=== PATIENT | female | born 1950 | race Caucasian/White ===

== ENCOUNTER 2017-04-04 11:12 | Emergency (ER) | payer MEDICARE, MEDICAID ==
[2017-04-04] MEDS ORDERED: Aspirin Low Dose CHEW TAB* 81 MG PO ONE (11:36)
[2017-04-04 12:05] LABS: Hematocrit 43 % (35-47); Hemoglobin 13.9 g/dl (12.0-16.0); Mean Corpuscular HGB Conc 33 g/dl (31-36); Mean Corpuscular Hemoglobin 27 pg (27-31); Mean Corpuscular Volume 81 fL (80-97); Mean Platelet Volume 8 um3 (7.4-10.4); Red Blood Count 5.25 10^6/ul (4.0-5.4); Red Cell Distribution Width 15 % (10.5-15); White Blood Count 9.6 10^3/ul (3.5-10.8)
[2017-04-04 12:22] LABS: Albumin 4.1 g/dL (3.2-5.2); BUN/Creatinine Ratio 13.6 (8-20); Calcium 9.6 mg/dL (8.6-10.3); EGFR African American 68.5 (>60); EGFR Non-African American 53.3 (>60); Globulin 3.2 g/dL (2-4); Potassium 3.2 mmol/L (3.5-5.0); Total Bilirubin 0.5 mg/dL (0.2-1.0); Total Protein 7.3 g/dL (6.4-8.9)
[2017-04-04 13:11] VITALS: BP 119/69
--- NOTE | 2017-04-04 14:08 | RAD ---
Indication: Chest pain. Single frontal view of the chest performed at 1155 hours was reviewed. Comparison is made with previous exam dated July 24, 2016. No mediastinal shift is noted. Elevated right hemidiaphragm is noted. Lung schaefer appear clear. IMPRESSION: NO ACTIVE CARDIOPULMONARY DISEASE IS NOTED.
--- NOTE | 2017-04-04 18:32 | ED ---
Taylor Bustos Alfonso, scribed for Ricardo Bhatt MD on 04/04/17 at 1201 . HPI Chest Pain - HPI Summary HPI Summary: The patient is a 67 y.o F presenting to [facility] for chest pain since a few hours ago. The pain feels like a fist in his chest. It radiates to his shoulder blades. Symptoms reported include dark stool, rhinorrhea, SOB, diaphoresis, and green phlegm. Aggravated and alleviated by nothing. PMHx of CP, HTN, and fibromyalgia. No PMHx of cardiomegaly. - History of Current Complaint Chief Complaint: EDChestWallPain Time Seen by Provider: 04/04/17 11:53 Hx Obtained From: Patient Onset/Duration: Started Hours Ago, Still Present Timing: Constant, Lasting Hours Initial Severity: Mild Current Severity: Moderate Pain Intensity: 5 Chest Pain Location: Diffuse Chest Pain Radiates To:: Shoulder - Both Aggravating Factor(s): Nothing Alleviating Factor(s): Nothing Associated Signs and Symptoms: Positive: Chest Pain, Shortness of Breath, Diaphoresis, Other: - Melena, Rhinorrhea, green phlegm - Additional Pertinent History Primary Care Physician: [id number] - Allergy/Home Medications Allergies/Adverse Reactions: Allergies Allergy/AdvReac Type Severity Reaction Status Date / Time Ampicillin Allergy Severe See Comment Verified 08/19/16 10:31 Lactose Intolerance (GI) Allergy GI Upset Verified 08/19/16 10:31 Morphine AdvReac Severe SEVERE Verified 08/19/16 10:31 DROP IN HEART RATE Gabapentin AdvReac Intermediate See Comment Verified 08/19/16 10:31 Olanzapine [From Zyprexa] AdvReac See Comment Verified 08/19/16 10:31 Pravastatin AdvReac Muscle Ache Verified 08/19/16 10:31 Procaine [From Novocain] AdvReac See Comment Verified 08/19/16 10:31 Sertraline [From Zoloft] AdvReac Unknown Verified 08/19/16 10:31 Reaction Details viibryd AdvReac See Comment Uncoded 08/19/16 10:31 PMH/Surg Hx/FS Hx/Imm Hx Endocrine/Hematology History: Denies: Hx Anticoagulant Therapy, Hx Blood Disorders, Hx Blood Transfusions, Hx Bone Marrow Disease, Hx Diabetes, Hx Systemic Lupus Erythematosus, Hx Sickle Cell Disease, Hx Thyroid Disease, Hx Anemia, Hx Unexplained Bleeding, Other Endocrine/Hematological Disorders Cardiovascular History: Reports: Hx Hypercholesterolemia, Hx Hypertension - ON MED, Hx Myocardial Infarction, Other Cardiovascular Problems/Disorders - CARRIES NITRO FOR CHEST PAIN Denies: Hx Aneurysm, Hx Angina, Hx Angioplasty, Hx Auto Implanted Cardiovert Defib, Hx Cardiac Arrest, Hx Cardiomegaly, Hx Congenital Heart Disease, Hx Congestive Heart Failure, Hx Coronary Artery Disease, Hx Deep Vein Thrombosis, Hx Hypotension, Hx Pacemaker/ICD, Hx Peripheral Vascular Disease, Hx Rheumatic Fever, Hx Syncope, Hx Valvular Heart Disease Respiratory History: Reports: Hx Asthma - PRN INHALER, STATES BROUGHT ON BY ANXIETY Denies: Hx Bronchopulmonary Dysplasia, Hx Chronic Bronchitis, Hx Chronic Obstructive Pulmonary Disease (COPD), Hx Cystic Fibrosis, Hx Lung Cancer, Hx Pleural Effusion, Hx Pneumonia, Hx Pulmonary Edema, Hx Pulmonary Embolism, Hx Seasonal Allergies, Hx Sleep Apnea, Other Respiratory Problems/Disorders GI History: Reports: Hx Gastroesophageal Reflux Disease - ON MED, Hx Irritable Bowel - DIARRHEA AT TIMES-LACTOSE INTOLERANT, Other GI Disorders - GALLBLADDER POLYPS/STONES, FATTY LVER Denies: Hx Cirrhosis, Hx Crohn's Disease, Hx Diverticulosis, Hx Gall Bladder Disease, Hx Gastrointestinal Bleed, Hx Hiatal Hernia, Hx Jaundice, Hx Obstructive Bowel, Hx Ileostomy, Hx Pyloric Stenosis, Hx Ulcer History: Reports: Other Problems/Disorders - 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 NOW Denies: Hx Acute Renal Failure, Hx Benign Prostatic Hyperplasia, Hx Chronic Renal Failure, Hx Dialysis, Hx Kidney Infection, Hx Kidney Stones Musculoskeletal History: Reports: Hx Arthritis, Hx Fibromyalgia, Other Musculoskeletal History - MILD CURVATURE OF SPINE Denies: Hx Back Problems, Hx Bursitis, Hx Congenital Bone Abnormalities, Hx Gout, Hx Orthopedic Injury, Hx Osteoporosis, Hx Scoliosis, Hx Tendonitis Sensory History: Reports: Hx Cataracts - BILAT, Hx Contacts or Glasses - GLASSES Denies: Hx Eye Injury, Hx Eye Prosthesis, Hx Glaucoma, Hx Macular Degeneration, Hx Vision Problem, Hx Deafness, Hx Hearing Aid, Hx Hearing Problem , Other Sensory Impairments Opthamlomology History: Reports: Hx Cataracts - BILAT, Hx Contacts or Glasses - GLASSES Denies: Hx Eye Injury, Hx Eye Prosthesis, Hx Glaucoma, Hx Macular Degeneration, Hx Vision Problem, Other Sensory Impairments Neurological History: Reports: Hx Headaches - AT TIMES, Hx Nerve Disease - FIBROMYALGIA Denies: Hx Dementia, Hx Developmental Delay, Hx Migraine, Hx Seizures, Hx Spinal Cord Injury, Hx Transient Ischemic Attacks (TIA), Other Neuro Impairments /Disorders Psychiatric History: Reports: Hx Anxiety - ON MED, Hx Depression Denies: Hx Attention Deficit Hyperactivity Disorder, Hx Autism, Hx Eating Disorder, Hx Oppositional Miner Disorder, Hx Panic Disorder, Hx Post Traumatic Stress Disorder, Hx Inpatient Treatment, Hx Community Mental Health Tx , Hx Schizophrenia, Hx Bipolar Disorder, Hx Suicide Attempt, Other Psychiatric Issues/Disorders - Cancer History Hx Hematologic Symptoms: No Hx Chemotherapy: No Hx Radiation Therapy: No - Surgical History Surgery Procedure, Year, and Place: HYSTERECTOMY. CARPAL TUNNEL X2. D&C X3. CARDIAC CATH. tubal ligation prior to hysterectomy. 07/2016 RIGHT CATARACT EXTRACTION WITH IOL IMPLANT, [facility] Hx Anesthesia Reactions: No Infectious Disease History: No Infectious Disease History: Reports: Hx Hepatitis - as a child, Hx Shingles - years ago per pt, History Other Infectious Disease - ? HEPATITIS A CHILD Denies: Traveled Outside the [place] in Last 30 Days - Family History Known Family History: Positive: Cardiac Disease - sister, Diabetes Family History: sister - unspecified cardiac dz. Father - CHF - Social History Alcohol Use: None Hx Substance Use: No Substance Use Type: Reports: None Hx Tobacco Use: No Smoking Status (MU): Never Smoked Tobacco Have You Smoked in the Last Year: No Review of Systems Positive: Skin Diaphoresis Positive: Other - Green phlegm Positive: Chest Pain Positive: Shortness Of Breath Positive: other - Melena, rhinorrhea, All Other Systems Reviewed And Are Negative: Yes Physical Exam - Summary Physical Exam Summary: The patient has a flat affect. NAC The skin is warm and dry and skin color reflects adequate perfusion. HEENT: The head is normocephalic and atraumatic. The pupils are equal and reactive. The conjunctivae are clear and without drainage. Nares are patent and without drainage. Mouth reveals moist mucous membranes and the throat is without erythema and exudate. The external ears are intact. The ear canals are patent and without drainage. The tympanic membranes are intact. Neck is supple with full range of motion and non-tender. There are no carotid bruits. There is no neck vein distension. Respiratory: Chest is non-tender. Lungs are clear to auscultation and breath sounds are symmetrical and equal. Cardiovascular: Hear is regular rate and rhythm. There is no murmur or rub auscultated. There is no peripheral edema and pulses are symmetrical and equal. Abdomen: There is reproducible CP. Diffused abdominal tenderness. Musculoskeletal: There is no back pain noted. Extremities are non-tender with full range of motion. There is good capillary refill. There is no peripheral edema or calf tenderness elicited. No calf tenderness in bilateral extremities. Neurological: Patient is alert and oriented to person, place and time. The patient has symmetrical motor strength in all four extremities. Cranial nerves are grossly intact. Deep tendon reflexes are symmetrical and equal in all four extremities. Psychiatric: The patient has an appropriate affect and does not exhibit any anxiety or depression. Triage Information Reviewed: Yes Vital Signs On Initial Exam: Initial Vitals Resp 11 04/04/17 11:28 Vital Signs Reviewed: Yes - [place] Coma Scale Coma Scale Total: 15 Diagnostics - Vital Signs Vital Signs Temp Pulse Resp BP Pulse Ox 04/04/17 11:30 98 F 75 17 117/71 93 04/04/17 11:28 11 - Laboratory Lab Results: Lab Results 04/04/17 04/04/17 04/04/17 Range/Units 12:00 12:00 12:00 WBC 9.6 (3.5-10.8) 10^3/ul RBC 5.25 (4.0-5.4) 10^6/ul Hgb 13.9 (12.0-16.0) g/dl Hct 43 (35-47) % MCV 81 (80-97) fL MCH 27 (27-31) pg MCHC 33 (31-36) g/dl RDW 15 (10.5-15) % Plt Count 276 (150-450) 10^3/ul MPV 8 (7.4-10.4) um3 Neut % (Auto) 75.6 (38-83) % Lymph % (Auto) 15.4 L (25-47) % [place] % (Auto) 6.5 (1-9) % Eos % (Auto) 2.3 (0-6) % Baso % (Auto) 0.2 (0-2) % Absolute Neuts (auto) 7.2 (1.5-7.7) 10^3/ul Absolute Lymphs (auto) 1.5 (1.0-4.8) 10^3/ul Absolute Monos (auto) 0.6 (0-0.8) 10^3/ul Absolute Eos (auto) 0.2 (0-0.6) 10^3/ul Absolute Basos (auto) 0 (0-0.2) 10^3/ul Absolute Nucleated RBC 0 10^3/ul Nucleated RBC % 0 Sodium 140 (133-145) mmol/L Potassium 3.2 L (3.5-5.0) mmol/L Chloride 105 (101-111) mmol/L Carbon Dioxide 27 (22-32) mmol/L Anion Gap 8 (2-11) mmol/L BUN 14 (6-24) mg/dL Creatinine 1.03 H (0.51-0.95) mg/dL Est GFR ( Amer) 68.5 (>60) Est GFR (Non-Af Amer) 53.3 (>60) BUN/Creatinine Ratio 13.6 (8-20) Glucose 90 (70-100) mg/dL Lactic Acid 1.2 (0.5-2.0) mmol/L Calcium 9.6 (8.6-10.3) mg/dL Total Bilirubin 0.50 (0.2-1.0) mg/dL AST 14 (13-39) U/L ALT 9 (7-52) U/L Alkaline Phosphatase 102 (34-104) U/L Troponin I 0.00 (<0.04) ng/mL B-Natriuretic Peptide ( - 100) pg/mL Total Protein 7.3 (6.4-8.9) g/dL Albumin 4.1 (3.2-5.2) g/dL Globulin 3.2 (2-4) g/dL Albumin/Globulin Ratio 1.3 (1-3) // Range/Units 12:00 WBC (3.5-10.8) 10^3/ul RBC (4.0-5.4) 10^6/ul Hgb (12.0-16.0) g/dl Hct (35-47) % MCV (80-97) fL MCH (27-31) pg MCHC (31-36) g/dl RDW (10.5-15) % Plt Count (150-450) 10^3/ul MPV (7.4-10.4) um3 Neut % (Auto) (38-83) % Lymph % (Auto) (25-47) % [place] % (Auto) (1-9) % Eos % (Auto) (0-6) % Baso % (Auto) (0-2) % Absolute Neuts (auto) (1.5-7.7) 10^3/ul Absolute Lymphs (auto) (1.0-4.8) 10^3/ul Absolute Monos (auto) (0-0.8) 10^3/ul Absolute Eos (auto) (0-0.6) 10^3/ul Absolute Basos (auto) (0-0.2) 10^3/ul Absolute Nucleated RBC 10^3/ul Nucleated RBC % Sodium (133-145) mmol/L Potassium (3.5-5.0) mmol/L Chloride (101-111) mmol/L Carbon Dioxide (22-32) mmol/L Anion Gap (2-11) mmol/L BUN (6-24) mg/dL Creatinine (0.51-0.95) mg/dL Est GFR ( Amer) (>60) Est GFR (Non-Af Amer) (>60) BUN/Creatinine Ratio (8-20) Glucose (70-100) mg/dL Lactic Acid (0.5-2.0) mmol/L Calcium (8.6-10.3) mg/dL Total Bilirubin (0.2-1.0) mg/dL AST (13-39) U/L ALT (7-52) U/L Alkaline Phosphatase (34-104) U/L Troponin I (<0.04) ng/mL B-Natriuretic Peptide 92 ( - 100) pg/mL Total Protein (6.4-8.9) g/dL Albumin (3.2-5.2) g/dL Globulin (2-4) g/dL Albumin/Globulin Ratio (1-3) Result Diagrams: 04/04/17 12:00 04/04/17 12:00 Lab Statement: Any lab studies that have been ordered have been reviewed, and results considered in the medical decision making process. - Radiology CXR Xray Interpretation: No Acute Changes - NO ACTIVE CARDIOPULMONARY DISEASE IS NOTED. Radiology Interpretation Completed By: Radiologist - EKG 1141 EKG Rhythm: Sinus Rhythm - 76 bpm EKG Interpretation: Diffuse T wave inversion EKG Comparison: Other - Change from 07/24/2016 Chest Pain Course/Dx - Course Assessment/Plan: This 67 y/o female presents to ED for chest pain since this morning. Blood work and CXR are noted wnl except for mildly elevated creatinine of 1.03. EKG was noted with diffuse T-wave inversion, which was new change in comparison to EKG from 07/24/2017. Hospitalist, Dr. Hawkins, was consulted and accepts pt for admission and further cardiac workup. Pt however refused the admission, and decided to go home AMA. R/b/a is reviewed. - Chest Pain Differential Diagnosis/HQI/PQRI: Acute [place], ACS, CHF, Chest Wall, Lower Respiratory Infection, Other: - Diagnoses Provider Diagnoses: Chest pain - Provider Notifications Discussed Care Of Patient With: Fara Hawkins Time Discussed With Above Provider: 12:38 - Agrees to admit pt. Discharge - Discharge Plan Condition: Stable Disposition: AGAINST MEDICAL ADVICE Patient Education Materials: Chest Pain (ED) Referrals: Cornell Zarate MD [Primary Care Provider] - 2 Days Additional Instructions: Take aspirin and visit primary care provider. The documentation as recorded by the Taylor luna Alfonso accurately reflects the service I personally performed and the decisions made by , Ricardo Bhatt MD.
== END 2017-04-04 13:00 | disposition left against medical advice (07) ==
LOC: ED 11:12
DX: R07.9 Chest pain, unspecified (principal); R06.02 Shortness of breath; R61 Generalized hyperhidrosis; Z53.21 Procedure and treatment not carried out due to patient leaving prior to being seen by health care provider
CPT/HCPCS: 36415; 71010; 80053; 83605; 83880; 84484; 85025; 93005; 99283

== ENCOUNTER 2017-05-08 17:32 | Observation (INO) | payer MEDICARE, MEDICAID ==
[2017-05-08 17:59] LABS: Hematocrit 40 % (35-47); Hemoglobin 12.8 g/dl (12.0-16.0); Mean Corpuscular HGB Conc 32 g/dl (31-36); Mean Corpuscular Hemoglobin 27 pg (27-31); Mean Corpuscular Volume 84 fL (80-97); Mean Platelet Volume 8 um3 (7.4-10.4); Red Blood Count 4.74 10^6/ul (4.0-5.4); Red Cell Distribution Width 15 % (10.5-15); White Blood Count 7.7 10^3/ul (3.5-10.8)
[2017-05-08 18:18] LABS: Albumin 3.9 g/dL (3.2-5.2); BUN/Creatinine Ratio 13.5 (8-20); Calcium 9.3 mg/dL (8.6-10.3); EGFR Non-African American 39.7 (>60); Potassium 4.1 mmol/L (3.5-5.0); Total Bilirubin 0.4 mg/dL (0.2-1.0); Total Protein 6.9 g/dL (6.4-8.9)
--- NOTE | 2017-05-08 18:24 | RAD ---
HISTORY: Chest pain COMPARISONS: April 04, 2017 VIEWS:1: Single frontal portable view of the chest at 6:05 PM. The patient is obliqued to the right. FINDINGS: LINES AND TUBES: None. CARDIOMEDIASTINAL SILHOUETTE: The cardiomediastinal silhouette is normal for portable technique. PLEURA: The costophrenic angles are sharp. No pleural abnormalities are noted. LUNG PARENCHYMA: The lungs are clear. ABDOMEN: The upper abdomen is clear. There is no subphrenic gas. BONES AND SOFT TISSUES: No bone or soft tissue abnormalities are noted. IMPRESSION: NO ACTIVE CARDIOPULMONARY DISEASE.
[2017-05-08] MEDS ORDERED: Ondansetron INJ* 2 MG/ML VIAL IV PRN (19:01)
[2017-05-08] MEDS ORDERED: Acetaminophen TAB* 325 MG PO PRN (19:01)
[2017-05-08] MEDS ORDERED: Nitroglycerin TAB 0.4 MG* 0.4 MG TAB SL ONE (19:03)
[2017-05-08] MEDS ORDERED: Nitroglycerin TAB 0.4 MG* 0.4 MG TAB SL PRN ×2 (19:05→19:18)
[2017-05-08] MEDS ORDERED: Loperamide CAP* 2 MG PO PRN (19:05)
[2017-05-08] MEDS ORDERED: Hydroxychloroquine TAB* 200 MG PO SCH (20:00)
[2017-05-08] MEDS: Heparin VIAL(*) 5000 UNITS/ML VIAL (FIVE THOUSAND) SUBCUT SCH (21:01)
[2017-05-08 23:33] LABS: Urine Bacteria Absent (Absent); Urine Bilirubin Negative (Negative); Urine Glucose Negative (Negative); Urine Nitrite Negative (Negative)
--- NOTE | 2017-05-09 01:19 | HP ---
CC: Dr. Zarate; Dr. Lopez * HISTORY AND PHYSICAL: DATE OF ADMISSION: 05/08/17 PRIMARY CARE PROVIDER: Dr. Zarate. CARDIOLOGY: Dr. Lopez. HEALTHCARE PROXY: Her son, Jin, and her daughter, Consuelo. CODE STATUS: DNR. Discussed with patient and her healthcare proxy, Jin. SOURCE OF INFORMATION: History obtained from interview with patient and Jin, review of past medical record. RELIABILITY: Fair. CHIEF COMPLAINT: Chest pain. HISTORY OF PRESENT ILLNESS: This is a 67-year-old female with past medical history of nonobstructive CAD and cath in 2011 as well as a low risk stress test , April 2016; however, did not meet peak heart rate at that time, was planned for a stress test this week 2 days prior to this admission; however, reports she was not feeling well and so could not attend. She additionally had chest pain on 04/04/17, was to be admitted to the hospital; however, left AMA before being admitted. Today around 4:45, approximately 3 hours prior, developed substernal chest pressure radiating to her back like a stone, constant associated with increasing nausea, although she notes she has been nauseous over the last 3 weeks. She also endorses frequent diarrhea; however, this event was associated with increased shortness of breath and lightheadedness that has now resolved. She reports 2/10 pain at this time; however, feels much improved. She says this feels the same as all past events of chest pain for which she has been monitored in the hospital. PAST MEDICAL HISTORY: Includes nonobstructive CAD, hypertension, irritable bowel syndrome, fibromyalgia, connective tissue disorder, arthritis, migraines, depression, chronic pain, history of panic with agoraphobia, hiatal hernia, hyperlipidemia, asthma, CKD, carpal tunnel release twice, hysterectomy, obesity. HOME MEDICATIONS: 1. Clonazepam 1 mg every 6 hours as needed. 2. Amlodipine 5 mg daily. 3. Triamcinolone 0.1% cream. 4. Nitroglycerin 0.4 mg sublingual as need for chest pain. 5. Naproxen 500 mg 3 times a day as needed for pain. 6. Metoprolol succinate ER 25 mg daily. 7. Imodium 2 mg twice daily as needed. 8. Plaquenil 200 mg, not currently taking. 9. Famotidine 200 mg daily. 10. Ergocalciferol 5000 units monthly. 11. Restasis 1 drop both eyes at bedtime. 12. Clobetasol 0.05% ointment topically, twice daily as needed. 13. Albuterol 2 puffs inhaled twice daily as needed. ALLERGIES: To AMPICILLIN, MORPHINE, GABAPENTIN, ZYPREXA, PRAVASTATIN, PROCAINE , ZOLOFT, , and VIIBRYD. FAMILY HISTORY: Significant for sister with CAD and diabetes, father with CVA and mother with CVA and rheumatoid arthritis. SOCIAL HISTORY: No tobacco, alcohol, or illicits. REVIEW OF SYSTEMS: As per HPI including increasing diarrhea and nausea over the last 3 weeks. Chest pain associated with shortness of breath, lightheadedness. Otherwise, all other systems negative. PHYSICAL EXAMINATION GENERAL: Sitting up in bed, interactive, no apparent distress. VITAL SIGNS: When seen by this author 125/54, heart rate 54, respiratory rate 12, T-max in the emergency room 97.7, 96% on room air. HEENT: Oropharynx clear. She has moist mucous membranes. Sclerae are anicteric. NECK: Non-elevated JVD. No cervical or supraclavicular lymphadenopathy. HEART: Regular rate and rhythm, soft 2/6 systolic ejection murmur. LUNGS: Clear bilaterally. ABDOMEN: Soft, nontender. EXTREMITIES: Warm, well-perfused. Intact pulses. SKIN: Warm. No clubbing, cyanosis or edema. NEUROLOGIC: She is alert and oriented x3. She has a flat affect with psychomotor slowing. No apparent anxiety, depression. LABORATORY DATA AND DIAGNOSTIC STUDIES: Pertinent labs were reviewed. BUN 18, creatinine 1.33, troponin-I 0.00. Data reviewed. EKG: Sinus bradycardia, T-wave flattening in V4, 5, and 6. Prolonged QTc of 486. Exercise stress test in March of 2016 failed to reach target heart rate with exercise. There was concern for chronotropic insufficiency at that time. ASSESSMENT AND PLAN: This is a 67-year-old female, past medical history of fibromyalgia, chest pain, nonobstructive coronary artery disease in 2011 and indeterminate exercise stress in March of 2016, presenting with chest pain, similar chest pain in the past. 1. Chest pain: I do not suspect acute coronary syndrome at this time; however , certainly could have progressed underlying coronary ischemia since the time of her last cath. We will admit to [facility] for observation to the CDU unit. Trend troponin for 3 until peak. Plan on transthoracic echocardiogram tomorrow. If all normal, the patient can leave. At this time, holding metoprolol given bradycardia. Nitroglycerin now for improving chest pain, continue statin. 2. Bradycardia: Holding metoprolol as indicated above. 3. History of anxiety: Continue Klonopin as needed. 4. Hypertension: Continue Norvasc. 5. Diarrhea: Appears to be chronic, continue Imodium. 6. DVT prophylaxis, heparin. 7. Code status is DNR. Discussed with patient and her healthcare proxy, Jin. [id number]/CPS #: [id number] RITA
[2017-05-09] MEDS ORDERED: NS 0.9% 1000 ML* 1,000 ML IV SCH ×2 (01:30)
[2017-05-09] MEDS: Heparin VIAL(*) 5000 UNITS/ML VIAL (FIVE THOUSAND) SUBCUT SCH (05:35)
[2017-05-09 06:15] LABS: BUN/Creatinine Ratio 16.5 (8-20); Calcium 8.6 mg/dL (8.6-10.3); EGFR African American 73.4 (>60); EGFR Non-African American 57.1 (>60); HDL Cholesterol 39.1 mg/dL; Potassium 4.1 mmol/L (3.5-5.0)
[2017-05-09] MEDS: clonazePAM TAB(*) 1 MG PO PRN ×2 (07:46→14:24)
[2017-05-09] MEDS ORDERED: Famotidine TAB* 20 MG PO SCH (09:00)
[2017-05-09] MEDS ORDERED: amLODIPine TAB* 5 MG PO SCH (09:00)
[2017-05-09] MEDS ORDERED: Aspirin EC Low Dose* 81 MG TAB.EC PO SCH (09:00)
[2017-05-09 12:18] VITALS: BP 125/55
--- NOTE | 2017-05-09 22:43 | ED ---
Shweta Bustos Thomas, scribed for Deangelo Delgado MD on 05/08/17 at 1806 . HPI Chest Pain - HPI Summary HPI Summary: The pt is a 67 y/o F presenting to the ED c/o CP that began this afternoon. The CP is rated 4/10 began when she was lying at bed and she still has CP in the ED. She states that "it hurts to breathe". PMHx: HTN, gallstones, depression, anxiety, fibromyalgia. She was scheduled for a stress test two days ago that she missed. She was here last month and was recommended to be admitted to [facility], but the pt declined AMA because of conflicts with her sister. - History of Current Complaint Chief Complaint: EDChestPainROMI Onset/Duration: Started Hours Ago - this afternoon, Still Present Current Severity: Moderate Pain Intensity: 4 Pain Scale Used: 0-10 Numeric Character: Dyspnea at Exertion Alleviating Factor(s): Nothing Associated Signs and Symptoms: Positive: Chest Pain - 4/10, Other: - POS: "it hurts to breathe" - Additional Pertinent History Primary Care Physician: [id number] - Allergy/Home Medications Allergies/Adverse Reactions: Allergies Allergy/AdvReac Type Severity Reaction Status Date / Time Ampicillin Allergy Severe See Comment Verified 08/19/16 10:31 Lactose Intolerance (GI) Allergy GI Upset Verified 08/19/16 10:31 Morphine AdvReac Severe SEVERE Verified 08/19/16 10:31 DROP IN HEART RATE Gabapentin AdvReac Intermediate See Comment Verified 08/19/16 10:31 Olanzapine [From Zyprexa] AdvReac See Comment Verified 08/19/16 10:31 Pravastatin AdvReac Muscle Ache Verified 08/19/16 10:31 Procaine [From Novocain] AdvReac See Comment Verified 08/19/16 10:31 Sertraline [From Zoloft] AdvReac Unknown Verified 08/19/16 10:31 Reaction Details viibryd AdvReac See Comment Uncoded 08/19/16 10:31 PMH/Surg Hx/FS Hx/Imm Hx Previously Healthy: No Endocrine/Hematology History: Denies: Hx Anticoagulant Therapy, Hx Blood Disorders, Hx Blood Transfusions, Hx Bone Marrow Disease, Hx Diabetes, Hx Systemic Lupus Erythematosus, Hx Sickle Cell Disease, Hx Thyroid Disease, Hx Anemia, Hx Unexplained Bleeding, Other Endocrine/Hematological Disorders Cardiovascular History: Reports: Hx Hypercholesterolemia, Hx Hypertension - ON MED, Hx Myocardial Infarction, Other Cardiovascular Problems/Disorders - CARRIES NITRO FOR CHEST PAIN Denies: Hx Aneurysm, Hx Angina, Hx Angioplasty, Hx Auto Implanted Cardiovert Defib, Hx Cardiac Arrest, Hx Cardiomegaly, Hx Congenital Heart Disease, Hx Congestive Heart Failure, Hx Coronary Artery Disease, Hx Deep Vein Thrombosis, Hx Hypotension, Hx Pacemaker/ICD, Hx Peripheral Vascular Disease, Hx Rheumatic Fever, Hx Syncope, Hx Valvular Heart Disease Respiratory History: Reports: Hx Asthma - PRN INHALER, STATES BROUGHT ON BY ANXIETY Denies: Hx Bronchopulmonary Dysplasia, Hx Chronic Bronchitis, Hx Chronic Obstructive Pulmonary Disease (COPD), Hx Cystic Fibrosis, Hx Lung Cancer, Hx Pleural Effusion, Hx Pneumonia, Hx Pulmonary Edema, Hx Pulmonary Embolism, Hx Seasonal Allergies, Hx Sleep Apnea, Other Respiratory Problems/Disorders GI History: Reports: Hx Gastroesophageal Reflux Disease - ON MED, Hx Irritable Bowel - DIARRHEA AT TIMES-LACTOSE INTOLERANT, Other GI Disorders - GALLBLADDER POLYPS/STONES, FATTY LVER Denies: Hx Cirrhosis, Hx Crohn's Disease, Hx Diverticulosis, Hx Gall Bladder Disease, Hx Gastrointestinal Bleed, Hx Hiatal Hernia, Hx Jaundice, Hx Obstructive Bowel, Hx Ileostomy, Hx Pyloric Stenosis, Hx Ulcer History: Reports: Other Problems/Disorders - 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 NOW Denies: Hx Acute Renal Failure, Hx Benign Prostatic Hyperplasia, Hx Chronic Renal Failure, Hx Dialysis, Hx Kidney Infection, Hx Kidney Stones Musculoskeletal History: Reports: Hx Arthritis, Hx Fibromyalgia, Other Musculoskeletal History - MILD CURVATURE OF SPINE Denies: Hx Back Problems, Hx Bursitis, Hx Congenital Bone Abnormalities, Hx Gout, Hx Orthopedic Injury, Hx Osteoporosis, Hx Scoliosis, Hx Tendonitis Sensory History: Reports: Hx Cataracts - BILAT, Hx Contacts or Glasses - GLASSES Denies: Hx Eye Injury, Hx Eye Prosthesis, Hx Glaucoma, Hx Macular Degeneration, Hx Vision Problem, Hx Deafness, Hx Hearing Aid, Hx Hearing Problem , Other Sensory Impairments Opthamlomology History: Reports: Hx Cataracts - BILAT, Hx Contacts or Glasses - GLASSES Denies: Hx Eye Injury, Hx Eye Prosthesis, Hx Glaucoma, Hx Macular Degeneration, Hx Vision Problem, Other Sensory Impairments Neurological History: Reports: Hx Headaches - AT TIMES, Hx Nerve Disease - FIBROMYALGIA Denies: Hx Dementia, Hx Developmental Delay, Hx Migraine, Hx Seizures, Hx Spinal Cord Injury, Hx Transient Ischemic Attacks (TIA), Other Neuro Impairments /Disorders Psychiatric History: Reports: Hx Anxiety - ON MED, Hx Depression Denies: Hx Attention Deficit Hyperactivity Disorder, Hx Autism, Hx Eating Disorder, Hx Oppositional Hinds Disorder, Hx Panic Disorder, Hx Post Traumatic Stress Disorder, Hx Inpatient Treatment, Hx Community Mental Health Tx , Hx Schizophrenia, Hx Bipolar Disorder, Hx Suicide Attempt, Other Psychiatric Issues/Disorders - Cancer History Hx Hematologic Symptoms: No Hx Chemotherapy: No Hx Radiation Therapy: No - Surgical History Surgery Procedure, Year, and Place: HYSTERECTOMY. CARPAL TUNNEL X2. D&C X3. CARDIAC CATH. tubal ligation prior to hysterectomy. 07/2016 RIGHT CATARACT EXTRACTION WITH IOL IMPLANT, [facility] Hx Anesthesia Reactions: No Infectious Disease History: No Infectious Disease History: Reports: Hx Hepatitis - as a child, Hx Shingles - years ago per pt, History Other Infectious Disease - ? HEPATITIS A CHILD Denies: Traveled Outside the [place] in Last 30 Days - Family History Known Family History: Positive: Cardiac Disease - sister, Diabetes Family History: sister - unspecified cardiac dz. Father - CHF - Social History Alcohol Use: None Hx Substance Use: No Substance Use Type: Reports: None Hx Tobacco Use: No Smoking Status (MU): Never Smoked Tobacco Have You Smoked in the Last Year: No Review of Systems Constitutional: Negative Negative: Fever, Chills Eyes: Negative Negative: Erythema - eyes ENT: Negative Negative: Sore Throat Positive: Chest Pain - 02/08 Respiratory: Other - POS: "it hurts to breathe" Gastrointestinal: Negative Negative: Abdominal Pain, Vomiting, Nausea Genitourinary: Negative Negative: dysuria, hematuria Musculoskeletal: Negative Negative: Myalgia, Edema - leg Skin: Negative Negative: Rash Neurological: Negative, Other - NEG: dizziness Psychological: Normal All Other Systems Reviewed And Are Negative: Yes Physical Exam - Summary Physical Exam Summary: Constitutional: Well-developed, Well-nourished, Alert. (-) Distressed Skin: Warm, Dry HENT: Normocephalic; Atraumatic Eyes: Conjunctiva normal Neck: Musculoskeletal ROM normal neck. (-) JVD, (-) Stridor, (-) Tracheal deviation Cardio: Rhythm regular, rate normal, Heart sounds normal; Intact distal pulses; The pedal pulses are 2+ and symmetric. Radial pulses are 2+ and symmetric. (-) Murmur Pulmonary/Chest wall: Effort normal. (-) Respiratory distress, (-) Wheezes, (-) Rales Abd: Soft, (-) Tenderness, (-) Distension, (-) Guarding, (-) Rebound Musculoskeletal: (-) Edema Lymph: (-) Cervical adenopathy Neuro: Alert, Oriented x3 Psych: Mood and affect Normal Triage Information Reviewed: Yes Vital Signs On Initial Exam: Initial Vitals Temp Pulse Resp BP Pulse Ox 97.3 F 52 14 96/56 99 05/08/17 17:38 05/08/17 17:38 05/08/17 17:38 05/08/17 17:38 05/08/17 17:38 Vital Signs Reviewed: Yes - Amrita Coma Scale Coma Scale Total: 15 Diagnostics - Vital Signs Vital Signs Temp Pulse Resp BP Pulse Ox 05/08/17 17:45 99 05/08/17 17:42 97.7 F 52 15 96/56 99 05/08/17 17:38 97.3 F 52 14 96/56 99 - Laboratory Lab Results: Lab Results 05/08/17 05/08/17 05/08/17 Range/Units 17:43 17:43 17:43 WBC 7.7 (3.5-10.8) 10^3/ul RBC 4.74 (4.0-5.4) 10^6/ul Hgb 12.8 (12.0-16.0) g/dl Hct 40 (35-47) % MCV 84 (80-97) fL MCH 27 (27-31) pg MCHC 32 (31-36) g/dl RDW 15 (10.5-15) % Plt Count 231 (150-450) 10^3/ul MPV 8 (7.4-10.4) um3 Neut % (Auto) 61.1 (38-83) % Lymph % (Auto) 30.0 (25-47) % Donley % (Auto) 6.1 (1-9) % Eos % (Auto) 1.6 (0-6) % Baso % (Auto) 1.2 (0-2) % Absolute Neuts (auto) 4.7 (1.5-7.7) 10^3/ul Absolute Lymphs (auto) 2.3 (1.0-4.8) 10^3/ul Absolute Monos (auto) 0.5 (0-0.8) 10^3/ul Absolute Eos (auto) 0.1 (0-0.6) 10^3/ul Absolute Basos (auto) 0.1 (0-0.2) 10^3/ul Absolute Nucleated RBC 0 10^3/ul Nucleated RBC % 0.1 INR (Anticoag Therapy) (0.89-1.11) APTT (26.0-36.3) seconds Sodium 139 (133-145) mmol/L Potassium 4.1 (3.5-5.0) mmol/L Chloride 110 (101-111) mmol/L Carbon Dioxide 22 (22-32) mmol/L Anion Gap 7 (2-11) mmol/L BUN 18 (6-24) mg/dL Creatinine 1.33 H (0.51-0.95) mg/dL Est GFR ( Amer) 51.0 (>60) Est GFR (Non-Af Amer) 39.7 (>60) BUN/Creatinine Ratio 13.5 (8-20) Glucose 104 H (70-100) mg/dL Lactic Acid 0.8 (0.5-2.0) mmol/L Calcium 9.3 (8.6-10.3) mg/dL Magnesium 2.0 (1.9-2.7) mg/dL Total Bilirubin 0.40 (0.2-1.0) mg/dL AST 14 (13-39) U/L ALT 9 (7-52) U/L Alkaline Phosphatase 87 (34-104) U/L Troponin I 0.00 (<0.04) ng/mL Total Protein 6.9 (6.4-8.9) g/dL Albumin 3.9 (3.2-5.2) g/dL Globulin 3.0 (2-4) g/dL Albumin/Globulin Ratio 1.3 (1-3) 05/08/17 Range/Units 17:43 WBC (3.5-10.8) 10^3/ul RBC (4.0-5.4) 10^6/ul Hgb (12.0-16.0) g/dl Hct (35-47) % MCV (80-97) fL MCH (27-31) pg MCHC (31-36) g/dl RDW (10.5-15) % Plt Count (150-450) 10^3/ul MPV (7.4-10.4) um3 Neut % (Auto) (38-83) % Lymph % (Auto) (25-47) % Donley % (Auto) (1-9) % Eos % (Auto) (0-6) % Baso % (Auto) (0-2) % Absolute Neuts (auto) (1.5-7.7) 10^3/ul Absolute Lymphs (auto) (1.0-4.8) 10^3/ul Absolute Monos (auto) (0-0.8) 10^3/ul Absolute Eos (auto) (0-0.6) 10^3/ul Absolute Basos (auto) (0-0.2) 10^3/ul Absolute Nucleated RBC 10^3/ul Nucleated RBC % INR (Anticoag Therapy) 0.94 (0.89-1.11) APTT 30.6 (26.0-36.3) seconds Sodium (133-145) mmol/L Potassium (3.5-5.0) mmol/L Chloride (101-111) mmol/L Carbon Dioxide (22-32) mmol/L Anion Gap (2-11) mmol/L BUN (6-24) mg/dL Creatinine (0.51-0.95) mg/dL Est GFR ( Amer) (>60) Est GFR (Non-Af Amer) (>60) BUN/Creatinine Ratio (8-20) Glucose (70-100) mg/dL Lactic Acid (0.5-2.0) mmol/L Calcium (8.6-10.3) mg/dL Magnesium (1.9-2.7) mg/dL Total Bilirubin (0.2-1.0) mg/dL AST (13-39) U/L ALT (7-52) U/L Alkaline Phosphatase (34-104) U/L Troponin I (<0.04) ng/mL Total Protein (6.4-8.9) g/dL Albumin (3.2-5.2) g/dL Globulin (2-4) g/dL Albumin/Globulin Ratio (1-3) Result Diagrams: 05/08/17 17:43 05/09/17 05:42 Lab Statement: Any lab studies that have been ordered have been reviewed, and results considered in the medical decision making process. - Radiology CXR Xray Interpretation: No Acute Changes - No evidence of cardiopulmonary disease Radiology Interpretation Completed By: Radiologist - EKG 18:00 Cardiac Rate: Bradycardia - 55 BPM EKG Interpretation: Sinus bradycardia. Nonspecific T abnormalities, lateral leads. No STEMI. Re-Evaluation - Re-Evaluation First Eval Re-Evaluation Time: 19:00 Change: Unchanged Chest Pain Course/Dx - Course Assessment/Plan: The pt is a 67 y/o F presenting to the ED c/o CP that began this afternoon. The CP is rated 4/10 began when she was lying at bed and she still has CP in the ED. She states that "it hurts to breathe". PMHx: HTN, gallstones, depression, anxiety, fibromyalgia. She was scheduled for a stress test two days ago. She was here last month and was recommended to be admitted to [facility], but the pt declined AMA because of conflicts with her sister. A CXR showed no evidence of cardiopulmonary disease. An EKG showed Sinus bradycardia. Nonspecific T abnormalities, lateral leads. No STEMI. Bloodwork showed creatinine 1.33, glucose 104. Pt is admitted to [facility]. - Diagnoses Provider Diagnoses: Chest pain - Provider Notifications Discussed Care Of Patient With: Will Wick Time Discussed With Above Provider: 06:20 Instructed by Provider To: Other - Made aware of patient. Discharge - Discharge Plan Condition: Good Disposition: ADMITTED TO [facility] The documentation as recorded by the Shweta luna Thomas accurately reflects the service I personally performed and the decisions made by , Deangelo Delgado MD.
--- NOTE | 2017-05-10 08:37 | DS ---
CC: Dr. Lopez* DISCHARGE SUMMARY: DATE OF ADMISSION: 05/08/17 DATE OF DISCHARGE: 05/09/17 PRIMARY CARE PROVIDER: Dr. Zarate. PRIMARY DIAGNOSIS: Chest pain. SECONDARY DIAGNOSES: Include: 1. Anxiety. 2. Hypertension. 3. Irritable bowel syndrome. 4. Fibromyalgia. 5. Arthritis. 6. Migraines. 7. Depression. 8. Chronic kidney disease. MEDICATIONS ON DISCHARGE: Please note, an accurate medication reconciliation was difficult as the patient does not know her medications, primary care provider's office is not open on Wednesday. We attempted to obtain an accurate list from her pharmacy, however, she notes she uses several pharmacies and could not tell us all of them. 1. Famotidine 20 mg at bedtime. 2. Clonazepam 1 mg every 6 hours as needed. 3. Abilify 2 mg daily. 4. Desvenlafaxine 50 mg daily. 5. Meloxicam 7.5 mg twice daily. 6. Potassium 40 mEq daily. 7. Triamcinolone cream. 8. Nitroglycerin 0.4 mg sublingual three times a day as needed. 9. Naproxen 500 mg three times a day as needed. 10. Loperamide 2 mg twice daily as needed. 11. Ergocalciferol 50,000 units monthly. 12. Restasis 1 drop both eyes at bedtime. 13. Clobetasol twice daily as needed. 14. Albuterol two puffs inhaled twice daily as needed. 15. Metoprolol tartrate 12.5 mg daily. PERTINENT LABORATORY DATA: Troponin I 0.00 four consecutive checks. HISTORY OF PRESENT ILLNESS AND HOSPITAL COURSE: This is a 67-year-old female with past medical history of chest pain and several events with nonrevealing tests including cardiac cath with nonobstructive disease who was planned to have a repeat stress test two days prior to presentation, however did not go to it. Because she was not feeling well, presented to the hospital with atypical chest pain. She was admitted to the hospital and had four troponins that all remained negative. The chest pain resolved although she had numerous other complaints including "I think my ear has an infection," "my abdomen hurts, my foot hurts and nobody tells me what is going on." The patient will be discharged with an outpatient stress test to be scheduled ordered by this provider. No major changes to her medications were made. 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 At followup please; 1. I am ordering the patient has outpatient stress test. 2. No other specific labs or vitals. 3. Please ensure medication reconciliation is correct as we had difficulty performing medication reconciliation during her hospital stay as indicated above. Reasons to return to the hospital included but not limited to recurrent worsening symptoms, including chest pain, shortness of breath, nausea, vomiting , lightheadedness, loss of consciousness, near loss of consciousness, bleeding from any source, inability to obtain or tolerate medications were discussed with the patient. She acknowledged understanding. Greater than 30 minutes was spent on the discharge of this patient, greater than half of this was spent [id number] with the patient. [id number]/[facility] #: [id number] MTDD
== END 2017-05-09 14:45 | disposition home or self-care (01) ==
LOC: ED 17:32 → MEDTELE 19:21
PROVIDERS: ADMIT Internal Medicine; ATTEND Internal Medicine
DX: R07.9 Chest pain, unspecified (principal); F41.9 Anxiety disorder, unspecified; I12.9 Hypertensive chronic kidney disease with stage 1 through stage 4 chronic kidney disease, or unspecified chronic kidney disease; N18.9 Chronic kidney disease, unspecified; K58.9 Irritable bowel syndrome, unspecified; M79.7 Fibromyalgia; M19.90 Unspecified osteoarthritis, unspecified site; R00.1 Bradycardia, unspecified; G43.909 Migraine, unspecified, not intractable, without status migrainosus; F32.9 Major depressive disorder, single episode, unspecified; Z79.899 Other long term (current) drug therapy; Z88.8 Allergy status to other drugs, medicaments and biological substances
CPT/HCPCS: 36415; 71010; 80048; 80053; 80061; 81003; 81015; 83605; 83735; 84484; 85025; 85610; 85730; 87086; 93005; 96360; 96361; 96372; 99283; A9270-GY; G0378; J1644

== ENCOUNTER 2017-05-16 23:33 | Emergency (ER) | payer MEDICARE, MEDICAID ==
[2017-05-16 23:44] VITALS: BP 139/69
[2017-05-17 00:10] LABS: Hematocrit 40 % (35-47); Hemoglobin 13.2 g/dl (12.0-16.0); Mean Corpuscular HGB Conc 33 g/dl (31-36); Mean Corpuscular Hemoglobin 28 pg (27-31); Mean Corpuscular Volume 84 fL (80-97); Mean Platelet Volume 8 um3 (7.4-10.4); Red Blood Count 4.77 10^6/ul (4.0-5.4); Red Cell Distribution Width 15 % (10.5-15); White Blood Count 10.8 10^3/ul (3.5-10.8)
--- NOTE | 2017-05-17 00:16 | ED ---
Kiesha Bustos Rebecca, scribed for Ti Dewey MD on 05/16/17 at 2349 . HPI Chest Pain - HPI Summary HPI Summary: Pt is a 67 y/o F BIBA who presents to ED c/o CP. Pt reports the pain began "months ago" and worsened this afternoon. Pain is midsternal with radiation to the back and is currently moderate, ranked 5/10. Sx aggravated and alleviated by nothing. Has not taken anything for the pain. Additionally c/o V/D secondary to new Lyrica Rx. Pt was [place] [facility] [place], admitted and D/C 3 days ago for the same sx. States that her current pain is the same as it was when she was evaluated previously. pt had normal stress test on prior admission - History of Current Complaint Chief Complaint: EDChestPainROMI Time Seen by Provider: 05/16/17 23:45 Hx Obtained From: Patient Onset/Duration: Started Weeks Ago - "months", Still Present, Worse Since - This afternoon Current Severity: Moderate Pain Intensity: 5 Pain Scale Used: 0-10 Numeric Chest Pain Location: Mid Sternal Chest Pain Radiates: Yes Chest Pain Radiates To:: Back Aggravating Factor(s): Nothing Alleviating Factor(s): Nothing Associated Signs and Symptoms: Positive: Vomiting - secondary to new Lyrica Rx, Other: - Diarrhea secondary to Lyrica - Additional Pertinent History Primary Care Physician: [id number] - Allergy/Home Medications Allergies/Adverse Reactions: Allergies Allergy/AdvReac Type Severity Reaction Status Date / Time Ampicillin Allergy Severe See Comment Verified 05/16/17 23:47 Lactose Intolerance (GI) Allergy GI Upset Verified 05/16/17 23:47 Morphine AdvReac Severe SEVERE Verified 05/16/17 23:47 DROP IN HEART RATE Gabapentin AdvReac Intermediate See Comment Verified 05/16/17 23:47 Olanzapine [From Zyprexa] AdvReac See Comment Verified 05/16/17 23:47 Pravastatin AdvReac Muscle Ache Verified 05/16/17 23:47 Procaine [From Novocain] AdvReac See Comment Verified 05/16/17 23:47 Sertraline [From Zoloft] AdvReac Unknown Verified 05/16/17 23:47 Reaction Details viibryd AdvReac See Comment Uncoded 05/16/17 23:47 PMH/Surg Hx/FS Hx/Imm Hx Endocrine/Hematology History: Denies: Hx Anticoagulant Therapy, Hx Blood Disorders, Hx Blood Transfusions, Hx Bone Marrow Disease, Hx Diabetes, Hx Systemic Lupus Erythematosus, Hx Sickle Cell Disease, Hx Thyroid Disease, Hx Anemia, Hx Unexplained Bleeding, Other Endocrine/Hematological Disorders Cardiovascular History: Reports: Hx Angina, Hx Hypercholesterolemia, Hx Hypertension - ON MED, Hx Myocardial Infarction, Other Cardiovascular Problems/ Disorders - CARRIES NITRO FOR CHEST PAIN Denies: Hx Aneurysm, Hx Angioplasty, Hx Auto Implanted Cardiovert Defib, Hx Cardiac Arrest, Hx Cardiomegaly, Hx Congenital Heart Disease, Hx Congestive Heart Failure, Hx Coronary Artery Disease, Hx Deep Vein Thrombosis, Hx Hypotension, Hx Pacemaker/ICD, Hx Peripheral Vascular Disease, Hx Rheumatic Fever, Hx Syncope, Hx Valvular Heart Disease Respiratory History: Reports: Hx Asthma - PRN INHALER, STATES BROUGHT ON BY ANXIETY Denies: Hx Bronchopulmonary Dysplasia, Hx Chronic Bronchitis, Hx Chronic Obstructive Pulmonary Disease (COPD), Hx Cystic Fibrosis, Hx Lung Cancer, Hx Pleural Effusion, Hx Pneumonia, Hx Pulmonary Edema, Hx Pulmonary Embolism, Hx Seasonal Allergies, Hx Sleep Apnea, Other Respiratory Problems/Disorders GI History: Reports: Hx Gastroesophageal Reflux Disease - ON MED, Hx Irritable Bowel - DIARRHEA AT TIMES-LACTOSE INTOLERANT, Other GI Disorders - GALLBLADDER POLYPS/STONES, FATTY LVER Denies: Hx Cirrhosis, Hx Crohn's Disease, Hx Diverticulosis, Hx Gall Bladder Disease, Hx Gastrointestinal Bleed, Hx Hiatal Hernia, Hx Jaundice, Hx Obstructive Bowel, Hx Ileostomy, Hx Pyloric Stenosis, Hx Ulcer History: Reports: Other Problems/Disorders - 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 NOW Denies: Hx Acute Renal Failure, Hx Benign Prostatic Hyperplasia, Hx Chronic Renal Failure, Hx Dialysis, Hx Kidney Infection, Hx Kidney Stones Musculoskeletal History: Reports: Hx Arthritis, Hx Fibromyalgia, Other Musculoskeletal History - MILD CURVATURE OF SPINE Denies: Hx Back Problems, Hx Bursitis, Hx Congenital Bone Abnormalities, Hx Gout, Hx Orthopedic Injury, Hx Osteoporosis, Hx Scoliosis, Hx Tendonitis Sensory History: Reports: Hx Cataracts - BILAT, Hx Contacts or Glasses - GLASSES Denies: Hx Eye Injury, Hx Eye Prosthesis, Hx Glaucoma, Hx Macular Degeneration, Hx Vision Problem, Hx Deafness, Hx Hearing Aid, Hx Hearing Problem , Other Sensory Impairments Opthamlomology History: Reports: Hx Cataracts - BILAT, Hx Contacts or Glasses - GLASSES Denies: Hx Eye Injury, Hx Eye Prosthesis, Hx Glaucoma, Hx Macular Degeneration, Hx Vision Problem, Other Sensory Impairments Neurological History: Reports: Hx Headaches - AT TIMES, Hx Nerve Disease - FIBROMYALGIA Denies: Hx Dementia, Hx Developmental Delay, Hx Migraine, Hx Seizures, Hx Spinal Cord Injury, Hx Transient Ischemic Attacks (TIA), Other Neuro Impairments /Disorders Psychiatric History: Reports: Hx Anxiety - ON MED, Hx Depression Denies: Hx Attention Deficit Hyperactivity Disorder, Hx Autism, Hx Eating Disorder, Hx Oppositional [place] Disorder, Hx Panic Disorder, Hx Post Traumatic Stress Disorder, Hx Inpatient Treatment, Hx Community Mental Health Tx , Hx Schizophrenia, Hx Bipolar Disorder, Hx Suicide Attempt, Other Psychiatric Issues/Disorders - Cancer History Hx Hematologic Symptoms: No Hx Chemotherapy: No Hx Radiation Therapy: No - Surgical History Surgery Procedure, Year, and Place: HYSTERECTOMY. CARPAL TUNNEL X2. D&C X3. CARDIAC CATH. tubal ligation prior to hysterectomy. 07/2016 RIGHT CATARACT EXTRACTION WITH IOL IMPLANT, [facility] Hx Anesthesia Reactions: No Infectious Disease History: Reports: Hx Hepatitis - as a child, Hx Shingles - years ago per pt, History Other Infectious Disease - ? HEPATITIS A CHILD Denies: Hx of Known/Suspected MRSA, Traveled Outside the [place] in Last 30 Days - Family History Known Family History: Positive: Cardiac Disease - sister, Diabetes Family History: sister - unspecified cardiac dz. Father - CHF - Social History Alcohol Use: None Hx Substance Use: No Substance Use Type: Reports: None Hx Tobacco Use: No Smoking Status (MU): Never Smoked Tobacco Have You Smoked in the Last Year: No Review of Systems Negative: Fever Positive: Chest Pain - midsternal with radiation to the back Positive: Vomiting - secondary to Lyrica Rx, Diarrhea - Secondary to Lyrica Rx All Other Systems Reviewed And Are Negative: Yes Physical Exam Triage Information Reviewed: Yes Vital Signs On Initial Exam: Initial Vitals Temp Pulse Resp BP Pulse Ox 97.1 F 57 26 139/69 95 05/16/17 23:42 05/16/17 23:42 05/16/17 23:42 05/16/17 23:42 05/16/17 23:42 Vital Signs Reviewed: Yes Appearance: Positive: Well-Appearing, No Pain Distress Skin: Positive: Warm Head/Face: Positive: Normal Head/Face Inspection Eyes: Positive: FLAVIO ENT: Positive: Hearing grossly normal Neck: Positive: Supple Respiratory/Lung Sounds: Positive: Breath Sounds Present Cardiovascular: Positive: RRR Abdomen Description: Positive: Nontender, Soft Bowel Sounds: Positive: Present Musculoskeletal: Positive: Strength/ROM Intact Neurological: Positive: Alert, Oriented to Person Place, Time Diagnostics - Vital Signs Vital Signs Temp Pulse Resp BP Pulse Ox 05/16/17 23:42 97.1 F 57 26 139/69 95 - Laboratory Result Diagrams: 05/17/17 00:01 05/17/17 00:01 Lab Statement: Any lab studies that have been ordered have been reviewed, and results considered in the medical decision making process. - Radiology CXR Xray Interpretation: No Acute Changes Radiology Interpretation Completed By: ED Physician - EKG 0048 Cardiac Rate: Bradycardia - 59 bpm EKG Rhythm: Sinus Bradycardia EKG Interpretation: No STEMI EKG Comparison: No Significant Change - from EKG on 05/08/2017 Re-Evaluation - Re-Evaluation First Eval Re-Evaluation Time: 00:54 Change: Improved Comment: Discussed EKG, CXR and lab results with the pt. Discussed D/C plan. Chest Pain Course/Dx - Course Assessment/Plan: Pt is a 67 y/o F BIBA who presents to ED c/o moderate, midsternal CP with radiation to the back for "months," worsening this afternoon. Has not taken anything for the pain. Additionally c/o V/D secondary to new Lyrica Rx. Pt was [place] [facility] [place], admitted and D/C 3 days ago for the same sx. States that her current pain is the same as it was when she was evaluated previously. CXR reveals no acute findings. EKG reveals sinus bradycardia, unchanged from previous EKG. She will be D/C to home with Dx of chest pain with a follow up with her PCP. She understands and agrees. - Diagnoses Provider Diagnoses: Chest pain Discharge - Discharge Plan Condition: Stable Disposition: HOME Patient Education Materials: Chest Pain (ED) Referrals: Cornell Zarate MD [Primary Care Provider] - 3 Days The documentation as recorded by the Kiesha luna Rebecca accurately reflects the service I personally performed and the decisions made by me, Ti Dewey MD.
[2017-05-17 00:25] LABS: Albumin 4.4 g/dL (3.2-5.2); BUN/Creatinine Ratio 14.6 (8-20); Calcium 9.4 mg/dL (8.6-10.3); EGFR African American 49.3 (>60); EGFR Non-African American 38.3 (>60); Globulin 2.8 g/dL (2-4); Magnesium 1.9 mg/dL (1.9-2.7); Potassium 4.1 mmol/L (3.5-5.0); Total Bilirubin 0.3 mg/dL (0.2-1.0); Total Protein 7.2 g/dL (6.4-8.9)
[2017-05-17] MEDS ORDERED: Ketorolac INJ* 30 MG/ML 1 ML VIAL IV PUSH ONE (00:34)
--- NOTE | 2017-05-17 07:53 | RAD ---
INDICATION: Chest pain. COMPARISON: Comparison is made with a prior chest x-ray study from May 08, 2017. TECHNIQUE: Dual-energy PA and lateral views of the chest were obtained. FINDINGS: The heart is within normal limits in size. Mediastinal and hilar contours appear within normal limits. There are linear densities in the right middle lobe most consistent with subsegmental atelectasis or scarring. The lungs are otherwise clear. No pleural effusion is seen. IMPRESSION: NO EVIDENCE FOR ACTIVE CARDIOPULMONARY DISEASE.
== END 2017-05-17 01:43 | disposition home or self-care (01) ==
LOC: ED 23:33
DX: R07.9 Chest pain, unspecified (principal); R11.10 Vomiting, unspecified
CPT/HCPCS: 36415; 71020; 80053; 83735; 84484; 85025; 93005; 96374; 99282; J1885

== ENCOUNTER 2017-05-18 17:43 | Emergency (ER) | payer MEDICARE, MEDICAID ==
[2017-05-18 18:46] LABS: Hematocrit 40 % (35-47); Hemoglobin 12.6 g/dl (12.0-16.0); Mean Corpuscular HGB Conc 32 g/dl (31-36); Mean Corpuscular Hemoglobin 27 pg (27-31); Mean Corpuscular Volume 85 fL (80-97); Mean Platelet Volume 8 um3 (7.4-10.4); Red Blood Count 4.69 10^6/ul (4.0-5.4); Red Cell Distribution Width 15 % (10.5-15); White Blood Count 13.1 10^3/ul (3.5-10.8)
--- NOTE | 2017-05-18 18:46 | RAD ---
HISTORY: Chest pain COMPARISONS: May 17, 2017 VIEWS:1: Single frontal portable view of the chest at 6:43 PM FINDINGS: LINES AND TUBES: None. CARDIOMEDIASTINAL SILHOUETTE: The cardiomediastinal silhouette is normal for portable technique. PLEURA: The costophrenic angles are sharp. No pleural abnormalities are noted. LUNG PARENCHYMA: The lungs are clear. ABDOMEN: The upper abdomen is clear. There is no subphrenic gas. BONES AND SOFT TISSUES: No bone or soft tissue abnormalities are noted. IMPRESSION: NO ACTIVE CARDIOPULMONARY DISEASE.
[2017-05-18 19:06] LABS: Albumin 4.3 g/dL (3.2-5.2); BUN/Creatinine Ratio 12.4 (8-20); Calcium 9.5 mg/dL (8.6-10.3); EGFR African American 52.9 (>60); EGFR Non-African American 41.1 (>60); Globulin 3.1 g/dL (2-4); Potassium 4.3 mmol/L (3.5-5.0); Total Bilirubin 0.4 mg/dL (0.2-1.0); Total Protein 7.4 g/dL (6.4-8.9)
[2017-05-18 22:53] VITALS: BP 136/56
--- NOTE | 2017-05-18 23:04 | ED ---
Sayda Bustos Edward, scribed for Joe Vargas MD on 05/18/17 at 1813 . HPI Chest Pain - HPI Summary HPI Summary: 67 y/o female presents to ED c/o CP starting months ago. Pain is constant, rated at a 6/10 at triage, located at the mid-sternal region. Pain notes no acute changes today. Patient has taken Tylenol for her CP today. Associated sx: L shoulder pain due to arthritis, back soreness, diarrhea and vomiting when she eats. PMHx arthritis, heart murmur, gall bladder polyps and stones. - History of Current Complaint Chief Complaint: EDChestWallPain Time Seen by Provider: 05/18/17 18:05 Hx Obtained From: Patient Onset/Duration: Started Weeks Ago - Months ago, Still Present Timing: Constant Initial Severity: Moderate Current Severity: Moderate Pain Intensity: 6 Pain Scale Used: 0-10 Numeric Chest Pain Location: Mid Sternal Character: Other: - "Like a rock" Associated Signs and Symptoms: Positive: Chest Pain, Other: - L shoulder pain - Additional Pertinent History Primary Care Physician: [id number] - Allergy/Home Medications Allergies/Adverse Reactions: Allergies Allergy/AdvReac Type Severity Reaction Status Date / Time Ampicillin Allergy Severe See Comment Verified 05/18/17 17:51 Lactose Intolerance (GI) Allergy GI Upset Verified 05/18/17 17:51 Morphine AdvReac Severe SEVERE Verified 05/18/17 17:51 DROP IN HEART RATE Gabapentin AdvReac Intermediate See Comment Verified 05/18/17 17:51 Olanzapine [From Zyprexa] AdvReac See Comment Verified 05/18/17 17:51 Pravastatin AdvReac Muscle Ache Verified 05/18/17 17:51 Procaine [From Novocain] AdvReac See Comment Verified 05/18/17 17:51 Sertraline [From Zoloft] AdvReac Unknown Verified 05/18/17 17:51 Reaction Details viibryd AdvReac See Comment Uncoded 05/18/17 17:51 PMH/Surg Hx/FS Hx/Imm Hx Previously Healthy: No Endocrine/Hematology History: Denies: Hx Anticoagulant Therapy, Hx Blood Disorders, Hx Blood Transfusions, Hx Bone Marrow Disease, Hx Diabetes, Hx Systemic Lupus Erythematosus, Hx Sickle Cell Disease, Hx Thyroid Disease, Hx Anemia, Hx Unexplained Bleeding, Other Endocrine/Hematological Disorders Cardiovascular History: Reports: Hx Angina, Hx Hypercholesterolemia, Hx Hypertension - ON MED, Hx Myocardial Infarction, Other Cardiovascular Problems/ Disorders - CARRIES NITRO FOR CHEST PAIN Denies: Hx Aneurysm, Hx Angioplasty, Hx Auto Implanted Cardiovert Defib, Hx Cardiac Arrest, Hx Cardiomegaly, Hx Congenital Heart Disease, Hx Congestive Heart Failure, Hx Coronary Artery Disease, Hx Deep Vein Thrombosis, Hx Hypotension, Hx Pacemaker/ICD, Hx Peripheral Vascular Disease, Hx Rheumatic Fever, Hx Syncope, Hx Valvular Heart Disease Respiratory History: Reports: Hx Asthma - PRN INHALER, STATES BROUGHT ON BY ANXIETY Denies: Hx Bronchopulmonary Dysplasia, Hx Chronic Bronchitis, Hx Chronic Obstructive Pulmonary Disease (COPD), Hx Cystic Fibrosis, Hx Lung Cancer, Hx Pleural Effusion, Hx Pneumonia, Hx Pulmonary Edema, Hx Pulmonary Embolism, Hx Seasonal Allergies, Hx Sleep Apnea, Other Respiratory Problems/Disorders GI History: Reports: Hx Gastroesophageal Reflux Disease - ON MED, Hx Irritable Bowel - DIARRHEA AT TIMES-LACTOSE INTOLERANT, Other GI Disorders - GALLBLADDER POLYPS/STONES, FATTY LVER Denies: Hx Cirrhosis, Hx Crohn's Disease, Hx Diverticulosis, Hx Gall Bladder Disease, Hx Gastrointestinal Bleed, Hx Hiatal Hernia, Hx Jaundice, Hx Obstructive Bowel, Hx Ileostomy, Hx Pyloric Stenosis, Hx Ulcer History: Reports: Other Problems/Disorders - 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 NOW Denies: Hx Acute Renal Failure, Hx Benign Prostatic Hyperplasia, Hx Chronic Renal Failure, Hx Dialysis, Hx Kidney Infection, Hx Kidney Stones Musculoskeletal History: Reports: Hx Arthritis, Hx Fibromyalgia, Other Musculoskeletal History - MILD CURVATURE OF SPINE Denies: Hx Back Problems, Hx Bursitis, Hx Congenital Bone Abnormalities, Hx Gout, Hx Orthopedic Injury, Hx Osteoporosis, Hx Scoliosis, Hx Tendonitis Sensory History: Reports: Hx Cataracts - BILAT, Hx Contacts or Glasses - GLASSES Denies: Hx Eye Injury, Hx Eye Prosthesis, Hx Glaucoma, Hx Macular Degeneration, Hx Vision Problem, Hx Deafness, Hx Hearing Aid, Hx Hearing Problem , Other Sensory Impairments Opthamlomology History: Reports: Hx Cataracts - BILAT, Hx Contacts or Glasses - GLASSES Denies: Hx Eye Injury, Hx Eye Prosthesis, Hx Glaucoma, Hx Macular Degeneration, Hx Vision Problem, Other Sensory Impairments Neurological History: Reports: Hx Headaches - AT TIMES, Hx Nerve Disease - FIBROMYALGIA Denies: Hx Dementia, Hx Developmental Delay, Hx Migraine, Hx Seizures, Hx Spinal Cord Injury, Hx Transient Ischemic Attacks (TIA), Other Neuro Impairments /Disorders Psychiatric History: Reports: Hx Anxiety - ON MED, Hx Depression Denies: Hx Attention Deficit Hyperactivity Disorder, Hx Autism, Hx Eating Disorder, Hx Oppositional [place] Disorder, Hx Panic Disorder, Hx Post Traumatic Stress Disorder, Hx Inpatient Treatment, Hx Community Mental Health Tx , Hx Schizophrenia, Hx Bipolar Disorder, Hx Suicide Attempt, Other Psychiatric Issues/Disorders - Cancer History Hx Hematologic Symptoms: No Hx Chemotherapy: No Hx Radiation Therapy: No - Surgical History Surgery Procedure, Year, and Place: HYSTERECTOMY. CARPAL TUNNEL X2. D&C X3. CARDIAC CATH. tubal ligation prior to hysterectomy. 07/2016 RIGHT CATARACT EXTRACTION WITH IOL IMPLANT, [facility] Hx Anesthesia Reactions: No - Immunization History Date of Tetanus Vaccine: unk Date of Influenza Vaccine: unk Infectious Disease History: No Infectious Disease History: Reports: Hx Hepatitis - as a child, Hx Shingles - years ago per pt, History Other Infectious Disease - ? HEPATITIS A CHILD Denies: Hx of Known/Suspected MRSA, Traveled Outside the [place] in Last 30 Days - Family History Known Family History: Positive: Cardiac Disease - sister, Diabetes Family History: sister - unspecified cardiac dz. Father - CHF - Social History Alcohol Use: None Hx Substance Use: No Substance Use Type: Reports: None Hx Tobacco Use: No Smoking Status (MU): Never Smoked Tobacco Have You Smoked in the Last Year: No Review of Systems Constitutional: Negative Eyes: Negative ENT: Negative Positive: Chest Pain Respiratory: Negative Positive: Vomiting - When she eats, Diarrhea - When she eats Genitourinary: Negative Positive: Arthralgia - L shoulder pain due to arthritis, Myalgia - Sore back Skin: Negative Neurological: Negative Psychological: Normal All Other Systems Reviewed And Are Negative: Yes Physical Exam Triage Information Reviewed: Yes Vital Signs On Initial Exam: Initial Vitals Temp Pulse Resp BP Pulse Ox 98.3 F 64 18 121/45 8 05/18/17 17:47 05/18/17 17:47 05/18/17 17:47 05/18/17 17:47 05/18/17 17:47 Vital Signs Reviewed: Yes Appearance: Positive: Well-Appearing, No Pain Distress Skin: Positive: Warm, Skin Color Reflects Adequate Perfusion, Dry Head/Face: Positive: Normal Head/Face Inspection Eyes: Positive: Normal ENT: Positive: Normal ENT inspection Neck: Positive: Supple, Nontender Respiratory/Lung Sounds: Positive: Clear to Auscultation, Breath Sounds Present Cardiovascular: Positive: RRR, Murmur - Soft systolic ejection murmur Abdomen Description: Positive: Nontender, Soft Bowel Sounds: Positive: Present Musculoskeletal: Positive: Other - Mildly tender @ xyphoid Neurological: Positive: Normal Psychiatric: Positive: Normal, Affect/Mood Appropriate Diagnostics - Vital Signs Vital Signs Temp Pulse Resp BP Pulse Ox 05/18/17 17:49 98.3 F 62 16 121/45 95 05/18/17 17:47 98.3 F 64 18 121/45 8 - Laboratory Lab Results: Lab Results 05/18/17 05/18/17 05/18/17 Range/Units 18:40 18:40 18:40 WBC 13.1 H (3.5-10.8) 10^3/ul RBC 4.69 (4.0-5.4) 10^6/ul Hgb 12.6 (12.0-16.0) g/dl Hct 40 (35-47) % MCV 85 (80-97) fL MCH 27 (27-31) pg MCHC 32 (31-36) g/dl RDW 15 (10.5-15) % Plt Count 268 (150-450) 10^3/ul MPV 8 (7.4-10.4) um3 Neut % (Auto) 76.1 (38-83) % Lymph % (Auto) 16.9 L (25-47) % Bay % (Auto) 5.7 (1-9) % Eos % (Auto) 1.1 (0-6) % Baso % (Auto) 0.2 (0-2) % Absolute Neuts (auto) 10.0 H (1.5-7.7) 10^3/ul Absolute Lymphs (auto) 2.2 (1.0-4.8) 10^3/ul Absolute Monos (auto) 0.8 (0-0.8) 10^3/ul Absolute Eos (auto) 0.2 (0-0.6) 10^3/ul Absolute Basos (auto) 0 (0-0.2) 10^3/ul Absolute Nucleated RBC 0.01 10^3/ul Nucleated RBC % 0.1 D-Dimer, Quantitative < 200 (Less Than 230) ng/mL Sodium 141 (133-145) mmol/L Potassium 4.3 (3.5-5.0) mmol/L Chloride 110 (101-111) mmol/L Carbon Dioxide 26 (22-32) mmol/L Anion Gap 5 (2-11) mmol/L BUN 16 (6-24) mg/dL Creatinine 1.29 H (0.51-0.95) mg/dL Est GFR ( Amer) 52.9 (>60) Est GFR (Non-Af Amer) 41.1 (>60) BUN/Creatinine Ratio 12.4 (8-20) Glucose 93 (70-100) mg/dL Lactic Acid (0.5-2.0) mmol/L Calcium 9.5 (8.6-10.3) mg/dL Total Bilirubin 0.40 (0.2-1.0) mg/dL AST 19 (13-39) U/L ALT 11 (7-52) U/L Alkaline Phosphatase 92 (34-104) U/L Troponin I 0.00 (<0.04) ng/mL Total Protein 7.4 (6.4-8.9) g/dL Albumin 4.3 (3.2-5.2) g/dL Globulin 3.1 (2-4) g/dL Albumin/Globulin Ratio 1.4 (1-3) 05/18/17 05/18/17 Range/Units 18:40 21:04 WBC (3.5-10.8) 10^3/ul RBC (4.0-5.4) 10^6/ul Hgb (12.0-16.0) g/dl Hct (35-47) % MCV (80-97) fL MCH (27-31) pg MCHC (31-36) g/dl RDW (10.5-15) % Plt Count (150-450) 10^3/ul MPV (7.4-10.4) um3 Neut % (Auto) (38-83) % Lymph % (Auto) (25-47) % Bay % (Auto) (1-9) % Eos % (Auto) (0-6) % Baso % (Auto) (0-2) % Absolute Neuts (auto) (1.5-7.7) 10^3/ul Absolute Lymphs (auto) (1.0-4.8) 10^3/ul Absolute Monos (auto) (0-0.8) 10^3/ul Absolute Eos (auto) (0-0.6) 10^3/ul Absolute Basos (auto) (0-0.2) 10^3/ul Absolute Nucleated RBC 10^3/ul Nucleated RBC % D-Dimer, Quantitative (Less Than 230) ng/mL Sodium (133-145) mmol/L Potassium (3.5-5.0) mmol/L Chloride (101-111) mmol/L Carbon Dioxide (22-32) mmol/L Anion Gap (2-11) mmol/L BUN (6-24) mg/dL Creatinine (0.51-0.95) mg/dL Est GFR ( Amer) (>60) Est GFR (Non-Af Amer) (>60) BUN/Creatinine Ratio (8-20) Glucose (70-100) mg/dL Lactic Acid 0.6 (0.5-2.0) mmol/L Calcium (8.6-10.3) mg/dL Total Bilirubin (0.2-1.0) mg/dL AST (13-39) U/L ALT (7-52) U/L Alkaline Phosphatase (34-104) U/L Troponin I 0.01 (<0.04) ng/mL Total Protein (6.4-8.9) g/dL Albumin (3.2-5.2) g/dL Globulin (2-4) g/dL Albumin/Globulin Ratio (1-3) Result Diagrams: 05/18/17 18:40 05/18/17 18:40 Lab Statement: Any lab studies that have been ordered have been reviewed, and results considered in the medical decision making process. - Radiology CXR Xray Interpretation: No Acute Changes - No active cardiopulmonary disease. Radiology Interpretation Completed By: Radiologist - EKG 1 EKG Interpretation: 18:53 - Nonspecific changes in inferior leads EKG Comparison: Other - Slightly changed from EKG @ 05/17/17 Chest Pain Course/Dx - Course Course Of Treatment: Ms Strong has had chronic CP and a recent stress test which was low risk. She was R/U'd with two troponins and a d-dimer (EDACS = 6, Well's = 0). - Diagnoses Provider Diagnoses: Chest pain Discharge - Discharge Plan Condition: Stable Disposition: HOME Patient Education Materials: Chest Pain (ED) Referrals: Cornell Zarate MD [Primary Care Provider] - Additional Instructions: Keep your upcoming appointment with your agricultural education teacher. The documentation as recorded by the Sayda luna Edward accurately reflects the service I personally performed and the decisions made by me, Joe Vargas MD.
== END 2017-05-18 23:16 | disposition home or self-care (01) ==
LOC: ED 17:43
DX: R07.89 Other chest pain (principal); M19.012 Primary osteoarthritis, left shoulder; M25.512 Pain in left shoulder; R19.7 Diarrhea, unspecified; R11.10 Vomiting, unspecified; I25.2 Old myocardial infarction; I10 Essential (primary) hypertension; E78.00 Pure hypercholesterolemia, unspecified; J45.909 Unspecified asthma, uncomplicated; K21.9 Gastro-esophageal reflux disease without esophagitis; K80.20 Calculus of gallbladder without cholecystitis without obstruction; Z90.710 Acquired absence of both cervix and uterus; Z98.41 Cataract extraction status, right eye; Z96.1 Presence of intraocular lens; Z88.5 Allergy status to narcotic agent; Z88.1 Allergy status to other antibiotic agents
CPT/HCPCS: 36415; 71010; 80053; 83605; 84484; 85025; 85379; 93005; 99283

== ENCOUNTER 2017-05-21 10:34 | Emergency (ER) | payer MEDICARE, MEDICAID ==
--- NOTE | 2017-05-21 11:12 | RAD ---
INDICATION: Chest pain and shortness of breath COMPARISON: Chest x-ray May 18, 2017 TECHNIQUE: PA and lateral views of the chest were obtained. FINDINGS: The heart and mediastinum are normal in size and contour. The lungs are grossly clear. There is no evidence of large pleural effusion. Visualized bones are normal for the patient's age. There is no radiographic evidence of free air beneath the diaphragm IMPRESSION: No radiographic evidence of acute cardiopulmonary disease.
[2017-05-21 12:32] LABS: Hematocrit 38 % (35-47); Hemoglobin 12.3 g/dl (12.0-16.0); Mean Corpuscular HGB Conc 32 g/dl (31-36); Mean Corpuscular Hemoglobin 27 pg (27-31); Mean Corpuscular Volume 85 fL (80-97); Mean Platelet Volume 8 um3 (7.4-10.4); Red Blood Count 4.55 10^6/ul (4.0-5.4); Red Cell Distribution Width 15 % (10.5-15); White Blood Count 9.4 10^3/ul (3.5-10.8)
[2017-05-21 12:49] LABS: Albumin 3.9 g/dL (3.2-5.2); BUN/Creatinine Ratio 12.4 (8-20); C Reactive Protein 64.26 mg/L (< 5.00); Calcium 9.4 mg/dL (8.6-10.3); EGFR Non-African American 52.1 (>60); Total Bilirubin 0.4 mg/dL (0.2-1.0); Total Protein 6.9 g/dL (6.4-8.9)
[2017-05-21 12:51] LABS: Troponin I 0.01 ng/mL (<0.04)
[2017-05-21 15:10] VITALS: BP 129/74
--- NOTE | 2017-05-21 20:11 | ED ---
Sayda Bustos Edward, scribed for Boris Sanders MD on 05/21/17 at 1043 . Shortness of Breath - HPI Summary HPI Summary: 67 y/o female presents to ED c/o SOB starting this morning at 10:00. Associated sx: chronic mild CP that feels like a "stone" radiating to the back for the past 2 years. Denies cough, fever. PMHx arthritis, heart murmur. FHx sister stroke, stents put in. - History of Current Complaint Chief Complaint: EDShortnessOfBreath Time Seen by Provider: 05/21/17 10:40 Hx Obtained From: Patient Onset/Duration: Sudden Onset, Lasting Hours - 10:00 this morning, Still Present Current Severity: Moderate Associated Signs & Symptoms: Chest Pain Unrelated to Cough - Mild, chronic (2 years) - Allergy/Home Medications Allergies/Adverse Reactions: Allergies Allergy/AdvReac Type Severity Reaction Status Date / Time Ampicillin Allergy Severe See Comment Verified 05/18/17 17:51 Lactose Intolerance (GI) Allergy GI Upset Verified 05/18/17 17:51 Morphine AdvReac Severe SEVERE Verified 05/18/17 17:51 DROP IN HEART RATE Gabapentin AdvReac Intermediate See Comment Verified 05/18/17 17:51 Olanzapine [From Zyprexa] AdvReac See Comment Verified 05/18/17 17:51 Pravastatin AdvReac Muscle Ache Verified 05/18/17 17:51 Procaine [From Novocain] AdvReac See Comment Verified 05/18/17 17:51 Sertraline [From Zoloft] AdvReac Unknown Verified 05/18/17 17:51 Reaction Details viibryd AdvReac See Comment Uncoded 05/18/17 17:51 Home Medications: Home Medications Ergocalciferol [Vitamin D2] 2,000 unit PO DAILY 05/21/17 [History Confirmed ] Metoprolol Succinate XL TAB* [Toprol XL TAB*] 25 mg PO DAILY 05/21/17 [History Confirmed 05/21/17] Nitroglycerin TAB 0.4 MG* 0.4 mg SL Q5M PRN 05/21/17 [History Confirmed 05/21/17 ] Potassium Chlor TAB* [Klor Con ER TAB*] 40 meq PO DAILY 05/21/17 [History Confirmed 05/21/17] Triamcinolone 0.1% CREAM (NF) [Kenalog 0.1% Cream (NF)] 1 applic TOPICAL TID PRN 05/21/17 [History Confirmed 05/21/17] PMH/Surg Hx/FS Hx/Imm Hx Previously Healthy: No Endocrine/Hematology History: Denies: Hx Anticoagulant Therapy, Hx Blood Disorders, Hx Blood Transfusions, Hx Bone Marrow Disease, Hx Diabetes, Hx Systemic Lupus Erythematosus, Hx Sickle Cell Disease, Hx Thyroid Disease, Hx Anemia, Hx Unexplained Bleeding, Other Endocrine/Hematological Disorders Cardiovascular History: Reports: Hx Angina, Hx Hypercholesterolemia, Hx Hypertension - ON MED, Hx Myocardial Infarction, Other Cardiovascular Problems/ Disorders - CARRIES NITRO FOR CHEST PAIN Denies: Hx Aneurysm, Hx Angioplasty, Hx Auto Implanted Cardiovert Defib, Hx Cardiac Arrest, Hx Cardiomegaly, Hx Congenital Heart Disease, Hx Congestive Heart Failure, Hx Coronary Artery Disease, Hx Deep Vein Thrombosis, Hx Hypotension, Hx Pacemaker/ICD, Hx Peripheral Vascular Disease, Hx Rheumatic Fever, Hx Syncope, Hx Valvular Heart Disease Respiratory History: Reports: Hx Asthma - PRN INHALER, STATES BROUGHT ON BY ANXIETY Denies: Hx Bronchopulmonary Dysplasia, Hx Chronic Bronchitis, Hx Chronic Obstructive Pulmonary Disease (COPD), Hx Cystic Fibrosis, Hx Lung Cancer, Hx Pleural Effusion, Hx Pneumonia, Hx Pulmonary Edema, Hx Pulmonary Embolism, Hx Seasonal Allergies, Hx Sleep Apnea, Other Respiratory Problems/Disorders GI History: Reports: Hx Gastroesophageal Reflux Disease - ON MED, Hx Irritable Bowel - DIARRHEA AT TIMES-LACTOSE INTOLERANT, Other GI Disorders - GALLBLADDER POLYPS/STONES, FATTY LVER Denies: Hx Cirrhosis, Hx Crohn's Disease, Hx Diverticulosis, Hx Gall Bladder Disease, Hx Gastrointestinal Bleed, Hx Hiatal Hernia, Hx Jaundice, Hx Obstructive Bowel, Hx Ileostomy, Hx Pyloric Stenosis, Hx Ulcer History: Reports: Other Problems/Disorders - 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 NOW Denies: Hx Acute Renal Failure, Hx Benign Prostatic Hyperplasia, Hx Chronic Renal Failure, Hx Dialysis, Hx Kidney Infection, Hx Kidney Stones Musculoskeletal History: Reports: Hx Arthritis, Hx Fibromyalgia, Other Musculoskeletal History - MILD CURVATURE OF SPINE Denies: Hx Back Problems, Hx Bursitis, Hx Congenital Bone Abnormalities, Hx Gout, Hx Orthopedic Injury, Hx Osteoporosis, Hx Scoliosis, Hx Tendonitis Sensory History: Reports: Hx Cataracts - BILAT, Hx Contacts or Glasses - GLASSES Denies: Hx Eye Injury, Hx Eye Prosthesis, Hx Glaucoma, Hx Macular Degeneration, Hx Vision Problem, Hx Deafness, Hx Hearing Aid, Hx Hearing Problem , Other Sensory Impairments Opthamlomology History: Reports: Hx Cataracts - BILAT, Hx Contacts or Glasses - GLASSES Denies: Hx Eye Injury, Hx Eye Prosthesis, Hx Glaucoma, Hx Macular Degeneration, Hx Vision Problem, Other Sensory Impairments Neurological History: Reports: Hx Headaches - AT TIMES, Hx Nerve Disease - FIBROMYALGIA Denies: Hx Dementia, Hx Developmental Delay, Hx Migraine, Hx Seizures, Hx Spinal Cord Injury, Hx Transient Ischemic Attacks (TIA), Other Neuro Impairments /Disorders Psychiatric History: Reports: Hx Anxiety - ON MED, Hx Depression Denies: Hx Attention Deficit Hyperactivity Disorder, Hx Autism, Hx Eating Disorder, Hx Oppositional [place] Disorder, Hx Panic Disorder, Hx Post Traumatic Stress Disorder, Hx Inpatient Treatment, Hx Community Mental Health Tx , Hx Schizophrenia, Hx Bipolar Disorder, Hx Suicide Attempt, Other Psychiatric Issues/Disorders - Cancer History Hx Hematologic Symptoms: No Hx Chemotherapy: No Hx Radiation Therapy: No - Surgical History Surgery Procedure, Year, and Place: HYSTERECTOMY. CARPAL TUNNEL X2. D&C X3. CARDIAC CATH. tubal ligation prior to hysterectomy. 07/2016 RIGHT CATARACT EXTRACTION WITH IOL IMPLANT, [facility] Hx Anesthesia Reactions: No - Immunization History Date of Tetanus Vaccine: unk Date of Influenza Vaccine: unk Infectious Disease History: Reports: Hx Hepatitis - as a child, Hx Shingles - years ago per pt, History Other Infectious Disease - ? HEPATITIS A CHILD Denies: Hx of Known/Suspected MRSA, Traveled Outside the [place] in Last 30 Days - Family History Known Family History: Positive: Cardiac Disease - sister, Diabetes Family History: sister - unspecified cardiac dz. Father - CHF - Social History Alcohol Use: None Hx Substance Use: No Substance Use Type: Reports: None Hx Tobacco Use: No Smoking Status (MU): Never Smoked Tobacco Have You Smoked in the Last Year: No Review of Systems Constitutional: Negative Negative: Fever Eyes: Negative ENT: Negative Positive: Chest Pain - Mild, chronic Positive: Shortness Of Breath. Negative: Cough Gastrointestinal: Negative Genitourinary: Negative Musculoskeletal: Negative Skin: Negative Neurological: Negative Psychological: Normal All Other Systems Reviewed And Are Negative: Yes Physical Exam - Summary Physical Exam Summary: VITAL SIGNS:~Reviewed. GENERAL:~ Patient is a well-developed and nourished female who is lying comfortable in the stretcher.~ Patient is not in any acute respiratory distress. HEAD AND FACE:~No signs of trauma.~ No ecchymosis, hematomas or skull depressions. No sinus tenderness. EYES:~PERRLA, EOMI x 2, No injected conjunctiva, no nystagmus. EARS:~Hearing grossly intact. Ear canals and tympanic membranes are within normal limits. MOUTH:~Oropharynx within normal limits. NECK:~Supple, trachea is midline, no adenopathy, no JVD, no carotid bruit, no c- spine tenderness, neck with full ROM. CHEST:~Symmetric, no tenderness at palpation LUNGS:~Clear to auscultation bilaterally. No wheezing or crackles. CVS:~Regular rate and rhythm, S1 and S2 present, no murmurs or gallops appreciated. ABDOMEN:~Soft, non-tender. No signs of distention. No rebound no guarding, and no masses palpated. Bowel sounds are normal. EXTREMITIES:~FROM in all major joints, no edema, no cyanosis or clubbing. NEURO:~Alert and oriented x 3. No acute neurological deficits. Speech is normal and follows commands. SKIN:~Dry and warm Triage Information Reviewed: Yes Vital Signs On Initial Exam: Initial Vitals Temp Pulse Resp BP Pulse Ox 98.5 F 74 20 120/70 96 05/21/17 10:37 05/21/17 10:37 05/21/17 10:37 05/21/17 10:37 05/21/17 10:37 Vital Signs Reviewed: Yes Diagnostics - Vital Signs Vital Signs Temp Pulse Resp BP Pulse Ox 05/21/17 10:37 98.5 F 74 20 120/70 96 - Laboratory Lab Results: Lab Results 05/21/17 05/21/17 05/21/17 Range/Units 12:10 12:10 12:10 WBC 9.4 (3.5-10.8) 10^3/ul RBC 4.55 (4.0-5.4) 10^6/ul Hgb 12.3 (12.0-16.0) g/dl Hct 38 (35-47) % MCV 85 (80-97) fL MCH 27 (27-31) pg MCHC 32 (31-36) g/dl RDW 15 (10.5-15) % Plt Count 276 (150-450) 10^3/ul MPV 8 (7.4-10.4) um3 Neut % (Auto) 70.6 (38-83) % Lymph % (Auto) 20.2 L (25-47) % [place] % (Auto) 5.6 (1-9) % Eos % (Auto) 2.3 (0-6) % Baso % (Auto) 1.3 (0-2) % Absolute Neuts (auto) 6.6 (1.5-7.7) 10^3/ul Absolute Lymphs (auto) 1.9 (1.0-4.8) 10^3/ul Absolute Monos (auto) 0.5 (0-0.8) 10^3/ul Absolute Eos (auto) 0.2 (0-0.6) 10^3/ul Absolute Basos (auto) 0.1 (0-0.2) 10^3/ul Absolute Nucleated RBC 0 10^3/ul Nucleated RBC % 0 Sodium 140 (133-145) mmol/L Potassium 4.0 (3.5-5.0) mmol/L Chloride 108 (101-111) mmol/L Carbon Dioxide 25 (22-32) mmol/L Anion Gap 7 (2-11) mmol/L BUN 13 (6-24) mg/dL Creatinine 1.05 H (0.51-0.95) mg/dL Est GFR ( Amer) 67.0 (>60) Est GFR (Non-Af Amer) 52.1 (>60) BUN/Creatinine Ratio 12.4 (8-20) Glucose 82 (70-100) mg/dL Lactic Acid 0.6 (0.5-2.0) mmol/L Calcium 9.4 (8.6-10.3) mg/dL Total Bilirubin 0.40 (0.2-1.0) mg/dL AST 17 (13-39) U/L ALT 10 (7-52) U/L Alkaline Phosphatase 100 (34-104) U/L Total Creatine Kinase 61 (10-223) U/L CK-MB (CK-2) 1.7 (0.6-6.3) ng/mL Troponin I 0.01 (<0.04) ng/mL C-Reactive Protein 64.26 H (< 5.00) mg/L B-Natriuretic Peptide ( - 100) pg/mL Total Protein 6.9 (6.4-8.9) g/dL Albumin 3.9 (3.2-5.2) g/dL Globulin 3.0 (2-4) g/dL Albumin/Globulin Ratio 1.3 (1-3) // Range/Units 12:10 WBC (3.5-10.8) 10^3/ul RBC (4.0-5.4) 10^6/ul Hgb (12.0-16.0) g/dl Hct (35-47) % MCV (80-97) fL MCH (27-31) pg MCHC (31-36) g/dl RDW (10.5-15) % Plt Count (150-450) 10^3/ul MPV (7.4-10.4) um3 Neut % (Auto) (38-83) % Lymph % (Auto) (25-47) % [place] % (Auto) (1-9) % Eos % (Auto) (0-6) % Baso % (Auto) (0-2) % Absolute Neuts (auto) (1.5-7.7) 10^3/ul Absolute Lymphs (auto) (1.0-4.8) 10^3/ul Absolute Monos (auto) (0-0.8) 10^3/ul Absolute Eos (auto) (0-0.6) 10^3/ul Absolute Basos (auto) (0-0.2) 10^3/ul Absolute Nucleated RBC 10^3/ul Nucleated RBC % Sodium (133-145) mmol/L Potassium (3.5-5.0) mmol/L Chloride (101-111) mmol/L Carbon Dioxide (22-32) mmol/L Anion Gap (2-11) mmol/L BUN (6-24) mg/dL Creatinine (0.51-0.95) mg/dL Est GFR ( Amer) (>60) Est GFR (Non-Af Amer) (>60) BUN/Creatinine Ratio (8-20) Glucose (70-100) mg/dL Lactic Acid (0.5-2.0) mmol/L Calcium (8.6-10.3) mg/dL Total Bilirubin (0.2-1.0) mg/dL AST (13-39) U/L ALT (7-52) U/L Alkaline Phosphatase (34-104) U/L Total Creatine Kinase (10-223) U/L CK-MB (CK-2) (0.6-6.3) ng/mL Troponin I (<0.04) ng/mL C-Reactive Protein (< 5.00) mg/L B-Natriuretic Peptide 47 ( - 100) pg/mL Total Protein (6.4-8.9) g/dL Albumin (3.2-5.2) g/dL Globulin (2-4) g/dL Albumin/Globulin Ratio (1-3) Result Diagrams: 05/21/17 12:10 05/21/17 12:10 Lab Statement: Any lab studies that have been ordered have been reviewed, and results considered in the medical decision making process. - Radiology CXR Xray Interpretation: No Acute Changes - No radiographic evidence of acute cardiopulmonary disease. Radiology Interpretation Completed By: Radiologist - EKG 1 EKG Rhythm: Sinus Rhythm - @ 66 bpm EKG Interpretation: 11:45 - No ST elevations. T wave inversions in V3-V5 Course/Dx - Course Assessment/Plan: 67 y/o female presents to ED c/o SOB starting this morning at 10:00. Associated sx: chronic mild CP that feels like a "stone" radiating to the back for the past 2 years. Denies cough, fever. PMHx arthritis, heart murmur. FHx sister stroke, stents put in. Test was without significant abnormalities except CRP 64. CXR showed negative acute pathology. EKG 11:45 SR @ [address] elevations and T wave inversions in V3-V5. In the ED course the patient was very comfortable without signs of dyspnea or CP. At this point I discussed the test findings and examinations with the patient, who requested to be discharged with f/u with PCP. The patient states she is under lots of stress at home, and gets episodes of SOB. The patient is hemodynamically stable and A&Ox3. I discussed all the findings and test results with the patient. Patient was instructed to return to the emergency room immediately if any of the symptoms return or worsens. Plan of care was discussed with the patient and understands and agrees. All questions were answered at patient satisfaction. There were no further complaints or concerns. Lung exam before discharge: CTA B/L. Good air exchange. No wheezing or crackles heard. CVS: S1 and S2 present. No murmurs appreciated. Patient is alert and oriented x 3. Patient is hemodynamically stable. Patient will be discharged home with follow up PCP in the next 2-3 days - Diagnoses Provider Diagnoses: Dyspnea, Atypical chest pain Discharge - Discharge Plan Condition: Stable Disposition: HOME Patient Education Materials: Dyspnea (ED), Chest Pain (ED) Referrals: Cornell Zarate MD [Primary Care Provider] - 3 Days (F/u in 2-3 days please) The documentation as recorded by the Sayda luna Edward accurately reflects the service I personally performed and the decisions made by Tommy orozco Walter, MD.
== END 2017-05-21 15:09 | disposition home or self-care (01) ==
LOC: ED 10:34
DX: R07.89 Other chest pain (principal); R06.00 Dyspnea, unspecified; R06.02 Shortness of breath
CPT/HCPCS: 36415; 71020; 80053; 82550; 82553; 83605; 83880; 84484; 85025; 86140; 87040; 93005; 99284

== ENCOUNTER 2017-05-31 15:51 | Emergency (ER) | payer MEDICARE, MEDICAID ==
[2017-05-31] MEDS ORDERED: Pantoprazole IV* 40 MG IV ONE (16:55)
[2017-05-31] MEDS ORDERED: Sucralfate TAB* 1 GM PO ONE (16:55)
--- NOTE | 2017-05-31 17:50 | RAD ---
INDICATION: Chest pain COMPARISON: May 21, 2017 TECHNIQUE: An AP portable view obtained at 1702 hours is submitted. FINDINGS: Bones/Soft Tissues: There are no acute bony findings. Cardiomediastinal: The cardiomediastinal silhouette is normal. Lungs: There are no infiltrates. Pleura: There are no pleural effusions. Other: None IMPRESSION: NO ACTIVE DISEASE
[2017-05-31 18:07] LABS: Hematocrit 40 % (35-47); Hemoglobin 12.7 g/dl (12.0-16.0); Mean Corpuscular HGB Conc 32 g/dl (31-36); Mean Corpuscular Hemoglobin 27 pg (27-31); Mean Corpuscular Volume 85 fL (80-97); Mean Platelet Volume 8 um3 (7.4-10.4); Red Blood Count 4.68 10^6/ul (4.0-5.4); Red Cell Distribution Width 15 % (10.5-15); White Blood Count 9.4 10^3/ul (3.5-10.8)
[2017-05-31 18:11] LABS: Add Diff/Slide Review? Slide Review Added; Comments Flag Yes
[2017-05-31 20:34] LABS: Anion Gap 10 mmol/L (2-11); EGFR African American 63.5 (>60); EGFR Non-African American 49.4 (>60); Manual Entry Verification MD; POC CO2 Carbon Dioxide 24 mmol/L (24-29); POC Chloride 108 mmol/L (98-109); POC Glucose 96 mg/dL (70-105); POC Potassium 3.7 mmol/L (3.5-4.9); POC Sodium 142 mmol/L (138-146)
[2017-05-31 21:24] VITALS: BP 132/73
[2017-05-31 22:04] LABS: Albumin 3.9 g/dL (3.2-5.2); C Reactive Protein 6.27 mg/L (< 5.00); Calcium 9.2 mg/dL (8.6-10.3); EGFR African American 64.2 (>60); EGFR Non-African American 49.9 (>60); Potassium 3.5 mmol/L (3.5-5.0); Total Bilirubin 0.4 mg/dL (0.2-1.0); Total Protein 6.9 g/dL (6.4-8.9)
--- NOTE | 2017-06-01 11:32 | ED ---
I, Oh,Soohyun, scribed for Joe Vargas MD on 05/31/17 at 1712 . HPI Chest Pain - HPI Summary HPI Summary: This 67 y/o female presents to ED for acute on chronic chest pain since today afternoon. Pt reports that she woke up with chest pain at 1400 PM at time of triage, but reports in initial evaluation that she was walking her dog at time of onset. Pt states that CP is exertional. NTG was taken without much relief. She also reports positive n/v/d, "gallbladder" abd pain, suprapubic abd pain, and general weakness. Pt hasn't eaten since 3 days ago. PMHx includes fibromyalgia, gallbladder polyps, GERD, and anxiety/depression. Pt is given commode chair at bedside, but pt refused to use it. Pt ambulated herself to bathroom, and fell while trying to get back into ED bed. Pt is now c/ o left shoulder pain due to the fall. - History of Current Complaint Chief Complaint: EDChestPainROMI Time Seen by Provider: 05/31/17 16:31 Hx Obtained From: Patient, Medical Records Onset/Duration: Started Hours Ago, Atraumatic, Still Present Timing: Constant Pain Intensity: 3 Pain Scale Used: 0-10 Numeric Chest Pain Location: Mid Sternal Chest Pain Radiates: No Character: Dull/Aching Aggravating Factor(s): Nothing Alleviating Factor(s): Nothing Associated Signs and Symptoms: Positive: Chest Pain. Negative: Shortness of Breath - Additional Pertinent History Primary Care Physician: [id number] - Allergy/Home Medications Allergies/Adverse Reactions: Allergies Allergy/AdvReac Type Severity Reaction Status Date / Time Ampicillin Allergy Severe See Comment Verified 05/18/17 17:51 Lactose Intolerance (GI) Allergy GI Upset Verified 05/18/17 17:51 Morphine AdvReac Severe SEVERE Verified 05/18/17 17:51 DROP IN HEART RATE Gabapentin AdvReac Intermediate See Comment Verified 05/18/17 17:51 Olanzapine [From Zyprexa] AdvReac See Comment Verified 05/18/17 17:51 Pravastatin AdvReac Muscle Ache Verified 05/18/17 17:51 Procaine [From Novocain] AdvReac See Comment Verified 05/18/17 17:51 Sertraline [From Zoloft] AdvReac Unknown Verified 05/18/17 17:51 Reaction Details viibryd AdvReac See Comment Uncoded 05/18/17 17:51 PMH/Surg Hx/FS Hx/Imm Hx Endocrine/Hematology History: Denies: Hx Anticoagulant Therapy, Hx Blood Disorders, Hx Blood Transfusions, Hx Bone Marrow Disease, Hx Diabetes, Hx Systemic Lupus Erythematosus, Hx Sickle Cell Disease, Hx Thyroid Disease, Hx Anemia, Hx Unexplained Bleeding, Other Endocrine/Hematological Disorders Cardiovascular History: Reports: Hx Angina, Hx Hypercholesterolemia, Hx Hypertension - ON MED, Hx Myocardial Infarction, Other Cardiovascular Problems/ Disorders - CARRIES NITRO FOR CHEST PAIN Denies: Hx Aneurysm, Hx Angioplasty, Hx Auto Implanted Cardiovert Defib, Hx Cardiac Arrest, Hx Cardiomegaly, Hx Congenital Heart Disease, Hx Congestive Heart Failure, Hx Coronary Artery Disease, Hx Deep Vein Thrombosis, Hx Hypotension, Hx Pacemaker/ICD, Hx Peripheral Vascular Disease, Hx Rheumatic Fever, Hx Syncope, Hx Valvular Heart Disease Respiratory History: Reports: Hx Asthma - PRN INHALER, STATES BROUGHT ON BY ANXIETY Denies: Hx Bronchopulmonary Dysplasia, Hx Chronic Bronchitis, Hx Chronic Obstructive Pulmonary Disease (COPD), Hx Cystic Fibrosis, Hx Lung Cancer, Hx Pleural Effusion, Hx Pneumonia, Hx Pulmonary Edema, Hx Pulmonary Embolism, Hx Seasonal Allergies, Hx Sleep Apnea, Other Respiratory Problems/Disorders GI History: Reports: Hx Gastroesophageal Reflux Disease - ON MED, Hx Irritable Bowel - DIARRHEA AT TIMES-LACTOSE INTOLERANT, Other GI Disorders - GALLBLADDER POLYPS/STONES, FATTY LVER Denies: Hx Cirrhosis, Hx Crohn's Disease, Hx Diverticulosis, Hx Gall Bladder Disease, Hx Gastrointestinal Bleed, Hx Hiatal Hernia, Hx Jaundice, Hx Obstructive Bowel, Hx Ileostomy, Hx Pyloric Stenosis, Hx Ulcer History: Reports: Other Problems/Disorders - 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 NOW Denies: Hx Acute Renal Failure, Hx Benign Prostatic Hyperplasia, Hx Chronic Renal Failure, Hx Dialysis, Hx Kidney Infection, Hx Kidney Stones Musculoskeletal History: Reports: Hx Arthritis, Hx Fibromyalgia, Other Musculoskeletal History - MILD CURVATURE OF SPINE Denies: Hx Back Problems, Hx Bursitis, Hx Congenital Bone Abnormalities, Hx Gout, Hx Orthopedic Injury, Hx Osteoporosis, Hx Scoliosis, Hx Tendonitis Sensory History: Reports: Hx Cataracts - BILAT, Hx Contacts or Glasses - GLASSES Denies: Hx Eye Injury, Hx Eye Prosthesis, Hx Glaucoma, Hx Macular Degeneration, Hx Vision Problem, Hx Deafness, Hx Hearing Aid, Hx Hearing Problem , Other Sensory Impairments Opthamlomology History: Reports: Hx Cataracts - BILAT, Hx Contacts or Glasses - GLASSES Denies: Hx Eye Injury, Hx Eye Prosthesis, Hx Glaucoma, Hx Macular Degeneration, Hx Vision Problem, Other Sensory Impairments Neurological History: Reports: Hx Headaches - AT TIMES, Hx Nerve Disease - FIBROMYALGIA Denies: Hx Dementia, Hx Developmental Delay, Hx Migraine, Hx Seizures, Hx Spinal Cord Injury, Hx Transient Ischemic Attacks (TIA), Other Neuro Impairments /Disorders Psychiatric History: Reports: Hx Anxiety - ON MED, Hx Depression Denies: Hx Attention Deficit Hyperactivity Disorder, Hx Autism, Hx Eating Disorder, Hx Oppositional Foard Disorder, Hx Panic Disorder, Hx Post Traumatic Stress Disorder, Hx Inpatient Treatment, Hx Community Mental Health Tx , Hx Schizophrenia, Hx Bipolar Disorder, Hx Suicide Attempt, Other Psychiatric Issues/Disorders - Cancer History Hx Hematologic Symptoms: No Hx Chemotherapy: No Hx Radiation Therapy: No - Surgical History Surgery Procedure, Year, and Place: HYSTERECTOMY. CARPAL TUNNEL X2. D&C X3. CARDIAC CATH. tubal ligation prior to hysterectomy. 07/2016 RIGHT CATARACT EXTRACTION WITH IOL IMPLANT, [facility] Hx Anesthesia Reactions: No - Immunization History Date of Tetanus Vaccine: unk Date of Influenza Vaccine: unk Infectious Disease History: Yes Infectious Disease History: Reports: Hx Hepatitis - as a child, Hx Shingles - years ago per pt, History Other Infectious Disease - ? HEPATITIS A CHILD Denies: Hx of Known/Suspected MRSA, Traveled Outside the [place] in Last 30 Days - Family History Known Family History: Positive: None, Cardiac Disease - sister, Diabetes Family History: sister - unspecified cardiac dz. Father - CHF - Social History Alcohol Use: None Hx Substance Use: No Substance Use Type: Reports: None Hx Tobacco Use: No Smoking Status (MU): Never Smoked Tobacco Have You Smoked in the Last Year: No Review of Systems Negative: Fever Positive: Abdominal Pain, Vomiting, Diarrhea, Nausea Positive: Other - left shoulder pain due to fall All Other Systems Reviewed And Are Negative: Yes Physical Exam Triage Information Reviewed: Yes Vital Signs On Initial Exam: Initial Vitals Temp Pulse Resp BP Pulse Ox 99 F 73 13 146/105 96 05/31/17 16:25 05/31/17 16:25 05/31/17 16:25 05/31/17 16:25 05/31/17 16:25 Vital Signs Reviewed: Yes Appearance: Positive: Well-Appearing, No Pain Distress Skin: Positive: Warm, Dry Head/Face: Positive: Normal Head/Face Inspection Eyes: Positive: Normal Neck: Positive: Supple, Nontender Respiratory/Lung Sounds: Positive: Clear to Auscultation, Breath Sounds Present Abdomen Description: Positive: Other: - epigastric tenderness Musculoskeletal: Positive: Normal Neurological: Positive: Normal Psychiatric: Positive: Affect/Mood Appropriate AVPU Assessment: Alert Diagnostics - Vital Signs Vital Signs Temp Pulse Resp BP Pulse Ox 05/31/17 16:25 99 F 73 13 146/105 96 - Laboratory Lab Results: Lab Results 05/31/17 05/31/17 05/31/17 Range/Units 17:50 17:50 17:50 WBC 9.4 (3.5-10.8) 10^3/ul RBC 4.68 (4.0-5.4) 10^6/ul Hgb 12.7 (12.0-16.0) g/dl Hct 40 (35-47) % MCV 85 (80-97) fL MCH 27 (27-31) pg MCHC 32 (31-36) g/dl RDW 15 (10.5-15) % Plt Count 252 (150-450) 10^3/ul MPV 8 (7.4-10.4) um3 Neut % (Auto) 80.8 (38-83) % Lymph % (Auto) 12.8 L (25-47) % Powell % (Auto) 3.3 (1-9) % Eos % (Auto) 1.5 (0-6) % Baso % (Auto) 1.6 (0-2) % Absolute Neuts (auto) 7.6 (1.5-7.7) 10^3/ul Absolute Lymphs (auto) 1.2 (1.0-4.8) 10^3/ul Absolute Monos (auto) 0.3 (0-0.8) 10^3/ul Absolute Eos (auto) 0.1 (0-0.6) 10^3/ul Absolute Basos (auto) 0.2 (0-0.2) 10^3/ul Absolute Nucleated RBC 0 10^3/ul Nucleated RBC % 0 POC Venous Sodium (138-146) mmol/L Sodium 140 (133-145) mmol/L POC Venous Potassium (3.5-4.9) mmol/L Potassium 3.5 (3.5-5.0) mmol/L POC Venous Chloride (98-109) mmol/L Chloride 110 (101-111) mmol/L Carbon Dioxide 18 L (22-32) mmol/L POC Venous Total CO2 (24-29) mmol/L Anion Gap 12 H (2-11) mmol/L BUN 24 (6-24) mg/dL POC Venous BUN (8-26) mg/dL Creatinine 1.09 H (0.51-0.95) mg/dL POC Venous Creatinine (0.6-1.3) mg/dL Est GFR ( Amer) 64.2 (>60) Est GFR (Non-Af Amer) 49.9 (>60) BUN/Creatinine Ratio 22.0 H (8-20) Glucose 88 (70-100) mg/dL POC Venous Glucose (70-105) mg/dL Lactic Acid 0.6 (0.5-2.0) mmol/L Calcium 9.2 (8.6-10.3) mg/dL Total Bilirubin 0.40 (0.2-1.0) mg/dL AST 16 (13-39) U/L ALT 8 (7-52) U/L Alkaline Phosphatase 89 (34-104) U/L Troponin I 0.00 (<0.04) ng/mL C-Reactive Protein 6.27 H (< 5.00) mg/L Total Protein 6.9 (6.4-8.9) g/dL Albumin 3.9 (3.2-5.2) g/dL Globulin 3.0 (2-4) g/dL Albumin/Globulin Ratio 1.3 (1-3) Lipase 15 (11.0-82.0) U/L 05/31/17 05/31/17 Range/Units 20:22 20:22 WBC (3.5-10.8) 10^3/ul RBC (4.0-5.4) 10^6/ul Hgb (12.0-16.0) g/dl Hct (35-47) % MCV (80-97) fL MCH (27-31) pg MCHC (31-36) g/dl RDW (10.5-15) % Plt Count (150-450) 10^3/ul MPV (7.4-10.4) um3 Neut % (Auto) (38-83) % Lymph % (Auto) (25-47) % Powell % (Auto) (1-9) % Eos % (Auto) (0-6) % Baso % (Auto) (0-2) % Absolute Neuts (auto) (1.5-7.7) 10^3/ul Absolute Lymphs (auto) (1.0-4.8) 10^3/ul Absolute Monos (auto) (0-0.8) 10^3/ul Absolute Eos (auto) (0-0.6) 10^3/ul Absolute Basos (auto) (0-0.2) 10^3/ul Absolute Nucleated RBC 10^3/ul Nucleated RBC % POC Venous Sodium 142 (138-146) mmol/L Sodium (133-145) mmol/L POC Venous Potassium 3.7 (3.5-4.9) mmol/L Potassium (3.5-5.0) mmol/L POC Venous Chloride 108 (98-109) mmol/L Chloride (101-111) mmol/L Carbon Dioxide (22-32) mmol/L POC Venous Total CO2 24 (24-29) mmol/L Anion Gap 10 (2-11) mmol/L BUN (6-24) mg/dL POC Venous BUN 28 H (8-26) mg/dL Creatinine (0.51-0.95) mg/dL POC Venous Creatinine 1.10 (0.6-1.3) mg/dL Est GFR ( Amer) 63.5 (>60) Est GFR (Non-Af Amer) 49.4 (>60) BUN/Creatinine Ratio 25.5 H (8-20) Glucose (70-100) mg/dL POC Venous Glucose 96 (70-105) mg/dL Lactic Acid (0.5-2.0) mmol/L Calcium (8.6-10.3) mg/dL Total Bilirubin (0.2-1.0) mg/dL AST (13-39) U/L ALT (7-52) U/L Alkaline Phosphatase (34-104) U/L Troponin I 0.01 (<0.04) ng/mL C-Reactive Protein (< 5.00) mg/L Total Protein (6.4-8.9) g/dL Albumin (3.2-5.2) g/dL Globulin (2-4) g/dL Albumin/Globulin Ratio (1-3) Lipase (11.0-82.0) U/L Result Diagrams: 05/31/17 17:50 05/31/17 17:50 Lab Statement: Any lab studies that have been ordered have been reviewed, and results considered in the medical decision making process. - Radiology CXR Xray Interpretation: No Acute Changes Radiology Interpretation Completed By: Radiologist - EKG 1815 Cardiac Rate: NL - 69 bpm EKG Rhythm: Sinus Rhythm EKG Interpretation: Nonspecific diffuse changes. Re-Evaluation - Re-Evaluation First Eval Re-Evaluation Time: 20:16 Chest Pain Course/Dx - Course Course Of Treatment: Ms. Strong presented C/O chest pain that started today but was equivocal about when. She also was C/O 'gallbladder pain' that has apparently been present at least 10 days. Her history was vague and her affect was angry which seemed to be related to the fact that she has had both chest pain and abdominal pain for a long time and that no one has been able to help her with it. She was quite impatient but did finally stay for a second troponin which was negative. Her WBC's and transaminases were also normal. - Diagnoses Provider Diagnoses: Chest pain Discharge - Discharge Plan Condition: Stable Disposition: HOME Patient Education Materials: Chest Pain (ED) Referrals: Cornell Zarate MD [Primary Care Provider] - 2 Days The documentation as recorded by the Hernan luna Soohyun accurately reflects the service I personally performed and the decisions made by , Joe Vargas MD.
== END 2017-05-31 21:24 | disposition home or self-care (01) ==
LOC: ED 15:51
DX: R07.9 Chest pain, unspecified (principal); M79.7 Fibromyalgia; F41.9 Anxiety disorder, unspecified; F32.9 Major depressive disorder, single episode, unspecified; J45.909 Unspecified asthma, uncomplicated; K21.9 Gastro-esophageal reflux disease without esophagitis; K58.9 Irritable bowel syndrome, unspecified; Z88.5 Allergy status to narcotic agent; Z88.0 Allergy status to penicillin
CPT/HCPCS: 36415; 71010; 80048; 80053; 83605; 83690; 84484; 85025; 86140; 93005; 96374; 99283; A9270-GY

== ENCOUNTER 2017-07-09 11:05 | Emergency (ER) | payer MEDICARE, MEDICAID ==
[2017-07-09 12:02] LABS: Hematocrit 39 % (35-47); Hemoglobin 12.6 g/dl (12.0-16.0); Mean Corpuscular HGB Conc 33 g/dl (31-36); Mean Corpuscular Hemoglobin 27 pg (27-31); Mean Corpuscular Volume 83 fL (80-97); Mean Platelet Volume 8 um3 (7.4-10.4); Red Blood Count 4.66 10^6/ul (4.0-5.4); Red Cell Distribution Width 16 % (10.5-15); White Blood Count 9.1 10^3/ul (3.5-10.8)
[2017-07-09 12:17] LABS: BUN/Creatinine Ratio 20.2 (8-20); Calcium 9.3 mg/dL (8.6-10.3); EGFR African American 76.2 (>60); EGFR Non-African American 59.2 (>60); Potassium 3.1 mmol/L (3.5-5.0); Total Bilirubin 0.5 mg/dL (0.2-1.0)
--- NOTE | 2017-07-09 12:17 | RAD ---
Indication: Hypertension. Single frontal view of the chest performed at 1135 hours was reviewed. Comparison is made with previous exam dated May 31, 2017. No mediastinal shift is noted. Heart is of normal size and configuration. Lung schaefer appear clear. IMPRESSION: NO ACTIVE CARDIOPULMONARY DISEASE IS NOTED.
[2017-07-09 12:47] LABS: TSH (Thyroid Stimulating Horm) 1.38 mcIU/mL (0.34-5.60)
[2017-07-09] MEDS ORDERED: Potassium Chlor TAB* 20 MEQ TAB.ER PO ONE (12:55)
[2017-07-09] MEDS ORDERED: Metoprolol Succinate XL TAB* 25 MG PO ONE (12:56)
[2017-07-09] MEDS ORDERED: Acetaminophen TAB* 325 MG PO ONE (12:57)
[2017-07-09 13:21] VITALS: BP 163/74
--- NOTE | 2017-08-03 09:17 | ED ---
Shweta Bustos Thomas, scribed for Edda Coleman MD on 07/09/17 at 1126 . Hypertension - HPI Summary HPI Summary: The pt is a 67 y/o F BIBA and c/o KOTHARI and a hypertensive emergency. Per EMS, she had blood pressure readings of 210/110, 202/87, and 170/89. She lives at [facility], a senior housing facility. The patient self-checked her blood pressure this morning, and then she asked a nurse to measure her blood pressure shortly afterwards. Pt denies CP, SOB, and any other pains. She takes metoprolol, famotidine, Pristiq, and Lyrica. She did not take her morning medications today. She used to take Lisinopril, but she was taken off this medication because her blood pressure was too low. She also used to take Norvasc. PMHx: migraines, fibromyalgia, psoriatic arthritis, possible PR, unspecified memory issues, anxiety, depression, agoraphobia. PSHx: hysterectomy, D&Cs, cataracts, carpal tunnel. SHx: no smoking, no alcohol use, no illicit drug use. FHx: CHF. She sees Dr. Lopez and Dr. Zarate. - History of Current Complaint Chief Complaint: EDHeadache Stated Complaint: HYPERTENSION Hx Obtained From: Patient, EMS Onset/Duration: Started Hours Ago, Still Present Timing: Constant Reported Blood Pressure Prior To Arrival: 210/110, 202/87, and 170/89 Aggravating Factor(s): Nothing Alleviating Factor(s): Nothing Associated Signs & Symptoms: Headaches, Other: - NEG: CP, SOB, or any other pain - Risk Factors Cardiac Risk Factors: Hypertension - Allergies/Home Medications Allergies/Adverse Reactions: Allergies Allergy/AdvReac Type Severity Reaction Status Date / Time Ampicillin Allergy Severe See Comment Verified 08/02/17 14:10 Lactose Intolerance (GI) Allergy Severe GI Upset Verified 08/02/17 14:10 Morphine AdvReac Severe SEVERE Verified 08/02/17 14:10 BRADYCARDIA Pravastatin AdvReac Severe Muscle Ache Verified 08/02/17 14:10 Gabapentin AdvReac Intermediate See Comment Verified 05/18/17 17:51 Procaine [From Novocain] AdvReac Intermediate See Comment Verified 08/02/17 14: 10 Olanzapine [From Zyprexa] AdvReac Unknown See Comment Verified 08/02/17 14:10 Sertraline [From Zoloft] AdvReac Unknown Unknown Verified 08/02/17 14:10 Reaction Details viibryd AdvReac Unknown See Comment Uncoded 08/02/17 14:10 PMH/Surg Hx/FS Hx/Imm Hx Previously Healthy: No Endocrine/Hematology History: Denies: Hx Anticoagulant Therapy, Hx Blood Disorders, Hx Blood Transfusions, Hx Bone Marrow Disease, Hx Diabetes, Hx Systemic Lupus Erythematosus, Hx Sickle Cell Disease, Hx Thyroid Disease, Hx Anemia, Hx Unexplained Bleeding, Other Endocrine/Hematological Disorders Cardiovascular History: Reports: Hx Angina, Hx Hypercholesterolemia, Hx Hypertension - ON MED, Hx Myocardial Infarction Denies: Hx Aneurysm, Hx Angioplasty, Hx Auto Implanted Cardiovert Defib, Hx Cardiac Arrest, Hx Cardiomegaly, Hx Congenital Heart Disease, Hx Congestive Heart Failure, Hx Coronary Artery Disease, Hx Deep Vein Thrombosis, Hx Hypotension, Hx Pacemaker/ICD, Hx Peripheral Vascular Disease, Hx Rheumatic Fever, Hx Syncope, Hx Valvular Heart Disease Respiratory History: Reports: Hx Asthma - PRN INHALER, STATES BROUGHT ON BY ANXIETY Denies: Hx Bronchopulmonary Dysplasia, Hx Chronic Bronchitis, Hx Chronic Obstructive Pulmonary Disease (COPD), Hx Cystic Fibrosis, Hx Lung Cancer, Hx Pleural Effusion, Hx Pneumonia, Hx Pulmonary Edema, Hx Pulmonary Embolism, Hx Seasonal Allergies, Hx Sleep Apnea, Other Respiratory Problems/Disorders GI History: Reports: Hx Gastroesophageal Reflux Disease - ON MED, Hx Irritable Bowel - DIARRHEA AT TIMES-LACTOSE INTOLERANT, Other GI Disorders - GALLBLADDER POLYPS/STONES, FATTY LVER Denies: Hx Cirrhosis, Hx Crohn's Disease, Hx Diverticulosis, Hx Gall Bladder Disease, Hx Gastrointestinal Bleed, Hx Hiatal Hernia, Hx Jaundice, Hx Obstructive Bowel, Hx Ileostomy, Hx Pyloric Stenosis, Hx Ulcer History: Reports: Other Problems/Disorders - 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 NOW Denies: Hx Acute Renal Failure, Hx Benign Prostatic Hyperplasia, Hx Chronic Renal Failure, Hx Dialysis, Hx Kidney Infection, Hx Kidney Stones Musculoskeletal History: Reports: Hx Arthritis, Hx Fibromyalgia, Other Musculoskeletal History - MILD CURVATURE OF SPINE Denies: Hx Back Problems, Hx Bursitis, Hx Congenital Bone Abnormalities, Hx Gout, Hx Orthopedic Injury, Hx Osteoporosis, Hx Scoliosis, Hx Tendonitis Sensory History: Reports: Hx Cataracts - BILAT, Hx Contacts or Glasses - GLASSES Denies: Hx Eye Injury, Hx Eye Prosthesis, Hx Glaucoma, Hx Macular Degeneration, Hx Vision Problem, Hx Deafness, Hx Hearing Aid, Hx Hearing Problem , Other Sensory Impairments Opthamlomology History: Reports: Hx Cataracts - BILAT, Hx Contacts or Glasses - GLASSES Denies: Hx Eye Injury, Hx Eye Prosthesis, Hx Glaucoma, Hx Macular Degeneration, Hx Vision Problem, Other Sensory Impairments Neurological History: Reports: Hx Headaches - AT TIMES, Hx Nerve Disease - FIBROMYALGIA Denies: Hx Dementia, Hx Developmental Delay, Hx Migraine, Hx Seizures, Hx Spinal Cord Injury, Hx Transient Ischemic Attacks (TIA), Other Neuro Impairments /Disorders Psychiatric History: Reports: Hx Anxiety - ON MED, Hx Depression Denies: Hx Attention Deficit Hyperactivity Disorder, Hx Autism, Hx Eating Disorder, Hx Oppositional [place] Disorder, Hx Panic Disorder, Hx Post Traumatic Stress Disorder, Hx Inpatient Treatment, Hx Community Mental Health Tx , Hx Schizophrenia, Hx Bipolar Disorder, Hx Suicide Attempt, Other Psychiatric Issues/Disorders - Cancer History Hx Hematologic Symptoms: No Hx Chemotherapy: No Hx Radiation Therapy: No - Surgical History Surgery Procedure, Year, and Place: HYSTERECTOMY. CARPAL TUNNEL X2. D&C X3. CARDIAC CATH. tubal ligation prior to hysterectomy. 07/2016 RIGHT CATARACT EXTRACTION WITH IOL IMPLANT, [facility] Hx Anesthesia Reactions: No - Immunization History Date of Tetanus Vaccine: unk Date of Influenza Vaccine: unk Infectious Disease History: No Infectious Disease History: Reports: Hx Hepatitis - as a child, Hx Shingles - years ago per pt Denies: Hx of Known/Suspected MRSA, Traveled Outside the [place] in Last 30 Days - Family History Known Family History: Positive: Cardiac Disease - sister, Diabetes Family History: sister - unspecified cardiac dz. Father - CHF - Social History Alcohol Use: None Hx Substance Use: No Substance Use Type: Reports: None Hx Tobacco Use: No Smoking Status (MU): Never Smoked Tobacco Have You Smoked in the Last Year: No Review of Systems Constitutional: Negative Negative: Fever Positive: Other - POS: HTN (210/110, 202/87, and 170/89). Negative: Chest Pain Negative: Shortness Of Breath Negative: Other - NEG: any other pains Positive: Headache All Other Systems Reviewed And Are Negative: Yes Physical Exam Triage Information Reviewed: Yes Vital Signs On Initial Exam: Initial Vitals Temp Pulse Resp BP Pulse Ox 97.3 F 69 18 150/85 95 07/09/17 11:12 07/09/17 11:12 07/09/17 11:12 07/09/17 11:12 07/09/17 11:12 Vital Signs Reviewed: Yes Appearance: Positive: Well-Appearing, Well-Nourished, Pain Distress Skin: Positive: Warm, Skin Color Reflects Adequate Perfusion Head/Face: Positive: Normal Head/Face Inspection Eyes: Positive: Conjunctiva Clear ENT: Positive: Normal ENT inspection Neck: Positive: Supple Respiratory/Lung Sounds: Positive: Clear to Auscultation, Breath Sounds Present , Other - No respiratory distress Cardiovascular: Positive: RRR, Pulses are Symmetrical in both Upper and Lower Extremities, Other - Brisk cap refill. Negative: Murmur Abdomen Description: Positive: Nontender, Soft Bowel Sounds: Positive: Present Musculoskeletal: Positive: Strength/ROM Intact Neurological: Positive: Sensory/Motor Intact, Alert, Oriented to Person Place, Time, CN Intact II-III, Facial Symmetry, Speech Normal Psychiatric: Positive: Normal Diagnostics - Vital Signs Vital Signs Temp Pulse Resp BP Pulse Ox 07/09/17 11:12 97.3 F 69 18 150/85 95 - Laboratory Lab Results: Lab Results 07/09/17 07/09/17 07/09/17 Range/Units 11:49 11:49 11:49 WBC (3.5-10.8) 10^3/ul RBC (4.0-5.4) 10^6/ul Hgb (12.0-16.0) g/dl Hct (35-47) % MCV (80-97) fL MCH (27-31) pg MCHC (31-36) g/dl RDW (10.5-15) % Plt Count (150-450) 10^3/ul MPV (7.4-10.4) um3 Neut % (Auto) (38-83) % Lymph % (Auto) (25-47) % [place] % (Auto) (1-9) % Eos % (Auto) (0-6) % Baso % (Auto) (0-2) % Absolute Neuts (auto) (1.5-7.7) 10^3/ul Absolute Lymphs (auto) (1.0-4.8) 10^3/ul Absolute Monos (auto) (0-0.8) 10^3/ul Absolute Eos (auto) (0-0.6) 10^3/ul Absolute Basos (auto) (0-0.2) 10^3/ul Absolute Nucleated RBC 10^3/ul Nucleated RBC % INR (Anticoag Therapy) 0.90 (0.89-1.11) Sodium 143 (133-145) mmol/L Potassium 3.1 L (3.5-5.0) mmol/L Chloride 103 (101-111) mmol/L Carbon Dioxide 33 H (22-32) mmol/L Anion Gap 7 (2-11) mmol/L BUN 19 (6-24) mg/dL Creatinine 0.94 (0.51-0.95) mg/dL Est GFR ( Amer) 76.2 (>60) Est GFR (Non-Af Amer) 59.2 (>60) BUN/Creatinine Ratio 20.2 H (8-20) Glucose 94 (70-100) mg/dL Lactic Acid (0.5-2.0) mmol/L Calcium 9.3 (8.6-10.3) mg/dL Total Bilirubin 0.50 (0.2-1.0) mg/dL AST 16 (13-39) U/L ALT 10 (7-52) U/L Alkaline Phosphatase 94 (34-104) U/L Total Creatine Kinase 50 (10-223) U/L CK-MB (CK-2) 1.1 (0.6-6.3) ng/mL Troponin I 0.00 (<0.04) ng/mL B-Natriuretic Peptide 111 H ( - 100) pg/mL Total Protein 7.0 (6.4-8.9) g/dL Albumin 4.0 (3.2-5.2) g/dL Globulin 3.0 (2-4) g/dL Albumin/Globulin Ratio 1.3 (1-3) TSH 1.38 (0.34-5.60) mcIU/mL 07/09/17 07/09/17 Range/Units 11:49 11:49 WBC 9.1 (3.5-10.8) 10^3/ul RBC 4.66 (4.0-5.4) 10^6/ul Hgb 12.6 (12.0-16.0) g/dl Hct 39 (35-47) % MCV 83 (80-97) fL MCH 27 (27-31) pg MCHC 33 (31-36) g/dl RDW 16 H (10.5-15) % Plt Count 293 (150-450) 10^3/ul MPV 8 (7.4-10.4) um3 Neut % (Auto) 67.0 (38-83) % Lymph % (Auto) 24.4 L (25-47) % [place] % (Auto) 4.9 (1-9) % Eos % (Auto) 2.3 (0-6) % Baso % (Auto) 1.4 (0-2) % Absolute Neuts (auto) 6.1 (1.5-7.7) 10^3/ul Absolute Lymphs (auto) 2.2 (1.0-4.8) 10^3/ul Absolute Monos (auto) 0.4 (0-0.8) 10^3/ul Absolute Eos (auto) 0.2 (0-0.6) 10^3/ul Absolute Basos (auto) 0.1 (0-0.2) 10^3/ul Absolute Nucleated RBC 0.01 10^3/ul Nucleated RBC % 0.1 INR (Anticoag Therapy) (0.89-1.11) Sodium (133-145) mmol/L Potassium (3.5-5.0) mmol/L Chloride (101-111) mmol/L Carbon Dioxide (22-32) mmol/L Anion Gap (2-11) mmol/L BUN (6-24) mg/dL Creatinine (0.51-0.95) mg/dL Est GFR ( Amer) (>60) Est GFR (Non-Af Amer) (>60) BUN/Creatinine Ratio (8-20) Glucose (70-100) mg/dL Lactic Acid 0.9 (0.5-2.0) mmol/L Calcium (8.6-10.3) mg/dL Total Bilirubin (0.2-1.0) mg/dL AST (13-39) U/L ALT (7-52) U/L Alkaline Phosphatase (34-104) U/L Total Creatine Kinase (10-223) U/L CK-MB (CK-2) (0.6-6.3) ng/mL Troponin I (<0.04) ng/mL B-Natriuretic Peptide ( - 100) pg/mL Total Protein (6.4-8.9) g/dL Albumin (3.2-5.2) g/dL Globulin (2-4) g/dL Albumin/Globulin Ratio (1-3) TSH (0.34-5.60) mcIU/mL Result Diagrams: 07/09/17 11:49 07/09/17 11:49 Lab Statement: Any lab studies that have been ordered have been reviewed, and results considered in the medical decision making process. - Radiology CXR Xray Interpretation: No Acute Changes - CXR reveals no active cardiopulmonary disease is noted. ED physician has reviewed this radiology report and agrees. Radiology Interpretation Completed By: Radiologist - EKG 11:15 Cardiac Rate: NL - 61 EKG Interpretation: SR, Nml AV, Nml IV conduction time, Nml QTc, left axis -10. EKG Comparison: No Significant Change - from 05/31/17 Re-Evaluation - Re-Evaluation Second Eval Re-Evaluation Time: 12:56 Change: Improved Comment: She still has a KOTHARI that she rates 5/10. She does not have any neurological deficits, CP, or SOB. BP is141/102. Hypertension Course/Dx - Course Assessment/Plan: The patient is BIBA and complains of a KOTHARI and HTN with readings of 210/110, 202/87, and 170/89. She denies CP or SOB. Bloodwork shows Potassium 3.1, CO2 33, Troponin 0.00, BNP 111. EKG at 11:15 reveals sinus rhythm at 61 BPM, normal AV, normal IV conduction time, normal QTc, left axis - 10. Compared with prior EKG on 05/31/17, rhythm is unchanged. CXR reveals no active cardiopulmonary disease is noted. ED physician has reviewed this radiology report and agrees. The patient was diagnosed with hypertension and KOTHARI. The patient will be discharged home with follow up PCP. Pt is agreeable with this plan. - Diagnoses Provider Diagnoses: Hypertension, Headache Discharge - Discharge Plan Condition: Stable Disposition: HOME Patient Education Materials: DASH Eating Plan (ED), Hypertension (ED) Referrals: Cornell Zarate MD [Primary Care Provider] - 3 Days (for further evaluation and treatment of your high blood pressure ) Additional Instructions: You blood pressure came under control in the ER. There is no sign of a heart attack or stroke with the elevated blood pressure. You were given your metoprolol XL25mg in the ER, and also potassium 40 mEq for a potassium of 3.1. You were also given acetaminophen 975mg for your headache. Return to the ER if you have any new or worsening symptoms. The documentation as recorded by the Shweta luna Thomas accurately reflects the service I personally performed and the decisions made by , Edda Coleman MD.
== END 2017-07-09 13:20 | disposition home or self-care (01) ==
LOC: ED 11:05
DX: I10 Essential (primary) hypertension (principal); R51 Headache; E78.00 Pure hypercholesterolemia, unspecified; I25.2 Old myocardial infarction; J45.909 Unspecified asthma, uncomplicated; K21.9 Gastro-esophageal reflux disease without esophagitis; M79.7 Fibromyalgia; F32.9 Major depressive disorder, single episode, unspecified; L40.50 Arthropathic psoriasis, unspecified; Z82.49 Family history of ischemic heart disease and other diseases of the circulatory system; R07.9 Chest pain, unspecified
CPT/HCPCS: 36415; 71010; 80053; 82550; 82553; 83605; 83880; 84443; 84484; 85025; 85610; 93005; 99283; A9270-GY

== ENCOUNTER 2017-08-12 06:59 | Day surgery (SDC) | payer MEDICARE, MEDICAID ==
--- NOTE | 2017-08-02 22:28 | HP ---
CC: Dr. Cornell Zarate * ADMISSION HISTORY AND PHYSICAL: DATE OF ADMISSION: 08/12/17 ATTENDING SURGEON: Dr. Ti Nicholas * (DICTATED BY GUS LOPEZ) CHIEF COMPLAINT: Symptomatic cholelithiasis. HISTORY OF PRESENT ILLNESS: This is a 67-year-old female with multiple medical problems who has a 2 to 3-year history of intermitted right upper quadrant abdominal pain. This occurs on an almost daily basis, though has been less significant since she modified her eating habits. She has eliminated chocolate and sweets and reduced her fat intake. She is also eating much more portion sizes over the past year with resultant 68-pound weight loss. Her symptoms do tend to occur mostly postprandial and are described as pain in the right upper quadrant radiating up into the chest. She has occasional associated nausea and vomiting. She denies fever or chills. She sometimes has loose stools related to episodes with occasional passage of both mucus and blood. Episodes typically last 3 to 4 hours. She has been seen in the ED on multiple occasions for the same. An ultrasound done on 06/03/17 confirmed the presence of cholelithiasis without gallbladder wall thickening, cholecystic fluid, or ductal dilatation. There were some changes consistent with fatty liver. She met with Dr. Nicholas on 06/18/17. His impression was that of symptomatic cholelithiasis and recommendation was made for surgery. She has since been seen by Cardiology (see separate note). The patient understands the indications for surgery, the risks, benefits, and alternatives as well as the expected perioperative course. She would like to proceed as scheduled with laparoscopic cholecystectomy. PAST MEDICAL HISTORY: Depression and anxiety, fibromyalgia, unspecified connective tissue disorder, osteoarthritis, hypertension, GERD. She denies history of MS, diabetes, or personal history of cancer. PAST SURGICAL HISTORY: Includes DIOGENES without oophorectomy for benign disease, tubal ligation, and D and C, prior right breast biopsy many years ago for benign disease, bilateral carpal tunnel release, bilateral cataract extraction. No reported surgical or anesthesia complications. CURRENT MEDICATIONS: 1. Amlodipine 5 mg once daily. 2. Metoprolol extended release 25 mg once daily. 3. Pepcid 40 mg daily and p.r.n. 4. Abilify 5 mg q.h.s. 5. Pristiq 50 mg daily. 6. Hydroxychloroquine 200 mg daily (recently resumed under the direction of Dr. Rosas with gradual taper up to 400 mg daily). 7. Clonazepam 1 mg t.i.d. p.r.n. (she uses 2 at h.s. plus 1 to 2 p.r.n. during the day). 8. Nitroglycerin sublingual 0.4 mg p.r.n. 9. Vitamin D3 2000 International Units 3 tablets 3 times weekly. 10. Imodium p.r.n. 11. Restasis eye drops p.r.n. 12. Hyoscyamine p.r.n. for abdominal cramping and/or diarrhea. ALLERGIES: AMPICILLIN (diarrhea), ZOLOFT (does not do well with), MORPHINE ( does not work), PRAVASTATIN (myalgias), GABAPENTIN (the patient does not recall reaction), ZYPREXA (does not do well with it). FAMILY HISTORY: Negative for gallbladder disease, problems with general anesthesia, bleeding or clotting disorders. SOCIAL HISTORY: The patient lives alone at [employer]. She is not currently working. She denies use of tobacco, alcohol, or other recreational drugs. REVIEW OF SYSTEMS: General: No recent constitutional symptoms or acute illnesses other than described in the HPI. Cardiovascular: She was seen recently by Cardiology PA, Emily Smith, on 06/15/17 (see separate report). Respiratory: No history of asthma, chronic cough, or shortness of breath. GI: As above per HPI. Colonoscopy done within the past 5 years with no significant interval problems reported and repeat scheduled for this Bernabe. : She had a mild recent elevation of her serum creatinine and is scheduled to see Dr. Milian in the near future. SPEECH LANGUAGE PATHOLOGY ASSISTANT: She was recently by Dr. Nicholas for evaluation of bilateral breast lumps (no significant findings; no recommendations for surgery or biopsy). Endocrine: No diabetes or thyroid dysfunction. Neurologic/Psychiatric: (As above, no additions). PHYSICAL EXAMINATION GENERAL: Well-nourished, somewhat obese female, in no acute distress. VITAL SIGNS: Height 63 inches, weight 157 pounds, BMI of 27.8. Blood pressure 132/84, pulse 66, respirations 16. HEENT: Pupils unequal and irregular from prior cataract surgery. EOMs intact. No conjunctival pallor or scleral icterus. Oropharynx: Multiple missing teeth. No intraoral lesions. NECK: No lymphadenopathy, thyromegaly, or masses. LUNGS: Clear to auscultation. No rales or wheezes. HEART: Regular rate and rhythm. No murmur appreciated. BREASTS: Not reexamined today. See above. ABDOMEN: Well-healed umbilical scar and low transverse incision. Soft, nontender to palpation. Minor epigastric tenderness. No palpable masses or organomegaly. GENITALIA AND RECTAL: Not done. BACK: No spinous process or CVA tenderness. EXTREMITIES: No edema. NEUROLOGICAL: Grossly intact, though the patient is a somewhat difficult historian with difficult to follow thought pattern. She is oriented. SKIN: Warm and dry. No suspicious rashes or lesions. IMPRESSION: Symptomatic cholelithiasis. PLAN: Laparoscopic cholecystectomy. GUS LOPEZ [id number] #: [id number] MTDD
[~2017-08-12 06:59] MED LIST: Buffered Lidocaine 0.9% SYRIN* 5 ML/SYR SYRINGE INTRADERM ONE; Famotidine IV* 10 MG/ML 2 ML (20 mg) IV ONE; HYDROmorphone INJ* 1 MG/ML CARPUJECT SYRINGE IV PRN; PROCHLORPERAZINE INJ 5 MG/ML 2 ML VIAL IV PRN; Scopolamine 1.5 mg* PATCH TRANSDERM PRN
[2017-08-12] MEDS ORDERED: Famotidine IV* 10 MG/ML 2 ML (20 mg) ONE (07:16)
[2017-08-12] MEDS ORDERED: ceFAZolin 2 GM PREMIX (*) 50 ML IVPB ONE (07:16)
[2017-08-12] MEDS ORDERED: Buffered Lidocaine 0.9% SYRIN* 5 ML/SYR SYRINGE ONE (07:16)
[2017-08-12] MEDS ORDERED: Bupivacaine 0.25% SDV* 30 ML ONE (07:36)
[2017-08-12] MEDS ORDERED: Lidocaine 1% MPF wEPI 200,000* 30 ML SDV ONE (07:36)
[2017-08-12] MEDS ORDERED: Midazolam* 1 MG/ML 5 ML VIAL (5 MG) ONE ×2 (08:12→08:14)
[2017-08-12] MEDS ORDERED: KETAMINE HCL* 50 MG/ML 10 ML VIAL ONE (08:12)
[2017-08-12] MEDS ORDERED: Atracurium* 10 MG/ML 10 ML VIAL ONE (08:12)
[2017-08-12] MEDS ORDERED: fentaNYL* 50 MCG/ML 2 ML VIAL (100 MCG VIAL) ONE ×2 (08:12→10:15)
[2017-08-12] MEDS ORDERED: Neostigmine Methylsulfate* 2 MG/2 ML SYRINGE ONE (09:07)
[2017-08-12] MEDS ORDERED: EPHEDrine (Pressors)* 50 MG/ML VIAL ONE (09:07)
[2017-08-12] MEDS ORDERED: Ondansetron INJ* 2 MG/ML VIAL ONE (09:07)
[2017-08-12] MEDS ORDERED: Propofol* 10 MG/ML 20 ML BTL IV PUSH ONE (09:07)
[2017-08-12] MEDS ORDERED: Dexamethasone IV* 4 MG/ML 1 ML (4 MG) ONE (09:07)
[2017-08-12] MEDS ORDERED: Glycopyrrolate IV* 0.2 MG/ML 1 ML VIAL ONE (09:07)
[2017-08-12] MEDS ORDERED: Lidocaine 2% PF* 10 ML AMP ONE (09:07)
[2017-08-12] MEDS ORDERED: Ketorolac INJ* 30 MG/ML 1 ML VIAL ONE (09:07)
--- NOTE | 2017-08-12 09:49 | SURGPN ---
Brief Operative Note - Surgery Procedures: Procedures Procedure: Laparoscopic Cholecystectomy Preoperative Diagnosis: Symptomatic cholelithiasis Postoperative Diagnosis: Same + chronic cholecystitis Procedure: Laparoscopic cholecystectomy Anesthesia: GET Surgeon: Dr. Nicholas Assist: GUS Loomis EBL: <50 cc Specimen: gallbladder Fluids: Lactated Ringers 1200 Drains: none Findings: dictated
[2017-08-12] MEDS ORDERED: oxyCODONE/Acetamin 5/325 MG* TAB ONE ×2 (10:10→10:48)
[2017-08-12] MEDS: oxyCODONE/Acetamin 5/325 MG* TAB PO PRN ×2 (10:11→10:49)
[2017-08-12] MEDS: fentaNYL* 50 MCG/ML 2 ML VIAL (100 MCG VIAL) IV PRN ×2 (10:17→10:52)
[2017-08-12 12:22] VITALS: BP 104/50
--- NOTE | 2017-08-12 15:01 | OP ---
CC: Ti Nicholas MD; Dr. Cornell Zarate OPERATIVE REPORT: DATE OF OPERATION: 08/12/17 DATE OF : 48 SURGEON: Ti Nicholas MD PROFESSOR OF FLORICULTURE: GUS Hoyt ANESTHESIOLOGIST: Dr. Moore. ANESTHESIA: General anesthetic, local infiltration. PRE-OP DIAGNOSIS: Symptomatic cholelithiasis. POST-OP DIAGNOSIS: Symptomatic cholelithiasis. OPERATIVE PROCEDURE: Laparoscopic cholecystectomy. DESCRIPTION OF PROCEDURE: The patient was supine on the operative table. After adequate general an esthetic, compression stockings, Lalita Hugger warmer, and intravenous antibiotics, the abdomen was pr epped with antiseptic, draped in a sterile fashion. Local infiltrative anesthesia was carried out i n the right upper quadrant and 5 mm blunt port cannula was used to access the abdominal cavity. Insu fflation was carried out with carbon dioxide. Inspection revealed no evidence of underlying injury. Additional cannulae, 5-mm supraumbilical and right anterior axillary line and 12-mm subxiphoid wer e placed through small stab wounds under direct vision. The gallbladder was tented upward. Omental adhesions were taken down off the gallbladder. Areolar tissue was taken down off the cystic duct a nd cystic artery, which were readily skeletonized, isolated and identified and then they were clippe d and divided. Gallbladder was taken off the liver bed. There was some bile spillage. No stone sp illage. The gallbladder was placed in a retrieval bag and brought out through the subxiphoid port w ithout difficulty. The operative field was made hemostatic with electrocautery and the irrigation a nd suctioning was carried out. Cannulae were removed. Pneumoperitoneum allowed to escape and the i ncision was closed with 5-0 Vicryl followed by Steri-Strips. She tolerated the procedure well, was awakened and brought to Recovery in good condition. No complications. No drains. Pathologic speci men is gallbladder. Sponge and instrument counts are correct. Estimated blood loss is 30 mL. [id number]/[facility] #: [id number]
[2017-08-15] MEDS ORDERED: Scopolomine PATCH Remove* 1 NOTE MISC PATCH OFF ONE (06:46)
== END 2017-08-12 12:35 | disposition home or self-care (01) ==
LOC: OR 06:59
PROVIDERS: ATTEND Surgery
DX: K80.10 Calculus of gallbladder with chronic cholecystitis without obstruction (principal); F41.8 Other specified anxiety disorders; M79.7 Fibromyalgia; Z79.899 Other long term (current) drug therapy; I10 Essential (primary) hypertension; K21.9 Gastro-esophageal reflux disease without esophagitis
CPT/HCPCS: 88304; A9270-GY; J0690; J1100; J1885; J2001; J2250; J2405; J2704; J3010

== ENCOUNTER 2017-08-26 19:34 | Emergency (ER) | payer MEDICARE, MEDICAID ==
[2017-08-26] MEDS ORDERED: fentaNYL* 50 MCG/ML 2 ML VIAL (100 MCG VIAL) IV SLOW PU ONE (20:36)
[2017-08-26 21:01] LABS: Hematocrit 39 % (35-47); Hemoglobin 12.5 g/dl (12.0-16.0); Mean Corpuscular HGB Conc 32 g/dl (31-36); Mean Corpuscular Hemoglobin 27 pg (27-31); Mean Corpuscular Volume 83 fL (80-97); Mean Platelet Volume 8 um3 (7.4-10.4); Red Blood Count 4.72 10^6/ul (4.0-5.4); Red Cell Distribution Width 15 % (10.5-15); White Blood Count 9.5 10^3/ul (3.5-10.8)
[2017-08-26 21:16] LABS: Albumin 4.1 g/dL (3.2-5.2); BUN/Creatinine Ratio 15.1 (8-20); Calcium 9.3 mg/dL (8.6-10.3); EGFR Non-African American 79.3 (>60); Globulin 2.8 g/dL (2-4); Magnesium 1.8 mg/dL (1.9-2.7); Total Bilirubin 0.3 mg/dL (0.2-1.0); Total Protein 6.9 g/dL (6.4-8.9)
[2017-08-26 21:21] LABS: Potassium 3.3 mmol/L (3.5-5.0)
[2017-08-26] MEDS ORDERED: Iohexol 300* (CONTRAST) 10 ML SDV IV ONE (21:35)
--- NOTE | 2017-08-27 02:36 | ED ---
Kiesha Bustos Rebecca, scribed for Branden Morgan MD on 08/26/17 at 2004 . Abdominal Pain/Female - HPI Summary HPI Summary: Pt is a 67 y/o F who presents to ED c/o abdominal pain. Pt is unsure of the exact onset of pain. Pain is in the bilateral lower abdomen and is currently severe, ranked 8/10. Sx aggravated and alleviated by nothing. Additionally notes V/D with hematemesis last week which resolved after she returned to eating only soft food. Currently, she denies nausea. PSHx cholecystectomy 2 weeks ago, done by Dr. Nicholas. She called his office today before coming to the ED tonight and Dr. Asif advised that she come to the ED. PMHx Lupus and Fibromyalgia and she is not currently on medications for the Lupus. - History of Current Complaint Chief Complaint: EDAbdPain Stated Complaint: ABD PAIN Pain Intensity: 8 Allergies/Adverse Reactions: Allergies Allergy/AdvReac Type Severity Reaction Status Date / Time Ampicillin Allergy Severe See Comment Verified 08/12/17 07:27 Lactose Intolerance (GI) Allergy Severe GI Upset Verified 08/12/17 07:27 Morphine AdvReac Severe SEVERE Verified 08/12/17 07:27 BRADYCARDIA Pravastatin AdvReac Severe Muscle Ache Verified 08/12/17 07:27 Gabapentin AdvReac Intermediate See Comment Verified 08/12/17 07:27 Procaine [From Novocain] AdvReac Intermediate See Comment Verified 08/12/17 07: 27 Olanzapine [From Zyprexa] AdvReac Unknown See Comment Verified 08/12/17 07:27 Sertraline [From Zoloft] AdvReac Unknown Unknown Verified 08/12/17 07:27 Reaction Details viibryd AdvReac Unknown See Comment Uncoded 08/12/17 07:27 PMH/Surg Hx/FS Hx/Imm Hx Endocrine/Hematology History: Denies: Hx Anticoagulant Therapy, Hx Blood Disorders, Hx Blood Transfusions, Hx Bone Marrow Disease, Hx Diabetes, Hx Systemic Lupus Erythematosus, Hx Sickle Cell Disease, Hx Thyroid Disease, Hx Anemia, Hx Unexplained Bleeding, Other Endocrine/Hematological Disorders Cardiovascular History: Reports: Hx Angina, Hx Coronary Artery Disease - CARDIAC CATHERIZATION 3 YRS AGO, FOLLOWED BY DR KHAN, Hx Hypercholesterolemia , Hx Hypertension, Hx Myocardial Infarction, Other Cardiovascular Problems/ Disorders - CARRIES NITRO FOR CHEST PAIN Denies: Hx Aneurysm, Hx Angioplasty, Hx Auto Implanted Cardiovert Defib, Hx Cardiac Arrest, Hx Cardiomegaly, Hx Congenital Heart Disease, Hx Congestive Heart Failure, Hx Deep Vein Thrombosis, Hx Hypotension, Hx Pacemaker/ICD, Hx Peripheral Vascular Disease, Hx Rheumatic Fever, Hx Syncope, Hx Valvular Heart Disease Respiratory History: Reports: Hx Asthma - PRN INHALER, STATES BROUGHT ON BY ANXIETY Denies: Hx Bronchopulmonary Dysplasia, Hx Chronic Bronchitis, Hx Chronic Obstructive Pulmonary Disease (COPD), Hx Cystic Fibrosis, Hx Lung Cancer, Hx Pleural Effusion, Hx Pneumonia, Hx Pulmonary Edema, Hx Pulmonary Embolism, Hx Seasonal Allergies, Hx Sleep Apnea, Other Respiratory Problems/Disorders GI History: Reports: Hx Gastroesophageal Reflux Disease - ON MED, Hx Irritable Bowel - DIARRHEA AT TIMES-LACTOSE INTOLERANT, Other GI Disorders - GALLBLADDER POLYPS/STONES, FATTY LVER Denies: Hx Cirrhosis, Hx Crohn's Disease, Hx Diverticulosis, Hx Gall Bladder Disease, Hx Gastrointestinal Bleed, Hx Hiatal Hernia, Hx Jaundice, Hx Obstructive Bowel, Hx Ileostomy, Hx Pyloric Stenosis, Hx Ulcer History: Reports: Other Problems/Disorders - 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 NOW Denies: Hx Acute Renal Failure, Hx Benign Prostatic Hyperplasia, Hx Chronic Renal Failure, Hx Dialysis, Hx Kidney Infection, Hx Kidney Stones Musculoskeletal History: Reports: Hx Arthritis - RA, Hx Fibromyalgia, Other Musculoskeletal History - MILD CURVATURE OF SPINE Denies: Hx Back Problems, Hx Bursitis, Hx Congenital Bone Abnormalities, Hx Gout, Hx Orthopedic Injury, Hx Osteoporosis, Hx Scoliosis, Hx Tendonitis Sensory History: Reports: Hx Cataracts - BILAT, Hx Contacts or Glasses - GLASSES Denies: Hx Eye Injury, Hx Eye Prosthesis, Hx Glaucoma, Hx Macular Degeneration, Hx Vision Problem, Hx Deafness, Hx Hearing Aid, Hx Hearing Problem , Other Sensory Impairments Opthamlomology History: Reports: Hx Cataracts - BILAT, Hx Contacts or Glasses - GLASSES Denies: Hx Eye Injury, Hx Eye Prosthesis, Hx Glaucoma, Hx Macular Degeneration, Hx Vision Problem, Other Sensory Impairments Neurological History: Reports: Hx Headaches - AT TIMES, Hx Nerve Disease - FIBROMYALGIA Denies: Hx Dementia, Hx Developmental Delay, Hx Migraine, Hx Seizures, Hx Spinal Cord Injury, Hx Transient Ischemic Attacks (TIA), Other Neuro Impairments /Disorders Psychiatric History: Reports: Hx Anxiety - ON MED, Hx Depression Denies: Hx Attention Deficit Hyperactivity Disorder, Hx Autism, Hx Eating Disorder, Hx Oppositional [place] Disorder, Hx Panic Disorder, Hx Post Traumatic Stress Disorder, Hx Inpatient Treatment, Hx Community Mental Health Tx , Hx Schizophrenia, Hx Bipolar Disorder, Hx Suicide Attempt, Other Psychiatric Issues/Disorders - Cancer History Hx Hematologic Symptoms: No Hx Chemotherapy: No Hx Radiation Therapy: No - Surgical History Surgery Procedure, Year, and Place: TUBAL LIGATION- [facility] [place]. HYSTERECTOMY- [facility] [place]. CARPAL TUNNEL X2- [facility] [place]. D&C X3- [facility]. CARDIAC CATHERIZATION- 3YRS AGO- [facility] [place]. RIGHT CATARACT EXTRACTION WITH IOL IMPLANT-06/2016- [facility] [place]. LEFT CATARACT EXTRACTION WITH IOL IMPLANT-08/2016- [facility] [place] Hx Anesthesia Reactions: Yes - MORPHINE CAUSED "SEVERE" BRADYCARDIA - Immunization History Date of Tetanus Vaccine: unk Date of Influenza Vaccine: unk Infectious Disease History: No Infectious Disease History: Reports: Hx Hepatitis - A CHILD- UNSURE WHICH TYPE, Hx Shingles - years ago per pt, History Other Infectious Disease - ? HEPATITIS A CHILD Denies: Hx of Known/Suspected MRSA, Traveled Outside the [place] in Last 30 Days - Family History Known Family History: Positive: Cardiac Disease - sister, Diabetes Family History: sister - unspecified cardiac dz. Father - CHF - Social History Alcohol Use: None Hx Substance Use: No Substance Use Type: Reports: None Hx Tobacco Use: No Smoking Status (MU): Never Smoked Tobacco Have You Smoked in the Last Year: No Review of Systems Negative: Fever Positive: Abdominal Pain, Vomiting - Last week - resolved, Diarrhea - Last week - resolved, Other - Hematemesis - resolved. Negative: Nausea All Other Systems Reviewed And Are Negative: Yes Physical Exam - Summary Physical Exam Summary: Appearance: Well-appearing, Well-nourished Skin: Warm Eyes: Normal ENT: Normal Neck: Supple, nontender Respiratory: Clear to auscultation Cardiovascular: Normal Abdomen: Soft, tenderness of the RLQ and LLQ without rebound or guarding, punctate healing abdominal scars consistent with Hx of cholecystectomy recently Bowel: Present Musculoskeletal: Normal, Strength/ROM Intact Neurological: Normal, A&Ox3 Psychiatric: Normal Triage Information Reviewed: Yes Vital Signs On Initial Exam: Initial Vitals Temp Pulse Resp BP Pulse Ox 97 F 76 16 152/76 98 08/26/17 19:41 08/26/17 19:41 08/26/17 19:41 08/26/17 19:41 08/26/17 19:41 Vital Signs Reviewed: Yes - [place] Coma Scale Coma Scale Total: 15 Diagnostics - Vital Signs Vital Signs Temp Pulse Resp BP Pulse Ox 08/26/17 19:45 76 14 98 08/26/17 19:44 152/76 08/26/17 19:41 97 F 76 16 152/76 98 - Laboratory Lab Results: Lab Results 08/26/17 08/26/17 08/26/17 Range/Units 20:51 20:51 20:51 WBC 9.5 (3.5-10.8) 10^3/ul RBC 4.72 (4.0-5.4) 10^6/ul Hgb 12.5 (12.0-16.0) g/dl Hct 39 (35-47) % MCV 83 (80-97) fL MCH 27 (27-31) pg MCHC 32 (31-36) g/dl RDW 15 (10.5-15) % Plt Count 307 (150-450) 10^3/ul MPV 8 (7.4-10.4) um3 Neut % (Auto) 68.1 (38-83) % Lymph % (Auto) 24.2 L (25-47) % Ware % (Auto) 4.0 (1-9) % Eos % (Auto) 3.1 (0-6) % Baso % (Auto) 0.6 (0-2) % Absolute Neuts (auto) 6.4 (1.5-7.7) 10^3/ul Absolute Lymphs (auto) 2.3 (1.0-4.8) 10^3/ul Absolute Monos (auto) 0.4 (0-0.8) 10^3/ul Absolute Eos (auto) 0.3 (0-0.6) 10^3/ul Absolute Basos (auto) 0.1 (0-0.2) 10^3/ul Absolute Nucleated RBC 0.01 10^3/ul Nucleated RBC % 0.1 INR (Anticoag Therapy) 0.90 (0.89-1.11) APTT 31.5 (26.0-36.3) seconds Sodium 140 (133-145) mmol/L Potassium 3.3 L (3.5-5.0) mmol/L Chloride 108 (101-111) mmol/L Carbon Dioxide 25 (22-32) mmol/L Anion Gap 7 (2-11) mmol/L BUN 11 (6-24) mg/dL Creatinine 0.73 (0.51-0.95) mg/dL Est GFR ( Amer) 102.0 (>60) Est GFR (Non-Af Amer) 79.3 (>60) BUN/Creatinine Ratio 15.1 (8-20) Glucose 94 (70-100) mg/dL Lactic Acid (0.5-2.0) mmol/L Calcium 9.3 (8.6-10.3) mg/dL Magnesium 1.8 L (1.9-2.7) mg/dL Total Bilirubin 0.30 (0.2-1.0) mg/dL AST 14 (13-39) U/L ALT 8 (7-52) U/L Alkaline Phosphatase 89 (34-104) U/L Total Protein 6.9 (6.4-8.9) g/dL Albumin 4.1 (3.2-5.2) g/dL Globulin 2.8 (2-4) g/dL Albumin/Globulin Ratio 1.5 (1-3) Amylase 68 (29-103) U/L Lipase 21 (11.0-82.0) U/L Blood Type Antibody Screen 08/26/17 08/26/17 Range/Units 20:51 20:51 WBC (3.5-10.8) 10^3/ul RBC (4.0-5.4) 10^6/ul Hgb (12.0-16.0) g/dl Hct (35-47) % MCV (80-97) fL MCH (27-31) pg MCHC (31-36) g/dl RDW (10.5-15) % Plt Count (150-450) 10^3/ul MPV (7.4-10.4) um3 Neut % (Auto) (38-83) % Lymph % (Auto) (25-47) % Ware % (Auto) (1-9) % Eos % (Auto) (0-6) % Baso % (Auto) (0-2) % Absolute Neuts (auto) (1.5-7.7) 10^3/ul Absolute Lymphs (auto) (1.0-4.8) 10^3/ul Absolute Monos (auto) (0-0.8) 10^3/ul Absolute Eos (auto) (0-0.6) 10^3/ul Absolute Basos (auto) (0-0.2) 10^3/ul Absolute Nucleated RBC 10^3/ul Nucleated RBC % INR (Anticoag Therapy) (0.89-1.11) APTT (26.0-36.3) seconds Sodium (133-145) mmol/L Potassium (3.5-5.0) mmol/L Chloride (101-111) mmol/L Carbon Dioxide (22-32) mmol/L Anion Gap (2-11) mmol/L BUN (6-24) mg/dL Creatinine (0.51-0.95) mg/dL Est GFR ( Amer) (>60) Est GFR (Non-Af Amer) (>60) BUN/Creatinine Ratio (8-20) Glucose (70-100) mg/dL Lactic Acid 1.3 (0.5-2.0) mmol/L Calcium (8.6-10.3) mg/dL Magnesium (1.9-2.7) mg/dL Total Bilirubin (0.2-1.0) mg/dL AST (13-39) U/L ALT (7-52) U/L Alkaline Phosphatase (34-104) U/L Total Protein (6.4-8.9) g/dL Albumin (3.2-5.2) g/dL Globulin (2-4) g/dL Albumin/Globulin Ratio (1-3) Amylase (29-103) U/L Lipase (11.0-82.0) U/L Blood Type O Positive Antibody Screen Negative Result Diagrams: 08/26/17 20:51 08/26/17 20:51 Lab Statement: Any lab studies that have been ordered have been reviewed, and results considered in the medical decision making process. - CT CT Abd/Pel CT Interpretation Completed By: Radiologist - Surgical changes of cholecystectomy without abnormal fluid collection. Faint density within the commmon bile duct may reflect retained ductal stone. Correlation with history and biliary stent is recommended. Nonspecific sclerotic focus in the right iliac is likely benign; however correlation with history of breast cancer is recommended. ED physician reviewed radiology report and agrees. Re-Evaluation - Re-Evaluation First Eval Re-Evaluation Time: 02:06 Change: Improved Comment: Discussed CT results with the pt. feels better after meds Abdominal Pain Fem Course/Dx - Course Course Of Treatment: pt seen to have possible retained ductal stone without any evidence of transaminitis or elevated bilis. in no acute distress, instructed to fu with gi physicina. agrees to and udnerstnds dc instrufctions. - Diagnoses Provider Diagnoses: Biliary stone Discharge - Discharge Plan Condition: Improved Disposition: HOME Patient Education Materials: Gallstones (ED) Referrals: Cornell Zarate MD [Primary Care Provider] - Juan Daniel Pendleton MD [Medical Doctor] - Additional Instructions: PLEASE MAKE AN APPOINTMENT FIRST THING IN THE MORNING TO BE SEEN BY A GI DOCTOR WITHIN 1 WEEK PLEASE RETURN TO THE EMERGENCY ROOM IF YOU HAVE ANY WORSENING OR CONCERNING SYMPTOMS The documentation as recorded by the Kiesha luna Rebecca accurately reflects the service I personally performed and the decisions made by me, Branden Morgan MD.
[2017-08-27 02:49] VITALS: BP 165/74
--- NOTE | 2017-08-27 07:40 | RAD ---
CLINICAL HISTORY: Abdominal pain one week following laparoscopic cholecystectomy. Additional relevant surgical history includes hysterectomy COMPARISON: Gallbladder ultrasound dated June 03, [address] abdomen pelvis May 22, 2004 TECHNIQUE: Contrast enhanced CT examination of the abdomen and pelvis from the lung bases through the initial tuberosities. The patient received 96 mL Omnipaque 300 intravenously prior to imaging.The patient received oral contrast as well prior to imaging. FINDINGS: VISUALIZED LUNG BASES: The visualized lung bases are grossly clear. There is no pleural effusion. ABDOMEN AND PELVIS: The liver, spleen, pancreas and adrenal glands are grossly normal in appearance. The gallbladder is surgically absent. There is mild infiltration in the gallbladder fossa but no drainable fluid collection. The kidneys are normal in appearance without focal mass, calcification or signs of hydronephrosis. There are contrast has progressed as far as the hepatic flexure. The small and large bowel are not distended. The patient's normal appendix is identified in the right lower quadrant measuring up to 6 mm in diameter with gas in the lumen. There is no gross retroperitoneal or mesenteric lymphadenopathy. The uterus is surgically absent. The abdominal aorta and iliac arteries are normal in course and diameter. Degenerative changes include multilevel loss of intervertebral disc height involving the lower thoracic and lumbar spine. At the right iliac bone (image 67 of 102) there is a 1.5 cm sclerotic density with preservation of the overlying cortex and no evidence of inflammatory or periosteal reaction. This lesion was seen in the 2003 CT examination. IMPRESSION: 1. Postsurgical changes consistent with recent cholecystectomy without drainable fluid collection or evidence of biliary leak. 2. There is a 1.5 cm sclerotic lesion at the right iliac bone that was seen on the 2004 CT examination and is most consistent therefore with a benign bone island. 3. Additional chronic, degenerative and iatrogenic findings described in the body of the report.
== END 2017-08-27 02:48 | disposition home or self-care (01) ==
LOC: ED 19:34
DX: K80.50 Calculus of bile duct without cholangitis or cholecystitis without obstruction (principal); R10.9 Unspecified abdominal pain; R11.10 Vomiting, unspecified; R19.7 Diarrhea, unspecified
CPT/HCPCS: 36415; 74177; 80053; 82150; 83605; 83690; 83735; 85025; 85610; 85730; 86850; 86900; 86901; 96374; 99283; J3010; Q9967

== ENCOUNTER 2017-10-04 10:17 | Emergency (ER) | payer MEDICARE, MEDICAID ==
[2017-10-04 11:07] VITALS: BP 161/61
--- NOTE | 2017-10-04 12:04 | UC ---
Skin Complaint HPI - HPI Summary HPI Summary: 67 yo WF h/o shingle in the past p/w recurrent zoster rash on right T5 dermatomal region, first seen 2 days ago associated with mild pain. - History of Current Complaint Chief Complaint: UCSkin Time Seen by Provider: 10/04/17 11:40 Stated Complaint: RASH Hx Obtained From: Patient Onset/Duration: Sudden Onset Skin Exposure Onset/Duration: Days Ago Onset Severity: Mild Current Severity: Mild Location: Discrete Aggravating Factor(s): Nothing Alleviating Factor(s): Nothing Associated Signs & Symptoms: Positive: Tenderness - Allergy/Home Medications Allergies/Adverse Reactions: Allergies Allergy/AdvReac Type Severity Reaction Status Date / Time Ampicillin Allergy Severe See Comment Verified 10/04/17 11:08 Lactose Intolerance (GI) Allergy Severe GI Upset Verified 10/04/17 11:08 Morphine AdvReac Severe SEVERE Verified 10/04/17 11:08 BRADYCARDIA Pravastatin AdvReac Severe Muscle Ache Verified 10/04/17 11:08 Gabapentin AdvReac Intermediate See Comment Verified 10/04/17 11:08 Procaine [From Novocain] AdvReac Intermediate See Comment Verified 10/04/17 11: 08 Olanzapine [From Zyprexa] AdvReac Unknown See Comment Verified 10/04/17 11:08 Sertraline [From Zoloft] AdvReac Unknown Unknown Verified 10/04/17 11:08 Reaction Details viibryd AdvReac Unknown See Comment Uncoded 10/04/17 11:08 Review of Systems Constitutional: Negative Skin: Rash Eyes: Negative ENT: Negative Respiratory: Negative Cardiovascular: Negative Gastrointestinal: Negative Genitourinary: Negative Motor: Negative Neurovascular: Negative Musculoskeletal: Negative Neurological: Negative Psychological: Negative All Other Systems Reviewed And Are Negative: Yes PMH/Surg Hx/FS Hx/Imm Hx Previously Healthy: Yes Other History Of: Negative For: Anticoagulant Therapy - Surgical History Surgical History: Yes Surgery Procedure, Year, and Place: TUBAL LIGATION- [facility]. HYSTERECTOMY- [facility] [place]. CARPAL TUNNEL X2- [facility]. D&C X3- [facility]. CARDIAC CATHERIZATION- 3YRS AGO- [facility] [place]. RIGHT CATARACT EXTRACTION WITH IOL IMPLANT-06/2016- [facility] [place]. LEFT CATARACT EXTRACTION WITH IOL IMPLANT-08/2016- [facility] [place]. Gallbladder removed - Family History Known Family History: Positive: None, Cardiac Disease - sister, Diabetes Family History: sister - unspecified cardiac dz. Father - CHF - Social History Alcohol Use: None Substance Use Type: None Smoking Status (MU): Never Smoked Tobacco Have You Smoked in the Last Year: No Household Exposure Type: Cigarettes - Immunization History Most Recent Influenza Vaccination: 07/2017 Physical Exam Triage Information Reviewed: Yes Appearance: Well-Appearing Vital Signs: Initial Vital Signs Temp 37.4 C 10/04/17 11:01 Pulse 54 10/04/17 11:01 Resp 16 10/04/17 11:01 BP 161/61 10/04/17 11:01 Pulse Ox 98 10/04/17 11:01 Eye Exam: Normal ENT Exam: Normal Dental Exam: Normal Neck exam: Normal Neck: Positive: 1 Respiratory Exam: Normal Cardiovascular Exam: Normal Abdominal Exam: Normal Musculoskeletal Exam: Normal Neurological Exam: Normal Psychological Exam: Normal Skin: Positive: rashes, significant lesion(s) - erythematous vesicular rash on RIGHT back, around the chestwall to the right chest anteriorly under the right breast T4-5 region; Course/Dx - Course Course Of Treatment: acyclovir 400 TID x 5 days for recurrent zoster - Diagnoses Provider Diagnoses: herpes zoster Discharge - Discharge Plan Condition: Stable Disposition: HOME Prescriptions: Acyclovir [Zovirax] 400 mg PO TID 5 Days #15 tab Patient Education Materials: Shingles (ED) Referrals: Cornell Zarate MD [Primary Care Provider] - Additional Instructions: as tolerated, Contact precautions near family members
== END 2017-10-04 12:00 | disposition home or self-care (01) ==
LOC: UCEAST 10:17
DX: B02.9 Zoster without complications (principal)
CPT/HCPCS: 99212; G0463

== ENCOUNTER 2017-10-16 10:22 | Emergency (ER) | payer MEDICARE, MEDICAID ==
[2017-10-16 11:37] VITALS: BP 144/62
--- NOTE | 2017-10-16 12:21 | UC ---
Shweta Bustos Thomas, [facility] on 10/16/17 at 1209 . General HPI - HPI Summary HPI Summary: In Room Note: The patient is a 67 year old female presenting to Urgent Care with a sore throat , ear pain, sinus pain, and cough for the last 3-4 days. The patient rates the pain 8/10. Patient additionally complains of vomiting and diarrhea. The patient was evaluated at Urgent Care with Shingles two weeks ago, and the patient is concerned that her shingles is spreading. She complains of back pain and itching on the location of the rash. She has not been sleeping well secondary to her symptoms. Patient denies dysuria. MD Note: VSS, afebrile, BP 144/62 (on BP meds), pulse ox 97. 8/10 discomfort. Non-smoker , cardiac history, fibromyalgia, depression. Nurses Note: the patient has 2 complaints. 1) states that she has a cold with sore throat, cough, sweating. 2) she was see seen here a few weeks ago and dx w/ shingles and she thinks it is spreading. - History of Current Complaint Chief Complaint: UCGeneralIllness Stated Complaint: SKIN COMPLAINT Time Seen by Provider: 10/16/17 11:45 Hx Obtained From: Patient Onset/Duration: Lasting Days - 3-4, Still Present Timing: Constant Current Severity: Moderate Pain Location at: throat Aggravating: None Alleviating: None Associated Signs & Symptoms: Positive: Other - Sore throat, ear pain, sinus pain , cough, vomiting, diarrhea, back pain; NEGATIVE: dysuria Similar Episode/Dx as: ongoing pain attributed to shingles - Allergy/Home Medications Allergies/Adverse Reactions: Allergies Allergy/AdvReac Type Severity Reaction Status Date / Time Ampicillin Allergy Severe See Comment Verified 10/16/17 11:37 Lactose Intolerance (GI) Allergy Severe GI Upset Verified 10/16/17 11:37 Morphine AdvReac Severe SEVERE Verified 10/16/17 11:37 BRADYCARDIA Pravastatin AdvReac Severe Muscle Ache Verified 10/16/17 11:37 Gabapentin AdvReac Intermediate See Comment Verified 10/16/17 11:37 Procaine [From Novocain] AdvReac Intermediate See Comment Verified 10/16/17 11: 37 Olanzapine [From Zyprexa] AdvReac Unknown See Comment Verified 10/16/17 11:37 Sertraline [From Zoloft] AdvReac Unknown Unknown Verified 10/16/17 11:37 Reaction Details viibryd AdvReac Unknown See Comment Uncoded 10/16/17 11:37 PMH/Surg Hx/FS Hx/Imm Hx Previously Healthy: No - Psoriatic arthritis Cardiovascular History: Cardiac Disease Other Neurological History: Fibromyalgia Psychological History: Depression Other History Of: Negative For: Anticoagulant Therapy - Surgical History Surgical History: Yes Surgery Procedure, Year, and Place: TUBAL LIGATION- [facility] [place]. HYSTERECTOMY- [facility] [place]. CARPAL TUNNEL X2- [facility]. D&C X3- [facility]. CARDIAC CATHERIZATION- 3YRS AGO- [facility] [place]. RIGHT CATARACT EXTRACTION WITH IOL IMPLANT-06/2016- [facility] [place]. LEFT CATARACT EXTRACTION WITH IOL IMPLANT-08/2016- [facility] [place]. Gallbladder removed - Family History Known Family History: Positive: Cardiac Disease - sister, Diabetes Family History: sister - unspecified cardiac dz. Father - CHF - Social History Occupation: Retired Lives: With Family Alcohol Use: None Substance Use Type: None Smoking Status (MU): Never Smoked Tobacco Have You Smoked in the Last Year: No Household Exposure Type: Cigarettes - Immunization History Most Recent Influenza Vaccination: 07/2017 Review of Systems Skin: Other - Itchy rash on back ENT: Sore Throat, Ear Ache Respiratory: Cough Gastrointestinal: Vomiting, Diarrhea Musculoskeletal: Other: - Back pain Is Patient Immunocompromised?: No All Other Systems Reviewed And Are Negative: Yes - Comments Additional Review of Systems Comments: A 12 point review of systems was completed and significantly positive for sore throat, back pain, cough, sinus pain, insomnia, ear ache, vomiting, and diarrhea. The remainder of the review was negative except as stated above in the HPI. Physical Exam Triage Information Reviewed: Yes Vital Signs: Initial Vital Signs Temp 97.3 F 10/16/17 11:32 Pulse 77 10/16/17 11:32 Resp 16 10/16/17 11:32 BP 144/62 10/16/17 11:32 Pulse Ox 97 10/16/17 11:32 Vital Signs Reviewed: Yes - Additional Comments Appearance: The patient is well-appearing, is in no pain distress, and is well- nourished. Eyes: Conjunctiva are clear. ENT: The hearing is grossly normal, the pharynx is normal, and the TMs are normal. There is no muffled or hoarse voice. She has maxillary tenderness. Neck: The neck is supple and nontender. Respiratory: The chest is nontender. The lungs are clear, there are normal breath sounds, and there is no respiratory distress. Cardiovascular: Heart is regular rate and rhythm. There is no murmur. Abdomen: The abdomen is soft and nontender. There is no organomegaly. Bowel sounds: present Musculoskeletal: Strength is intact. The patient moves all extremities. Neurological: The patient is alert. Psychological: The patient displays age appropriate behavior Skin: She has residual herpetic rash on her right upper back. Vesicles are no longer present but there is a remaining scattered macular rash that is itching. Course/Dx - Course Course Of Treatment: Elevated BP but has current hypertension diagnosis and treatment. Patient has been given an antibiotic because findings of physical examination and health history. The risks and benefits of these risks including the possibility of developing clostridium difficile enterocolitis. Medications have been included in the original chart and reviewed. - Differential Dx - Multi-Symptom Differential Diagnoses: Other - URI, sinusitis, herpes zoster. Provider Diagnoses: Maxillary sinusitis. Resolving Herpetic Rash. Insomnia. Discharge - Discharge Plan Condition: Stable Disposition: HOME Prescriptions: DOXYcycline CAP(*) [DOXYcycline 100MG CAP(*)] 100 mg PO BID #14 cap Patient Education Materials: Shingles (ED), Sinusitis (ED) Referrals: Cornell Zarate MD [Primary Care Provider] - Additional Instructions: Thank you for helping us improve patient care by filling out the My Point Survey. WE DISCUSSED: 1. You have a sinus infection. 2. Your rash is getting better. Use the cream I have prescribed PLUS calomine lotion to help prevent itching. 3. You will take doxycycline, twice a day, for 7 days. 4. Buy Benadryl and take 25 t 50 mg one hour before sleep. PLEASE SEEK CARE AT THE EMERGENCY DEPARTMENT IF SYMPTOMS WORSEN OR IF NEW SYMPTOMS DEVELOP. FOLLOW UP WITH YOUR PRIMARY CARE PHYSICIAN. The documentation as recorded by the Shweta luna Thomas accurately reflects the service I personally performed and the decisions made by me, Ti Keller MD.
== END 2017-10-16 12:31 | disposition home or self-care (01) ==
LOC: UCEAST 10:22
DX: J32.0 Chronic maxillary sinusitis (principal); G47.00 Insomnia, unspecified; B00.1 Herpesviral vesicular dermatitis; F32.9 Major depressive disorder, single episode, unspecified; M79.7 Fibromyalgia; Z88.5 Allergy status to narcotic agent; Z88.0 Allergy status to penicillin
CPT/HCPCS: 99212; G0463

== ENCOUNTER 2017-11-22 11:42 | Emergency (ER) | payer MEDICARE, MEDICAID ==
[2017-11-22] MEDS ORDERED: amLODIPine TAB* 5 MG PO ONE ×2 (12:27→15:10)
[2017-11-22] MEDS ORDERED: Acetaminophen TAB* 325 MG PO ONE (12:29)
--- NOTE | 2017-11-22 12:50 | RAD ---
Indication: Hypertension. Inhaler use. Comparison: August 26, [address] July 09, 2017. Technique: Upright AP 1245 hours Report: Clear lungs and pleural spaces. Negative for pneumothorax. The heart, pulmonary vasculature, and mediastinal contours are unremarkable. Unremarkable osseous structures and soft tissue contours. IMPRESSION: No evidence for acute intrathoracic disease.
[2017-11-22 12:53] LABS: ABS Basophils 0 10^3/ul (0-0.2); ABS Eosinophils 0.2 10^3/ul (0-0.6); ABS Lymphocytes 1.8 10^3/ul (1.0-4.8); ABS Monocytes 0.4 10^3/ul (0-0.8); ABS Neutrophils 4.6 10^3/ul (1.5-7.7); ABS Nucleated RBC 0 10^3/ul; Eosinophil % 2.8 % (0-6); Hematocrit 40 % (35-47); Hemoglobin 12.8 g/dl (12.0-16.0); Mean Corpuscular HGB Conc 32 g/dl (31-36); Mean Corpuscular Hemoglobin 26 pg (27-31); Mean Corpuscular Volume 82 fL (80-97); Mean Platelet Volume 8 um3 (7.4-10.4); Nucleated Red Blood Cells % 0.1; Platelet Count 265 10^3/ul (150-450); Red Blood Count 4.87 10^6/ul (4.0-5.4); Red Cell Distribution Width 16 % (10.5-15)
[2017-11-22 13:12] LABS: EGFR Non-African American 48.9 (>60)
[2017-11-22 13:33] LABS: INR 0.84 (0.77-1.02)
--- NOTE | 2017-11-22 13:44 | RAD ---
Indication: Hypertension, headaches. CT of the brain was performed without IV contrast. Ventricular structures are midline. No midline shift is noted. The extraction spaces are unremarkable. There is no evidence of intracranial mass or hemorrhage. No other high or low density lesions are identified. Mastoid air cells and paranasal sinuses are unremarkable. IMPRESSION: No intracranial mass or hemorrhage is noted.
[2017-11-22] MEDS ORDERED: Losartan TAB* 25 MG PO ONE (15:10)
[2017-11-22] MEDS ORDERED: Cyclobenzaprine TAB* 10 MG PO ONE (15:24)
[2017-11-22] MEDS ORDERED: Losartan TAB* 25 MG ONE (15:29)
[2017-11-22 15:46] VITALS: BP 184/89
--- NOTE | 2017-11-22 16:09 | ED ---
Na Bustos Nilda, scribed for Edda Coleman MD on 11/22/17 at 1230 . Hypertension - HPI Summary HPI Summary: This patient is a 67 year old F BIBA accompanied by son with a chief complaint of constant headache (right temporal) since earlier this morning. The patient rates the pain 2/10 in severity. Symptoms aggravated and alleviated by nothing. Patient reports elevated BP taken at assisted lving facility this am (230/106), nausea, and rectal bleeding (spotting). Patient denies CP, SOB, and dyspnea. Pt states her BP has been elevated in the 200s for the past week. She states she has not taken her BP medication today. Pt notes blood pressure medication was recently changed a few months ago. Dr. Faust is her tip printer. Dr. Zarate is her PCP. - History of Current Complaint Chief Complaint: EDHeadache Stated Complaint: HYPERTENSION Time Seen by Provider: 11/22/17 12:02 Hx Obtained From: Patient, Family/Enamel Pulverizer - pt's son is with herJin., Medical Records Onset/Duration: Started Hours Ago, Atraumatic, Still Present Timing: Constant, Lasting Hours Reported Blood Pressure Prior To Arrival: 230/106 Aggravating Factor(s): Nothing Alleviating Factor(s): Nothing Associated Signs & Symptoms: Headaches, Other: - elevated BP taken at residential (230/106), nausea, and rectal bleeding (spotting). Patient denies CP, SOB, and dyspnea. Current Medications: ARB, Beta [place]a, Ca Channel [place] - Allergies/Home Medications Allergies/Adverse Reactions: Allergies Allergy/AdvReac Type Severity Reaction Status Date / Time Ampicillin Allergy Severe See Comment Verified 10/16/17 11:37 Lactose Intolerance (GI) Allergy Severe GI Upset Verified 10/16/17 11:37 Morphine AdvReac Severe SEVERE Verified 10/16/17 11:37 BRADYCARDIA Pravastatin AdvReac Severe Muscle Ache Verified 10/16/17 11:37 Gabapentin AdvReac Intermediate See Comment Verified 10/16/17 11:37 Procaine [From Novocain] AdvReac Intermediate See Comment Verified 10/16/17 11: 37 Olanzapine [From Zyprexa] AdvReac Unknown See Comment Verified 10/16/17 11:37 Sertraline [From Zoloft] AdvReac Unknown Unknown Verified 10/16/17 11:37 Reaction Details viibryd AdvReac Unknown See Comment Uncoded 10/16/17 11:37 Home Medications: Home Medications Losartan TAB* [Cozaar TAB*] 50 mg PO DAILY 11/22/17 [History Confirmed 11/22/17] PMH/Surg Hx/FS Hx/Imm Hx Endocrine/Hematology History: Denies: Hx Anticoagulant Therapy, Hx Blood Disorders, Hx Blood Transfusions, Hx Bone Marrow Disease, Hx Diabetes, Hx Systemic Lupus Erythematosus, Hx Sickle Cell Disease, Hx Thyroid Disease, Hx Anemia, Hx Unexplained Bleeding, Other Endocrine/Hematological Disorders Cardiovascular History: Reports: Hx Angina, Hx Coronary Artery Disease - CARDIAC CATHERIZATION 3 YRS AGO, FOLLOWED BY DR KHAN, Hx Hypercholesterolemia , Hx Hypertension, Hx Myocardial Infarction, Other Cardiovascular Problems/ Disorders - CARRIES NITRO FOR CHEST PAIN Denies: Hx Aneurysm, Hx Angioplasty, Hx Auto Implanted Cardiovert Defib, Hx Cardiac Arrest, Hx Cardiomegaly, Hx Congenital Heart Disease, Hx Congestive Heart Failure, Hx Deep Vein Thrombosis, Hx Hypotension, Hx Pacemaker/ICD, Hx Peripheral Vascular Disease, Hx Rheumatic Fever, Hx Syncope, Hx Valvular Heart Disease Respiratory History: Reports: Hx Asthma - PRN INHALER, STATES BROUGHT ON BY ANXIETY Denies: Hx Bronchopulmonary Dysplasia, Hx Chronic Bronchitis, Hx Chronic Obstructive Pulmonary Disease (COPD), Hx Cystic Fibrosis, Hx Lung Cancer, Hx Pleural Effusion, Hx Pneumonia, Hx Pulmonary Edema, Hx Pulmonary Embolism, Hx Seasonal Allergies, Hx Sleep Apnea, Other Respiratory Problems/Disorders GI History: Reports: Hx Gastroesophageal Reflux Disease - ON MED, Hx Irritable Bowel - DIARRHEA AT TIMES-LACTOSE INTOLERANT, Other GI Disorders - GALLBLADDER POLYPS/STONES, FATTY LVER Denies: Hx Cirrhosis, Hx Crohn's Disease, Hx Diverticulosis, Hx Gall Bladder Disease, Hx Gastrointestinal Bleed, Hx Hiatal Hernia, Hx Jaundice, Hx Obstructive Bowel, Hx Ileostomy, Hx Pyloric Stenosis, Hx Ulcer History: Reports: Other Problems/Disorders - 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 NOW Denies: Hx Acute Renal Failure, Hx Benign Prostatic Hyperplasia, Hx Chronic Renal Failure, Hx Dialysis, Hx Kidney Infection, Hx Kidney Stones Musculoskeletal History: Reports: Hx Arthritis - psoriatic , Hx Fibromyalgia, Other Musculoskeletal History - MILD CURVATURE OF SPINE Denies: Hx Back Problems, Hx Bursitis, Hx Congenital Bone Abnormalities, Hx Gout, Hx Orthopedic Injury, Hx Osteoporosis, Hx Scoliosis, Hx Tendonitis Sensory History: Reports: Hx Cataracts - BILAT, Hx Contacts or Glasses - GLASSES Denies: Hx Eye Injury, Hx Eye Prosthesis, Hx Glaucoma, Hx Macular Degeneration, Hx Vision Problem, Hx Deafness, Hx Hearing Aid, Hx Hearing Problem , Other Sensory Impairments Opthamlomology History: Reports: Hx Cataracts - BILAT, Hx Contacts or Glasses - GLASSES Denies: Hx Eye Injury, Hx Eye Prosthesis, Hx Glaucoma, Hx Macular Degeneration, Hx Vision Problem, Other Sensory Impairments Neurological History: Reports: Hx Headaches - AT TIMES, Hx Nerve Disease - FIBROMYALGIA Denies: Hx Dementia, Hx Developmental Delay, Hx Migraine, Hx Seizures, Hx Spinal Cord Injury, Hx Transient Ischemic Attacks (TIA), Other Neuro Impairments /Disorders Psychiatric History: Reports: Hx Anxiety - ON MED, Hx Depression Denies: Hx Attention Deficit Hyperactivity Disorder, Hx Autism, Hx Eating Disorder, Hx Oppositional [place] Disorder, Hx Panic Disorder, Hx Post Traumatic Stress Disorder, Hx Inpatient Treatment, Hx Community Mental Health Tx , Hx Schizophrenia, Hx Bipolar Disorder, Hx Suicide Attempt, Other Psychiatric Issues/Disorders - Cancer History Hx Hematologic Symptoms: No Hx Chemotherapy: No Hx Radiation Therapy: No - Surgical History Surgery Procedure, Year, and Place: TUBAL LIGATION- [facility]. HYSTERECTOMY- [facility]. CARPAL TUNNEL X2- [facility]. D&C X3- [facility]. [place] [facility] [place] [facility] [place] [facility] [place] Hx Anesthesia Reactions: Yes - MORPHINE CAUSED "SEVERE" BRADYCARDIA - Immunization History Date of Tetanus Vaccine: unk Date of Influenza Vaccine: unk Immunizations Up to Date: Yes Infectious Disease History: Yes Infectious Disease History: Reports: Hx Hepatitis - A CHILD- UNSURE WHICH TYPE, Hx Shingles - years ago per pt Denies: Hx of Known/Suspected MRSA, Traveled Outside the [place] in Last 30 Days - Family History Known Family History: Positive: Cardiac Disease - sister, Diabetes Family History: sister - unspecified cardiac dz. Father - CHF - Social History [facility]: [facility] Alcohol Use: None Hx Substance Use: No Substance Use Type: Reports: None Hx Tobacco Use: No Smoking Status (MU): Never Smoked Tobacco Have You Smoked in the Last Year: No Review of Systems Constitutional: Negative Eyes: Negative Positive: Other - elevated BP. Negative: Chest Pain Positive: Other - negative dyspnea. Negative: Shortness Of Breath Positive: Nausea, Other - rectal bleeding (spotting) Skin: Negative Positive: Headache Psychological: Normal All Other Systems Reviewed And Are Negative: Yes Physical Exam - Summary Physical Exam Summary: Appearance: Ill-appearing, moderate pain distress, Overweight Skin: Warm, color reflects adequate perfusion Head: Normal Head/Face inspection, no sign of trauma Eyes: Conjunctiva clear, Pupils EOMI ENT: Normal inspection Neck: Supple, no nodes, no JVD. Respiratory: Lungs clear, Normal breath sounds, no respiratory distress Cardio: Bradycardia, No murmur, pulses normal, brisk capillary refill Abdomen: soft, nontender Bowel sounds: present Musculoskeletal: Strength Intact/ ROM intact. No calf tenderness. No edema. Neuro: muscle tone normal, facial symmetry, speech normal, sensory/motor intact. No temporal artery tenderness. A&O x3, CN II-XII intact, Motor function 5/5, Sensations intact, Reflexes 2+ symmetric Psychological: Normal Triage Information Reviewed: Yes Vital Signs On Initial Exam: Initial Vitals Temp Pulse Resp BP Pulse Ox 97.6 F 60 17 187/81 97 11/22/17 11:51 11/22/17 11:51 11/22/17 11:51 11/22/17 11:51 11/22/17 11:51 Vital Signs Reviewed: Yes Diagnostics - Vital Signs Vital Signs Temp Pulse Resp BP Pulse Ox 11/22/17 11:51 97.6 F 60 17 187/81 97 - Laboratory Lab Results: Lab Results 11/22/17 11/22/17 11/22/17 Range/Units 12:39 12:39 12:39 WBC 7.0 (3.5-10.8) 10^3/ul RBC 4.87 (4.0-5.4) 10^6/ul Hgb 12.8 (12.0-16.0) g/dl Hct 40 (35-47) % MCV 82 (80-97) fL MCH 26 L (27-31) pg MCHC 32 (31-36) g/dl RDW 16 H (10.5-15) % Plt Count 265 (150-450) 10^3/ul MPV 8 (7.4-10.4) um3 Neut % (Auto) 65.5 (38-83) % Lymph % (Auto) 26.0 (25-47) % Burke % (Auto) 5.4 (1-9) % Eos % (Auto) 2.8 (0-6) % Baso % (Auto) 0.3 (0-2) % Absolute Neuts (auto) 4.6 (1.5-7.7) 10^3/ul Absolute Lymphs (auto) 1.8 (1.0-4.8) 10^3/ul Absolute Monos (auto) 0.4 (0-0.8) 10^3/ul Absolute Eos (auto) 0.2 (0-0.6) 10^3/ul Absolute Basos (auto) 0 (0-0.2) 10^3/ul Absolute Nucleated RBC 0 10^3/ul Nucleated RBC % 0.1 INR (Anticoag Therapy) 0.84 (0.77-1.02) APTT 31.3 (26.0-36.3) seconds D-Dimer, Quantitative < 200 (Less Than 230) ng/mL Sodium (133-145) mmol/L Potassium (3.5-5.0) mmol/L Chloride (101-111) mmol/L Carbon Dioxide (22-32) mmol/L Anion Gap (2-11) mmol/L BUN (6-24) mg/dL Creatinine (0.51-0.95) mg/dL Est GFR ( Amer) (>60) Est GFR (Non-Af Amer) (>60) BUN/Creatinine Ratio (8-20) Glucose (70-100) mg/dL Lactic Acid (0.5-2.0) mmol/L Calcium (8.6-10.3) mg/dL Total Bilirubin (0.2-1.0) mg/dL AST (13-39) U/L ALT (7-52) U/L Alkaline Phosphatase (34-104) U/L Total Creatine Kinase (10-223) U/L CK-MB (CK-2) (0.6-6.3) ng/mL Troponin I (<0.04) ng/mL B-Natriuretic Peptide 104 H ( - 100) pg/mL Total Protein (6.4-8.9) g/dL Albumin (3.2-5.2) g/dL Globulin (2-4) g/dL Albumin/Globulin Ratio (1-3) TSH (0.34-5.60) mcIU/mL Thyroxine (T4) (6.09-12.23) mcg/mL 11/22/17 11/22/17 Range/Units 12:39 12:39 WBC (3.5-10.8) 10^3/ul RBC (4.0-5.4) 10^6/ul Hgb (12.0-16.0) g/dl Hct (35-47) % MCV (80-97) fL MCH (27-31) pg MCHC (31-36) g/dl RDW (10.5-15) % Plt Count (150-450) 10^3/ul MPV (7.4-10.4) um3 Neut % (Auto) (38-83) % Lymph % (Auto) (25-47) % Burke % (Auto) (1-9) % Eos % (Auto) (0-6) % Baso % (Auto) (0-2) % Absolute Neuts (auto) (1.5-7.7) 10^3/ul Absolute Lymphs (auto) (1.0-4.8) 10^3/ul Absolute Monos (auto) (0-0.8) 10^3/ul Absolute Eos (auto) (0-0.6) 10^3/ul Absolute Basos (auto) (0-0.2) 10^3/ul Absolute Nucleated RBC 10^3/ul Nucleated RBC % INR (Anticoag Therapy) (0.77-1.02) APTT (26.0-36.3) seconds D-Dimer, Quantitative (Less Than 230) ng/mL Sodium 141 (133-145) mmol/L Potassium 4.0 (3.5-5.0) mmol/L Chloride 109 (101-111) mmol/L Carbon Dioxide 27 (22-32) mmol/L Anion Gap 5 (2-11) mmol/L BUN 19 (6-24) mg/dL Creatinine 1.11 H (0.51-0.95) mg/dL Est GFR ( Amer) 62.9 (>60) Est GFR (Non-Af Amer) 48.9 (>60) BUN/Creatinine Ratio 17.1 (8-20) Glucose 81 (70-100) mg/dL Lactic Acid 0.9 (0.5-2.0) mmol/L Calcium 9.2 (8.6-10.3) mg/dL Total Bilirubin 0.30 (0.2-1.0) mg/dL AST 14 (13-39) U/L ALT 7 (7-52) U/L Alkaline Phosphatase 90 (34-104) U/L Total Creatine Kinase 45 (10-223) U/L CK-MB (CK-2) 1.3 (0.6-6.3) ng/mL Troponin I 0.00 (<0.04) ng/mL B-Natriuretic Peptide ( - 100) pg/mL Total Protein 6.7 (6.4-8.9) g/dL Albumin 3.8 (3.2-5.2) g/dL Globulin 2.9 (2-4) g/dL Albumin/Globulin Ratio 1.3 (1-3) TSH 1.70 (0.34-5.60) mcIU/mL Thyroxine (T4) 7.79 (6.09-12.23) mcg/mL Result Diagrams: 11/22/17 12:39 11/22/17 12:39 Lab Statement: Any lab studies that have been ordered have been reviewed, and results considered in the medical decision making process. - Radiology CXR Radiology Interpretation Completed By: Radiologist - CXR, per radiologist, reveals no evidence for acute intrathoracic disease. Dr. Coleman has reviewed this radiology report. - CT Brain CT Interpretation Completed By: Radiologist - Brain CT, per radiologist, reveals no intracranial mass or hemorrhage is noted. Dr. Coleman has reviewed this radiology report. - EKG 1210 Cardiac Rate: Bradycardia EKG Rhythm: Sinus Bradycardia - [address] Segment: Non-Specific Ectopy: None EKG Interpretation: nl AVIVCT, nl QTc, [place] is 0 EKG Comparison: No Significant Change - compared with 07/09/17 Re-Evaluation - Re-Evaluation First Eval Re-Evaluation Time: 13:42 Change: Improved Comment: KOTHARI is 3 or 4. BP 182/81. Pulse 55 bpm. No CP. Pt feels a little better. Second Eval Re-Evaluation Time: 15:00 Change: Improved - Pt states she feels fine. Repeat BP is 214/97 Third Eval Re-Evaluation Time: 15:44 Comment: Pt also complains of some left low lumbar and left flank discomfort. Agrees to try flexeril for this. Will send urine culture. Pt is agreeable to D/ C and understand D/C instructions. BP 187/84. No KOTHARI and no CP. Hypertension Course/Dx - Course Assessment/Plan: This patient is a 67 year old F BIBA with a chief complaint of headache (right temporal) and elevated BP (230/106) since this morning. Labs, EKG, CXR, and Brain CT are performed for symptomatic HTN. Pt was bradycardic so labetalol was not used. Pt was treated with oral amlodipine x 2 and losartan 50mg with fair control of her BP, and relief of her headache. Pt declined tylenol stating that her onion tier told her not to take tylenol. I questioned this but pt was insistent and records show she is on Mobic so pt is able to take NSAIDS. An EKG reveals sinus bradycardia, 55 bpm, nonspecific ST, no ectopy, nl AVIVCT, nl QTc, [place] is 0, no significant change compared with 07/09/17. CXR, per radiologist, reveals no evidence for acute intrathoracic disease. Dr. Coleman has reviewed this radiology report. Brain CT, per radiologist, reveals no intracranial mass or hemorrhage is noted. Dr. Coleman has reviewed this radiology report. Medications reviewed this visit. Allergies noted. [1532]Discusse with Dr. Zarate (PCP) agrees with plan to D/C pt. Agrees to increase amlodipine to 5mg bid, and continue Losartan 50mg qd and Metoprolol XL 25 qd. Pt is stable and will be D/C with Dx of hypertension in poor control and a prescription for amlodipine and cyclobenzaprine. Pt understands and is agreeable with this plan. - Diagnoses Differential Diagnosis/HQI PQRI: Cerebral Bleed, Hypertension, Hypertensive Crisis, Hypertensive Urgency, Myocardial Infarction Provider Diagnoses: Hypertension, poor control, Lumbosacral strain - Physician Notifications Discussed Care Of Patient With: Cornell Zarate - PCP Time Discussed With Above Provider: 15:32 Instructed by Provider To: Other - agrees with plan to D/C pt. and he will follow up in the office in 2-3 days. Discharge - Discharge Plan Condition: Stable Disposition: HOME Patient Education Materials: Hypertension (ED) Referrals: Cornell Zarate MD [Primary Care Provider] - 1 Day Additional Instructions: Your brain CT did not show any stroke. Your labs and CXR were also unremarkable. We controlled your blood pressure with oral medications. We talked to Dr. Zarate and he will see you in the office tomorrow or Wed. He wants you to continue your other medications and increase your amlodipine to 5mg twice a day. We gave you a flexeril 10mg for the left lower back pain that you have. You make take this as needed for pain. Return to the ER if you have new or worsening symptoms. The documentation as recorded by the Na luna Nilda accurately reflects the service I personally performed and the decisions made by me, Edda Coleman MD.
[2017-11-22 17:44] LABS: Urine Appearance Clear; Urine Blood Negative (Negative); Urine Color Yellow; Urine Ketones Negative (Negative); Urine Protein Negative (Negative); Urine Specific Gravity 1.016 (1.010-1.030); Urine Urobilinogen Negative (Negative)
--- NOTE | 2017-11-24 10:50 | PN ---
Progress Note - Progress Note Date of Service: 11/22/17 Note: Urine culture grew 1-10,000 group b strep Patient not placed on abx prior to discharge The note does not state she had c/o any symptoms Coupled with few CFU - she will be be placed on abx at this time. Nothing further at this time. Altagracia Taveras PA-C
== END 2017-11-22 16:03 | disposition home or self-care (01) ==
LOC: ED 11:42
DX: I10 Essential (primary) hypertension (principal); R11.0 Nausea; K62.5 Hemorrhage of anus and rectum; S39.012A Strain of muscle, fascia and tendon of lower back, initial encounter; X58.XXXA Exposure to other specified factors, initial encounter; Y93.9 Activity, unspecified; Y92.9 Unspecified place or not applicable; I25.119 Atherosclerotic heart disease of native coronary artery with unspecified angina pectoris; I25.2 Old myocardial infarction; J45.909 Unspecified asthma, uncomplicated; E78.00 Pure hypercholesterolemia, unspecified; K21.9 Gastro-esophageal reflux disease without esophagitis; F41.9 Anxiety disorder, unspecified; F32.9 Major depressive disorder, single episode, unspecified; E66.3 Overweight; Z90.710 Acquired absence of both cervix and uterus; Z90.49 Acquired absence of other specified parts of digestive tract; Z98.42 Cataract extraction status, left eye; Z98.41 Cataract extraction status, right eye; Z96.1 Presence of intraocular lens; Z88.4 Allergy status to anesthetic agent; Z88.1 Allergy status to other antibiotic agents; Z88.5 Allergy status to narcotic agent; Z88.8 Allergy status to other drugs, medicaments and biological substances
CPT/HCPCS: 36415; 70450; 71045; 80053; 81003; 81015; 82550; 82553; 83605; 83880; 84436; 84443; 84484; 85025; 85379; 85610; 85730; 87077; 87086; 93005; 99283; A9270-GY

== ENCOUNTER 2017-11-22 20:31 | Observation (INO) | payer MEDICARE, MEDICAID ==
[2017-11-22] MEDS ORDERED: Ketorolac INJ* 30 MG/ML 1 ML VIAL IV PUSH ONE ×2 (21:06→22:07)
[2017-11-22] MEDS ORDERED: Labetalol IV* 5 MG/ML 20 ML VIAL IV PUSH ONE (21:08)
[2017-11-22] MEDS ORDERED: oxyCODONE TAB* 5 MG TAB PO ONE (21:15)
[2017-11-22] MEDS ORDERED: Metoprolol Succinate XL TAB* 25 MG PO ONE (21:35)
[2017-11-22] MEDS ORDERED: Acetaminophen TAB* 325 MG PO PRN (22:07)
[2017-11-22] MEDS ORDERED: hydrALAZINE IV* 20 MG/ML VIAL IV SLOW PU PRN (22:07)
[2017-11-22] MEDS ORDERED: Ondansetron INJ* 2 MG/ML VIAL IV PRN (22:07)
[2017-11-22] MEDS ORDERED: clonazePAM TAB(*) 1 MG PO PRN (22:19)
[2017-11-22] MEDS ORDERED: Albuterol 2.5 MG/3 ML NEB.SOL* (0.083%) INH PRN (22:33)
--- NOTE | 2017-11-22 22:56 | ED ---
Na Bustos Nilda, scribed for Edda Coleman MD on 11/22/17 at 2220 . Hypertension - HPI Summary HPI Summary: This patient is a 67 year old F who returns to the ED a few hours after DC, BIBA with a chief complaint of elevated BP and constant headache across top of head for the past hour. Per EMS, pts BP was 218/110. BP currently 179/84. Pt was in ED earlier today with the same complaints, treated by myself and just DC' d a few hours ago. Earlier today in the ED BP was managed with oral agents, amlodipine 5mg po x 2, and Losartan 50mg x 1. Pt had pulse 55 so no beta yayo was given. BP prior to that ED visit was reported by pt as 230 systolic taken by nurse at [facility]. Headache was relieved spontaneously on earlier ED visit and pt was D/C with BP of 180/71. BP prior to that DC reading was in the 160's. CT brain, labs including troponin, and EKG, CXR were all neg at the previous visit. Pt states she went home and walked her dog, just as she did this am, and the headache returned and she had her BP rechecked and again it was over 200 systolic. She tried resting but headache persisted, so she called 911 and returned to the ED for evaluation. The patient rates the pain 8/10 in severity. Symptoms aggravated and alleviated by nothing. Prior to pt's DC on the intial ED visit, I spoke with Dr. Zarate, pt's PCP and he was agreeable to discharge and had advised to increase her BP meds from amlodipine 5mg qd to 5mg bid, and continue losartan 50mg qd, and metoprolol XR 25mg qd. Pt brought her actual pill bottles this ED visit and it turns out that she was no longer taking the amlodipine, and was confused about her medication. - History of Current Complaint Chief Complaint: EDHeadache Stated Complaint: HEADACHE Time Seen by Provider: 11/22/17 20:39 Hx Obtained From: Patient, EMS Onset/Duration: Started Hours Ago, Atraumatic, Still Present Timing: Constant Reported Blood Pressure Prior To Arrival: 218/110 per EMS Aggravating Factor(s): Nothing Alleviating Factor(s): Nothing Associated Signs & Symptoms: Headaches Related Hx: Similar Episode - earlier today - Allergies/Home Medications Allergies/Adverse Reactions: Allergies Allergy/AdvReac Type Severity Reaction Status Date / Time Ampicillin Allergy Severe See Comment Verified 10/16/17 11:37 Lactose Intolerance (GI) Allergy Severe GI Upset Verified 10/16/17 11:37 Morphine AdvReac Severe SEVERE Verified 10/16/17 11:37 BRADYCARDIA Pravastatin AdvReac Severe Muscle Ache Verified 10/16/17 11:37 Gabapentin AdvReac Intermediate See Comment Verified 10/16/17 11:37 Procaine [From Novocain] AdvReac Intermediate See Comment Verified 10/16/17 11: 37 Olanzapine [From Zyprexa] AdvReac Unknown See Comment Verified 10/16/17 11:37 Sertraline [From Zoloft] AdvReac Unknown Unknown Verified 10/16/17 11:37 Reaction Details viibryd AdvReac Unknown See Comment Uncoded 10/16/17 11:37 Home Medications: Home Medications Desvenlafaxine Succinate [Pristiq] 50 mg PO DAILY 11/22/17 [History Confirmed ] Meloxicam [Mobic] 7.5 mg PO DAILY 11/22/17 [History Confirmed 11/22/17] PMH/Surg Hx/FS Hx/Imm Hx Previously Healthy: No Endocrine/Hematology History: Denies: Hx Anticoagulant Therapy, Hx Blood Disorders, Hx Blood Transfusions, Hx Bone Marrow Disease, Hx Diabetes, Hx Systemic Lupus Erythematosus, Hx Sickle Cell Disease, Hx Thyroid Disease, Hx Anemia, Hx Unexplained Bleeding, Other Endocrine/Hematological Disorders Cardiovascular History: Reports: Hx Angina, Hx Coronary Artery Disease - CARDIAC CATHERIZATION 3 YRS AGO, FOLLOWED BY DR KHAN, Hx Hypercholesterolemia , Hx Hypertension, Hx Myocardial Infarction, Other Cardiovascular Problems/ Disorders - CARRIES NITRO FOR CHEST PAIN Denies: Hx Aneurysm, Hx Angioplasty, Hx Auto Implanted Cardiovert Defib, Hx Cardiac Arrest, Hx Cardiomegaly, Hx Congenital Heart Disease, Hx Congestive Heart Failure, Hx Deep Vein Thrombosis, Hx Hypotension, Hx Pacemaker/ICD, Hx Peripheral Vascular Disease, Hx Rheumatic Fever, Hx Syncope, Hx Valvular Heart Disease Respiratory History: Reports: Hx Asthma - PRN INHALER, STATES BROUGHT ON BY ANXIETY Denies: Hx Bronchopulmonary Dysplasia, Hx Chronic Bronchitis, Hx Chronic Obstructive Pulmonary Disease (COPD), Hx Cystic Fibrosis, Hx Lung Cancer, Hx Pleural Effusion, Hx Pneumonia, Hx Pulmonary Edema, Hx Pulmonary Embolism, Hx Seasonal Allergies, Hx Sleep Apnea, Other Respiratory Problems/Disorders GI History: Reports: Hx Gastroesophageal Reflux Disease - ON MED, Hx Irritable Bowel - DIARRHEA AT TIMES-LACTOSE INTOLERANT, Other GI Disorders - GALLBLADDER POLYPS/STONES, FATTY LIVER Denies: Hx Cirrhosis, Hx Crohn's Disease, Hx Diverticulosis, Hx Gall Bladder Disease, Hx Gastrointestinal Bleed, Hx Hiatal Hernia, Hx Jaundice, Hx Obstructive Bowel, Hx Ileostomy, Hx Pyloric Stenosis, Hx Ulcer History: Reports: Other Problems/Disorders - 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 NOW Denies: Hx Acute Renal Failure, Hx Benign Prostatic Hyperplasia, Hx Chronic Renal Failure, Hx Dialysis, Hx Kidney Infection, Hx Kidney Stones Musculoskeletal History: Reports: Hx Arthritis - psoriatic , Hx Fibromyalgia, Hx Scoliosis Denies: Hx Back Problems, Hx Bursitis, Hx Congenital Bone Abnormalities, Hx Gout, Hx Orthopedic Injury, Hx Osteoporosis, Hx Tendonitis Sensory History: Reports: Hx Cataracts - BILAT, Hx Contacts or Glasses - GLASSES Denies: Hx Eye Injury, Hx Eye Prosthesis, Hx Glaucoma, Hx Macular Degeneration, Hx Vision Problem, Hx Deafness, Hx Hearing Aid, Hx Hearing Problem , Other Sensory Impairments Opthamlomology History: Reports: Hx Cataracts - BILAT, Hx Contacts or Glasses - GLASSES Denies: Hx Eye Injury, Hx Eye Prosthesis, Hx Glaucoma, Hx Macular Degeneration, Hx Vision Problem, Other Sensory Impairments Neurological History: Reports: Hx Headaches - AT TIMES, Hx Nerve Disease - FIBROMYALGIA Denies: Hx Dementia, Hx Developmental Delay, Hx Migraine, Hx Seizures, Hx Spinal Cord Injury, Hx Transient Ischemic Attacks (TIA), Other Neuro Impairments /Disorders Psychiatric History: Reports: Hx Anxiety - ON MED, Hx Depression Denies: Hx Attention Deficit Hyperactivity Disorder, Hx Autism, Hx Eating Disorder, Hx Oppositional [place] Disorder, Hx Panic Disorder, Hx Post Traumatic Stress Disorder, Hx Inpatient Treatment, Hx Community Mental Health Tx , Hx Schizophrenia, Hx Bipolar Disorder, Hx Suicide Attempt, Other Psychiatric Issues/Disorders - Cancer History Hx Hematologic Symptoms: No Hx Chemotherapy: No Hx Radiation Therapy: No - Surgical History Surgery Procedure, Year, and Place: TUBAL LIGATION- [facility]. HYSTERECTOMY- [facility]. CARPAL TUNNEL X2- [facility]. D&C X3- [facility]. CARDIAC CATHERIZATION- 2011- [facility], minimal CAD with preserved ventricular function. RIGHT CATARACT EXTRACTION WITH IOL IMPLANT-06/2016- [facility]. LEFT CATARACT EXTRACTION WITH IOL IMPLANT-08/2016- [facility]. Gallbladder removed Hx Anesthesia Reactions: Yes - MORPHINE CAUSED "SEVERE" BRADYCARDIA - Immunization History Date of Tetanus Vaccine: unk Date of Influenza Vaccine: unk Infectious Disease History: No Infectious Disease History: Reports: Hx Hepatitis - A CHILD- UNSURE WHICH TYPE, Hx Shingles - years ago per pt Denies: Hx of Known/Suspected MRSA, Traveled Outside the [place] in Last 30 Days - Family History Known Family History: Positive: Cardiac Disease - sister, Diabetes Family History: sister - unspecified cardiac dz. Father - CHF - Social History Alcohol Use: None Hx Substance Use: No Substance Use Type: Reports: None Hx Tobacco Use: No Smoking Status (MU): Never Smoked Tobacco Have You Smoked in the Last Year: No Review of Systems Eyes: Negative Positive: Other - elevated BP Respiratory: Negative Gastrointestinal: Negative Positive: Headache Psychological: Normal All Other Systems Reviewed And Are Negative: Yes Physical Exam - Summary Physical Exam Summary: Appearance: Ill-appearing, moderate pain distress, Well-nourished Skin: Warm, color reflects adequate perfusion Head: Normal Head/Face inspection Eyes: Conjunctiva clear ENT: Normal inspection Neck: Supple, no nodes, no JVD. Respiratory: Lungs clear, Normal breath sounds, no respiratory distress Cardio: RRR, No murmur, pulses normal, brisk capillary refill Abdomen: soft, nontender Bowel sounds: present Musculoskeletal: Strength Intact/ ROM intact. No calf tenderness. No edema. Neuro: Alert, muscle tone normal, facial symmetry, speech normal, sensory/motor intact Psychological: Normal Triage Information Reviewed: Yes Vital Signs On Initial Exam: Initial Vitals Pulse Ox 96 11/22/17 20:45 Vital Signs Reviewed: Yes Diagnostics - Vital Signs Vital Signs Temp Pulse Resp BP Pulse Ox 11/22/17 20:46 98.3 F 65 17 181/72 96 11/22/17 20:45 96 - Laboratory Result Diagrams: 11/23/17 04:26 11/23/17 04:26 Lab Statement: Any lab studies that have been ordered have been reviewed, and results considered in the medical decision making process. - EKG 2049 Cardiac Rate: NL EKG Rhythm: Sinus Rhythm - [address] Segment: Non-Specific Ectopy: None EKG Interpretation: nl AVIVCT, nl QTc, [place] -7. Re-Evaluation - Re-Evaluation First Eval Re-Evaluation Time: 22:00 - Pt was given her usual metoprolol XL 25 qd for BP. Discussed that pt was being admitted for hypertensive urgency with rebound of the BP greater than 200 systolic and return of the headache, and whether she should still be admitted if BP is better controlled now. Discussed that even though BP is better controlled now, it was controlled to the 160's prior to DC a few hrs ago, and even in preparing for DC, BP increased to 180 systolic again. Advised pt that BP is very labile with the slightest exertion, so advised that ovservation is prudent. Pt agrees to OBV admit. Change: Improved Hypertension Course/Dx - Course Assessment/Plan: This patient is a 67 year old F BIBA with a chief complaint of constant headache across top of head for the past hour. Per EMS, pts BP was 218 /110. BP currently 179/84. Pt was in ED a few hours ago and was D/C with BP of 180/71. The patient rates the pain 8/10 in severity. Symptoms aggravated and alleviated by nothing. Medications include Metoprolol XL 25mg taken at night and Losartan 50mg q hs. Amlodipine was increased on the ED visit a few hours ago , but it turns out pt was not even taking amlodipine anymore, so will allow hospitalists to adjust pt's med while in the hospital. Did not repeat CT brain because pt has no focal neuro signs and the CT was negative earlier today, and she agrees to OBV admit. An EKG reveals NSR 66 bpm, nonspecific ST, no Ectopy, nl AVIVCT, nl QTc, [place] -7. [2115] Dr. Lazcano (hospitalist) agrees to admit pt. In the ED course, the patient was given oxycodone 2.5mg and metoprolol XL 25mg. Pt is stable and will be admitted with Dx of hypertensive urgency. Pt understands and is agreeable with this plan. - Diagnoses Provider Diagnoses: Hypertensive urgency - Physician Notifications Discussed Care Of Patient With: William Lazcano - hospitalist Time Discussed With Above Provider: 21:15 Instructed by Provider To: Admit As Inpatient Discharge - Discharge Plan Condition: Stable Disposition: ADMITTED TO [facility] The documentation as recorded by the Na luna Nilda accurately reflects the service I personally performed and the decisions made by , Edda Coleman MD.
[2017-11-23 01:27] LABS: INR 0.86 (0.77-1.02)
[2017-11-23] MEDS ORDERED: Butalb/Acetamin/Caff TAB* 1 TAB PO ONE (01:43)
--- NOTE | 2017-11-23 02:27 | HP ---
CC: Dr. Zarate * HISTORY AND PHYSICAL: DATE OF ADMISSION: 11/22/17 PRIMARY CARE PROVIDER: Dr. Zarate. ATTENDING PHYSICIAN WHILE IN THE HOSPITAL: Yinka Patel MD * (report dictated by Avi Luna NP) CHIEF COMPLAINT: 1. Headache. 2. Elevated blood pressure. HISTORY OF PRESENT ILLNESS: Ms. Strong is a 67-year-old female patient. She has a history of coronary artery disease, hypertension, IBS, AFib, fibromyalgia , history of psoriatic arthritis, migraines, depression, chronic pain, agoraphobia and panic disorder, hyperlipidemia, hiatal hernia, history of CKD, comes into the ED today the second time in less than 24 hours, was recently just here again complaining of having a headache mostly on the top part of her head, not the worst headache of her life, progressively getting worse, not sudden in onset. In the setting of having an elevated blood pressure, she said she this morning she got up, walked her dog. She was having a headache. She thought her blood pressure may be high. She went down to her nurse at [facility]. They checked her blood pressure. It was noted to be in the 200 systolically over one-teens diastolic. She came into the ED. They got the blood pressure under control. She said her headache was feeling better. She was discharged around 3:40 and then unfortunately few hours later around 1929 to 1999, she went out to walk her dog again. Similar incident, she started having a headache. She tried lying down and watching TV, was not feeling good and so she called [facility] and came into the ED. En route, her blood pressure systolic again was 208, diastolic was better. At this point, it was at a 100, but it was still elevated. So, she came into the hospital. At the time she got here, her blood pressure was 181/72. She denies having any double vision now, denies any chest pain or shortness of breath. She still has a pain on the top of her head. She just had a CT imaging this afternoon, which was negative. There was concern because of the headache that this might represent hypertensive urgency. We were asked to evaluate for admission. PAST MEDICAL HISTORY: Significant for: 1. Nonobstructive CAD. 2. Hypertension. 3. IBS. 4. AFib. 5. Fibromyalgia. 6. Psoriatic arthritis. 7. Migraines. 8. Depression. 9. Chronic pain. 10. Agoraphobia. 11. Panic attacks. 12. Hiatal hernia. 13. Hyperlipidemia. 14. CKD. 15. History of asthma. PAST SURGICAL HISTORY: 1. She has had carpal tunnel repair. 2. Heart catheterization that showed a nonobstructive coronary artery disease. 3. Hysterectomy. 4. Laparoscopic cholecystectomy. HOME MEDICATIONS: According to her recall, again we need to clarify this with her PCP because it is unclear what she is actually taking. So, we should get his list. She is on: 1. Klonopin 1 mg p.o. t.i.d. 2. Mobic 7.5 mg daily. 3. Nitro 0.4 mg sublingual q.5 minutes p.r.n. chest pain x3. 4. Cozaar 50 mg daily. 5. Famotidine 40 mg at bedtime. 6. Pristiq 50 mg p.o. daily. 7. Toprol XL 25 mg p.o. q.a.m. She was given amlodipine in the ED and sent with this prescription of 10 mg, it was thought by the ED provider that she was taking amlodipine, but apparently she is not. So, at discharge, we should consider going just on 5 mg that she was only taking. She was not taking any previously and it was thought that she was. The patient denied. ALLERGIES TO MEDICATIONS: Include AMPICILLIN, LACTOSE, MORPHINE, PRAVACHOL, GABAPENTIN, PROCAINE, ZYPREXA, ZOLOFT, and VIIBRYD. FAMILY HISTORY: Her mother had a history of stroke. Father had a history of CHF. SOCIAL HISTORY: She does not smoke, does not drink. She lives alone. Surrogate decision maker is her daughter and son. REVIEW OF SYSTEMS: There is no documented fever. She denied having any significant weight change. There was no double vision. There is no ear discharge. Denied having any rhinorrhea. No sore throat. No thyroid enlargement. She denies any chest pain. There is no orthopnea. No nocturnal dyspnea. There is no abdominal pain. There was no nausea, no vomiting, no dysuria, no frequency. There was no seizure. No loss of consciousness. No pruritus. No skin ulcerations. Review of 14 systems was completed, all others negative. PHYSICAL EXAMINATION GENERAL: At this time, Ms. Strong is a 67-year-old female patient. She is sitting in the ED stretcher. She does not appear to be in any acute distress. VITAL SIGNS: Blood pressure 181/72, pulse 65, respirations 17, O2 sat 93%, temperature 98.3. HEENT: Head: Atraumatic, normocephalic. Eyes: EOMs are intact. Sclerae anicteric and not pale. Throat: Oral mucosa appears to be moist. No oropharyngeal erythema. NECK: Supple. LUNGS: Clear to auscultation bilaterally. No wheezes, rales or rhonchi. HEART: Sounds S1, S2. Regular rate and rhythm. No murmurs, rubs, or gallops. ABDOMEN: Soft, flat, nontender. Bowel sounds are present. EXTREMITIES: Pulses were 2+ throughout. She is moving all 4 extremities with 5 /5 strength. NEUROLOGIC: The patient is awake, she is alert, she is oriented x3. Tongue is midline. Finger Cobbler were equal. She had no gross focal deficits. SKIN: Grossly intact. DIAGNOSTIC STUDIES/LAB DATA: Labs from noon time today reveal a WBC of 7.0, RBC of 4.7, hemoglobin 12.8, hematocrit 40, platelet count of 265. INR 0.84, PTT of 31.3. D-dimer less than 200. Sodium was 141, potassium 4, chloride 109, bicarb 27, BUN 19, creatinine 1.1, glucose 81, lactic 0.9, calcium 9.2. Total bili 0.3, AST 14, ALT 7, alk phos 90. CK 45, CK-MB 1.3, troponin 0, BNP 104, albumin is 3.8. TSH 1.00. T4 was 7.79. Urine showed 1+ leukocyte esterase with 1+ rbc's, 1+ bacteria. She did have an EKG obtained today, shows a normal sinus rhythm with a rate of 66. There were no ST elevations or T wave inversions. That is reviewed to her EKG from earlier this morning and it looked to be unchanged. No significant changes were noted. She had a brain CT obtained today, impression: No acute intracranial mass or hemorrhage is noted. She had a chest x-ray obtained today. Chest x-ray showed no evidence for acute intrathoracic disease. Old medical records were reviewed. ASSESSMENT AND PLAN: Ms. Strong is a 67-year-old female patient with multiple medical problems coming into the ED today with complaints of headache again and now found to have elevated blood pressure. She will be admitted under observation status for: 1. Headache. Again, I suspect this is probably from hypertensive urgency. Blood pressure in the last check in the ED was 160/60; however, the headache was getting better, but it was not gone away completely. She does have a history of migraine. I would recommend to give her a dose of Toradol in the setting of a normal CT scan. Continue with blood pressure control and try to get that systolic between 140 and 160. 2. Hypertensive urgency. At this point, again I am going to just put her on 5 of Norvasc to continue. She got her medications tonight. She was given some Toprol XL that was there and we will continue to follow blood pressure closely, get her back on her Norvasc, cycle the troponins. She is going to have a second troponin done now and that we will follow this closely. 3. Irritable bowel syndrome. Continue meds as described. 4. Atrial fibrillation. She is in a sinus rhythm. She can follow with her primary. 5. Fibromyalgia and chronic pain. Continue her current medical regimen. 6. Psoriatic arthritis. Follow with Dr. Rosas. 7. History of migraines. At this point, I have ordered p.r.n. Tylenol. 8. History of panic attacks and agoraphobia. Continue her clonazepam. 9. Hiatal hernia. Continue her famotidine. 10. Hyperlipidemia. Follow with her primary. 11. Asthma. I have ordered p.r.n. albuterol. 12. Chronic kidney disease. The creatinine is stable. We will monitor this. 13. DVT prophylaxis. She will be placed on heparin subcu. 14. Code status. Full code. 15. Fluids, electrolytes, and nutrition. She can have a heart healthy diet. TIME SPENT: Time spent on the admission 60 minutes, greater than half the time spent [id number] with the patient obtaining my history and physical, other half time spent going over the plan of care with the patient and implementing the plan of care. I did discuss the plan of care with my attending, Dr. Lazcano; he is in agreement. AVI LUNA, IMER [id number]/[facility] #: [id number] RITA
[2017-11-23 04:33] LABS: ABS Basophils 0 10^3/ul (0-0.2); ABS Eosinophils 0.2 10^3/ul (0-0.6); ABS Monocytes 0.6 10^3/ul (0-0.8); ABS Neutrophils 5.8 10^3/ul (1.5-7.7); ABS Nucleated RBC 0 10^3/ul; Eosinophil % 2.8 % (0-6); Hematocrit 39 % (35-47); Hemoglobin 12.8 g/dl (12.0-16.0); Lymphocyte % 23.5 % (25-47); Mean Corpuscular HGB Conc 33 g/dl (31-36); Mean Corpuscular Hemoglobin 26 pg (27-31); Mean Corpuscular Volume 80 fL (80-97); Mean Platelet Volume 8 um3 (7.4-10.4); Nucleated Red Blood Cells % 0; Platelet Count 262 10^3/ul (150-450); Red Blood Count 4.84 10^6/ul (4.0-5.4); Red Cell Distribution Width 15 % (10.5-15); White Blood Count 8.7 10^3/ul (3.5-10.8)
[2017-11-23 04:46] LABS: EGFR Non-African American 73.4 (>60)
[2017-11-23] MEDS ORDERED: Heparin VIAL(*) 5000 UNITS/ML VIAL (FIVE THOUSAND) SUBCUT SCH (06:00)
[2017-11-23 06:25] VITALS: BP 160/78
--- NOTE | 2017-11-23 07:14 | DS ---
Date of Admission: 11/22/2017 Date of Discharge: 11/23/2017 Discharge Diagnoses Hypertension Headache HPI Ms. Strong is a 67-year-old female patient. She has a history of coronary artery disease, hypertension, IBS, AFib, fibromyalgia, history of psoriatic arthritis, migraines, depression, chronic pain, agoraphobia and panic disorder, hyperlipidemia, hiatal hernia, history of CKD, comes into the ED today the second time in less than 24 hours, was recently just here again complaining of having a headache mostly on the top part of her head, not the worst headache of her life, progressively getting worse, not sudden in onset. In the setting of having an elevated blood pressure, she said she this morning she got up, walked her dog. She was having a headache. She thought her blood pressure may be high. She went down to her nurse at [facility]. They checked her blood pressure. It was noted to be in the 200 systolically over one-teens diastolic. She came into the ED. They got the blood pressure under control. She said her headache was feeling better. She was discharged around 3:40 and then unfortunately few hours later around 1929 to 1999, she went out to walk her dog again. Similar incident, she started having a headache. She tried lying down and watching TV, was not feeling good and so she called [facility] and came into the ED. En route, her blood pressure systolic again was 208, diastolic was better. At this point, it was at a 100, but it was still elevated. So, she came into the hospital. At the time she got here, her blood pressure was 181/72. She denies having any double vision now, denies any chest pain or shortness of breath. She still has a pain on the top of her head. She just had a CT imaging this afternoon, which was negative. There was concern because of the headache that this might represent hypertensive urgency. We were asked to evaluate for admission. Hospital Course Mrs Strong was admitted for management of hypertensive urgency w/ headache. This AM when nursing informed her she was not allowed to keep her own home medications in her room. She refused to give them up and insisted on signing out AMA. She would not wait for my arrival for discussion and counseling. Discharge Exam Left AMA prior to discharge exam. Time for Discharge: <30min
[2017-11-23] MEDS ORDERED: amLODIPine TAB* 5 MG PO SCH (09:00)
[2017-11-23] MEDS ORDERED: Losartan TAB* 25 MG PO SCH (09:00)
[2017-11-23] MEDS ORDERED: Famotidine TAB* 20 MG PO SCH (21:00)
[2017-11-23] MEDS ORDERED: Metoprolol Succinate XL TAB* 25 MG PO SCH (21:00)
== END 2017-11-23 06:37 | disposition left against medical advice (07) ==
LOC: ED 20:31 → MEDTELE 22:05
PROVIDERS: ADMIT Hospitalist; ATTEND Hospitalist
DX: I10 Essential (primary) hypertension (principal); R51 Headache; Z86.79 Personal history of other diseases of the circulatory system; Z87.448 Personal history of other diseases of urinary system
CPT/HCPCS: 36415; 80048; 84484; 85025; 85610; 93005; 96374; 96375; 99283; A9270-GY; G0378; J0360; J1644; J1885

== ENCOUNTER 2018-03-13 16:33 | Emergency (ER) | payer MEDICARE, MEDICAID ==
[2018-03-13 18:22] LABS: ABS Basophils 0.2 10^3/ul (0-0.2); ABS Eosinophils 0.4 10^3/ul (0-0.6); ABS Lymphocytes 2.2 10^3/ul (1.0-4.8); ABS Monocytes 0.7 10^3/ul (0-0.8); ABS Neutrophils 7.8 10^3/ul (1.5-7.7); ABS Nucleated RBC 0 10^3/ul; Eosinophil % 3.1 % (0-6); Hematocrit 38 % (35-47); Hemoglobin 12.3 g/dl (12.0-16.0); Lymphocyte % 19.5 % (25-47); Mean Corpuscular HGB Conc 32 g/dl (31-36); Mean Corpuscular Hemoglobin 26 pg (27-31); Mean Corpuscular Volume 80 fL (80-97); Mean Platelet Volume 7.9 um3 (7.4-10.4); Nucleated Red Blood Cells % 0.1; Platelet Count 260 10^3/ul (150-450); Red Blood Count 4.78 10^6/ul (4.0-5.4); Red Cell Distribution Width 15 % (10.5-15); White Blood Count 11.2 10^3/ul (3.5-10.8)
[2018-03-13 18:37] LABS: INR 0.8 (0.77-1.02)
[2018-03-13 18:45] LABS: EGFR Non-African American 44.1 (>60)
--- NOTE | 2018-03-13 18:45 | RAD ---
Indication: Hypertension. CT of the brain was performed without IV contrast. Ventricular structures are midline. No midline shift is noted. The extra-axial spaces are unremarkable. There is no evidence of intracranial mass or hemorrhage. No other high or low density lesions identified. Mastoid air cells and paranasal sinuses are otherwise unremarkable. When compared to previous exam of November 22, 2017 no significant change is noted. IMPRESSION: NO INTRACRANIAL MASS OR HEMORRHAGE IS NOTED.
--- NOTE | 2018-03-13 20:04 | RAD ---
Indication: Hypertension. 2 views of the chest including dual energy PA views demonstrates no mediastinal shift. Heart is of normal size and configuration. Lung schaefer are clear. IMPRESSION: No active cardiopulmonary disease is noted.
[2018-03-13 20:47] VITALS: BP 162/80
--- NOTE | 2018-03-14 00:03 | ED ---
Leyla Bustos Julia, scribed for Edda Coleman MD on 03/13/18 at 1809 . Hypertension - HPI Summary HPI Summary: This patient is a 68 year old F presenting to [facility] accompanied by Jin, her son, with a chief complaint of hypertension measured at 237/117 at home with dizziness. Patient reports SOB and chest pain that radiated down both arms that is currently resolved. Patient denies nausea, abdominal pain, and headache. Patient was recently seen in the ED on 11/22/17 with similar symptoms and blood pressure in poor control; she improved while in the ED and was discharged. She then returned again on that date for the same symptoms and was admitted. Patient 's amlodipine was increased on 11/22/17 from 5mg qd to 5mg bid, as discussed with Dr. Zarate. Losartan continued at 50mg qd. Metoprolol continued at 25mg qd. Pt's medications as reviewed by pharmacy order entry technician in the ED are not the same as this. Pt does not bring a current list. - History of Current Complaint Chief Complaint: EDHypertension Stated Complaint: HIGH BP Time Seen by Provider: 03/13/18 17:46 Hx Obtained From: Patient, Family/Cast Iron Dipper - son, Jin, Medical Records Onset/Duration: Started Hours Ago, Still Present Timing: Constant Reported Blood Pressure Prior To Arrival: 237/117 Aggravating Factor(s): Nothing Alleviating Factor(s): Nothing Associated Signs & Symptoms: Chest Pain, Dizziness Related Hx: Similar Episode - was admitted 11/2017 - Allergies/Home Medications Allergies/Adverse Reactions: Allergies Allergy/AdvReac Type Severity Reaction Status Date / Time lactose Allergy GI Upset Verified 03/13/18 16:52 morphine Allergy See Comment Verified 03/13/18 16:52 pravastatin Allergy Muscle Ache Verified 03/13/18 16:52 procaine [From Novocain] Allergy Agitation Verified 03/13/18 16:52 ampicillin AdvReac Severe Diarrhea Verified 03/13/18 16:52 doxycycline [From Vibramycin] AdvReac See Comment Verified 03/13/18 16:52 gabapentin AdvReac See Comment Verified 03/13/18 16:52 olanzapine [From Zyprexa] AdvReac See Comment Verified 03/13/18 16:52 sertraline [From Zoloft] AdvReac See Comment Verified 03/13/18 16:52 Home Medications: Home Medications ARIPiprazole TAB* [Abilify TAB*] 2 mg PO QPM 03/13/18 [History Confirmed ] Cholecalciferol TAB* [Vitamin D TAB*] 1,000 unit PO DAILY 03/13/18 [History Confirmed 03/13/18] Desvenlafaxine (NF) [Pristiq (NF)] 50 mg PO QPM 03/13/18 [History Confirmed ] Famotidine TAB* [Pepcid 20 MG TAB*] 40 mg PO DAILY 03/13/18 [History Confirmed 03/13/18] Loperamide CAP* [Imodium CAP*] 2 mg PO Q4H PRN 03/13/18 [History Confirmed 03/13] Metoprolol Tartrate TAB* [Lopressor TAB*] 25 mg PO DAILY 03/13/18 [History Confirmed 03/13/18] Naproxen Sodium [Aleve] 220 mg PO QPM 03/13/18 [History Confirmed 03/13/18] Nitroglycerin TAB 0.4 MG* 0.4 mg SL Q5M PRN 03/13/18 [History Confirmed 03/13/18 ] Pregabalin CAP(*) [Lyrica CAP(*)] 50 mg PO DAILY 03/13/18 [History Confirmed ] amLODIPine TAB* [Norvasc 5 mg TAB*] 2.5 mg PO DAILY 03/13/18 [History Confirmed 03/13/18] clonazePAM TAB(*) [KlonoPIN TAB(*)] 1 mg PO TID PRN 03/13/18 [History Confirmed 03/13/18] diPHENhydraMINE PO* [Benadryl PO 25 MG TAB*] 25 mg PO BEDTIME PRN 03/13/18 [ History Confirmed 03/13/18] PMH/Surg Hx/FS Hx/Imm Hx Previously Healthy: No Endocrine/Hematology History: Denies: Hx Anticoagulant Therapy, Hx Blood Disorders, Hx Blood Transfusions, Hx Bone Marrow Disease, Hx Diabetes, Hx Systemic Lupus Erythematosus, Hx Sickle Cell Disease, Hx Thyroid Disease, Hx Anemia, Hx Unexplained Bleeding, Other Endocrine/Hematological Disorders Cardiovascular History: Reports: Hx Angina, Hx Coronary Artery Disease - CARDIAC CATHERIZATION, FOLLOWED BY DR KHAN, Hx Hypercholesterolemia, Hx Hypertension, Hx Myocardial Infarction Denies: Hx Aneurysm, Hx Angioplasty, Hx Auto Implanted Cardiovert Defib, Hx Cardiac Arrest, Hx Cardiomegaly, Hx Congenital Heart Disease, Hx Congestive Heart Failure, Hx Deep Vein Thrombosis, Hx Hypotension, Hx Pacemaker/ICD, Hx Peripheral Vascular Disease, Hx Rheumatic Fever, Hx Syncope, Hx Valvular Heart Disease Respiratory History: Reports: Hx Asthma Denies: Hx Bronchopulmonary Dysplasia, Hx Chronic Bronchitis, Hx Chronic Obstructive Pulmonary Disease (COPD), Hx Cystic Fibrosis, Hx Lung Cancer, Hx Pleural Effusion, Hx Pneumonia, Hx Pulmonary Edema, Hx Pulmonary Embolism, Hx Seasonal Allergies, Hx Sleep Apnea, Other Respiratory Problems/Disorders GI History: Reports: Hx Gastroesophageal Reflux Disease, Hx Irritable Bowel, Other GI Disorders - GALLBLADDER POLYPS/STONES, FATTY LIVER Denies: Hx Cirrhosis, Hx Crohn's Disease, Hx Diverticulosis, Hx Gall Bladder Disease, Hx Gastrointestinal Bleed, Hx Hiatal Hernia, Hx Jaundice, Hx Obstructive Bowel, Hx Ileostomy, Hx Pyloric Stenosis, Hx Ulcer History: Denies: Hx Acute Renal Failure, Hx Benign Prostatic Hyperplasia, Hx Chronic Renal Failure, Hx Dialysis, Hx Kidney Infection, Hx Kidney Stones Musculoskeletal History: Reports: Hx Arthritis - psoriatic , Hx Fibromyalgia, Hx Scoliosis Denies: Hx Back Problems, Hx Bursitis, Hx Congenital Bone Abnormalities, Hx Gout, Hx Orthopedic Injury, Hx Osteoporosis, Hx Tendonitis Sensory History: Reports: Hx Cataracts - BILAT, Hx Contacts or Glasses - GLASSES Denies: Hx Eye Injury, Hx Eye Prosthesis, Hx Glaucoma, Hx Macular Degeneration, Hx Vision Problem, Hx Deafness, Hx Hearing Aid, Hx Hearing Problem , Other Sensory Impairments Opthamlomology History: Reports: Hx Cataracts - BILAT, Hx Contacts or Glasses - GLASSES Denies: Hx Eye Injury, Hx Eye Prosthesis, Hx Glaucoma, Hx Macular Degeneration, Hx Vision Problem, Other Sensory Impairments Neurological History: Reports: Hx Headaches, Hx Nerve Disease - FIBROMYALGIA Denies: Hx Developmental Delay, Hx Migraine, Hx Seizures, Hx Spinal Cord Injury, Hx Transient Ischemic Attacks (TIA), Other Neuro Impairments/Disorders Psychiatric History: Reports: Hx Anxiety - ON MED, Hx Depression Denies: Hx Attention Deficit Hyperactivity Disorder, Hx Autism, Hx Eating Disorder, Hx Oppositional [place] Disorder, Hx Panic Disorder, Hx Post Traumatic Stress Disorder, Hx Inpatient Treatment, Hx Community Mental Health Tx , Hx Schizophrenia, Hx Bipolar Disorder, Hx Suicide Attempt, Other Psychiatric Issues/Disorders - Cancer History Hx Hematologic Symptoms: No Hx Chemotherapy: No Hx Radiation Therapy: No - Surgical History Surgery Procedure, Year, and Place: TUBAL LIGATION- [facility] [place]. HYSTERECTOMY- [facility] [place]. CARPAL TUNNEL X2- [facility] [place]. D&C X3- [facility] [place]. CARDIAC CATHERIZATION- 2011- [facility] [place], minimal CAD with preserved ventricular function. RIGHT CATARACT EXTRACTION WITH IOL IMPLANT-06/2016- [facility] [place]. LEFT CATARACT EXTRACTION WITH IOL IMPLANT-08/2016- [facility] [place]. cholecystectomy Hx Anesthesia Reactions: Yes - MORPHINE CAUSED "SEVERE" BRADYCARDIA - Immunization History Date of Tetanus Vaccine: unk Date of Influenza Vaccine: unk Infectious Disease History: Yes Infectious Disease History: Reports: Hx Hepatitis, Hx Shingles Denies: Hx of Known/Suspected MRSA, Traveled Outside the [place] in Last 30 Days - Family History Known Family History: Positive: Cardiac Disease - sister, Diabetes Family History: sister - unspecified cardiac ds. Father - CHF - Social History Alcohol Use: None Hx Substance Use: No Substance Use Type: Reports: None Hx Tobacco Use: No Smoking Status (MU): Never Smoked Tobacco Have You Smoked in the Last Year: No Review of Systems Constitutional: Other - hypertension Eyes: Negative Positive: Chest Pain Positive: Shortness Of Breath Negative: Abdominal Pain, Nausea Positive: Arthralgia - joint pains left leg Skin: Negative Neurological: Other - dizziness Negative: Headache Psychological: Normal All Other Systems Reviewed And Are Negative: Yes Physical Exam - Summary Physical Exam Summary: Appearance: chronically Ill-appearing, moderate pain distress, Well-nourished, talkative, not hypertensive in ED, has bed oriented in room so she can look at compliance monitor Skin: Warm, color reflects adequate perfusion Head: Normal Head/Face inspection, Atraumatic Eyes: Conjunctiva clear, EOMI PERRL, no nystagmus ENT: Normal inspection, TMs clear Neck: Supple, no nodes, no JVD. Respiratory: Lungs clear, Normal breath sounds, no respiratory distress Cardio: RRR, No murmur, pulses normal, brisk capillary refill Abdomen: soft, nontender Bowel sounds: present Musculoskeletal: Strength Intact/ ROM intact. No calf tenderness. No edema. Psychological: needs redirection for answering direct questions, cooperative Neuro: Alert and Ox3, muscle tone normal, no focal deficit Triage Information Reviewed: Yes Vital Signs On Initial Exam: Initial Vitals Temp Pulse Resp BP Pulse Ox 96.8 F 67 18 149/74 96 03/13/18 16:43 03/13/18 16:43 03/13/18 16:43 03/13/18 16:43 03/13/18 16:43 Vital Signs Reviewed: Yes Diagnostics - Vital Signs Vital Signs Temp Pulse Resp BP Pulse Ox 03/13/18 17:28 69 16 133/73 94 03/13/18 17:11 66 19 140/90 95 03/13/18 17:01 70 19 94 03/13/18 16:59 69 20 176/88 95 03/13/18 16:58 71 91 03/13/18 16:43 96.8 F 67 18 149/74 96 - Laboratory Lab Results: Lab Results 03/13/18 03/13/18 03/13/18 Range/Units 18:14 18:14 18:14 WBC 11.2 H (3.5-10.8) 10^3/ul RBC 4.78 (4.0-5.4) 10^6/ul Hgb 12.3 (12.0-16.0) g/dl Hct 38 (35-47) % MCV 80 (80-97) fL MCH 26 L (27-31) pg MCHC 32 (31-36) g/dl RDW 15 (10.5-15) % Plt Count 260 (150-450) 10^3/ul MPV 7.9 (7.4-10.4) um3 Neut % (Auto) 69.7 (38-83) % Lymph % (Auto) 19.5 L (25-47) % [place] % (Auto) 6.1 (0-7) % Eos % (Auto) 3.1 (0-6) % Baso % (Auto) 1.6 (0-2) % Absolute Neuts (auto) 7.8 H (1.5-7.7) 10^3/ul Absolute Lymphs (auto) 2.2 (1.0-4.8) 10^3/ul Absolute Monos (auto) 0.7 (0-0.8) 10^3/ul Absolute Eos (auto) 0.4 (0-0.6) 10^3/ul Absolute Basos (auto) 0.2 (0-0.2) 10^3/ul Absolute Nucleated RBC 0 10^3/ul Nucleated RBC % 0.1 INR (Anticoag Therapy) 0.80 (0.77-1.02) APTT 32.7 (26.0-36.3) seconds D-Dimer, Quantitative 206 (Less Than 230) ng/mL Sodium (139-145) mmol/L Potassium (3.5-5.0) mmol/L Chloride (101-111) mmol/L Carbon Dioxide (22-32) mmol/L Anion Gap (2-11) mmol/L BUN (6-24) mg/dL Creatinine (0.51-0.95) mg/dL Est GFR ( Amer) (>60) Est GFR (Non-Af Amer) (>60) BUN/Creatinine Ratio (8-20) Glucose (70-100) mg/dL Lactic Acid 1.1 (0.5-2.0) mmol/L Calcium (8.6-10.3) mg/dL Total Bilirubin (0.2-1.0) mg/dL AST (13-39) U/L ALT (7-52) U/L Alkaline Phosphatase (34-104) U/L Total Creatine Kinase (10-223) U/L CK-MB (CK-2) (0.6-6.3) ng/mL Troponin I (<0.04) ng/mL B-Natriuretic Peptide ( - 100) pg/mL Total Protein (6.4-8.9) g/dL Albumin (3.2-5.2) g/dL Globulin (2-4) g/dL Albumin/Globulin Ratio (1-3) Thyroxine (T4) (6.09-12.23) mcg/mL 03/13/18 03/13/18 Range/Units 18:14 18:15 WBC (3.5-10.8) 10^3/ul RBC (4.0-5.4) 10^6/ul Hgb (12.0-16.0) g/dl Hct (35-47) % MCV (80-97) fL MCH (27-31) pg MCHC (31-36) g/dl RDW (10.5-15) % Plt Count (150-450) 10^3/ul MPV (7.4-10.4) um3 Neut % (Auto) (38-83) % Lymph % (Auto) (25-47) % [place] % (Auto) (0-7) % Eos % (Auto) (0-6) % Baso % (Auto) (0-2) % Absolute Neuts (auto) (1.5-7.7) 10^3/ul Absolute Lymphs (auto) (1.0-4.8) 10^3/ul Absolute Monos (auto) (0-0.8) 10^3/ul Absolute Eos (auto) (0-0.6) 10^3/ul Absolute Basos (auto) (0-0.2) 10^3/ul Absolute Nucleated RBC 10^3/ul Nucleated RBC % INR (Anticoag Therapy) (0.77-1.02) APTT (26.0-36.3) seconds D-Dimer, Quantitative (Less Than 230) ng/mL Sodium 141 (139-145) mmol/L Potassium 3.7 (3.5-5.0) mmol/L Chloride 111 (101-111) mmol/L Carbon Dioxide 22 (22-32) mmol/L Anion Gap 8 (2-11) mmol/L BUN 18 (6-24) mg/dL Creatinine 1.21 H (0.51-0.95) mg/dL Est GFR ( Amer) 56.7 (>60) Est GFR (Non-Af Amer) 44.1 (>60) BUN/Creatinine Ratio 14.9 (8-20) Glucose 89 (70-100) mg/dL Lactic Acid (0.5-2.0) mmol/L Calcium 8.5 L (8.6-10.3) mg/dL Total Bilirubin 0.30 (0.2-1.0) mg/dL AST 18 (13-39) U/L ALT 14 (7-52) U/L Alkaline Phosphatase 90 (34-104) U/L Total Creatine Kinase 54 (10-223) U/L CK-MB (CK-2) 1.9 (0.6-6.3) ng/mL Troponin I 0.00 (<0.04) ng/mL B-Natriuretic Peptide 35 ( - 100) pg/mL Total Protein 6.5 (6.4-8.9) g/dL Albumin 3.6 (3.2-5.2) g/dL Globulin 2.9 (2-4) g/dL Albumin/Globulin Ratio 1.2 (1-3) Thyroxine (T4) 6.62 (6.09-12.23) mcg/mL Result Diagrams: 03/13/18 18:14 03/13/18 18:15 Lab Statement: Any lab studies that have been ordered have been reviewed, and results considered in the medical decision making process. - Radiology CXR Radiology Interpretation Completed By: Radiologist - No active cardiopulmonary disease is noted. ED Physician has reviewed this report. - CT Brain CT CT Interpretation Completed By: Radiologist - NO INTRACRANIAL MASS OR HEMORRHAGE IS NOTED. ED Physician has reviewed this report. - EKG 1800 Cardiac Rate: NL EKG Rhythm: Sinus Rhythm - [address] Segment: Normal Ectopy: None EKG Interpretation: nml AVIVCT, nml QTc, right axis 0 EKG Comparison: No Significant Change - 11/22/17 Re-Evaluation - Re-Evaluation 1 Re-Evaluation Time: 19:52 Change: Improved - No CP, headache, SOB, or dizzines. Blood Pressure is 147/72. Patient will be discharged. Pt is agreeable with plan. Patient's son will drive her home. Hypertension Course/Dx - Course Course Of Treatment: 68 year old F presenting to [facility] accompanied by Jin, her son, with hypertension measured at 237/117 at home with dizziness. Patient reports SOB and chest pain that radiated down both arms that is currently resolved. I saw this pt during her last visit in the ED on 11/22/17 for similar symptoms. A CXR, Brain CT, and EKG and labs are negative for acute pathology. Patient's hypertension improved while in the ED, and pt did not have the levels of HTN in the ED that she reported at home. Patient will be discharged and is agreeable to this plan. - Diagnoses Differential Diagnosis/HQI PQRI: Cerebral Bleed, Hypertension, Hypertensive Crisis, Hypertensive Urgency, Renal Disease Provider Diagnoses: Hypertension, poor control Discharge - Sign-Out/Discharge Documenting (check all that apply): Discharge/Admit/Transfer - home - Discharge Plan Condition: Stable Disposition: HOME Patient Education Materials: Hypertension (ED) Referrals: Cornell Zarate MD [Primary Care Provider] - 2 Days Additional Instructions: Your lab work, Chest xray and CT brain were all negative today, and your blood pressure was controlled. Please continue your medications as directed. Use the aspercream and the lidocaine patches as directed for your joint pains. Follow up with Dr. Zarate in 2-3 days. Return to the ER if you have new or worsening symptoms. - Billing Disposition and Condition Condition: STABLE Disposition: HOME The documentation as recorded by the Leyla luna Julia accurately reflects the service I personally performed and the decisions made by me, Edda Coleman MD.
== END 2018-03-13 20:03 | disposition home or self-care (01) ==
LOC: ED 16:33
DX: I10 Essential (primary) hypertension (principal); R06.02 Shortness of breath; R07.9 Chest pain, unspecified; Z88.3 Allergy status to other anti-infective agents; Z88.5 Allergy status to narcotic agent; Z88.8 Allergy status to other drugs, medicaments and biological substances; Z88.4 Allergy status to anesthetic agent
CPT/HCPCS: 36415; 70450; 71046; 80053; 82550; 82553; 83605; 83880; 84436; 84484; 85025; 85379; 85610; 85730; 93005; 99283

== ENCOUNTER 2018-03-21 12:01 | Emergency (ER) | payer MEDICARE, MEDICAID ==
[2018-03-21 12:21] VITALS: BP 156/83
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
--- NOTE | 2018-03-21 12:56 | RAD ---
HISTORY: Neck injury COMPARISONS: December 30, 2015 VIEWS: 6, Frontal, lateral, open-mouth odontoid, and bilateral oblique views of the cervical spine. FINDINGS: The cervical spine is visualized from the skull base through T2. ALIGNMENT: The alignment is normal. VERTEBRAL BODIES: The odontoid process is intact. The atlantoaxial intervals are symmetric. JOINTS: There is no subluxation or dislocation. The facet joints are unremarkable. There is no osseous neural foraminal narrowing on the oblique views. INTERVERTEBRAL DISCS: There is mild diffuse loss of intervertebral disc height. SOFT TISSUE: The prevertebral soft tissues are normal. OTHER: The skull base is normal. The lung apices are clear. IMPRESSION: MILD DEGENERATIVE DISC DISEASE. NO ACUTE OSSEOUS INJURY TO THE CERVICAL SPINE
[2018-03-21] MEDS ORDERED: Acetaminophen TAB* 325 MG PO ONE (12:57)
== END 2018-03-21 13:09 | disposition home or self-care (01) ==
LOC: UCEAST 12:01
DX: M54.2 Cervicalgia (principal); I10 Essential (primary) hypertension; M79.7 Fibromyalgia; I25.10 Atherosclerotic heart disease of native coronary artery without angina pectoris; Z91.011 Allergy to milk products; Z88.5 Allergy status to narcotic agent; Z88.8 Allergy status to other drugs, medicaments and biological substances; Z88.0 Allergy status to penicillin; W22.8XXA Striking against or struck by other objects, initial encounter; Y92.9 Unspecified place or not applicable; M15.0 Primary generalized (osteo)arthritis
CPT/HCPCS: 72050; 99212; A9270-GY; G0463

== ENCOUNTER 2018-04-09 14:27 | Emergency (ER) | payer MEDICARE, MEDICAID ==
[2018-04-09 15:03] LABS: ABS Basophils 0 10^3/ul (0-0.2); ABS Eosinophils 0.2 10^3/ul (0-0.6); ABS Lymphocytes 2.3 10^3/ul (1.0-4.8); ABS Monocytes 0.6 10^3/ul (0-0.8); ABS Neutrophils 5.6 10^3/ul (1.5-7.7); ABS Nucleated RBC 0 10^3/ul; Eosinophil % 2.4 % (0-6); Hematocrit 40 % (35-47); Hemoglobin 13.1 g/dl (12.0-16.0); Lymphocyte % 26.4 % (25-47); Mean Corpuscular HGB Conc 33 g/dl (31-36); Mean Corpuscular Hemoglobin 26 pg (27-31); Mean Corpuscular Volume 78 fL (80-97); Mean Platelet Volume 8.3 um3 (7.4-10.4); Nucleated Red Blood Cells % 0; Platelet Count 311 10^3/ul (150-450); Red Blood Count 5.12 10^6/ul (4.0-5.4); Red Cell Distribution Width 16 % (10.5-15); White Blood Count 8.7 10^3/ul (3.5-10.8)
[2018-04-09] MEDS ORDERED: Labetalol IV* 5 MG/ML 20 ML VIAL IV PUSH ONE (15:08)
[2018-04-09 15:13] LABS: INR 0.83 (0.77-1.02)
[2018-04-09] MEDS ORDERED: amLODIPine TAB* 5 MG PO ONE (15:22)
[2018-04-09 15:23] LABS: EGFR Non-African American 64.6 (>60)
[2018-04-09] MEDS ORDERED: Metoprolol Tartrate TAB* 25 MG PO ONE (15:23)
[2018-04-09] MEDS ORDERED: Losartan TAB* 25 MG PO ONE (15:25)
--- NOTE | 2018-04-09 15:39 | RAD ---
INDICATION: Headache in a patient with hypertension COMPARISON: Most recent brain CT is dated March 13, 2018 TECHNIQUE: Contiguous axial sections of the brain were obtained from the skull base to the vertex without contrast. FINDINGS: The ventricles, cisterns and sulci are within normal limits. The diego-white matter differentiation is adequately maintained and there is no sulcal effacement. No significant focal abnormality or mass effect is present. There is no evidence for intracranial hemorrhage. No significant focal osseous abnormality is present. The visualized portion of the paranasal sinuses appear clear. The mastoid air cells are well aerated bilaterally. IMPRESSION: Normal CT of the brain.
[2018-04-09 16:40] VITALS: BP 183/100
--- NOTE | 2018-04-10 00:37 | ED ---
Angie Bustos Emily, scribed for Edda Coleman MD on 04/09/18 at 1516 . Headache - HPI Summary HPI Summary: This patient is a 68 year old F BIBA to with a chief complaint of headache on the top of her head that began upon waking this morning. The patient rates the pain 4/10 in severity. Symptoms aggravated by nothing. Symptoms alleviated by nothing. Patient denies SOB and CP. Patient reports that she has run out her prescriptions recently, because she ran out of money. - History Of Current Complaint Chief Complaint: EDHeadache Stated Complaint: HEADACHE Time Seen by Provider: 04/09/18 14:44 Hx Obtained From: Patient Onset/Duration: Sudden Onset, Started hours ago, Still Present Initially Headache Was: Moderate Currently Pain Is: Moderate - 4 Timing: Constant Location of Headache: Other: - Top of the head Aggravating Factor: Nothing Allevating Factors: Nothing Associated Signs And Symptoms: Other (Noted In Comments) - Negative SOB and CP - Allergies/Home Medications Allergies/Adverse Reactions: Allergies Allergy/AdvReac Type Severity Reaction Status Date / Time lactose Allergy GI Upset Verified 03/21/18 13:03 morphine Allergy See Comment Verified 03/21/18 13:03 pravastatin Allergy Muscle Ache Verified 03/21/18 13:03 procaine [From Novocain] Allergy Agitation Verified 03/21/18 13:03 ampicillin AdvReac Severe Diarrhea Verified 03/21/18 13:03 doxycycline [From Vibramycin] AdvReac See Comment Verified 03/21/18 13:03 gabapentin AdvReac See Comment Verified 03/21/18 13:03 olanzapine [From Zyprexa] AdvReac See Comment Verified 03/21/18 13:03 sertraline [From Zoloft] AdvReac See Comment Verified 03/21/18 13:03 Home Medications: Home Medications Losartan TAB* [Cozaar TAB*] 25 mg PO DAILY 04/09/18 [History Confirmed 04/09/18] Metoprolol Succinate XL TAB* [Toprol XL TAB*] 25 mg PO DAILY 04/09/18 [History Confirmed 04/09/18] Potassium Chlor TAB* [Klor Con ER TAB*] 40 meq PO DAILY 04/09/18 [History Confirmed 04/09/18] PMH/Surg Hx/FS Hx/Imm Hx Previously Healthy: No Endocrine/Hematology History: Denies: Hx Anticoagulant Therapy, Hx Blood Disorders, Hx Blood Transfusions, Hx Bone Marrow Disease, Hx Diabetes, Hx Systemic Lupus Erythematosus, Hx Sickle Cell Disease, Hx Thyroid Disease, Hx Anemia, Hx Unexplained Bleeding, Other Endocrine/Hematological Disorders Cardiovascular History: Reports: Hx Angina, Hx Coronary Artery Disease - CARDIAC CATHERIZATION, FOLLOWED BY DR KHAN, Hx Hypercholesterolemia, Hx Hypertension, Hx Myocardial Infarction, Other Cardiovascular Problems/Disorders - CARRIES NITRO FOR CHEST PAIN Denies: Hx Aneurysm, Hx Angioplasty, Hx Auto Implanted Cardiovert Defib, Hx Cardiac Arrest, Hx Cardiomegaly, Hx Congenital Heart Disease, Hx Congestive Heart Failure, Hx Deep Vein Thrombosis, Hx Hypotension, Hx Pacemaker/ICD, Hx Peripheral Vascular Disease, Hx Rheumatic Fever, Hx Syncope, Hx Valvular Heart Disease Respiratory History: Reports: Hx Asthma Denies: Hx Bronchopulmonary Dysplasia, Hx Chronic Bronchitis, Hx Chronic Obstructive Pulmonary Disease (COPD), Hx Cystic Fibrosis, Hx Lung Cancer, Hx Pleural Effusion, Hx Pneumonia, Hx Pulmonary Edema, Hx Pulmonary Embolism, Hx Seasonal Allergies, Hx Sleep Apnea, Other Respiratory Problems/Disorders GI History: Reports: Hx Gastroesophageal Reflux Disease, Hx Irritable Bowel, Other GI Disorders - GALLBLADDER POLYPS/STONES, FATTY LIVER Denies: Hx Cirrhosis, Hx Crohn's Disease, Hx Diverticulosis, Hx Gall Bladder Disease, Hx Gastrointestinal Bleed, Hx Hiatal Hernia, Hx Jaundice, Hx Obstructive Bowel, Hx Ileostomy, Hx Pyloric Stenosis, Hx Ulcer History: Reports: Other Problems/Disorders - 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 NOW Denies: Hx Acute Renal Failure, Hx Benign Prostatic Hyperplasia, Hx Chronic Renal Failure, Hx Dialysis, Hx Kidney Infection, Hx Kidney Stones Musculoskeletal History: Reports: Hx Arthritis - psoriatic , Hx Fibromyalgia, Hx Scoliosis, Other Musculoskeletal History - MILD CURVATURE OF SPINE Denies: Hx Back Problems, Hx Bursitis, Hx Congenital Bone Abnormalities, Hx Gout, Hx Orthopedic Injury, Hx Osteoporosis, Hx Tendonitis Sensory History: Reports: Hx Cataracts - BILAT, Hx Contacts or Glasses - GLASSES Denies: Hx Eye Injury, Hx Eye Prosthesis, Hx Glaucoma, Hx Macular Degeneration, Hx Vision Problem, Hx Deafness, Hx Hearing Aid, Hx Hearing Problem , Other Sensory Impairments Opthamlomology History: Reports: Hx Cataracts - BILAT, Hx Contacts or Glasses - GLASSES Denies: Hx Eye Injury, Hx Eye Prosthesis, Hx Glaucoma, Hx Macular Degeneration, Hx Vision Problem, Other Sensory Impairments Neurological History: Reports: Hx Headaches, Hx Nerve Disease - FIBROMYALGIA Denies: Hx Dementia, Hx Developmental Delay, Hx Migraine, Hx Seizures, Hx Spinal Cord Injury, Hx Transient Ischemic Attacks (TIA), Other Neuro Impairments /Disorders Psychiatric History: Reports: Hx Anxiety - ON MED, Hx Depression Denies: Hx Attention Deficit Hyperactivity Disorder, Hx Autism, Hx Eating Disorder, Hx Oppositional Sigel Disorder, Hx Panic Disorder, Hx Post Traumatic Stress Disorder, Hx Inpatient Treatment, Hx Community Mental Health Tx , Hx Schizophrenia, Hx Bipolar Disorder, Hx Suicide Attempt, Other Psychiatric Issues/Disorders - Cancer History Hx Hematologic Symptoms: No Hx Chemotherapy: No Hx Radiation Therapy: No - Surgical History Surgery Procedure, Year, and Place: T[place] [facility] [place]- [facility] [place]. CARPAL TUNNEL X2- [facility] [place] D&C X3- [facility] [place] CARDIAC CATHERIZATION- 2011- [facility] [place] minimal CAD with preserved ventricular function. RIGHT CATARACT EXTRACTION WITH IOL IMPLANT-06/2016- [facility] [place] LEFT CATARACT EXTRACTION WITH IOL IMPLANT-08/2016- [facility] [place] cholecyst[place] Hx Anesthesia Reactions: Yes - MORPHINE CAUSED "SEVERE" BRADYCARDIA - Immunization History Date of Tetanus Vaccine: unk Date of Influenza Vaccine: unk Infectious Disease History: No Infectious Disease History: Reports: Hx Hepatitis - as a child, Hx Shingles, History Other Infectious Disease - ? HEPATITIS A CHILD Denies: Hx of Known/Suspected MRSA, Traveled Outside the [place] in Last 30 Days - Family History Known Family History: Positive: Cardiac Disease - sister, Diabetes Family History: sister - unspecified cardiac ds. Father - CHF - Social History Occupation: Retired Lives: With Family Alcohol Use: None Hx Substance Use: No Substance Use Type: Reports: None Hx Tobacco Use: No Smoking Status (MU): Never Smoked Tobacco Have You Smoked in the Last Year: No Review of Systems Negative: Chest Pain Negative: Shortness Of Breath Negative: Nausea Positive: Headache All Other Systems Reviewed And Are Negative: Yes Physical Exam - Summary Physical Exam Summary: Appearance: Well-appearing, minimal pain distress, well-nourished Skin: Warm, color reflects adequate perfusion, dry Head: Normal Head/Face inspection, atraumatic Eyes: Conjunctiva clear ENT: Normal inspection Neck: Supple, no nodes, no JVD Respiratory: Lungs clear, normal breath sounds, no respiratory distress Cardio: RRR, No murmur, pulses normal, brisk capillary refill Abdomen: Soft, nontender Bowel sounds: Present Musculoskeletal: Strength Intact/ROM intact, no calf tenderness, no edema. Psychological: Normal Neuro: A&O x3, CN II-XII intact, motor function 5/5, sensation intact, cerebellar normal Triage Information Reviewed: Yes Vital Signs On Initial Exam: Initial Vitals Temp Pulse Resp BP Pulse Ox 97.6 F 86 20 211/117 98 04/09/18 14:31 04/09/18 14:31 04/09/18 14:31 04/09/18 14:31 04/09/18 14:31 Vital Signs Reviewed: Yes Diagnostics - Vital Signs Vital Signs Temp Pulse Resp BP Pulse Ox 04/09/18 14:31 97.6 F 86 20 211/117 98 - Laboratory Lab Results: Lab Results 04/09/18 Range/Units 14:54 WBC 8.7 (3.5-10.8) 10^3/ul RBC 5.12 (4.0-5.4) 10^6/ul Hgb 13.1 (12.0-16.0) g/dl Hct 40 (35-47) % MCV 78 L (80-97) fL MCH 26 L (27-31) pg MCHC 33 (31-36) g/dl RDW 16 H (10.5-15) % Plt Count 311 (150-450) 10^3/ul MPV 8.3 (7.4-10.4) um3 Neut % (Auto) 63.9 (38-83) % Lymph % (Auto) 26.4 (25-47) % Garfield % (Auto) 7.0 (0-7) % Eos % (Auto) 2.4 (0-6) % Baso % (Auto) 0.3 (0-2) % Absolute Neuts (auto) 5.6 (1.5-7.7) 10^3/ul Absolute Lymphs (auto) 2.3 (1.0-4.8) 10^3/ul Absolute Monos (auto) 0.6 (0-0.8) 10^3/ul Absolute Eos (auto) 0.2 (0-0.6) 10^3/ul Absolute Basos (auto) 0 (0-0.2) 10^3/ul Absolute Nucleated RBC 0 10^3/ul Nucleated RBC % 0 Result Diagrams: 04/09/18 14:54 04/09/18 14:54 Lab Statement: Any lab studies that have been ordered have been reviewed, and results considered in the medical decision making process. - CT Brain CT CT Interpretation Completed By: Radiologist - Brain CT reveals, per radiologist , normal CT of the brain. ED physician has reviewed this radiology report. - EKG 1435 Cardiac Rate: NL EKG Rhythm: Sinus Rhythm - 84 BPM EKG Interpretation: Nml AV IVCT. Nml QTc. Negative axis - 4. No acute change EKG Comparison: No Significant Change - From EKG taken on 03/13/2018 Headache Course/Dx - Course Course Of Treatment: This patient is a 68 year old F BIBA to with a chief complaint of headache on the top of her head that began upon waking this morning. I put in a note for social work and complaince with patient education. Brain CT reveals, per radiologist, normal CT of the brain. Bloodwork obtained. The patient will be discharged with follow up from PCP. The patient is agreeable with this plan. Discharge - Sign-Out/Discharge Documenting (check all that apply): Discharge/Admit/Transfer - Discharge - Discharge Plan Condition: Stable Disposition: HOME Patient Education Materials: Hypertensive Crisis (ED) Referrals: Cornell Zarate MD [Primary Care Provider] - 2 Days Additional Instructions: We gave you doses of your usual medications metoprolol tartrate 25mg, amlodipine 5mg, and losartan 25mg while you were here and your blood pressure came down. You need to take your medications as directed. The hypertension (high blood pressure) is hurting your kidneys. Your CT brain was negative. We have asked older adult social work specialist to contact you to help you afford your medications. Return to the ER if you have new or worsening symptoms. The documentation as recorded by the Angie luna Emily accurately reflects the service I personally performed and the decisions made by , Edda Coleman MD.
== END 2018-04-09 16:38 | disposition home or self-care (01) ==
LOC: ED 14:27
DX: R51 Headache (principal); I10 Essential (primary) hypertension; F41.9 Anxiety disorder, unspecified; I25.2 Old myocardial infarction; I25.10 Atherosclerotic heart disease of native coronary artery without angina pectoris; Z98.890 Other specified postprocedural states; Z86.79 Personal history of other diseases of the circulatory system; Z79.899 Other long term (current) drug therapy; Z88.3 Allergy status to other anti-infective agents; Z88.8 Allergy status to other drugs, medicaments and biological substances; Z88.5 Allergy status to narcotic agent
CPT/HCPCS: 36415; 70450; 80053; 82550; 82553; 83605; 83880; 84436; 84484; 85025; 85379; 85610; 85730; 93005; 99283; A9270-GY

== ENCOUNTER 2018-05-30 20:45 | Inpatient (IN) | payer MEDICARE, MEDICAID ==
--- OUTSIDE RECORDS SUMMARY | 2018-05-30 21:21 | XMS REPORT ---
:1950 External Reference #:[id number] Author Organization [facility] Address [address] [place] [address] [place] [address] Phone [phone] Care Team Providers Name Role Phone Cornell Zarate MD Primary Care Physician Unavailable Payers Type Date Identification Numbers Payment Provider Subscriber Medicare Primary Policy Number: [id number] Medicare Klaudia Jeong PayID: [id number] [address] [place] [address] [facility] Part B Policy Number: [id number] Medicaid Klaudia Jeong Group Name: [id number] [address] PayID: [id number] [place] [address] Problems Date Description Provider Status Onset: 07/19/2012 Chest pain More Abreu D.O. Active Onset: 12/05/2014 Refractory migraine Beti Castillo M.D. Active Onset: 04/07/2017 Amnesia Christiane Combs MD Active Onset: 04/07/2017 Anxiety state Christiane Combs MD Active Onset: 04/07/2017 Recurrent major depressive Christiane Combs MD Active episodes Onset: 07/08/2012 Impending infarction More Abreu D.O. Resolved Resolved: 07/16/2017 Family History Date Family Member(s) Problem(s) Comments General Arthritis General Cerebrovascular Accident (CVA) General Gout : (age 76 Father due to CHF Years) Mother Cerebrovascular Accident Her mother also had RA (CVA) and had severe arthritis of her hip region : (age 52 Mother due to Stroke Years) Children one daughter in good health Siblings 1 Siblings her sister had a hip replacement Onset: (age 52 First Sister Avr Years) Social History Type Date Description Comments Lives With 11/2015 Alone in 2006 from with bipolar disorder. gave up child for adoption at age 16 one child during infancy 1 daughter is a vetrinarian on the [employer] [facility] [employer] 2 adopted children supportive son and strained relationship with daughter. ETOH Use Denies alcohol use Smoking Patient has never smoked Recreational Drug Use Denies Drug Use Daily Caffeine Does Not Consume Caffeine Exercise Type/Frequency Exercises rarely Allergies, Adverse Reactions, Alerts Date Description Reaction Status Severity Comments 07/08/2012 Ampicillin active 07/08/2012 Zoloft active 10/07/2015 Morphine and Related active 11/25/2015 Pravastatin active 11/25/2015 Gabapentin active legs ache/trouble sleeping 11/25/2015 Zyprexa active 06/19/2016 Lactose (Intolerance) active Medications Medication Date Status Form Strength Qnty SIG Indications Ordering Provider Methotrexate 04/04 Active Tablets 2.5mg 14tab take 3 Z79.899 s capsules/tab Ralph, lets by M.D. mouth once weekly, avoid with Restasis Folic Acid 04/04 Active Tablets 1mg 90tab take one Z79.899 s capsule/tabl Ralph, et daily by M.D. mouth Flector 12/21 Active Patches 1.3% 30uni apply 1 M79.7 ts patch up to Ralph, twice dailiy M.D. as needed for pain Aspercreme 09/28 Active Cream 4% 6unit apply twice Deon W/ s daily to the Ralph, painful M.D. joints as needed Metoprolol 04/22 Active Tablets 25mg 30tab 1 by mouth Kyle Succinate ER /2016 ER 24HR s every day FGiovany Lopez, (not taking) M.D. Nitrostat Active Tablets 0.4mg 25tab one sl q5min Unknown /0000 Sub s up to 3 doses prn ( PT Ran Out Of Med) Proair HFA Active Aerosol 108(90Bas 2 puffs bid Shallish, /0000 e) prn MD Cornell mcg/Act Clobetasol Active Cream 0.05% apply to Unknown Propionate /0000 affected Emollient area twice daily Imodium Active Tablets as needed Unknown Klonopin Active Tablets 1mg up to four Unknown times a day Pepcid Active Tablets 40mg 1 po qd Unknown Pristiq Active Tablets 50mg 1 po qd (pt Unknown ER 24HR states she does not take regularly) Restasis Active Emulsion 0.05% as needed Rohan, Francisca Walker O.D. Aripiprazole Active Tablets 5mg take 1 Unknown tablet by mouth at bedtime Tylenol Extra Active Tablets 500mg 2 by mouth Unknown Strength as needed Benadryl Allergy Active Capsules 25mg Unknown Amlodipine Active Tablets 10mg 1 by mouth R07.9 Unknown Besylate every day Naproxen Active Tablets 500mg Unknown Spironolactone/H Active Tablets 25-25mg Unknown ydrochlorothiaz de Prednisone 02/22 Hx Tablets 10mg 30tab take 4 tabs Z79.899 s by mouth Ralph, - daily for 2 M.D. 04/04 days then tabs daily for 2 days then 2 tabs for 2 days then 1 tab for 2 days then d/c Flector 09/22 Hx Patches 1.3% 10uni 1 patch ts daily on [place], - painful area HR PAYROLL COORDINATOR 09/28 Lidocaine 09/17 Hx Cream 4% 120gm apply to M79.7 affected Ralph, - area 3 or 4 M.D. 10/01 times daily as needed for painful joints Flector 09/16 Hx Patches 1.3% 30uni apply 1 M79.7 ts patch up to Ralph, - twice dailiy M.D. 09/17 as needed for pain, avoid with other NSAIDs Ibuprofen 08/16 Hx Tablets 600mg 20tab 1 tablet po M79.7 Miri /2017 s q 6 hr prn B. - pain,take [place], 09/16 with food Hydrocodone-Acet 08/02 Hx Tablets 5-325mg 20tab 1 or 2 Zainab Luisito aminophen s tablets by MD Farhan mouth every 4-6 hours as needed for moderately severe pain Potassium 04/06 Hx Tablets 20Meq 60tab 2 by mouth Kyle Chloride ER ER s every day Cindy Lopez, - (pt does not M.D. 05/09 take ) Amlodipine 04/06 Hx Tablets 5mg 30tab 1 by mouth R07.9 Kyle Besylate s as directed Cindy Lopez, - for high BP M.D. 05/09 (takes once a week) Meloxicam 02/23 Hx Tablets 7.5mg 60tab take one M79.7 s tablet by Ralph, - mouth twice M.D. 09/16 daily as needed for pain - avoid other nsaids Lidocaine HCL 07/22 Hx Gel 2% 50ml apply to M35.8 affected [facility], - area 3 - 4 M.D. 02/23 times daily as needed Lidoderm 07/14 Hx Patches 5% 30uni 1 apply to M35.8 ts affected [facility], - area 12 M.D. 07/22 hours on, hours off Nitro-Dur 04/19 Hx Patches 0.2mg/HR 30uni 1 patch 24HR ts every day on Cindy Lopez, - in the in M.D. 04/21 the morning, off in the at night Lisinopril 04/14 Hx Tablets 5mg 30tab 1 by mouth I95.1 s every day Cindy Lopez, - (on hold as M.D. 05/08 of 04/25/16) Ergocalciferol 01/22 Hx Capsules [id number] 14cap 1 tab by s mouth every Ralph, - week. M.D. 12/08 Plaquenil 01/21 Hx Tablets 200mg 60tab 1 by mouth L40.50 s every day Ralph, - for 1 week M.D. 12/08 then 2 by mouth daily ongoing ( pt taking 1 tablet po daily ) Aspirin Adult 10/07 Hx Tablets 81mg once a day Beti Low Dose /2014 DR Castillo, - M.D. 10/06 Naproxen 07/17 Hx Tablets 500mg 40tab 1 tablet R79.82 Beti s with food by Anna, - mouth twice M.D. 02/23 a day, as needed for headache. (maximum two days a week) Ketorolac 05/17 Hx Tablets 10mg 10tab take 1 by Beti Tromethamine /2013 s mouth every [place], - 8 hours as M.D. 08/01 needed for migraine. take with food. Atorvastatin 07/19 Hx Tablets 80mg 30tab 1 tablet by More Feliciano /2011 s mouth daily Brady - D.OGiovany 03/09 Gabapentin Hx Capsules 100mg 60cap 2 po tid Unknown /0000 s - 03/09 Acetaminophen/Co Hx Tablets 300-30mg 40tab 1-2 po q 4h Unknown deine /0000 s prn for - Migraines 06/12 Pristiq Hx Tablets 100mg 90tab 1 po qd Unknown /0000 ER 24HR s - 03/11 Imodium A-D Hx Tablets 2mg 30tab 1 tab orally Unknown /0000 s initially, - followed by 06/03 1 tab after each loose stool as needed, maximum 16 mg/day Norvasc Hx Tablets 5mg 30tab 1 po qd Unknown /0000 s - 03/09 Xanax Hx Tablets 0.25mg 30tab one by mouth Unknown /0000 s up to three - times daily 03/09 as needed for anxiety Metoprolol Hx Tablets 25mg 90tab 1 po qd Unknown Succinate ER /0000 ER 24HR s - 03/09 Aspirin Hx Tablets 81mg 90tab 2 po qd Unknown /0000 s - 03/09 Divalproex Hx Tablets 500mg 60tab 1 by mouth Beti Sodium ER /0000 ER 24HR s daily Derrick Castillo M.D. 07/02 Clonazepam Hx Tablets 1mg 1 tab po tid Unknown /0000 prn - 02/09 Amlodipine Hx Tablets 10mg 1 tab po Shallish, Besylate /0000 daily MD Cornell - 04/06 Lescol Hx Capsules 20mg 132ca 1 po qd Unknown /0000 ps - 08/01 Fluocinonide-E 00 Hx Cream 0.05% 30gmt 1 Unknown /0000 ube application - daily as 11/19 Triamcinolone Hx Cream 0.1% 30gm apply twice Unknown Acetonide /0000 a day until - clear 11/19 Aspirin Enteric Hx Tablets 81mg 90tab 1 by mouth Unknown Coated Adult Low /0000 DR s daily Strength - 10/06 Pristiq Hx Tablets 50mg 1 by mouth Unknown /0000 ER 24HR every day - 06/03 Viibryd 00 Hx Tablets 10mg 1 by mouth Unknown /0000 every day - 06/12 Viibryd Hx Tablets 40mg 1 tab PO Unknown /0000 daily - 10/06 Lisinopril-[place] Hx Tablets 20-25mg 1/2 tab PO Shallmonse, chlorothiazide /0000 daily MD Cornell - 04/14 Sulfamethoxazole 00 Hx Tablets 800-160mg Shallish, /Trimethoprim DS /0000 MD Cornell - 07/10 Omeprazole Hx Capsules 20mg 1 by mouth Kyle /0000 every day Derrick Lopez M.D. 04/01 Fluvastatin Hx Capsules 20mg 90cap 1 tablet by Unknown Sodium /0000 s mouth every - day (pt unclear this med, states she is not taking) Botox 00/ Hx Solution every 3 Unknown /0000 Rec months - 05/13 Tylenol Extra 00 Hx Tablets 500mg 2 by mouth Unknown Strength /0000 as needed Lidocaine Patch 00 Hx apply to Unknown /0000 affected - area daily 09/17 prn (pt not using) Losartan 00 Hx Tablets 25mg 1 po qd ( pt Shallmonse, Potassium /0000 doesn't MD Cornell - think that 05/09 she takes /2017 this) Medications Administered in Office Medication Date Status Form Strength Qnty SIG Indications Ordering Provider Injection 10/07 Administered Injection Beti Onabotulinumtoxin /Elba Sarmiento 1 Unit M.DGiovany Injection 06/17 Administered Injection Nano Onabotulinumtoxin /2014 Faiza, MEDICAL MANAGER A, 1 Unit Injection 03/11 Administered Injection Nano Onabotulinumtoxin /2014 Faiza MEDICAL MANAGER A, 1 Unit Injection 12/05 Administered Injection Beti Onabotulinumtoxin /2014 Cowdery, A, 1 Unit M.D. Injection 08/30 Administered Injection Beti Onabotulinumtoxin /2013 Cowdery, A, 1 Unit M.D. Depomedrol 20MG 07/11 Administered Injection Beti /2013 [place], M.D. Injection 05/21 Administered Injection Beti Onabotulinumtoxin /2013 Cowdery, A, 1 Unit M.D. Injection 05/21 Administered Injection Beti Onabotulinumtoxin /2013 Cowdery, A, 1 Unit M.D. Vital Signs Date Vital Result Comment 05/09/2018 Height 63 inches 5'3" Heart Rate 61 /min BP Systolic Sitting 105 mmHg BP Diastolic Sitting 64 mmHg Respiratory Rate 14 /min Pain Level 8 04/04/2018 Height 63 inches 5'3" Heart Rate 72 /min BP Systolic Sitting 154 mmHg BP Diastolic Sitting 86 mmHg Respiratory Rate 14 /min Pain Level 5 12/21/2017 Heart Rate 81 /min BP Systolic Sitting 138 mmHg BP Diastolic Sitting 78 mmHg Pain Level 3 O2 % BldC Oximetry 95 % 09/17/2017 Heart Rate 78 /min BP Systolic Sitting 150 mmHg BP Diastolic Sitting 92 mmHg Respiratory Rate 18 /min Body Temperature 97.6 F 09/16/2017 Heart Rate 73 /min BP Systolic Sitting 149 mmHg BP Diastolic Sitting 82 mmHg Respiratory Rate 14 /min Pain Level 9 08/23/2017 Weight 156.00 lb Heart Rate 72 /min BP Systolic 142 mmHg BP Diastolic 82 mmHg Respiratory Rate 16 /min Body Temperature 98.2 F 08/02/2017 Height 63 inches 5'3" Weight 157.00 lb Heart Rate 66 /min BP Systolic 132 mmHg BP Diastolic 84 mmHg Respiratory Rate 16 /min Body Temperature 98.1 F BMI (Body Mass Index) 27.8 kg/m2 07/20/2017 Height 63 inches 5'3" Heart Rate 62 /min BP Systolic Sitting 190 mmHg BP Diastolic Sitting 90 mmHg O2 % BldC Oximetry 96 % 07/20/2017 Heart Rate 66 /min BP Systolic 140 mmHg BP Diastolic 90 mmHg Respiratory Rate 16 /min Body Temperature 97.8 F 07/16/2017 Height 62 inches 5'2" Heart Rate 76 /min BP Systolic Sitting 178 mmHg LA, reg BP Diastolic Sitting 98 mmHg LA, reg Respiratory Rate 16 /min Ejection Fraction 55-60% 04/02/2017 Echo 06/18/2017 Height 62 inches 5'2" Weight 160.00 lb Heart Rate 72 /min BP Systolic 158 mmHg BP Diastolic 100 mmHg Respiratory Rate 16 /min Body Temperature 97.8 F BMI (Body Mass Index) 29.3 kg/m2 06/10/2017 Height 62 inches 5'2" Heart Rate 72 /min BP Systolic Sitting 120 mmHg BP Diastolic Sitting 80 mmHg Respiratory Rate 14 /min Pain Level 5 04/07/2017 Height 62 inches 5'2" Weight 170.50 lb Heart Rate 72 /min BP Systolic Sitting 110 mmHg BP Diastolic Sitting 72 mmHg Respiratory Rate 17 /min BMI (Body Mass Index) 31.2 kg/m2 04/06/2017 Height 62 inches 5'2" Heart Rate 64 /min BP Systolic Sitting 120 mmHg LA lg cuff BP Diastolic Sitting 68 mmHg LA lg cuff Ejection Fraction 50-55% Echo 04/02/16 02/23/2017 Height 62 inches 5'2" Heart Rate 64 /min BP Systolic Sitting 140 mmHg BP Diastolic Sitting 80 mmHg Body Temperature 97.5 F Pain Level 7 12/08/2016 Height 62 inches 5'2" Heart Rate 68 /min BP Systolic Sitting 120 mmHg BP Diastolic Sitting 74 mmHg Body Temperature 97.7 F Pain Level 2 07/14/2016 Height 62 inches 5'2" Heart Rate 72 /min BP Systolic Sitting 144 mmHg BP Diastolic Sitting 98 mmHg Respiratory Rate 14 /min Body Temperature 99.4 F Pain Level 8 06/19/2016 Height 62 inches 5'2" Heart Rate 66 /min BP Systolic Sitting 122 mmHg LA reg cuff BP Diastolic Sitting 80 mmHg LA reg cuff Respiratory Rate 17 /min Ejection Fraction 50-55% date 04/02/16 ECHO 05/13/2016 Height 62 inches 5'2" Heart Rate 64 /min BP Systolic Sitting 120 mmHg BP Diastolic Sitting 74 mmHg Body Temperature 98.5 F Pain Level 8 04/23/2016 Height 62 inches 5'2" Heart Rate 64 /min BP Systolic Sitting 90 mmHg BP Diastolic Sitting 64 mmHg Respiratory Rate 14 /min Body Temperature 98.6 F Pain Level 8 O2 % BldC Oximetry 98 % room air 04/14/2016 Height 62 inches 5'2" Heart Rate 74 /min BP Systolic Sitting 106 mmHg LA lrg cuff BP Diastolic Sitting 62 mmHg LA lrg cuff BP Systolic Standing 104 mmHg LA lrg cuff BP Diastolic Standing 58 mmHg LA lrg cuff Ejection Fraction 50% - 55% echo 04/02/16 02/24/2016 Height 62 inches 5'2" Heart Rate 68 /min BP Systolic Sitting 92 mmHg BP Diastolic Sitting 64 mmHg Respiratory Rate 14 /min Body Temperature 98.1 F Pain Level 9 O2 % BldC Oximetry 98 % 02/24/2016 Height 62 inches 5'2" Heart Rate 64 /min BP Systolic Sitting 90 mmHg BP Diastolic Sitting 60 mmHg Respiratory Rate 14 /min Pain Level 9 01/22/2016 Height 62 inches 5'2" Heart Rate 78 /min BP Systolic Sitting 100 mmHg BP Diastolic Sitting 70 mmHg Pain Level 8 12/30/2015 Height 62 inches 5'2" Weight 187.00 lb per pt( declined wt today) Heart Rate 66 /min BP Systolic Sitting 110 mmHg BP Diastolic Sitting 70 mmHg Body Temperature 97.5 F Pain Level 2 BMI (Body Mass Index) 34.2 kg/m2 11/25/2015 Height 62 inches 5'2" Heart Rate 76 /min BP Systolic Sitting 100 mmHg LA, large BP Diastolic Sitting 80 mmHg LA, large 10/07/2015 Height 62 inches 5'2" Heart Rate 76 /min BP Systolic Sitting 130 mmHg BP Diastolic Sitting 74 mmHg Respiratory Rate 16 /min 06/17/2015 Height 62 inches 5'2" Heart Rate 72 /min BP Systolic Sitting 102 mmHg BP Diastolic Sitting 64 mmHg Respiratory Rate 16 /min 03/11/2015 Height 62 inches 5'2" Heart Rate 68 /min BP Systolic Sitting 126 mmHg BP Diastolic Sitting 72 mmHg Respiratory Rate 16 /min 12/05/2014 Height 62 inches 5'2" Heart Rate 80 /min BP Systolic Sitting 106 mmHg BP Diastolic Sitting 70 mmHg Respiratory Rate 16 /min 08/30/2014 Height 62 inches 5'2" Weight 184.00 lb Heart Rate 80 /min BP Systolic Sitting 112 mmHg BP Diastolic Sitting 80 mmHg Respiratory Rate 16 /min BMI (Body Mass Index) 33.7 kg/m2 07/11/2014 Height 62 inches 5'2" Heart Rate 76 /min BP Systolic Sitting 112 mmHg BP Diastolic Sitting 68 mmHg Respiratory Rate 16 /min 05/21/2014 Height 62 inches 5'2" Weight 196.00 lb Heart Rate 64 /min BP Systolic Sitting 110 mmHg BP Diastolic Sitting 60 mmHg Respiratory Rate 16 /min BMI (Body Mass Index) 35.8 kg/m2 05/16/2014 Height 62 inches 5'2" Weight 196.00 lb Heart Rate 76 /min BP Systolic Sitting 90 mmHg BP Diastolic Sitting 60 mmHg Respiratory Rate 16 /min BMI (Body Mass Index) 35.8 kg/m2 03/12/2014 Height 62 inches 5'2" Weight 196.00 lb Heart Rate 76 /min BP Systolic Sitting 76 mmHg BP Diastolic Sitting 70 mmHg Respiratory Rate 16 /min BMI (Body Mass Index) 35.8 kg/m2 07/19/2012 Height 62 inches 5'2" Weight 211.25 lb Heart Rate 68 /min Regular BP Systolic Sitting 138 mmHg BP Diastolic Sitting 92 mmHg BMI (Body Mass Index) 38.6 kg/m2 07/08/2012 Height 62 inches 5'2" Weight 209.00 lb Heart Rate 68 /min BP Systolic Sitting 118 mmHg BP Diastolic Sitting 82 mmHg BMI (Body Mass Index) 38.2 kg/m2 Results Test Date Test Result H/L Range Note Laboratory test finding 04/01/2018 TSH (Thyroid Stim 2.18 mcIU/mL 0.34- 5.60 1 Horm) Creatine Kinase(CK) 66 U/L 10-223 2 Erythrocyte Sed Rate 14 mm/Hr 0-40 3 C Reactive Protein 7.09 mg/L High < 5.00 4 CBC Auto Diff 04/01/2018 White Blood Count 10.5 10^3/uL 3.5-10.8 Red Blood Count 5.23 10^6/uL 4.0-5.4 Hemoglobin 13.3 g/dL 12.0-16.0 Hematocrit 42 % 35-47 Mean Corpuscular Volume 80 fL 80-97 Mean Corpuscular Hemoglobin 25 pg Low 27-31 Mean Corpuscular HGB Conc 32 g/dL 31-36 Red Cell Distribution Width 16 % High 10.5-15 Platelet Count 315 10^3/uL 150-450 Mean Platelet Volume 8.6 um3 7.4-10.4 Abs Neutrophils 7.8 10^3/uL High 1.5-7.7 Abs Lymphocytes 2.0 10^3/uL 1.0-4.8 Abs Monocytes 0.4 10^3/uL 0-0.8 Abs Eosinophils 0.1 10^3/uL 0-0.6 Abs Basophils 0.1 10^3/uL 0-0.2 Abs Nucleated RBC 0 10^3/uL Granulocyte % 74.7 % 38-83 Lymphocyte % 18.7 % Low 25-47 Monocyte % 4.2 % 0-7 Eosinophil % 1.2 % 0-6 Basophil % 1.2 % 0-2 Nucleated Red Blood Cells % 0 Comp Metabolic Panel 04/01/2018 Sodium 145 mmol/L 139-145 Potassium 3.3 mmol/L Low 3.5-5.0 Chloride 108 mmol/L 101-111 Co2 Carbon Dioxide 26 mmol/L 22-32 Anion Gap 11 mmol/L 2-11 Glucose 138 mg/dL High 70-100 Blood Urea Nitrogen 15 mg/dL 6-24 Creatinine 1.26 mg/dL High 0.51-0.95 BUN/Creatinine Ratio 11.9 8-20 Calcium 9.8 mg/dL 8.6-10.3 Total Protein 6.8 g/dL 6.4-8.9 Albumin 4.2 g/dL 3.2-5.2 Globulin 2.6 g/dL 2-4 Albumin/Globulin Ratio 1.6 1-3 Total Bilirubin 0.40 mg/dL 0.2-1.0 Alkaline Phosphatase 90 U/L 34-104 Alt 13 U/L 7-52 Ast 18 U/L 13-39 Egfr Non- 42.1 >60 Egfr 54.1 >60 5 Laboratory test 04/01/2018 Vitamin D, 1,25 29 pg/mL 18-78 6 finding Dihydroxy Laboratory test 08/12/2017 Surgical Pathology SEE RESULT BELOW 7 finding CBC Auto Diff 07/12/2017 White Blood Count 8.8 10^3/uL 3.5-10.8 Red Blood Count 4.73 10^6/uL 4.0-5.4 Hemoglobin 12.9 g/dL 12.0-16.0 Hematocrit 39 % 35-47 Mean Corpuscular Volume 83 fL 80-97 Mean Corpuscular Hemoglobin 27 pg 27-31 Mean Corpuscular HGB Conc 33 g/dL 31-36 Red Cell Distribution Width 16 % High 10.5-15 Platelet Count 308 10^3/uL 150-450 Mean Platelet Volume 9 um3 7.4-10.4 Abs Neutrophils 6.1 10^3/uL 1.5-7.7 Abs Lymphocytes 2.0 10^3/uL 1.0-4.8 Abs Monocytes 0.4 10^3/uL 0-0.8 Abs Eosinophils 0.2 10^3/uL 0-0.6 Abs Basophils 0.1 10^3/uL 0-0.2 Abs Nucleated RBC 0 10^3/uL Granulocyte % 68.9 % 38-83 Lymphocyte % 22.5 % Low 25-47 Monocyte % 4.8 % 1-9 Eosinophil % 2.5 % 0-6 Basophil % 1.3 % 0-2 Nucleated Red Blood Cells % 0 Comp Metabolic Panel 07/12/2017 Sodium 141 mmol/L 133-145 Potassium 4.3 mmol/L 3.5-5.0 Chloride 104 mmol/L 101-111 Co2 Carbon Dioxide 32 mmol/L 22-32 Anion Gap 5 mmol/L 2-11 Glucose 90 mg/dL 70-100 Blood Urea Nitrogen 17 mg/dL 6-24 Creatinine 1.04 mg/dL High 0.51-0.95 BUN/Creatinine Ratio 16.3 8-20 Calcium 9.7 mg/dL 8.6-10.3 Total Protein 6.6 g/dL 6.4-8.9 Albumin 3.9 g/dL 3.2-5.2 Globulin 2.7 g/dL 2-4 Albumin/Globulin Ratio 1.4 1-3 Total Bilirubin 0.40 mg/dL 0.2-1.0 Alkaline Phosphatase 91 U/L 34-104 Alt 9 U/L 7-52 Ast 14 U/L 13-39 Egfr Non- 52.7 >60 Egfr 67.8 >60 8 Urine Culture And Sensitivities 07/12/2017 Urine Culture SEE RESULT BELOW 9 Magdalena Igg AB Reflex 07/12/2017 SS-A/Ro Antibody <0.2 U 10 SS-B/La Antibody <0.2 U 11 Sm (Gipson) IgG Antibody <0.2 U 12 U1-nRNP Antibody 0.7 U 13 Scl-70 (Scleroderma) Antibody 0.8 U 14 Damaris-1 Antibody <0.2 U 15 Laboratory test finding 07/12/2017 Centromere Auto Abs >8.0 U 16 Ribosome P Antibodies, Igg <0.2 U 17 Interpretation See Comment 18 Anti Double Stranded Dna Ab 14.2 19 Urinalysis Profile 07/12/2017 Urine Color Yellow Urine Appearance Cloudy Urine Specific Umpire 1.021 1.010-1.030 Urine pH 5.0 5-9 Urine Urobilinogen Negative Negative Urine Ketones Negative Negative Urine Protein 1+(30 mg/dL) Negative Urine Leukocytes 3+ Negative Urine Blood Negative Negative Urine Nitrite Negative Negative Urine Bilirubin Negative Negative Urine Glucose Negative Negative Urine White Blood Cell 3+(>20/hpf) Absent Urine Red Blood Cell Absent Absent Urine Bacteria Absent Absent Urine Squamous Epithelial Cell Present Absent Urine Transitional Epithelial Present Absent Urine Hyaline Casts Present Absent Urine Calcium Oxalate Cryst Present Absent Urine Amorphous Crystals Present Absent Laboratory test finding 07/12/2017 Vitamin D, 1,25 Dihydroxy 33 pg/mL 18- 78 20 Connective Tissue Panel 07/12/2017 Anti-Nuclear Antibody 9.9 U High 21 Cyclic Citrullinated Peptide <15.6 U 22 Laboratory test finding 07/12/2017 TSH (Thyroid Stim 1.52 mcIU/mL 0.34- 5.60 23 Horm) C Reactive Protein 7.93 mg/L High < 5.00 24 Erythrocyte Sed Rate 25 mm/Hr 0-40 25 Comp Metabolic Panel 04/06/2017 Sodium 140 mmol/L 133-145 Potassium 4.2 mmol/L 3.5-5.0 Chloride 104 mmol/L 101-111 Co2 Carbon Dioxide 28 mmol/L 22-32 Anion Gap 8 mmol/L 2-11 Glucose 91 mg/dL 70-100 Blood Urea Nitrogen 26 mg/dL High 6-24 Creatinine 1.65 mg/dL High 0.51-0.95 BUN/Creatinine Ratio 15.8 8-20 Calcium 9.7 mg/dL 8.6-10.3 Total Protein 6.9 g/dL 6.4-8.9 Albumin 4.2 g/dL 3.2-5.2 Globulin 2.7 g/dL 2-4 Albumin/Globulin Ratio 1.6 1-3 Total Bilirubin 0.40 mg/dL 0.2-1.0 Alkaline Phosphatase 96 U/L 34-104 Alt 8 U/L 7-52 Ast 13 U/L 13-39 Egfr Non- 30.9 >60 Egfr 39.8 >60 26 Laboratory test finding 04/06/2017 Magnesium 2.2 mg/dL 1.9-2.7 Troponin-I (TnI) 0.00 ng/mL <0.04 27 TSH (Thyroid Stim Horm) 2.57 mcIU/mL 0.34-5.60 Laboratory test finding 12/08/2016 Erythrocyte Sed Rate 23 mm/Hr 0-40 C Reactive Protein 8.92 mg/L High < 5.00 28 Vitamin D 1,25 And Vitamin 12/08/2016 Vitamin D Total 25(Oh) 24.1 ng/mL Low 30-50 D,2 Vitamin D, 1,25 Dihydroxy 65 pg/mL 18-78 29 Laboratory test 12/08/2016 Nuclear Ab (Maddy) by Positive 1:1280 30 finding Ifa, IgG Laboratory test 07/14/2016 C Reactive Protein 10.25 mg/L High < 5.00 31 finding Erythrocyte Sed Rate 28 mm/Hr 0-40 CBC Auto Diff 07/14/2016 White Blood Count 7.6 10^3/uL 3.5-10.8 Red Blood Count 4.89 10^6/uL 4.0-5.4 Hemoglobin 13.3 g/dL 12.0-16.0 Hematocrit 42 % 35-47 Mean Corpuscular Volume 85 fL 80-97 Mean Corpuscular Hemoglobin 27 pg 27-31 Mean Corpuscular HGB Conc 32 g/dL 31-36 Red Cell Distribution Width 15 % 10.5-15 Platelet Count 313 10^3/uL 150-450 Mean Platelet Volume 8 um3 7.4-10.4 Abs Neutrophils 5.0 10^3/uL 1.5-7.7 Abs Lymphocytes 2.0 10^3/uL 1.0-4.8 Abs Monocytes 0.4 10^3/uL 0-0.8 Abs Eosinophils 0.2 10^3/uL 0-0.6 Abs Basophils 0.1 10^3/uL 0-0.2 Abs Nucleated RBC 0.01 10^3/uL Granulocyte % 65.0 % 38-83 Lymphocyte % 25.8 % 25-47 Monocyte % 5.8 % 1-9 Eosinophil % 2.3 % 0-6 Basophil % 1.1 % 0-2 Nucleated Red Blood Cells % 0.2 Comp Metabolic Panel 07/14/2016 Sodium 141 mmol/L 133-145 Potassium 4.6 mmol/L 3.5-5.0 Chloride 110 mmol/L 101-111 Co2 Carbon Dioxide 25 mmol/L 22-32 Anion Gap 6 mmol/L 2-11 Glucose 88 mg/dL 70-100 Blood Urea Nitrogen 18 mg/dL 6-24 Creatinine 1.52 mg/dL High 0.51-0.95 BUN/Creatinine Ratio 11.8 8-20 Calcium 9.4 mg/dL 8.6-10.3 Total Protein 6.7 g/dL 6.4-8.9 Albumin 4.0 g/dL 3.2-5.2 Globulin 2.7 g/dL 2-4 Albumin/Globulin Ratio 1.5 1-3 Total Bilirubin 0.50 mg/dL 0.2-1.0 Alkaline Phosphatase 80 U/L 34-104 Alt 11 U/L 7-52 Ast 14 U/L 13-39 Egfr Non- 34.1 >60 Egfr 43.9 >60 32 Laboratory test finding 07/14/2016 Creatine Kinase(CK) 41 U/L 10-223 TSH (Thyroid Stim Horm) 2.08 mcIU/mL 0.34-5.60 Comp Metabolic Panel 04/23/2016 Sodium 140 mmol/L 133-145 Potassium 4.4 mmol/L 3.5-5.0 Chloride 106 mmol/L 101-111 Co2 Carbon Dioxide 26 mmol/L 22-32 Anion Gap 8 mmol/L 2-11 Glucose 80 mg/dL 70-100 Blood Urea Nitrogen 20 mg/dL 6-24 Creatinine 1.26 mg/dL High 0.51-0.95 BUN/Creatinine Ratio 15.9 8-20 Calcium 9.3 mg/dL 8.6-10.3 Total Protein 6.7 g/dL 6.4-8.9 Albumin 4.2 g/dL 3.2-5.2 Globulin 2.5 g/dL 2-4 Albumin/Globulin Ratio 1.7 1-3 Total Bilirubin 0.40 mg/dL 0.2-1.0 Alkaline Phosphatase 98 U/L 34-104 Alt 9 U/L 7-52 Ast 15 U/L 13-39 Egfr Non- 42.4 >60 Egfr 54.5 >60 33 Laboratory test finding 04/02/2016 Troponin I 0.00 ng/mL <0.03 34 Laboratory test finding 02/24/2016 Erythrocyte Sed Rate 24 mm/Hr 0-40 C Reactive Protein 11.89 mg/L High < 5.00 35 CBC Auto Diff 02/24/2016 White Blood Count 9.2 10^3/uL 3.5-10.8 Red Blood Count 5.12 10^6/uL 4.0-5.4 Hemoglobin 13.7 g/dL 12.0-16.0 Hematocrit 44 % 35-47 Mean Corpuscular Volume 85 fL 80-97 Mean Corpuscular Hemoglobin 27 pg 27-31 Mean Corpuscular HGB Conc 32 g/dL 31-36 Red Cell Distribution Width 15 % 10.5-15 Platelet Count 340 10^3/uL 150-450 Mean Platelet Volume 9 um3 7.4-10.4 Abs Neutrophils 6.0 10^3/uL 1.5-7.7 Abs Lymphocytes 2.2 10^3/uL 1.0-4.8 Abs Monocytes 0.5 10^3/uL 0-0.8 Abs Eosinophils 0.4 10^3/uL 0-0.6 Abs Basophils 0.1 10^3/uL 0-0.2 Abs Nucleated RBC 0 10^3/uL Granulocyte % 65.1 % 38-83 Lymphocyte % 23.9 % Low 25-47 Monocyte % 5.8 % 1-9 Eosinophil % 4.1 % 0-6 Basophil % 1.1 % 0-2 Nucleated Red Blood Cells % 0 Comp Metabolic Panel 02/24/2016 Sodium 140 mmol/L 133-145 Potassium 4.3 mmol/L 3.5-5.0 Chloride 102 mmol/L 101-111 Co2 Carbon Dioxide 29 mmol/L 22-32 Anion Gap 9 mmol/L 2-11 Glucose 84 mg/dL 70-100 Blood Urea Nitrogen 25 mg/dL High 6-24 Creatinine 1.94 mg/dL High 0.51-0.95 BUN/Creatinine Ratio 12.9 8-20 Calcium 9.8 mg/dL 8.6-10.3 Total Protein 7.2 g/dL 6.4-8.9 Albumin 4.6 g/dL 3.2-5.2 Globulin 2.6 g/dL 2-4 Albumin/Globulin Ratio 1.8 1-3 Total Bilirubin 0.50 mg/dL 0.2-1.0 Alkaline Phosphatase 88 U/L 34-104 Alt 12 U/L 7-52 Ast 17 U/L 13-39 Egfr Non- 25.7 >60 Egfr 33.1 >60 36 Laboratory test finding 02/24/2016 Creatine Kinase(CK) 65 U/L 10-223 Connective Tissue Panel 02/24/2016 Anti-Nuclear Antibody 7.9 U High 37 Cyclic Citrullinated Peptide <15.6 U 38 Magdalena Igg AB Reflex 02/24/2016 SS-A/Ro Antibody <0.2 U 39 SS-B/La Antibody <0.2 U 40 Sm (Gipson) IgG Antibody <0.2 U 41 U1-nRNP Antibody <0.2 U 42 Scl-70 (Scleroderma) Antibody <0.2 U 43 Damaris-1 Antibody <0.2 U 44 Laboratory test finding 02/24/2016 Centromere Auto Abs 5.5 U 45 Ribosomal Antibody <0.2 U 46 Anti Double Stranded Dna Ab < 12.3 IU/mL 47 Interpretation See Comment 48 Anca Panel For Vasculitis 01/27/2016 Myeloperoxidase AB <0.2 U 49 Proteinase 3 AB <0.2 U 50 Beta 2 Glycoprotein I Abs 01/27/2016 Beta 2 Glycoprotein IgG <4.0 U/mL 51 Beta 2 Glycoprotein IgM <4.0 U/mL 52 Laboratory test finding 01/27/2016 Creatine Kinase(CK) 58 U/L 10-223 Hepatitis Acute Panel 01/27/2016 Hepatitis C Antibody Nonreactive Nonreactive Hepatitis A AB Igm Nonreactive Nonreactive Hepatitis B Core AB Igm Nonreactive Nonreactive Hepatitis B Surface Ag Nonreactive Nonreactive Connective Tissue Panel 01/27/2016 Anti-Nuclear Antibody 8.6 U 53 Cyclic Citrullinated Peptide <15.6 U 54 Centromere Abs 5.8 U 55 Ribosomal Antibody <0.2 U 56 Anti SS-A/Ro 0.2 U 57 SS-B/La Antibody <0.2 U 58 Sm (Gipson) IgG Antibody <0.2 U 59 U1 GROMMET WORKER IgG Autoabs <0.2 U 60 Scleroderma Ab <0.2 U 61 Damaris-1 Antibody <0.2 U 62 Anti Double Stranded Dna Ab <12.3 IU/mL 63 Interpretation See Comment 64 Cardiolipin Igg/Igm 01/27/2016 Phospholipid Ab IgM, S < 4.0 MPL 65 Phospholipid Ab IgG < 4.0 GPL 66 Laboratory test finding 01/27/2016 Complement C3 144 mg/dL 75 - 175 67 Complement C4 24 mg/dL 14 - 40 68 Protein Electrophoresis 01/27/2016 Total Protein(Pep) 7.1 g/dL 6.3 - 7.9 Albumin 3.6 g/dL 3.4-4.7 Alpha-1 Globulin 0.3 g/dL 0.1-0.3 Alpha-2 Globulin 1.1 g/dL 0.6-1.0 Beta Globulin 1.1 g/dL 0.7-1.2 Gamma Globulin 1.0 g/dL 0.6-1.6 Albumin/Globulin Ratio 1.02 Impression See Comment 69 Laboratory test 12/30/2015 Maddy (Antinuclear Reflexed to FA Negative finding Antibodies) Angiotensin Converting Enzyme <5 U/L 8 - 53 70 C Reactive Protein 11.50 mg/L High < 5.00 71 Cyclic Citrullinated Pep Igg <15.6 U 72 Erythrocyte Sed Rate 18 mm/Hr 0-40 Hla B27 12/30/2015 Hla B27 Negative 73 Hla B27 Interp See Comment 74 Laboratory test finding 12/30/2015 Lyme Disease Serology Negative Negative 75 Rheumatoid Factor <15 IU/mL <15 76 Uric Acid 6.3 mg/dL 2.3-6.6 Creatine Kinase(CK) 61 U/L 10-223 Vitamin B12 257 pg/mL 180-914 77 Vitamin D 1,25 And Vitamin 12/30/2015 Vitamin D Total 25(Oh) 14.6 ng/mL Low 30-50 D,2 Vitamin D, 1,25 Dihydroxy 29 pg/mL 18-78 78 Laboratory test finding 12/30/2015 Anti Ssa/Ro 0.2 U 79 Anti SSB LA <0.2 U 80 Celiac Panel 12/30/2015 Tissue Transglutaminase IgA Ab <1.2 U/mL 81 Immunoglobulin A 254 mg/dL 61 - 356 Celiac Interpretation See Comment 82 Maddy Hep-2 12/30/2015 Maddy Pattern Speckled Negative Maddy Titer 1:1280 <1:80 Maddy Reviewed By MD Cristina Booker 83 Laboratory test finding 07/19/2012 Alt (SGPT) 40 U/L 14-54 Ast (Sgot) 41 U/L 12-42 Lipid Profile (Trig/Chol/HDL) 07/08/2012 Triglyceride 216 mg/dL High 40- 200 Cholesterol 278 mg/dL High Less Than 200 84 High Density Lipoprotein 44 mg/dL 40-60 85 Cholesterol/HDL Ratio 6.32 AVERAGE High 1-4.44 Low Density Lipoprotein 191 mg/dL High Less Than 100 86 Cath Panel 07/08/2012 PTT (Aptt) 26.9 SEC 25.1-38.5 CBC With Manual Diff 07/08/2012 White Blood Count 8.2 CUMM 4.8-10.8 Red Cell Count 5.00 CUMM 4.2-5.4 Hemoglobin 14.4 g/dL 12.0-16.0 Hematocrit 43 % 35-47 Mean Corpuscular Volume 87 um3 79-97 Mean Corpuscular Hemoglob 29 pg 27-31 Mean Corpuscular HGB Cone 33 g/dL 32-36 Redcell Distribution WDTH 15 % 10.5-15 Platelet Count 306 CUMM 150-450 Mean Platelet Volume 8.3 um3 7.4-10.4 Absolute Neutrophil Count 4.9 1.5-7.7 Polysegmented Neutrophil 58 % 38-83 Lymphocyte 36 % 25-47 Monocyte 1 % 0-13 Eosinophil 4 % 0-6 Atypical Lymph 1 % 0-6 Anisocytosis SLIGHT Basic Metabolic Panel 07/08/2012 Sodium 141 mmol/L 135-145 Potassium 4.8 mmol/L 3.5-5.0 Chloride 105 mmol/L 101-111 Co2 (Carbon Dioxide) 29.0 mmol/L 22-32 Anion Gap 7.0 mmol/L 2-11 87 Glucose 112 mg/dL High 70-100 BUN 30 mg/dL High 6-24 Creatinine 1.5 mg/dL High 0.50-1.40 One Over Creatinine 0.66 BUN/Creatinine Ratio 20.0 8-20 Calcium 9.7 mg/dL 8.1-9.9 eGFR Non- 35.1 > 60 eGFR 45.1 > 60 88 Protime 07/08/2012 Inr 0.83 Low 0.88-1.13 89 Protime 9.8 SEC Low 10.3-13.5 90 1 Please check labs 2 days before follow up 2 Please check labs 2 days before follow up 3 Please check labs 2 days before follow up 4 Acute inflammation: >10.00 5 Because ethnic data is not always readily available, this report includes an eGFR for both -Americans and non- Americans. The National Kidney Disease Education Program (NKDEP) does not endorse the use of the MDRD equation for patients that are not between the ages of 18 and 70, are , have extremes of body size, muscle mass, or nutritional status, or are non- or non-. According to the National Kidney Foundation, irrespective of diagnosis, the stage of the disease is based on the level of kidney function: Stage Description GFR(mL/min/1.73 m(2)) 1 Kidney damage with normal or decreased GFR 90 2 Kidney damage with mild decrease in GFR 60-89 3 Moderate decrease in GFR 30-59 4 Severe decrease in GFR 15-29 5 Kidney failure <15 (or dialysis) 6 ADDITIONAL INFORMATION This test was developed and its performance characteristics determined by [facility] in a manner consistent with CLIA requirements. This test has not been cleared or approved by the U.S. Food and Drug Administration. Test Performed by: [facility] - [facility] [address] [place] [address] 7 SEE RESULT BELOW Name: KLAUDIA JEONG Shaina : [address]: Ti Nicholas MD Acct: [id number] Unit: [id number] AGE: 67 Location: [place] Re08/12/17 SEX: F Status: YOUSUF ROSAS SPEC: [id number] NIGEL: 08/12/17- [facility] DR: Ti Nicholas MD REQ: [id number] RECD: 08/12/171044 STATUS: SOUT _ ORDERED: LEVEL 3 FINAL DIAGNOSIS Gallbladder, cholecystectomy: -- Chronic cholecystitis. -- Cholelithiasis. PRE-OPERATIVE DIAGNOSIS Symptomatic cholelithiasis GROSS DESCRIPTION The specimen is received in formalin labeled, Gallbladder, and consists of a 7.3 a 3.5 x 3.1 cm focally disrupted gallbladder. The serosa is glistening smooth yellow pink. Within the lumen there are three yellow ovoid bosselated choleliths averaging 0.6 cm admixed with abundant green-yellow viscid bile. The mucosa is reticulated to granular mane -pink with rare focal yellow stippling and the wall thickness averages 0.1 cm. Online Content Coordinator sections, one cassette. Signed (signature on file) Ibeth Booker MD 0730 END OF REPORT * ML=Testing performed at Main Lab DEPARTMENT OF PATHOLOGY, [address] [place] [address] Burak Harrison M.D. Director [facility] # [id number] 8 Because ethnic data is not always readily available, this report includes an eGFR for both -Americans and non- Americans. The National Kidney Disease Education Program (NKDEP) does not endorse the use of the MDRD equation for patients that are not between the ages of 18 and 70, are , have extremes of body size, muscle mass, or nutritional status, or are non- or non-. According to the National Kidney Foundation, irrespective of diagnosis, the stage of the disease is based on the level of kidney function: Stage Description GFR(mL/min/1.73 m(2)) 1 Kidney damage with normal or decreased GFR 90 2 Kidney damage with mild decrease in GFR 60-89 3 Moderate decrease in GFR 30-59 4 Severe decrease in GFR 15-29 5 Kidney failure <15 (or dialysis) 9 SEE RESULT BELOW Name: KLAUDIA JEONG : [address]: Deon Rosas MD Acct: [id number] Unit: [id number] AGE: 67 Location: [facility] Re07/12/17 SEX: F Status: REG REF SPEC: [id number] NIGEL: 07/12/17-9 [facility] DR: Deon Rosas MD REQ: [id number] RECD: 07/12/17 STATUS: COMP _ SOURCE: URINE SPDESC: ORDERED: Urine Culture Procedure Result Reported Site Urine Culture Final 07/14/17- 1003 ML No Growth (<1,000 CFU/mL) * ML - [facility] ([facility]) . END OF REPORT * ML=Testing performed at Main Lab DEPARTMENT OF PATHOLOGY, [address] [place] [address] Burak Harrison M.D. Director [facility] # [id number] 10 REFERENCE VALUE <1.0 (Negative) 11 REFERENCE VALUE <1.0 (Negative) 12 REFERENCE VALUE <1.0 (Negative) 13 REFERENCE VALUE <1.0 (Negative) 14 REFERENCE VALUE <1.0 (Negative) 15 REFERENCE VALUE <1.0 (Negative) Test Performed by: [facility] [address] [address] 16 Interpretation: Positive (>=1.0) REFERENCE VALUE <1.0 (Negative) Test Performed by: [place] [id number] 17 REFERENCE VALUE <1.0 (Negative) Test Performed by: [place] [address] 18 RESULT: Consistent with CREST syndrome. Test Performed by: [address] [address] 19 Test Result Flag Unit RefValue dsDNA Ab with Reflex, IgG, 14.2 IU/mL S Negative for dsDNA antibody by enzyme immunoassay. No further testing recommended. REFERENCE VALUE <30.0 (Negative) Test Performed by: [address] [address] 20 ADDITIONAL INFORMATION This test was developed and its performance characteristics determined by [facility] in a manner consistent with CLIA requirements. This test has not been cleared or approved by the U.S. Food and Drug Administration. Test Performed by: [address] [address] 21 Interpretation: Strong Positive (>=6.0) REFERENCE VALUE <=1.0 (Negative) 22 REFERENCE VALUE <20.0 (Negative) Test Performed by: [facility] - [place] [id number] 23 Please check 1 week prior to follow up 24 Acute inflammation: >10.00 25 Please check 1 week prior to follow up 26 Because ethnic data is not always readily available, this report includes an eGFR for both -Americans and non- Americans. The National Kidney Disease Education Program (NKDEP) does not endorse the use of the MDRD equation for patients that are not between the ages of 18 and 70, are , have extremes of body size, muscle mass, or nutritional status, or are non- or non-. According to the National Kidney Foundation, irrespective of diagnosis, the stage of the disease is based on the level of kidney function: Stage Description GFR(mL/min/1.73 m(2)) 1 Kidney damage with normal or decreased GFR 90 2 Kidney damage with mild decrease in GFR 60-89 3 Moderate decrease in GFR 30-59 4 Severe decrease in GFR 15-29 5 Kidney failure <15 (or dialysis) 27 99th percentile=0.04 ng/mL Troponin results at [facility] and [facility] are not interchangeable. 28 Acute inflammation: >10.00 29 ADDITIONAL INFORMATION This test was developed and its performance characteristics determined by [facility] in a manner consistent with CLIA requirements. This test has not been cleared or approved by the U.S. Food and Drug Administration. Test Performed by: [facility] - [address] [address] Mainframe Systems Administrator: Braydon Turpin II, M.D., Ph.D. 30 REFERENCE VALUE <1:80 (Negative) MADDY Titer: 1:1280 MADDY Pattern: Speckled Test Performed by: [address] [address] Mainframe Systems Administrator: Braydon Turpin II, M.D., Ph.D. 31 Acute inflammation: >10.00 32 Because ethnic data is not always readily available, this report includes an eGFR for both -Americans and non- Americans. The National Kidney Disease Education Program (NKDEP) does not endorse the use of the MDRD equation for patients that are not between the ages of 18 and 70, are , have extremes of body size, muscle mass, or nutritional status, or are non- or non-. According to the National Kidney Foundation, irrespective of diagnosis, the stage of the disease is based on the level of kidney function: Stage Description GFR(mL/min/1.73 m(2)) 1 Kidney damage with normal or decreased GFR 90 2 Kidney damage with mild decrease in GFR 60-89 3 Moderate decrease in GFR 30-59 4 Severe decrease in GFR 15-29 5 Kidney failure <15 (or dialysis) 33 Because ethnic data is not always readily available, this report includes an eGFR for both -Americans and non- Americans. The National Kidney Disease Education Program (NKDEP) does not endorse the use of the MDRD equation for patients that are not between the ages of 18 and 70, are , have extremes of body size, muscle mass, or nutritional status, or are non- or non-. According to the National Kidney Foundation, irrespective of diagnosis, the stage of the disease is based on the level of kidney function: Stage Description GFR(mL/min/1.73 m(2)) 1 Kidney damage with normal or decreased GFR 90 2 Kidney damage with mild decrease in GFR 60-89 3 Moderate decrease in GFR 30-59 4 Severe decrease in GFR 15-29 5 Kidney failure <15 (or dialysis) 34 Reference Range and Interpretation: TnI (ng/mL) Interpretation Less Than 0.03 ng/mL Not supportive of diagnosis of VT 0.03 - 0.50 ng/mL Indeterminate: suggest serial studies if clinically indicated. Greater than 0.5 ng/mL Consistent with diagnosis of VT 35 Acute inflammation: >10.00 36 Because ethnic data is not always readily available, this report includes an eGFR for both -Americans and non- Americans. The National Kidney Disease Education Program (NKDEP) does not endorse the use of the MDRD equation for patients that are not between the ages of 18 and 70, are , have extremes of body size, muscle mass, or nutritional status, or are non- or non-. According to the National Kidney Foundation, irrespective of diagnosis, the stage of the disease is based on the level of kidney function: Stage Description GFR(mL/min/1.73 m(2)) 1 Kidney damage with normal or decreased GFR 90 2 Kidney damage with mild decrease in GFR 60-89 3 Moderate decrease in GFR 30-59 4 Severe decrease in GFR 15-29 5 Kidney failure <15 (or dialysis) 37 Interpretation: Strong Positive (>=6.0) REFERENCE VALUE <=1.0 (Negative) 38 REFERENCE VALUE <20.0 (Negative) Test Performed by: [address] [address] Mainframe Systems Administrator: Braydon Turpin II, M.D., Ph.D. 39 REFERENCE VALUE <1.0 (Negative) 40 REFERENCE VALUE <1.0 (Negative) 41 REFERENCE VALUE <1.0 (Negative) 42 REFERENCE VALUE <1.0 (Negative) 43 REFERENCE VALUE <1.0 (Negative) 44 REFERENCE VALUE <1.0 (Negative) Test Performed by: [place] [address] Mainframe Systems Administrator: Braydon Turpin II, M.D., Ph.D. 45 Interpretation: Positive (>=1.0) REFERENCE VALUE <1.0 (Negative) Test Performed by: [place] [address] Mainframe Systems Administrator: Braydon Turpin II, M.D., Ph.D. 46 REFERENCE VALUE <1.0 (Negative) Test Performed by: [place] [address] Mainframe Systems Administrator: Braydon Turpin II, M.D., Ph.D. 47 Negative for dsDNA antibody by enzyme immunoassay. No further testing recommended. REFERENCE VALUE <30.0 (Negative) Test Performed by: [place] [address] Mainframe Systems Administrator: Braydon Turpin II, M.D., Ph.D. 48 RESULT: Consistent with CREST syndrome. Test Performed by: [place] [address] Mainframe Systems Administrator: Braydon Turpin II, M.D., Ph.D. 49 REFERENCE VALUE <0.4 (Negative) 50 REFERENCE VALUE <0.4 (Negative) Test Performed by: [place] [address] Mainframe Systems Administrator: Braydon Turpin II, M.D., Ph.D. 51 REFERENCE VALUE <10.0 (Negative) 52 REFERENCE VALUE <10.0 (Negative) Test Performed by: [place] [address] Mainframe Systems Administrator: Braydon Turpin II, M.D., Ph.D. 53 Interpretation: Strong Positive (>=6.0) REFERENCE VALUE <=1.0 (Negative) 54 REFERENCE VALUE <20.0 (Negative) Test Performed by: [place] [address] Mainframe Systems Administrator: Braydon Turpin II, M.D., Ph.D. 55 Interpretation: Positive (>=1.0) REFERENCE VALUE <1.0 (Negative) Test Performed by: [place] [address] Mainframe Systems Administrator: Braydon Turpin II, M.D., Ph.D. 56 REFERENCE VALUE <1.0 (Negative) Test Performed by: [place] [address] Mainframe Systems Administrator: Braydon Turpin II, M.D., Ph.D. 57 REFERENCE VALUE <1.0 (Negative) 58 REFERENCE VALUE <1.0 (Negative) 59 REFERENCE VALUE <1.0 (Negative) 60 REFERENCE VALUE <1.0 (Negative) 61 REFERENCE VALUE <1.0 (Negative) 62 REFERENCE VALUE <1.0 (Negative) Test Performed by: [place] [address] Mainframe Systems Administrator: Braydon Turpin II, M.D., Ph.D. 63 Negative for dsDNA antibody by enzyme immunoassay. No further testing recommended. REFERENCE VALUE <30.0 (Negative) Test Performed by: [place] [address] Mainframe Systems Administrator: Braydon Turpin II, M.D., Ph.D. 64 RESULT: Consistent with CREST syndrome. Test Performed by: [place] [address] Mainframe Systems Administrator: Braydon Turpin II, M.D., Ph.D. 65 REFERENCE VALUE <10.0 (Negative) 66 REFERENCE VALUE <10.0 (Negative) Test Performed by: [place] [address] Mainframe Systems Administrator: Braydon Turpin II, M.D., Ph.D. 67 Test Performed by: [place] [address] Mainframe Systems Administrator: Braydon Turpin II, M.D., Ph.D. 68 Test Performed by: [place] [address] Mainframe Systems Administrator: Braydon Turpin II, M.D., Ph.D. 69 RESULT: No apparent monoclonal protein on serum electrophoresis. Test Performed by: [place] [address] Mainframe Systems Administrator: Braydon Turpin II, M.D., Ph.D. 70 Test Performed by: [place] [address] Mainframe Systems Administrator: Braydon Turpin II, M.D., Ph.D. 71 Acute inflammation: >10.00 72 REFERENCE VALUE <20.0 (Negative) Test Performed by: [place] [address] Mainframe Systems Administrator: Braydon Turpin II, M.D., Ph.D. 73 REFERENCE VALUE Not Applicable 74 RESULT: HLA-B27 antigen was not detected. ADDITIONAL INFORMATION Method: Flow Cytometry Performing Laboratory CLIA# [id number] Test Performed by: [place] [address] Mainframe Systems Administrator: Braydon Turpin II, M.D., Ph.D. 75 Serologic response to B. burgdorferi infection is not detected, but cannot rule out early infection during which low or undetectable antibody levels to B. burgdorferi may be present. If clinically indicated, a new serum specimen should be submitted in 7-14 days. Test Performed by: [place] [address] Mainframe Systems Administrator: Braydon Turpin II, M.D., Ph.D. 76 Test Performed by: [place] [address] Mainframe Systems Administrator: Braydon Turpin II, M.D., Ph.D. 77 Normal Range 180 to 914 Indeterminate Range 145 to 180 Deficient Range <145 78 Test Performed by: [place] [address] Mainframe Systems Administrator: Braydon Turpin II, M.D., Ph.D. 79 REFERENCE VALUE <1.0 (Negative) Test Performed by: [place] [address] Mainframe Systems Administrator: Braydon Turpin II, M.D., Ph.D. 80 REFERENCE VALUE <1.0 (Negative) Test Performed by: [place] [address] Mainframe Systems Administrator: Braydon Turpin II, M.D., Ph.D. 81 REFERENCE VALUE <4.0 (Negative) Test Performed by: [place] [address] Mainframe Systems Administrator: Braydon Turpin II, M.D., Ph.D. 82 Negative serology. Celiac disease unlikely. However, approximately 10% of patients with celiac disease are seronegative. Also, patients who are already adhering to a gluten-free diet may be seronegative. If celiac disease is highly clinically suspected, consider HLA-DQ typing. Test Performed by: [place] [address] Mainframe Systems Administrator: Braydon Turpin II, M.D., Ph.D. 83 Cristina Bookre 84 CHOLESTEROL INTERPRETATION: Desirable: Less than 200 MG/DL Borderline-High Risk: 200-239 MG/DL High-Risk: 240 MG/DL and over 85 HDL INTERPRETATION: Undesirable: High Risk: Less than 40 MG/DL Desirable: Low Risk: Greater than 60 MG/DL 86 LDL INTERPRETATION: Low Risk Optimal Level: LDL Less than 100 MG/DL Near or Above Optimal: LDL 100-129 MG/DL Borderline High Risk: LDL 130-159 MG/DL High Risk: LDL 160-189 MG/DL Very High Risk: LDL Greater than 189 MG/DL 87 Anion gap measurement may be of limited value in the presence of any alkalosis, especially in a combined acid base disorder. . 88 Because ethnic data is not always readily available, this report includes an eGFR for both -Americans and non- Americans. The National Kidney Disease Education Program (NKDEP) does not endorse the use of the MDRD equation for patients that are not between the ages of 18 and 70, are , have extremes of body size, muscle mass, or nutritional status, or are non- or non-. According to the National Kidney Foundation, irrespective of diagnosis, the stage of the disease is based on the level of kidney function: Stage Description GFR(mL/min/1.73 m(2)) 1 Kidney damage with normal or decreased GFR 90 2 Kidney damage with mild decrease in GFR 60-89 3 Moderate decrease in GFR 30-59 4 Severe decrease in GFR 15-29 5 Kidney failure <15 (or dialysis) 89 Recommended INR for Patients on Oral Anticoagulants Prophylaxis 2.0 - 3.0 Treatment of thrombosis 2.0 - 3.0 Prevention of embolism 2.0 - 3.0 Prevention of embolism from prosthetic heart valves 2.5 - 3.5 90 DIAGNOSIS,TREATMENT,AND THERAPY MUST BE BASED ON THE INR VALUE ALONE. Procedures Date CPT Code Description Status 08/12/2017 80703 Laparoscopy Cholecystectomy Completed 08/12/2017 25459 Laparoscopy Cholecystectomy Completed 07/12/2017 Mammogram Completed 05/13/2017 60199 Treadmill Interp/Report Only Completed 05/13/2017 85147 Stress Test Supervsn W/Out I/R Completed 04/21/2017 75179 ECHO Transthoracic, Real-Time 2D With Doppler And Color Completed Flow 04/06/2017 05124 EKG Tracing & Interpretation Completed 06/19/2016 38865 EKG Tracing & Interpretation Completed 06/03/2016 93530 EKG, Interpretation Only Completed 04/17/2016 59957 Treadmill Interp/Report Only Completed 04/17/2016 43627 Stress Test Supervsn W/Out I/R Completed 04/02/2016 55989 ECHO Transthorasic Realtime 2D W Doppler & Color Flow Completed Hosp 03/26/2016 04928 Stress Test Supervsn W/Out I/R Completed 03/26/2016 88207 Treadmill Interp/Report Only Completed 03/26/2016 24592 Stress ECHO Interpretation/Report Hospital Completed 03/14/2016 84756 Holter Monitor Review (24 hr)dr review & interp only Completed 03/13/2016 11344 ECHO Transthoracic, Real-Time 2D With Doppler And Color Completed Flow 03/09/2016 96915 ECG Monitor/Recording W/Visual Superimposition Scanning Completed 01/27/2016 Bone Mineral Density Test Completed 11/29/2015 Mammogram Completed 11/25/2015 49973 EKG Tracing & Interpretation Completed 10/07/2015 55622 Chemodenervation Of Muscles Innervated By Facial Completed Nerves, Bilat 06/17/2015 35527 Chemodenervation Of Muscles Innervated By Facial Completed Nerves, Bilat 03/11/2015 37358 Chemodenervation Of Muscles Innervated By Facial Completed Nerves, Bilat 12/05/2014 94721 Chemodenervation Of Muscles Innervated By Facial Completed Nerves, Bilat 08/30/2014 24062 Chemodenervation Of Muscles Innervated By Facial Completed Nerves, Bilat 07/11/2014 68069 Injection For Nerve Block, Greater Occipital Nerve Completed 05/21/2014 54612 Chemodenervation Of Muscles Innervated By Facial Completed Nerves, Bilat 07/28/2012 62622 Left Heart Cath. Incl S/I Coronaries, Angio S/I V Gram Completed If Done 07/28/2012 28030 EKG, Interpretation Only Completed Encounters Type Date Location Provider CPT E/M Dx Office Visit 04/04/2018 [facility] Doen Rosas M.D. 21378 L40.50 4:00[employer] R79.82 N18.9 M79.7 M35.8 Z79.899 Office Visit 12/21/2017 2:00p [facility], [address] M79.7 Marya M.DGiovany Z79.1 M35.8 E55.9 [facility] [place], [address] M79.7 Assoc, Hospitalists [place] J45.909 F41.9 I10 Office Visit 11/22/2017 10:15a [facility], Matti Luna, 365[address] M79.7 Hospitalists Liana J45.909 F41.9 I10 Office Visit 09/16/2017 11:00a [facility], 57423 M79.7 Marya M.DGiovany R79.82 Z79.1 R76.0 Office Visit 07/20/2017 4:00p [facility], 16020 M35.8 Marya M.DGiovany R79.82 E55.9 M79.7 Z79.899 Office Visit 07/20/2017 11:00a [facility], 04126 K80.10 [employer] M.DGiovany Office Visit 07/16/2017 3:30p [facility] GUS Sal 36218 I10 Office Visit 06/18/2017 10:45a [facility], 23858 K80.10 [employer] M.D. Office Visit 06/10/2017 11:40a [facility], [address] M79.7 Of Marya Esquivel M35.8 R79.82 E55.9 Z79.1 Office Visit 05/09/2017 7:13a [facility], [address]759 R07.2 Hospitalists MEarnest R00.1 M79.7 I10 Office Visit 05/08/2017 7:12a [facility], [address] R07.2 Hospitalists M.DGiovany R00.1 M79.7 I10 Office Visit 04/07/2017 3:00p [facility] [place] [address] R41.3 Of [facility] F41.9 F33.9 Office Visit 04/06/2017 12:00p [facility] Kyle Lopez M.D. 92369 I10 E78.00 I25.10 R07.9 E87.6 R94.31 Office Visit 02/23/2017 3:00p [facility], [address]71 M79.7 Marya M.Azalia R79.82 M35.8 E55.9 Z79.899 Office Visit 12/08/2016 2:00p [facility], [address]84 M79.7 Marya Graham.Azalia R79.82 M35.8 E55.9 Office Visit 07/14/2016 11:00a [facility], [address]396 M35.8 Marya Esquivel Z79.899 R79.82 M79.7 Office Visit 06/19/2016 3:40p [facility] Kyle Lopez, 62614 Z01.810 MEarnest H26.9 R07.89 I25.119 I10 K21.9 Office Visit 06/03/2016 1:24p [facility], [place] [address] R07.9 Hospitalists K21.9 I25.119 I10 Office Visit 06/02/2016 1:23p [facility], [place] [address] R07.9 Hospitalists K21.9 I25.119 I10 Office Visit 05/13/2016 11:00a [facility], 28197 M35.8 Marya Esquivel Z79.899 R79.82 Office Visit 04/14/2016 10:30a [facility] GUS Sal [address]25 R07.9 R42 R06.00 I10 I95.1 R00.2 Office Visit 02/24/2016 10:20a [facility] 37469 L40.50 Of Marya Esquivel R79.82 M79.7 Z79.899 Office Visit 01/22/2016 3:00p [facility] 86177 L40.50 Of Marya Esquivel R76.0 R79.82 R20.8 M85.89 Z79.899 M79.1 Office Visit 12/30/2015 1:00p [facility], 81396 M06.4 Marya Esquivel R20.8 M54.15 M54.2 M35.01 L13.0 Office Visit 11/25/2015 2:00p [facility] Kyle Lopez M.D. 93634 I10 E78.2 R07.9 R94.31 R06.00 R42 R06.83 K44.9 R01.1 Office Visit 07/11/2014 12:00p [facility] Beti Castillo M.D. 28089 346.11 Services Of [employer] Office Visit 05/16/2014 8:30a [facility] Beti Castillo M.D. 19268 346.11 Services [facility] [employer] 333.83 Office Visit 03/12/2014 10:00a [facility] Beti Castillo M.D. 57858 723.8 Services Of [facility] 346.11 Office Visit 07/28/2012 8:05a [facility] More [place]bre[place] D.O. [address]116 786.50 794.31 411.1 401.1 Office Visit 07/28/2012 11:19a [facility], Melissa Real, 42050 786.51 Hospitalists N.P. 401.9 272.2 Office Visit 07/27/2012 11:18a [facility] Matti [place], [address] 786.51 Assoc,pc Hospitalists N.P. 401.9 272.2 Office Visit 07/19/2012 2:40p [facility] AT [place], [address] 786.59 [facility] [place]. 411.1 401.1 272.4 Office Visit 07/08/2012 10:00a [facility] More [place] D.O. 88803 411.1 401.1 278.00 Plan of Care Future Appointment(s):07/06/2018 1:10 pm - Kyle Lopez M.D. at [facility]/20/2018 2:00 pm - Deon [facility]as M.D. at [facility]05/09/2018 - Deon Rosas M.D.L40.50 Arthropathic psoriasis, unspecifiedFollow up:Follow up in 2 months or sooner if edlzdzQ20.82 Elevated C- reactive protein (CRP)N18.9 Chronic kidney disease, qxcyrtxsjijU55.70 Other bursitis of hip, unspecified hipZ79.899 Other half-way (current) drug therapy
--- NOTE | 2018-05-30 21:24 | ED ---
Head Injury - HPI Summary HPI Summary: Patient complains of left-sided head pain, left ear pain, difficulty choosing words, grogginess, left hip pain S/P mechanical fall (lost her balance) while standing on a chair. ED Nurse states patient was completely alert and oriented and coherently communicative just prior to exam by this provider. During the exam by this provider patient had difficulty choosing words, repeating words. Unable to get a clear history of fall. Denies LOC. No anti-coag. Patient states unable to walk due to lightheadedness. - History Of Current Complaint Chief Complaint: EDHeadInjury Stated Complaint: FALL Time Seen by Provider: 05/30/18 21:02 Hx Obtained From: Patient Mechanism Of Injury: Fall From Height Of: Onset/Duration: Started Minutes Ago Onset of Pain: Immediate Severity Currently: Moderate Severity Initially: Moderate Pain Intensity: 8 Pain Scale Used: 0-10 Numeric Location of Head Injury: Parietal Location: Discrete At: Character: Throbbing Associated Signs And Symptoms: Confusion - Allergies/Home Medications Allergies/Adverse Reactions: Allergies Allergy/AdvReac Type Severity Reaction Status Date / Time lactose Allergy GI Upset Verified 05/30/18 21:04 morphine Allergy See Comment Verified 05/30/18 21:04 pravastatin Allergy Muscle Ache Verified 05/30/18 21:04 procaine [From Novocain] Allergy Agitation Verified 05/30/18 21:04 ampicillin AdvReac Severe Diarrhea Verified 05/30/18 21:04 doxycycline [From Vibramycin] AdvReac See Comment Verified 05/30/18 21:04 gabapentin AdvReac See Comment Verified 05/30/18 21:04 olanzapine [From Zyprexa] AdvReac See Comment Verified 05/30/18 21:04 sertraline [From Zoloft] AdvReac See Comment Verified 05/30/18 21:04 PMH/Surg Hx/FS Hx/Imm Hx Endocrine/Hematology History: Denies: Hx Anticoagulant Therapy, Hx Blood Disorders, Hx Blood Transfusions, Hx Bone Marrow Disease, Hx Diabetes, Hx Systemic Lupus Erythematosus, Hx Sickle Cell Disease, Hx Thyroid Disease, Hx Anemia, Hx Unexplained Bleeding, Other Endocrine/Hematological Disorders Cardiovascular History: Reports: Hx Angina, Hx Coronary Artery Disease - CARDIAC CATHERIZATION, FOLLOWED BY DR KHAN, Hx Hypercholesterolemia, Hx Hypertension, Hx Myocardial Infarction, Other Cardiovascular Problems/Disorders - CARRIES NITRO FOR CHEST PAIN Denies: Hx Aneurysm, Hx Angioplasty, Hx Auto Implanted Cardiovert Defib, Hx Cardiac Arrest, Hx Cardiomegaly, Hx Congenital Heart Disease, Hx Congestive Heart Failure, Hx Deep Vein Thrombosis, Hx Hypotension, Hx Pacemaker/ICD, Hx Peripheral Vascular Disease, Hx Rheumatic Fever, Hx Syncope, Hx Valvular Heart Disease Respiratory History: Reports: Hx Asthma Denies: Hx Bronchopulmonary Dysplasia, Hx Chronic Bronchitis, Hx Chronic Obstructive Pulmonary Disease (COPD), Hx Cystic Fibrosis, Hx Lung Cancer, Hx Pleural Effusion, Hx Pneumonia, Hx Pulmonary Edema, Hx Pulmonary Embolism, Hx Seasonal Allergies, Hx Sleep Apnea, Other Respiratory Problems/Disorders GI History: Reports: Hx Gastroesophageal Reflux Disease, Hx Irritable Bowel, Other GI Disorders - GALLBLADDER POLYPS/STONES, FATTY LIVER Denies: Hx Cirrhosis, Hx Crohn's Disease, Hx Diverticulosis, Hx Gall Bladder Disease, Hx Gastrointestinal Bleed, Hx Hiatal Hernia, Hx Jaundice, Hx Obstructive Bowel, Hx Ileostomy, Hx Pyloric Stenosis, Hx Ulcer History: Reports: Other Problems/Disorders - 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 NOW Denies: Hx Acute Renal Failure, Hx Benign Prostatic Hyperplasia, Hx Chronic Renal Failure, Hx Dialysis, Hx Kidney Infection, Hx Kidney Stones Musculoskeletal History: Reports: Hx Arthritis - psoriatic , Hx Fibromyalgia, Hx Scoliosis, Other Musculoskeletal History - MILD CURVATURE OF SPINE Denies: Hx Back Problems, Hx Bursitis, Hx Congenital Bone Abnormalities, Hx Gout, Hx Orthopedic Injury, Hx Osteoporosis, Hx Tendonitis Sensory History: Reports: Hx Cataracts - BILAT, Hx Contacts or Glasses - GLASSES Denies: Hx Eye Injury, Hx Eye Prosthesis, Hx Glaucoma, Hx Macular Degeneration, Hx Vision Problem, Hx Deafness, Hx Hearing Aid, Hx Hearing Problem , Other Sensory Impairments Opthamlomology History: Reports: Hx Cataracts - BILAT, Hx Contacts or Glasses - GLASSES Denies: Hx Eye Injury, Hx Eye Prosthesis, Hx Glaucoma, Hx Macular Degeneration, Hx Vision Problem, Other Sensory Impairments Neurological History: Reports: Hx Headaches, Hx Nerve Disease - FIBROMYALGIA Denies: Hx Dementia, Hx Developmental Delay, Hx Migraine, Hx Seizures, Hx Spinal Cord Injury, Hx Transient Ischemic Attacks (TIA), Other Neuro Impairments /Disorders Psychiatric History: Reports: Hx Anxiety - ON MED, Hx Depression Denies: Hx Attention Deficit Hyperactivity Disorder, Hx Autism, Hx Eating Disorder, Hx Oppositional [place] Disorder, Hx Panic Disorder, Hx Post Traumatic Stress Disorder, Hx Inpatient Treatment, Hx Community Mental Health Tx , Hx Schizophrenia, Hx Bipolar Disorder, Hx Suicide Attempt, Other Psychiatric Issues/Disorders - Cancer History Hx Hematologic Symptoms: No Hx Chemotherapy: No Hx Radiation Therapy: No - Surgical History Surgery Procedure, Year, and Place: [place] [facility] [place]- [facility] [place]. CARPAL TUNNEL X2- [facility] [place] D&C X3- [facility] [place] CARDIAC CATHERIZATION- 2011- [facility] [place] minimal CAD with preserved ventricular function. RIGHT CATARACT EXTRACTION WITH IOL IMPLANT-06/2016- [facility] [place] LEFT CATARACT EXTRACTION WITH IOL IMPLANT-08/2016- [facility] [place] cholecystectomy Hx Anesthesia Reactions: Yes - MORPHINE CAUSED "SEVERE" BRADYCARDIA - Immunization History Date of Tetanus Vaccine: unk Date of Influenza Vaccine: unk Infectious Disease History: No Infectious Disease History: Reports: Hx Hepatitis - as a child, Hx Shingles, History Other Infectious Disease - ? HEPATITIS A CHILD Denies: Hx of Known/Suspected MRSA, Traveled Outside the [place] in Last 30 Days - Family History Known Family History: Positive: None, Cardiac Disease - sister, Diabetes Family History: sister - unspecified cardiac ds. Father - CHF - Social History Alcohol Use: None Hx Substance Use: No Substance Use Type: Reports: None Hx Tobacco Use: No Smoking Status (MU): Never Smoked Tobacco Have You Smoked in the Last Year: No Review of Systems Constitutional: Negative Eyes: Negative ENT: Negative Cardiovascular: Negative Respiratory: Negative Gastrointestinal: Negative Genitourinary: Negative Musculoskeletal: Negative Skin: Negative Neurological: Other - trouble finding words, repeating inappropriate sounds Positive: Headache Psychological: Normal All Other Systems Reviewed And Are Negative: Yes Physical Exam - Summary Physical Exam Summary: Mild tenderness to palpation left parietal lobe. No evidence of deformity, abrasion, laceration, contusion. No pain with palpation of neck. Full range of motion of neck. No pain with palpation of face. Teeth tongue nose intact. No pain with palpation of chest wall, abdomen area and mild pain with palpation of left hip. Patient able to flex and extend bilateral hips, bilateral knees, bilateral ankles. Patient uses bilateral arms without any indication of pain. Triage Information Reviewed: Yes Vital Signs On Initial Exam: Initial Vitals Temp Pulse Resp BP Pulse Ox 96.5 F 62 16 161/76 95 05/30/18 20:50 05/30/18 20:50 05/30/18 20:50 05/30/18 20:50 05/30/18 20:50 Vital Signs Reviewed: Yes Completion Of Physical Exam Limited Due To: Altered Mental Status Appearance: Positive: Well-Appearing Skin: Positive: Warm Head/Face: Positive: Normal Head/Face Inspection Eyes: Positive: Normal Neck: Positive: Supple Respiratory/Lung Sounds: Positive: Clear to Auscultation Cardiovascular: Positive: Normal Abdomen Description: Positive: Nontender Musculoskeletal: Positive: Normal Neurological: Positive: Normal Psychiatric: Positive: Normal AVPU Assessment: Alert - [place] Coma Scale Best Eye Response: 4 - Spontaneous Best Motor Response: 6 - Obeys Commands Best Verbal Response: 5 - Oriented Coma Scale Total: 15 Diagnostics - Vital Signs Vital Signs Temp Pulse Resp BP Pulse Ox 05/30/18 21:00 65 23 92 05/30/18 20:58 62 19 131/73 91 05/30/18 20:57 62 16 92 05/30/18 20:50 96.5 F 62 16 161/76 95 - Laboratory Lab Statement: Any lab studies that have been ordered have been reviewed, and results considered in the medical decision making process. - Radiology hip Xray Interpretation: No Acute Changes Radiology Interpretation Completed By: ED Physician - CT C-spine CT Interpretation: No Acute Changes CT Interpretation Completed By: Radiologist brain CT Interpretation: Positive (See Comments) - Left temporal Epidural hematoma. Left occipital skull fracture with associated pneumocephalus. Left parietal occipital subdural hematoma. Left-sided subarachnoid hemorrhage. Re-Evaluation - Re-Evaluation 1 Re-Evaluation Time: 22:07 Comment: Patient more coherent now and more alert then during first exam. Patient complains of headache. No difficulty finding words. Patient able to describe clearly what she was doing when she fell and how she fell. Provided much more accurate history of present illness at this time. Was very groggy and had very hard time finding words during initial exam Head Injury Course/Dx Course Of Treatment: Patient complains of left-sided head pain, left ear pain, difficulty choosing words, grogginess, left hip pain S/P mechanical fall (lost her balance) while standing on a chair. ED Nurse states patient was completely alert and oriented and coherently communicative just prior to exam by this provider. During the exam by this provider patient had difficulty choosing words, repeating words. Unable to get a clear history of fall. Denies LOC. No anti-coag. Patient states unable to walk due to lightheadedness. Mild tenderness to palpation left parietal lobe. No evidence of deformity, abrasion , laceration, contusion. No pain with palpation of neck. Full range of motion of neck. No pain with palpation of face. Teeth tongue nose intact. No pain with palpation of chest wall, abdomen area and mild pain with palpation of left hip. Patient able to flex and extend bilateral hips, bilateral knees, bilateral ankles. Patient uses bilateral arms without any indication of pain. CT brain positive. Discussed patient with neurosurgery Dr. Fish. Dr. Fish came in to evaluate patient, will admit. - Diagnoses Provider Diagnoses: Epidural hematoma, Skull fracture, Subdural hematoma, Subarachnoid hemorrhage, Fall Discharge - Sign-Out/Discharge Documenting (check all that apply): Patient Departure - Discharge Plan Condition: Stable Disposition: ADMITTED TO [facility] - Billing Disposition and Condition Condition: STABLE Disposition: Admitted to [facility]
--- NOTE | 2018-05-30 22:42 | PN ---
Progress Note - Progress Note Date of Service: 05/30/18 SOAP: Subjective: []Patient with fall from chair striking left occiput,No LOC Came to ER for evaluation and had brief spell of word finding difficulty CT showed left occipital fracture with small left temporal epidural, left subdural Objective: [] Awake,alert EOMS full FRED Motor normal CN 2-12 intact Assessment: [] Skull Fracture with small epidural Plan: [] Admit to ICU for observation F/U CT in AM
[2018-05-30] MEDS: Acetaminophen TAB* 325 MG PO PRN (23:57)
[2018-05-30] MEDS: Ondansetron INJ* 2 MG/ML VIAL IV PRN (23:57)
[2018-05-31 06:00] LABS: ABS Basophils 0.1 10^3/ul (0-0.2); ABS Eosinophils 0 10^3/ul (0-0.6); ABS Lymphocytes 1.6 10^3/ul (1.0-4.8); ABS Monocytes 0.5 10^3/ul (0-0.8); ABS Neutrophils 13.2 10^3/ul (1.5-7.7); ABS Nucleated RBC 0 10^3/ul; Eosinophil % 0.1 % (0-6); Hematocrit 39 % (35-47); Hemoglobin 12.6 g/dl (12.0-16.0); Lymphocyte % 10.5 % (25-47); Mean Corpuscular HGB Conc 32 g/dl (31-36); Mean Corpuscular Hemoglobin 26 pg (27-31); Mean Corpuscular Volume 80 fL (80-97); Nucleated Red Blood Cells % 0; Platelet Count 258 10^3/ul (150-450); Red Cell Distribution Width 18 % (10.5-15); White Blood Count 15.4 10^3/ul (3.5-10.8)
[2018-05-31 06:09] LABS: EGFR Non-African American 47.3 (>60)
--- NOTE | 2018-05-31 07:11 | RAD ---
INDICATION: Head injury, speech change, altered mental status. COMPARISON: Comparison is made with a prior CT of the brain from April 09, 2018. TECHNIQUE: Contiguous axial sections of the brain were obtained from the skull base to the vertex without contrast. FINDINGS: The ventricles appear to be within normal limits. There appears to be an epidural hematoma adjacent to the anterior lateral inferior aspect of the left temporal lobe measuring 1.5 cm in diameter. There is also a subdural hematoma present in the left parietal occipital region measuring up to 0.5 cm in diameter. There is also suggestive of the subdural hematoma extending along the tentorium on the left side. There is a small amount of subarachnoid hemorrhage on the left side in the region of the sylvian fissure and in several sulci. These findings cause mild local mass effect with mild compression of the sulci. No midline shift is seen. There is a nondisplaced fracture through the left occipital bone and a small amount of pneumocephalus present. The visualized portion of the paranasal sinuses appear clear. There is a small effusion within the left mastoid air cells. IMPRESSION: 1. LEFT TEMPORAL EPIDURAL HEMATOMA. 2. SMALL LEFT PARIETAL OCCIPITAL SUBDURAL HEMATOMA WITH PROBABLE EXTENSION ALONG THE LEFT TENTORIUM. 3. SMALL AMOUNT OF LEFT-SIDED SUBARACHNOID HEMORRHAGE. 4. NONDISPLACED FRACTURE OF THE LEFT OCCIPITAL BONE AND SMALL AMOUNT OF PNEUMOCEPHALUS. 5. SMALL EFFUSION WITHIN THE LEFT MASTOID AIR CELLS.
--- NOTE | 2018-05-31 07:27 | RAD ---
INDICATION: Trauma. COMPARISON: Comparison is made with prior x-ray study of the cervical spine from 06/21 2018. TECHNIQUE: Contiguous axial sections were obtained from the skull base through the T2 vertebra. Images were reconstructed in the sagittal and coronal planes. FINDINGS: There is a nondisplaced fracture of the left occipital bone which is partially visualized on this study with extension into the left temporal bone. There is a small amount of pneumocephalus and an effusion within the left mastoid air cells. The vertebra are in normal alignment. No prevertebral soft tissue swelling or fracture is seen. Disc spaces appear maintained. There is no evidence for spinal canal or neural foraminal narrowing. The lung apices appear clear. IMPRESSION: 1. NONDISPLACED FRACTURE OF THE LEFT OCCIPITAL BONE EXTENDING INTO THE LEFT TEMPORAL BONE. THERE IS PNEUMOCEPHALUS PRESENT. 2. NO EVIDENCE FOR FRACTURE OR SUBLUXATION OF THE CERVICAL SPINE.
--- NOTE | 2018-05-31 08:17 | RAD ---
INDICATION: Epidural hematoma. COMPARISON: Comparison is made with a prior CT of the brain from May 30, 2018. TECHNIQUE: Contiguous axial sections of the brain were obtained from the skull base to the vertex without contrast. FINDINGS: The ventricles appear to be within normal limits. Again note is made of an epidural hematoma present adjacent to the anterior inferior lateral left temporal lobe measuring up to 1.2 cm in transverse dimension which appears unchanged to slightly less prominent than on the prior exam. In addition there is a subdural hematoma in the left parietal occipital region measuring up to 0.4 cm in diameter. There appears to be extension along the left tentorium. There is subarachnoid hemorrhage in the left temporal and parietal lobes which appears slightly more prominent. There is mild local mass effect with compression of sulci. No midline shift is seen. There is a nondisplaced fracture of the left occipital bone extending into the left temporal bone. There is a small amount of pneumocephalus which appears decreased. There is an effusion within the left mastoid air cells. IMPRESSION: 1. LEFT TEMPORAL EPIDURAL HEMATOMA UNCHANGED TO SLIGHTLY SMALLER IN SIZE. 2. LEFT PARIETAL OCCIPITAL SUBDURAL HEMATOMA, WITH EXTENSION ALONG THE LEFT TENTORIUM, UNCHANGED. 3. LEFT TEMPORAL PARIETAL SUBARACHNOID HEMORRHAGE SLIGHTLY INCREASED. 4. NONDISPLACED LEFT OCCIPITAL BONE FRACTURE WITH EXTENSION INTO THE TEMPORAL BONE, LEFT MASTOID EFFUSION.
[2018-05-31] MEDS: Metoprolol Succinate XL TAB* 25 MG PO SCH (08:30)
[2018-05-31] MEDS: Acetaminophen TAB* 325 MG PO PRN (08:31)
[2018-05-31] MEDS: Ondansetron INJ* 2 MG/ML VIAL IV PRN ×2 (08:31→20:45)
[2018-05-31] MEDS: Losartan TAB* 25 MG PO SCH (08:31)
[2018-05-31] MEDS: Potassium Chlor TAB* 20 MEQ TAB.ER PO SCH ×2 (08:31→20:41)
--- NOTE | 2018-05-31 14:54 | PN ---
Progress Note - Progress Note Date of Service: 05/31/18 SOAP: Subjective: []Still has some headache but better No apetite but no nausea or vomiting C/O vertigo when left eye not covered Objective: []Neuro intact F/U CT essentially unchanged Assessment: []Stable post head injury Plan: [] Transfer to floor Increase diet and activity level
[2018-05-31] MEDS: HYDROcodone/ACETAMIN 5-325 MG* 1 TAB PO PRN ×2 (15:35→20:41)
[2018-06-01] MEDS: HYDROcodone/ACETAMIN 5-325 MG* 1 TAB PO PRN ×5 (00:51→20:41)
[2018-06-01] MEDS: Ondansetron INJ* 2 MG/ML VIAL IV PRN ×3 (05:39→19:16)
--- NOTE | 2018-06-01 07:59 | PN ---
Progress Note - Progress Note Date of Service: 06/01/18 SOAP: Subjective: []Complains of vertigo when looking to left Some complaints of tinnitus Left ear Nausea but no vomiting Objective: []Easily arousable Motor normal EOM s full Assessment: []Slow progress Plan: [] Have PT evaluate Continue to observe for now
[2018-06-01] MEDS: Metoprolol Succinate XL TAB* 25 MG PO SCH (09:24)
[2018-06-01] MEDS: Potassium Chlor TAB* 20 MEQ TAB.ER PO SCH ×2 (09:25→20:45)
[2018-06-01] MEDS: Losartan TAB* 25 MG PO SCH (09:25)
[2018-06-01] MEDS: Acetaminophen TAB* 325 MG PO PRN (20:41)
[2018-06-02] MEDS: Acetaminophen TAB* 325 MG PO PRN ×4 (00:44→13:01)
[2018-06-02] MEDS: HYDROcodone/ACETAMIN 5-325 MG* 1 TAB PO PRN ×5 (00:45→23:03)
[2018-06-02] MEDS: Ondansetron INJ* 2 MG/ML VIAL IV PRN ×3 (04:51→14:21)
--- NOTE | 2018-06-02 08:39 | RAD ---
HISTORY: Follow up head injury COMPARISONS: May 31, 2018 TECHNIQUE: Multiple contiguous axial CT scans were obtained of the head without intravenous contrast. FINDINGS: HEMORRHAGE/INFARCT: Again noted is a left temporal epidural hematoma, similar in size to the previous examination. There is a stable trace left parietal occipital subdural hematoma. There has been interval resolution of the subarachnoid hemorrhage. Elsewhere, there is no hemorrhage or acute infarct.. MASSES/SHIFT: There is no mass or shift. EXTRA-AXIAL SPACES: As noted above, there is a small trace right occipital subdural hematoma with a stable left temporal epidural hematoma. The pneumocephalus noted on earlier examinations is not evident on the current examination. SULCI AND VENTRICLES: The sulci and ventricles are normal in size and position for the patient's stated age. CEREBRUM: There is developing vasogenic edema of the left temporal lobe BRAINSTEM: There are no focal parenchymal abnormalities. CEREBELLUM: There are no focal parenchymal abnormalities. VESSELS: The vessels are grossly normal. PARANASAL SINUSES: The paranasal sinuses are clear. There is left mastoid effusion. ORBITS: The orbits are unremarkable. BONES AND SOFT TISSUE: Again noted is a left temporal fracture extending to the mastoid air cells. OTHER: None IMPRESSION: 1. STABLE LEFT TEMPORAL EPIDURAL HEMATOMA AND PARIETAL OCCIPITAL SUBDURAL HEMATOMA. 2. INTERVAL RESOLUTION OF SUBARACHNOID HEMORRHAGE. 3. THERE IS DEVELOPING VASOGENIC EDEMA OF THE LEFT TEMPORAL LOBE SUGGESTIVE OF CONTUSION. 4. AGAIN NOTED IS A LEFT TEMPORAL BONE FRACTURE EXTENDING INTO THE MASTOID AIR CELLS..
[2018-06-02] MEDS: Metoprolol Succinate XL TAB* 25 MG PO SCH (08:52)
[2018-06-02] MEDS: Losartan TAB* 25 MG PO SCH (08:52)
[2018-06-02] MEDS: Potassium Chlor TAB* 20 MEQ TAB.ER PO SCH ×2 (08:56→19:58)
[2018-06-02] MEDS ORDERED: LR IV SCH (15:10)
[2018-06-02] MEDS ORDERED: Mannitol 25% (12.5 GM) 50 ML* 12.5 GM/50 ML VIAL IV STA (17:08)
--- NOTE | 2018-06-02 17:18 | PN ---
Progress Note - Progress Note Date of Service: 06/02/18 SOAP: Subjective: [] Easily arousable Cont to complain of headache with nausea Poor PO intake Objective: []Rosales cardic into upper 40's this aft Has vomited once Neuro otherwise intact Assessment: []F/U CT essntially unchanged Plan: []Will give IVF, Place [facility] so we can give [facility] consult initiated with Dr. Syed and patient placed on telemetry
[2018-06-02 18:05] LABS: ABS Basophils 0.1 10^3/ul (0-0.2); ABS Eosinophils 0 10^3/ul (0-0.6); ABS Lymphocytes 1.6 10^3/ul (1.0-4.8); ABS Monocytes 0.5 10^3/ul (0-0.8); ABS Neutrophils 9.5 10^3/ul (1.5-7.7); ABS Nucleated RBC 0 10^3/ul; Eosinophil % 0.1 % (0-6); Hematocrit 42 % (35-47); Hemoglobin 13.4 g/dl (12.0-16.0); Lymphocyte % 13.5 % (25-47); Mean Corpuscular HGB Conc 32 g/dl (31-36); Mean Corpuscular Hemoglobin 26 pg (27-31); Mean Corpuscular Volume 82 fL (80-97); Mean Platelet Volume 8.7 um3 (7.4-10.4); Nucleated Red Blood Cells % 0.1; Platelet Count 268 10^3/ul (150-450); Red Blood Count 5.14 10^6/ul (4.00-5.40); Red Cell Distribution Width 18 % (10.5-15); White Blood Count 11.7 10^3/ul (3.5-10.8)
[2018-06-02 18:10] LABS: EGFR Non-African American 67.2 (>60)
[2018-06-02] MEDS ORDERED: Magnesium Sulfate 2 GM IV* 2 GM/50 ML BAG IVPB ONE (18:56)
--- NOTE | 2018-06-02 22:21 | CONS ---
CC: Dr. Zarate; Dr. Fish * CONSULTATION REPORT: DATE OF ADMISSION: 05/30/18 DATE OF CONSULT: 06/02/18 PRIMARY CARE PROVIDER: Dr. Zarate REQUESTING PHYSICIAN IN CONSULT: Dr. Fish MY ATTENDING PHYSICIAN WHILE IN THE HOSPITAL: Dr. Syed (report being dictated by Avi Luna NP) REASON FOR MEDICAL CONSULTATION: Evaluation of bradycardia. HISTORY OF PRESENT ILLNESS: Ms. Strong is a 68-year-old patient who, on 05/30/18 , was in one of her closets standing on a eleonora chair, getting a big box. The big box when she pulled it out, fell onto her hip, knocked her to the floor. She hit the back of her head. She did not lose consciousness. She had no chest pain prior to or after. She was having no dizzy spells. No lightheadedness. She said she did not faint, but she knew something was wrong. She could not stand up, because she was having a lot of pain in her head. She was able to crawl to the phone. She called 911 and then she crawled to the front door, and unlocked it. The EMS queried her and she came into the hospital. She was evaluated in the ED and it was noted that she had a skull fracture and anintracranial hemorrhage. She was admitted by Dr. Fish to the ICU. The patient does have an extensive history of fibromyalgia, depression, hyperlipidemia, hypertension. She has nonobstructive coronary artery disease, history of IBS, AFib, fibromyalgia, psoriatic arthritis, migraines, depression, chronic pain, agarophobia, panic attacks, hiatal hernia, hyperlipidemia, CKD, and history of asthma. She has been doing well with her hospital course. She has had intermittent episodes of nausea and vomiting at times and still feeling dizzy. Repeat CT imaging has shown that the hemorrhage is not getting worse. She has a stable epidural hematoma and subdural hematoma and there has been resolution of her subarachnoid hemorrhage. It was noted today that she was starting to have episodes of intermittent bradycardia. When she presented to the ED, her heart rate was read at 60, at times it did get down into the upper 50s, but now today it has been in the upper 40s. She is on metoprolol and in discussion with the patient, she said she does feel dizzy when she turns her head to left, but that has been a current complaint since the fall. She says she does not feel like she is going to faint. She is denying chest pressure. Currently, she is denying having any abdominal pain. She says that she is still feeling a little nauseous, but better after some Zofran that she received. Because of the bradycardia, we were asked to evaluate in consult. She, of note, is on metoprolol and says that she has not taken it prior to admission and I do have a note back from her strategy director in [facility] from 05/09. She at that point was saying that she was not taking her metoprolol, but she has been receiving it here in the hospital and her last dose was this morning at 08:52. We were asked to evaluate. PAST MEDICAL HISTORY: Significant for: 1. Fibromyalgia. 2. Hypertension. 3. Nonobstructive CAD. 4. IBS. 5. AFib. 6. Psoriatic arthritis. 7. Migraines. 8. Depression. 9. Chronic pain. 10. Agoraphobia. 11. Panic attacks. 12. Hiatal hernia. 13. Hyperlipidemia. 14. CKD. 15. Asthma. PAST SURGICAL HISTORY: 1. She has had carpal tunnel repair. 2. Heart catheterization showing a nonobstructive coronary artery disease. 3. Hysterectomy. 4. Laparoscopic cholecystectomy. MEDICATIONS: Home meds according to the list that was provided at admission, it will need to clarify, this include: 1. Benadryl 25 mg at bedtime as needed. 2. Klonopin 1 mg p.o. t.i.d. as needed. 3. Norvasc 2.5 mg p.o. daily. 4. Potassium 40 mEq p.o. daily. 5. Nitro 0.4 mg sublingual q.5 minutes p.r.n. chest pain. 6. Toprol XL 25 mg daily. 7. Cozaar 25 mg daily. 8. Pepcid 40 mg p.o. daily. 9. Abilify 2 mg p.o. q.p.m. ALLERGIES TO MEDICATIONS: Include AMPICILLIN, LACTULOSE, MORPHINE, PRAVACHOL, GABAPENTIN, PROCAINE, ZYPREXA, ZOLOFT, and DOXYCYCLINE. FAMILY HISTORY: Her mother had intracranial hemorrhage and she had arthritis and also had a stroke. Father had a history of heart disease and CHF. SOCIAL HISTORY: The patient does not smoke. She does not drink. She lives alone. Surrogate decision maker are her children. REVIEW OF SYSTEMS: There is no documented fevers. She is denying having any significant weight change. There is no double vision. She denies having any ear discharge. There is no rhinorrhea. No sore throat. No thyroid enlargement. She is denying having any chest pain. There is no orthopnea. No nocturnal dyspnea. There was no abdominal pain. There is nausea. She had 1 episode of vomiting earlier this day, but she is denying having any. Again, does not feel lightheaded. Does not feel like she is going to faint or pass out. Review of 14 systems was completed, all others are negative. PHYSICAL EXAM: Vital Signs: Blood pressure 115/64, pulse 47, respirations 18, O2 sat 97%, temperature 97.9. Generally, at this time, Ms. Strong is a 68-year- old female patient. She is sitting on the hospital bed. She does not appear to be in any acute distress. HEENT: Head: Atraumatic. She does appear to be normocephalic. Eyes: EOMs intact. Sclerae is anicteric and not pale. Neck was supple. Throat: Oral mucosa appears to be moist. No oropharyngeal erythema. Heart: Sounds S1, S2. She is bradycardic. Her lungs are clear to auscultation bilaterally. She had no wheezes, rales, or rhonchi. Her abdomen was soft, it was flat. It was nontender. The bowel sounds were present. Extremities: Pulses were 2+ throughout. She has been moving all 4 extremities with 5/5 strength. Neurologically, the patient is awake. She is alert. She is oriented now x3. Her clam dredger were equal. Tongue midline. Glpbyk-ak-phjc intact bilaterally. Heel-to- gomez intact bilaterally. She had no gross focal deficits. Her skin was intact. DIAGNOSTIC STUDIES/LAB DATA: Labs are revealing a WBC of 15.4, RBC of 4.90, hemoglobin 12.6, hematocrit 39, platelet count of 258. Her sodium was 133, potassium of 4.1, chloride of 102, bicarb 24, BUN was 22, creatinine 1.14, glucose was 124, calcium 9.3, toxicology was negative. Most recent CT imaging, impression: Stable left temporal epidural hematoma and parietooccipital subdural hematoma and resolution of subarachnoid hemorrhage. There is developing vasogenic edema of the left temporal lobe suggestive of contusion. Again, noted is left temporal bone fracture extending to the mastoid air cells. She did have a cervical spine CT, which showed nondisplaced fracture of the left occipital bone extending to the left temporal bone. There is a pneumocephalus present. She had no evidence for fracture or subluxation of the cervical spine. Old medical records were reviewed. ASSESSMENT AND PLAN: Ms. Strong is a 68-year-old female patient coming into the neurosurgical services for a skull fracture and intracranial hemorrhage. We were asked to evaluate in consult for bradycardia. Recommendations at this point are: 1. Intracranial hemorrhage and skull fracture. I will defer the management to Dr. Fish and his team. 2. Fibromyalgia. I had recommended to continue meds as prescribed. 3. Hypertension. I would continue meds as prescribed with the exception of beta- yyao. 4. Bradycardia. At this point, I would get a BMP, magnesium, TSH, which I have ordered. Checking the CBC and an EKG. Placing the patient on telemetry. I suspect the bradycardia is probably from the metoprolol. She has not been taking the metoprolol consistently and she has been getting it pretty consistently here, which may be enough to cause her to certainly be bradycardiac. So I would stop this medication and we will continue to monitor her. She is asymptomatic. 5. History of nonobstructive coronary artery disease. Again, at this point, I will hold the beta-yayo. She is not on a statin and aspirin is contraindicated at this point. She will need to follow with her primary. We will continue with her current medical regimen. She is on Norvasc. 6. Depression. Continue with supportive care. 7. History of agarophobia and panic attacks. Again continue with supportive care. 8. History of fibromyalgia and psoriatic arthritis. Continue meds are prescribed. 9. History of atrial fibrillation. She again appears to be in sinus cody, but I am getting a 12-lead. 10. Irritable bowel syndrome. Continue supportive care. 11. Asthma. Not an active issue currently, but if she does have any issues we can certainly consider adding meds, I do no think she needs it now. 12. DVT prophylaxis. I will defer to the primary team. 13. Fluids, electrolytes and nutrition. She can have a regular diet. 14. Code status. Full code. TIME SPENT: Time spent on the consult 60 minutes; greater than half the time was spent [id number] with the patient obtaining my history and physical, other half of the time spent going over the plan of care with the patient and implementing plan of care. I did discuss the plan of care with my attending, Dr. Syed; she is in agreement. AVI LUNA, JEWEL CUPPING MACHINE OPERATOR [id number]/CPS #: [id number] RITA
[2018-06-03] MEDS: HYDROcodone/ACETAMIN 5-325 MG* 1 TAB PO PRN ×3 (02:41→14:24)
[2018-06-03] MEDS: Acetaminophen TAB* 325 MG PO PRN ×3 (02:41→16:02)
[2018-06-03] MEDS ORDERED: Mannitol 25% (12.5 GM) 50 ML* 12.5 GM/50 ML VIAL IV ONE (07:26)
--- NOTE | 2018-06-03 07:30 | PN ---
Progress Note - Progress Note Date of Service: 06/03/18 SOAP: Subjective: []Better this AM post Mannitol Still c/o headache No further emesis Objective: []FLAVIO Neuro intact Assessment: []Improving Plan: []Give additional dose of Mannitol this AM Cont to monitor closely
[2018-06-03 08:45] LABS: EGFR Non-African American 66.3 (>60)
[2018-06-03] MEDS: Potassium Chlor TAB* 20 MEQ TAB.ER PO SCH ×2 (09:59→19:53)
[2018-06-03] MEDS: Losartan TAB* 25 MG PO SCH (09:59)
--- NOTE | 2018-06-03 17:56 | PN ---
Subjective Date of Service: 06/03/18 Interval History: Patient continues to have headache, dizziness with sitting up and leftward gaze. Photosensitivity and vertigo with exposure of left eye. Denies CP, SOB, N/ V, abdominal pain, diarrhea, F/C. Slight tenderness to palpation in RUQ. Family History: Unchanged from Admission Social History: Unchanged from Admission Past Medical History: Unchanged from Admission Objective Active Medications: Acetaminophen (Tylenol Tab*) 650 mg PO Q4H PRN PRN Reason: Pain Or Temperature >101 F Last Admin: 06/03/18 16:02 Dose: 650 mg Hydrocodone Bitart/Acetaminophen ([place] 5-325 Tab*) 1 tab PO Q4H PRN PRN Reason: PAIN - MODERATE Last Admin: 06/03/18 14:24 Dose: 1 tab Lactated Ringer's (Lactated Ringers 1000 Ml Bag*) 1,000 mls @ 75 mls/hr IV PER RATE [facility] Last Admin: 06/02/18 15:33 Dose: 75 mls/hr Lactated Ringer's (Lactated Ringers 1000 Ml Bag*) 1,000 mls @ 75 mls/hr IV PER RATE [facility] Losartan Potassium (Cozaar Tab*) 25 mg PO DAILY [facility] Last Admin: 06/03/18 09:59 Dose: 25 mg Ondansetron HCl (Zofran Inj*) 4 mg IV Q4H PRN PRN Reason: NAUSEA/VOMITING Last Admin: 06/02/18 14:21 Dose: 4 mg Oxycodone HCl (Roxycodone Tab*) 5 mg PO Q4H PRN PRN Reason: PAIN - MODERATE Potassium Chloride (Klor Con Er Tab*) 20 meq PO BID [facility] Last Admin: 06/03/18 09:59 Dose: 20 meq Vital Signs - 8 hr 06/03/18 06/03/18 06/03/18 13:46 14:24 15:55 Temperature 97.7 F 98.7 F Pulse Rate 52 50 Respiratory 18 16 18 Rate Blood Pressure 132/48 151/54 (mmHg) O2 Sat by Pulse 97 96 Oximetry 06/03/18 16:50 Temperature Pulse Rate Respiratory 16 Rate Blood Pressure (mmHg) O2 Sat by Pulse Oximetry Oxygen Devices in Use Now: None Appearance: Patient is a 68yo female who appears stated age and is sitting in the bed with left eye covered with mask. Eyes: No Scleral Icterus, PERRLA Ears/Nose/Mouth/Throat: NL Teeth, Lips, Gums, Clear Oropharnyx, Mucous Membranes Moist, - Neck: NL Appearance and Movements; NL JVP, Trachea Midline Respiratory: Symmetrical Chest Expansion and Respiratory Effort, Clear to Auscultation Cardiovascular: NL Sounds; No Murmurs; No JVD, RRR, No Edema Abdominal: No Hepatosplenomegaly, - - Slight tenderness to palpation over RUQ. Lymphatic: No Cervical Adenopathy Extremities: No Edema, No Clubbing, Cyanosis Skin: No Nodules or Sclerosis Neurological: Alert and Oriented x 3, NL Sensation, NL Muscle Strength and Tone , - Result Diagrams: 06/02/18 16:04 06/03/18 08:21 Microbiology and Other Data: Microbiology 05/30/18 23:45 Nasal Screen MRSA (PCR) - Final Nasal Mrsa Not Detected Assess/Plan/Problems-Billing Assessment: Patient is a 68yo female with a PMH for CKD, CAD, PAF, Psoriatic Arthritis, who is here after a fall with head trauma with Epidural Hematoma and Subdural hematoma who is bradycardic with severe headache which is improving. - Patient Problems (1) Head trauma Current Visit: Yes Status: Acute Code(s): S09.90XA - UNSPECIFIED INJURY OF HEAD, INITIAL ENCOUNTER SNOMED Code(s): 46580032 Comment: With headache and vertigo. With cerebral contusion and ICH. Stable. Increased ICP not likely contributing to bradycardia. (2) Bradycardia Current Visit: Yes Status: Acute Code(s): R00.1 - BRADYCARDIA, UNSPECIFIED SNOMED Code(s): 33193974 Comment: Sinus, improving. Asymptomatic. Patient has never has this issue before. Hold Metoprolol. Takes only intermittently at home due to non-compliance. Pain medication possibly also contributing. (3) Anxiety Current Visit: No Status: Acute Code(s): F41.9 - ANXIETY DISORDER, UNSPECIFIED SNOMED Code(s): 90780533 Comment: Supportive care. Hold Clonazepam to not mask changes in mental status. (4) Depression Current Visit: No Status: Acute Code(s): F32.9 - MAJOR DEPRESSIVE DISORDER, SINGLE EPISODE, UNSPECIFIED SNOMED Code(s): 98090744 Comment: Supportive care. Hold abilify to not mask changes in mental status. (5) Hypertension Current Visit: No Status: Acute Code(s): I10 - ESSENTIAL (PRIMARY) HYPERTENSION SNOMED Code(s): 97312886 Comment: Continue Lisinopril. Hold metoprolol and norvasc. Normotensive. (6) Hypomagnesemia Current Visit: No Status: Acute Code(s): E83.42 - HYPOMAGNESEMIA SNOMED Code(s): 808602877 Comment: Repleting. (7) DVT prophylaxis Current Visit: No Status: Acute Code(s): OKJ6918 - SNOMED Code(s): 655050414 Comment: Ambulation and SCDs due to ICH. Status and Disposition: Inpatient. Disposition per primary team.
[2018-06-03] MEDS ORDERED: clonazePAM TAB(*) 1 MG PO PRN (18:14)
[2018-06-03] MEDS: oxyCODONE TAB* 5 MG TAB PO PRN (19:52)
[2018-06-03] MEDS: Ondansetron INJ* 2 MG/ML VIAL IV PRN (19:53)
[2018-06-04] MEDS: HYDROcodone/ACETAMIN 5-325 MG* 1 TAB PO PRN ×4 (00:27→23:50)
[2018-06-04] MEDS: oxyCODONE TAB* 5 MG TAB PO PRN ×2 (03:54→13:18)
[2018-06-04 05:51] LABS: ABS Basophils 0.1 10^3/ul (0-0.2); ABS Eosinophils 0 10^3/ul (0-0.6); ABS Lymphocytes 1.9 10^3/ul (1.0-4.8); ABS Monocytes 0.7 10^3/ul (0-0.8); ABS Neutrophils 9.5 10^3/ul (1.5-7.7); ABS Nucleated RBC 0 10^3/ul; Eosinophil % 0.4 % (0-6); Hematocrit 40 % (35-47); Hemoglobin 12.9 g/dl (12.0-16.0); Lymphocyte % 15.3 % (25-47); Mean Corpuscular HGB Conc 32 g/dl (31-36); Mean Corpuscular Hemoglobin 26 pg (27-31); Mean Corpuscular Volume 80 fL (80-97); Mean Platelet Volume 8.1 um3 (7.4-10.4); Nucleated Red Blood Cells % 0; Platelet Count 285 10^3/ul (150-450); Red Blood Count 4.99 10^6/ul (4.00-5.40); Red Cell Distribution Width 18 % (10.5-15); White Blood Count 12.2 10^3/ul (3.5-10.8)
[2018-06-04] MEDS: Acetaminophen TAB* 325 MG PO PRN (06:29)
[2018-06-04] MEDS: Potassium Chlor TAB* 20 MEQ TAB.ER PO SCH ×2 (08:56→19:51)
[2018-06-04] MEDS: Losartan TAB* 25 MG PO SCH (08:56)
[2018-06-04] MEDS: Famotidine TAB* 20 MG PO SCH (11:51)
--- NOTE | 2018-06-04 14:27 | PN ---
Subjective Date of Service: 06/04/18 Interval History: Patient seen and examined at bedside. Denies fever, shortness of breath, chest discomfort, N/V. Pt states that she has been having "crumbs" for bowel movements today, but denies diarrhea. Per NS staff she is moving her bowels with small pieces of formed stool. She reports dizziness when moving her head and feels as though her left ear is plugged and has decreased hearing in it. She reports feeling cool and just not feeling well. She also reports photophobia and phonophobia. Offered to have [facility] staff attempt to flush left ear and Pt declines at this time. Tele: Sinus rhythm, rate 40-60's. Pt noted to be bradycardic when sleeping. Family History: Unchanged from Admission Social History: Unchanged from Admission Past Medical History: Unchanged from Admission Objective Active Medications: Acetaminophen (Tylenol Tab*) 650 mg PO Q4H PRN Reason: Pain Or Temperature > 101 F Hydrocodone Bitart/Acetaminophen ([place] 5-325 Tab*) 1 tab PO Q4H PRN Reason: PAIN - MODERATE Famotidine (Pepcid Tab*) 40 mg PO DAILY [facility] Losartan Potassium (Cozaar Tab*) 25 mg PO DAILY [facility] Ondansetron HCl (Zofran Inj*) 4 mg IV Q4H PRN Reason: NAUSEA/VOMITING Oxycodone HCl (Roxycodone Tab*) 5 mg PO Q4H PRN Reason: PAIN - MODERATE Potassium Chloride (Klor Con Er Tab*) 20 meq PO BID [facility] Vital Signs - 8 hr 06/04/18 06/04/18 06/04/18 07:13 08:00 11:23 Temperature 97.9 F 98.2 F Pulse Rate 46 58 Respiratory 16 14 16 Rate Blood Pressure 146/57 129/65 (mmHg) O2 Sat by Pulse 96 98 Oximetry 06/04/18 13:18 Temperature Pulse Rate Respiratory 16 Rate Blood Pressure (mmHg) O2 Sat by Pulse Oximetry Oxygen Devices in Use Now: None Appearance: NAD, laying in bed Eyes: PERRLA Ears/Nose/Mouth/Throat: Mucous Membranes Moist, - - Left ear with "moist" cerumen, unable to visualize TM. Right TM WNL, small area of redness at about 7 o'clock. Respiratory: Symmetrical Chest Expansion and Respiratory Effort, Clear to Auscultation Cardiovascular: NL Sounds; No Murmurs; No JVD, RRR Extremities: No Edema Skin: No Rash or Ulcers Neurological: Alert and Oriented x 3, NL Muscle Strength and Tone Nutrition: Taking PO's Result Diagrams: 06/04/18 05:24 06/04/18 05:24 Microbiology and Other Data: Microbiology 05/30/18 23:45 Nasal Screen MRSA (PCR) - Final Nasal Mrsa Not Detected Assess/Plan/Problems-Billing Assessment: Ms. Strong is a 68 yo female with a PMH for CKD, CAD, PAF, Psoriatic Arthritis, who is here after a fall with head trauma with Epidural Hematoma and Subdural hematoma. - Patient Problems (1) Head trauma Code(s): S09.90XA - UNSPECIFIED INJURY OF HEAD, INITIAL ENCOUNTER SNOMED Code( s): 77557160 Comment: - With headache and vertigo - Found to have a cerebral contusion and ICH - Managment per Neurosurgery (2) Bradycardia Code(s): R00.1 - BRADYCARDIA, UNSPECIFIED SNOMED Code(s): 60002373 Comment: - Sinus, rate 40-60's - Asymptomatic, never has this issue before - Increased ICP not likely contributing to bradycardia - Discontinue Metoprolol (Takes only intermittently at home due to non- compliance) - Pain medication possibly also contributing (3) Anxiety Code(s): F41.9 - ANXIETY DISORDER, UNSPECIFIED SNOMED Code(s): 88740688 Comment: - Continue supportive care - Hold Clonazepam (Do not want to mask changes in mental status) (4) Hypomagnesemia Code(s): E83.42 - HYPOMAGNESEMIA SNOMED Code(s): 414393856 Comment: - Continues to be low, will give replacement today and recheck labs in the AM (5) Depression Code(s): F32.9 - MAJOR DEPRESSIVE DISORDER, SINGLE EPISODE, UNSPECIFIED SNOMED Code(s): 11657621 Comment: - Supportive care - Hold abilify (Do not want to mask changes in mental status) (6) Hypertension Code(s): I10 - ESSENTIAL (PRIMARY) HYPERTENSION SNOMED Code(s): 94260401 Comment: - SBP 120-150's - Continue Losartan - Discontinued metoprolol (d/t bradycardia) and hold norvasc (consider resuming if BP continues to be elevated in 150's) (7) GERD (gastroesophageal reflux disease) Code(s): K21.9 - GASTRO-ESOPHAGEAL REFLUX DISEASE WITHOUT ESOPHAGITIS SNOMED Code(s): 305540086 Comment: - Continue Pepcid (8) Rheumatoid arthritis Code(s): M06.9 - RHEUMATOID ARTHRITIS, UNSPECIFIED SNOMED Code(s): 57893498 Comment: - Supportive care (9) DVT prophylaxis Code(s): EIX1664 - SNOMED Code(s): 423091211 Comment: - Ambulation and SCDs due to ICH (10) Full code status Code(s): Z78.9 - OTHER SPECIFIED HEALTH STATUS SNOMED Code(s): 558767419 Status and Disposition: Inpatient. Disposition per primary team. Thank you for this consultation. We will continue to follow along.
--- NOTE | 2018-06-04 14:28 | PN ---
Progress Note - Progress Note Date of Service: 06/04/18 SOAP: Subjective: []No events ON. Tolerates PO well. Ambulates. Dial. Reports decreased hearing left ear, unchanged since injury since injury. Objective: []AAOx3, CN II-XII grossly intact Motor 4-5/5 No drift Sensory grossly intact to light touch. Assessment: []68 yod TBI Plan: []Monitor VS, Neurochecks May dc dial, IVF. Consider 7 days of SZ prophylaxis, ENT consult. Edwin Mcdonald MD
[2018-06-04] MEDS ORDERED: Magnesium Sulfate 2 GM IV* 2 GM/50 ML BAG IVPB ONE (14:30)
[2018-06-04] MEDS ORDERED: ARIPiprazole TAB* 5 MG PO SCH (18:00)
[2018-06-05] MEDS: HYDROcodone/ACETAMIN 5-325 MG* 1 TAB PO PRN ×5 (03:52→20:23)
[2018-06-05 05:53] LABS: ABS Basophils 0.1 10^3/ul (0-0.2); ABS Eosinophils 0.1 10^3/ul (0-0.6); ABS Monocytes 0.7 10^3/ul (0-0.8); ABS Neutrophils 8.8 10^3/ul (1.5-7.7); ABS Nucleated RBC 0 10^3/ul; Eosinophil % 0.8 % (0-6); Hematocrit 39 % (35-47); Hemoglobin 12.6 g/dl (12.0-16.0); Lymphocyte % 16.9 % (25-47); Mean Corpuscular HGB Conc 32 g/dl (31-36); Mean Corpuscular Hemoglobin 26 pg (27-31); Mean Corpuscular Volume 80 fL (80-97); Mean Platelet Volume 7.9 um3 (7.4-10.4); Nucleated Red Blood Cells % 0; Platelet Count 296 10^3/ul (150-450); Red Blood Count 4.84 10^6/ul (4.00-5.40); Red Cell Distribution Width 18 % (10.5-15); White Blood Count 11.6 10^3/ul (3.5-10.8)
[2018-06-05] MEDS: Potassium Chlor TAB* 20 MEQ TAB.ER PO SCH ×2 (08:18→20:23)
[2018-06-05] MEDS: Famotidine TAB* 20 MG PO SCH (08:18)
[2018-06-05] MEDS: Losartan TAB* 25 MG PO SCH (08:18)
[2018-06-05] MEDS ORDERED: Loperamide CAP* 2 MG PO PRN (11:20)
--- NOTE | 2018-06-05 12:08 | PN ---
Subjective Date of Service: 06/05/18 Interval History: Patient seen and examined at bedside. Denies fever, chills, shortness of breath , chest discomfort, N/V. Pt states that she is having loose stools today and is requesting imodium (she takes this at home). She continues to have a headache and dizziness when she turns her head. She continues to feel like she has decreased hearing in her left ear. Pt with some hallucinations today, she thinks she saw a mouse come into her room. Tele: Sinus rhythm, rate 50-80's. Pt noted to be in the 110's this AM. Family History: Unchanged from Admission Social History: Unchanged from Admission Past Medical History: Unchanged from Admission Objective Active Medications: Acetaminophen (Tylenol Tab*) 650 mg PO Q4H PRN Reason: Pain Or Temperature > 101 F Hydrocodone Bitart/Acetaminophen ([place] 5-325 Tab*) 1 tab PO Q4H PRN Reason: PAIN - MODERATE Famotidine (Pepcid Tab*) 40 mg PO DAILY [facility] Loperamide HCl (Imodium Cap*) 2 mg PO .SEE DIRECTIONS PRN Reason: DIARRHEA Losartan Potassium (Cozaar Tab*) 25 mg PO DAILY [facility] Ondansetron HCl (Zofran Inj*) 4 mg IV Q4H PRN Reason: NAUSEA/VOMITING Oxycodone HCl (Roxycodone Tab*) 5 mg PO Q4H PRN Reason: PAIN - MODERATE Potassium Chloride (Klor Con Er Tab*) 20 meq PO BID [facility] Vital Signs - 8 hr 06/05/18 06/05/18 06/05/18 07:41 08:00 08:16 Temperature 97.6 F Pulse Rate 50 Respiratory 14 16 18 Rate Blood Pressure 156/64 (mmHg) O2 Sat by Pulse 97 Oximetry 06/05/18 06/05/18 06/05/18 11:01 11:39 11:40 Temperature 98.6 F Pulse Rate 69 Respiratory 16 14 16 Rate Blood Pressure 159/81 (mmHg) O2 Sat by Pulse 97 Oximetry Oxygen Devices in Use Now: None Appearance: NAD, laying in bed Eyes: PERRLA Ears/Nose/Mouth/Throat: Mucous Membranes Moist Respiratory: Symmetrical Chest Expansion and Respiratory Effort, Clear to Auscultation Cardiovascular: NL Sounds; No Murmurs; No JVD, RRR Abdominal: NL Sounds; No Tenderness; No Distention Extremities: No Edema Skin: No Rash or Ulcers Neurological: Alert and Oriented x 3, NL Muscle Strength and Tone Lines/Tubes/Other Access: Clean, Dry and Intact Peripheral IV - site benign Nutrition: Taking PO's Result Diagrams: 06/05/18 05:30 06/04/18 05:24 Microbiology and Other Data: Microbiology 05/30/18 23:45 Nasal Screen MRSA (PCR) - Final Nasal Mrsa Not Detected Assess/Plan/Problems-Billing Assessment: Ms. Strong is a 68 yo female with a PMH for CKD, CAD, PAF, Psoriatic Arthritis, who is here after a fall with head trauma with Epidural Hematoma and Subdural hematoma. - Patient Problems (1) Head trauma Code(s): S09.90XA - UNSPECIFIED INJURY OF HEAD, INITIAL ENCOUNTER SNOMED Code( s): 75547003 Comment: - With headache and vertigo - Found to have a cerebral contusion and ICH - Managment per Neurosurgery (2) Bradycardia Code(s): R00.1 - BRADYCARDIA, UNSPECIFIED SNOMED Code(s): 14234545 Comment: - Sinus, rate 50-80's - Asymptomatic, never has this issue before - Increased ICP not likely contributing to bradycardia - Discontinue Metoprolol (Takes only intermittently at home due to non- compliance) - Pain medication possibly also contributing (3) Anxiety Code(s): F41.9 - ANXIETY DISORDER, UNSPECIFIED SNOMED Code(s): 08710480 Comment: - Continue supportive care - Hold Clonazepam (Do not want to mask changes in mental status) (4) Hypomagnesemia Code(s): E83.42 - HYPOMAGNESEMIA SNOMED Code(s): 955724023 Comment: - Resolved with replacement (5) Depression Code(s): F32.9 - MAJOR DEPRESSIVE DISORDER, SINGLE EPISODE, UNSPECIFIED SNOMED Code(s): 28698031 Comment: - Supportive care - Hold abilify (Do not want to mask changes in mental status) (6) Hypertension Code(s): I10 - ESSENTIAL (PRIMARY) HYPERTENSION SNOMED Code(s): 13460212 Comment: - SBP 120-150's - Continue Losartan - Discontinued metoprolol (d/t bradycardia) - Resume norvasc (7) GERD (gastroesophageal reflux disease) Code(s): K21.9 - GASTRO-ESOPHAGEAL REFLUX DISEASE WITHOUT ESOPHAGITIS SNOMED Code(s): 493324046 Comment: - Continue Pepcid (8) Rheumatoid arthritis Code(s): M06.9 - RHEUMATOID ARTHRITIS, UNSPECIFIED SNOMED Code(s): 90727261 Comment: - Supportive care (9) DVT prophylaxis Code(s): UNE9929 - SNOMED Code(s): 367643910 Comment: - Ambulation and SCDs due to ICH (10) Full code status Code(s): Z78.9 - OTHER SPECIFIED HEALTH STATUS SNOMED Code(s): 086494768 Status and Disposition: Inpatient. Disposition per primary team. Thank you for this consultation. We will continue to follow along.
[2018-06-05] MEDS: amLODIPine TAB* 5 MG PO SCH (12:31)
[2018-06-05] MEDS: oxyCODONE TAB* 5 MG TAB PO PRN (22:31)
--- NOTE | 2018-06-05 22:42 | PN ---
Progress Note - Progress Note Date of Service: 06/05/18 SOAP: Subjective: []Patient seen earlier today. No events ON. Tolerates PO well. Ambulates. Voids. Reports decreased hearing left ear, unchanged since injury. Objective: []VSS AAOx3, CN II-XII grossly intact Motor 4-5/5 No drift Sensory grossly intact to light touch. Assessment: []68 yof TBI Plan: []Monitor VS, Neurochecks DC planning Consider ENT consult. Edwin Mcdonald MD
[2018-06-06] MEDS: HYDROcodone/ACETAMIN 5-325 MG* 1 TAB PO PRN ×4 (00:31→15:05)
[2018-06-06] MEDS: Losartan TAB* 25 MG PO SCH (08:34)
[2018-06-06] MEDS: amLODIPine TAB* 5 MG PO SCH (08:34)
[2018-06-06] MEDS: Potassium Chlor TAB* 20 MEQ TAB.ER PO SCH (08:34)
[2018-06-06] MEDS: Famotidine TAB* 20 MG PO SCH (08:34)
--- NOTE | 2018-06-06 08:35 | PN ---
Progress Note - Progress Note Date of Service: 06/06/18 SOAP: Subjective: [Complains of headache and buzzing in left ear. Denies nausea, vomiting. Able to ambulate well without dizziness or vertigo. Pain controlled with PO medications.] Objective: [Vital Signs: Temp Pulse Resp BP Pulse Ox 97.6 F 89 18 150/76 99 06/06/18 07:15 06/06/18 07:15 06/06/18 07:15 06/06/18 07:35 06/06/18 07:15 General: Alert and NAD. Neuro: CN II-XII intact. Strength and sensation intact throughout. Negative pronator drift. PERRL, EOMI. Assessment: [Stable] Plan: [1. Discharge to son's house today. 2. Discharge instructions discussed.]
--- NOTE | 2018-06-06 09:29 | PN ---
Subjective Date of Service: 06/06/18 Interval History: Patient seen and examined at bedside. Denies fever, chills, shortness of breath , chest discomfort, V/D. Pt reports diarrhea, but states that she is having soft formed stools. She continues to have a headache and dizziness, but feels they are manageable. She is requesting imodium this AM. Tele: Sinus rhythm, rate 60-80's. Family History: Unchanged from Admission Social History: Unchanged from Admission Past Medical History: Unchanged from Admission Objective Active Medications: Acetaminophen (Tylenol Tab*) 650 mg PO Q4H PRN Reason: Pain Or Temperature > 101 F Hydrocodone Bitart/Acetaminophen (Wells 5-325 Tab*) 2 tab PO Q4H PRN Reason: PAIN - MODERATE Amlodipine Besylate (Norvasc Tab*) 2.5 mg PO DAILY WILLIAM Famotidine (Pepcid Tab*) 40 mg PO DAILY WILLIAM Loperamide HCl (Imodium Cap*) 2 mg PO .SEE DIRECTIONS PRN Reason: DIARRHEA Losartan Potassium (Cozaar Tab*) 25 mg PO DAILY WILLIAM Ondansetron HCl (Zofran Inj*) 4 mg IV Q4H PRN Reason: NAUSEA/VOMITING Potassium Chloride (Klor Con Er Tab*) 20 meq PO BID WILLIAM Vital Signs - 8 hr 06/06/18 06/06/18 06/06/18 02:31 03:26 05:52 Temperature 98.8 F Pulse Rate 62 Respiratory 16 16 18 Rate Blood Pressure 147/60 (mmHg) O2 Sat by Pulse 98 Oximetry 06/06/18 06/06/18 06/06/18 07:15 07:35 08:36 Temperature 97.6 F Pulse Rate 89 Respiratory 18 16 Rate Blood Pressure 150/76 (mmHg) O2 Sat by Pulse 99 Oximetry 06/06/18 08:39 Temperature Pulse Rate Respiratory 16 Rate Blood Pressure (mmHg) O2 Sat by Pulse Oximetry Oxygen Devices in Use Now: None Appearance: NAD, sitting up in a chair Ears/Nose/Mouth/Throat: Mucous Membranes Moist Respiratory: Symmetrical Chest Expansion and Respiratory Effort, Clear to Auscultation Cardiovascular: NL Sounds; No Murmurs; No JVD, RRR Abdominal: NL Sounds; No Tenderness; No Distention Extremities: No Edema Skin: No Rash or Ulcers Neurological: Alert and Oriented x 3, NL Muscle Strength and Tone Lines/Tubes/Other Access: Clean, Dry and Intact Peripheral IV - site benign Nutrition: Taking PO's Result Diagrams: 06/05/18 05:30 06/04/18 05:24 Microbiology and Other Data: Microbiology 05/30/18 23:45 Nasal Screen MRSA (PCR) - Final Nasal Mrsa Not Detected Assess/Plan/Problems-Billing Assessment: Ms. Strong is a 68 yo female with a PMH for CKD, CAD, PAF, Psoriatic Arthritis, who is here after a fall with head trauma with Epidural Hematoma and Subdural hematoma. - Patient Problems (1) Head trauma Code(s): S09.90XA - UNSPECIFIED INJURY OF HEAD, INITIAL ENCOUNTER SNOMED Code( s): 28135402 Comment: - With headache and vertigo - Found to have a cerebral contusion and ICH - Managment per Neurosurgery (2) Bradycardia Code(s): R00.1 - BRADYCARDIA, UNSPECIFIED SNOMED Code(s): 49962255 Comment: - Resolved - Asymptomatic, never has this issue before - Increased ICP not likely contributing to bradycardia - Discontinue Metoprolol (Takes only intermittently at home due to non- compliance) - Pain medication possibly also contributing (3) Anxiety Code(s): F41.9 - ANXIETY DISORDER, UNSPECIFIED SNOMED Code(s): 94702486 Comment: - Continue supportive care - Hold Clonazepam (Do not want to mask changes in mental status), may resume at discharge per neurosurgery (4) Hypomagnesemia Code(s): E83.42 - HYPOMAGNESEMIA SNOMED Code(s): 445282580 Comment: - Resolved with replacement (5) Depression Code(s): F32.9 - MAJOR DEPRESSIVE DISORDER, SINGLE EPISODE, UNSPECIFIED SNOMED Code(s): 52780556 Comment: - Supportive care - Hold abilify (Do not want to mask changes in mental status), may resume at discharge if ok with neurosurgery (6) Hypertension Code(s): I10 - ESSENTIAL (PRIMARY) HYPERTENSION SNOMED Code(s): 22636042 Comment: - SBP 140-150's - Continue Losartan and Norvasc - Discontinued metoprolol (d/t bradycardia) (7) GERD (gastroesophageal reflux disease) Code(s): K21.9 - GASTRO-ESOPHAGEAL REFLUX DISEASE WITHOUT ESOPHAGITIS SNOMED Code(s): 468208942 Comment: - Continue Pepcid (8) Rheumatoid arthritis Code(s): M06.9 - RHEUMATOID ARTHRITIS, UNSPECIFIED SNOMED Code(s): 49609504 Comment: - Supportive care (9) DVT prophylaxis Code(s): HRI6523 - SNOMED Code(s): 532598605 Comment: - Ambulation and SCDs due to ICH (10) Full code status Code(s): Z78.9 - OTHER SPECIFIED HEALTH STATUS SNOMED Code(s): 880557852 Status and Disposition: Inpatient. Disposition per primary team. Thank you for this consultation. We will sign off at this time.
[2018-06-06 12:11] VITALS: BP 141/51
--- NOTE | 2018-07-12 22:26 | DS ---
DISCHARGE SUMMARY: DATE OF ADMISSION: 05/30/18 DATE OF DISCHARGE: 06/06/18 ATTENDING PHYSICIAN: Dr. Fish.* (DICTATED BY GUS GALLOWAY) DISCHARGE DIAGNOSES: 1. Left occipital skull fracture. 2. Left temporal epidural hematoma. 3. Hypertension. 4. Coronary artery disease. 5. Atrial fibrillation. 6. Fibromyalgia. SPECIAL PROCEDURES: None. HOSPITAL COURSE: This 68-year-old female presented to the [facility] ED after falling from standing on a chair and striking her left occiput. She presented with difficulty word finding, headache, nausea. CT of the brain revealed left occipital skull fracture and the left temporal epidural and subdural hematoma. Neurosurgery was consulted and she was admitted to the ICU for observation and a followup CT scan in the morning. The next day, she reported of slightly improved headache. She was neurologically intact and the repeat CT scan was essentially unchanged. She was transferred to the short stay surgical floor. Her diet was advanced and she was able to get up out of bed with assistance. The next day, she continued to have some headache and vertigo. She remained neurologically intact. Physical Therapy was consulted for evaluation and treatment, admitted to the hospital. The next day, she complained of headache and nausea. She had poor appetite and oral food intake. She became bradycardic into the 40s . Hospitalist was consulted and she was placed on telemetry, IV fluids were started and a Sampson was placed for administration of mannitol. CT remained unchanged at this time. The next day, she received another dose of mannitol. She remained neurologically intact and her headache continued to improve. On 06/04/18 and 06/05/18, she remained admitted to the hospital for observation. Over these 2 days, headache and nausea continued to improve, although she complained of mild hearing loss and buzzing in the left ear. This was to be address at a later time. On 06/06/18, she was feeling quite well. She denied nausea, vomiting and headache was minimal. She was neurologically intact. She was discharged to her son's house, who will be available to assist her while at home. She is able to ambulate well and at this time she had been eating and drinking without difficulty as well. DISCHARGE MEDICATIONS: None. FOLLOWUP: She will be seen in the office with Dr. Fish next week. DISCHARGE INSTRUCTIONS: No driving, no heavy lifting, she is encouraged to ambulate and she is instructed to attend the emergency department if her headache worsens, if she develops further nausea, vomiting or other neurological symptoms. GUS GALLOWAY [id number]/[facility] #: [id number] MTDЮлия
--- NOTE | 2018-08-17 10:53 | HP ---
HISTORY AND PHYSICAL: DATE OF ADMISSION: 05/30/18 CHIEF COMPLAINT: Head injury. HISTORY OF PRESENT ILLNESS: This 68-year-old lady was standing on a worker chair getting a box out of her closet when the patient fell knocking her to the floor and hitting the back of her head. There was no loss of consciousness but she complained of headache fairly quickly. She summoned the paramedics to her home and was taken to the emergency center for evaluation. There, she was noted to be awake and alert; however, CT scan showed an occipital skull fracture as well as a small left temporal epidural collection and a small subdural collection. She was seen in the emergency room where she was awake, alert and neurologically intact. She did have some word finding difficulty just prior to getting to the hospital. She is being admitted to the intensive care unit for further observation and treatment. PAST MEDICAL HISTORY: Fairly extensive with multiple medical issues to include: 1. Fibromyalgia. 2. Hypertension. 3. Nonobstructive coronary artery disease. 4. Irritable bowel syndrome. 5. Atrial fibrillation. 6. Psoriatic arthritis. 7. Migraines. 8. Depression. 9. Chronic pain syndrome. 10. Panic attacks. 11. Hiatal hernia. 12. Asthma. PAST SURGICAL HISTORY: 1. Previous carpal tunnel release. 2. Hysterectomy. 3. Cholecystectomy. MEDICATIONS: Include: 1. Benadryl 25 mg p.o. h.s. 2. Klonopin 1 mg p.o. three times daily as needed. 3. Norvasc 2.5 mg p.o. daily. 4. Potassium 40 mEq p.o. daily. 5. Nitro 0.4 mg sublingual. 6. Toprol XL 25 mg daily. 7. Cozaar 25 mg p.o. daily. 8. Pepcid 40 mg p.o. daily. 9. Abilify 2 mg p.o. nightly. ALLERGIES: AMPICILLIN, LACTULOSE, MORPHINE, PRAVACHOL, GABAPENTIN, PROCAINE, ZYPREXA, ZOLOFT and DOXYCYCLINE. FAMILY HISTORY: Family history was taken, it is noncontributory to this illness. SOCIAL HISTORY: Reveals that she lives alone and her children are her decision makers. REVIEW OF SYSTEMS: A system review was significant only for neurologic review in that she complained of some lightheadedness and word finding difficulty. The remainder of her system review was performed and is noncontributory to this illness. PHYSICAL EXAMINATION VITAL SIGNS: She was noted to have a blood pressure of 115/64 with a pulse of 47 and respirations of 18. HEENT: Head revealed some tenderness in the left occipital area. Eyes revealed a full range of extraocular movements with pupils that were equal and reactive to light. NECK: Supple. LUNGS: Clear to auscultation. CARDIOVASCULAR: Exam revealed a regular rate and rhythm. ABDOMEN: Soft with normal bowel sounds. No tenderness. EXTREMITIES: Revealed full range of active motion. NEUROLOGICAL: Examination revealed her to be awake and alert. Cranial nerves II through XII were intact. Motor exam revealed 5/5 strength in all extremities. IMAGING: Her CT scan was reviewed with findings as noted above. PLAN: She will be admitted to the intensive care unit for close monitoring and further treatment. [id number]/[facility] #: [id number] MTDD
== END 2018-06-06 15:15 | disposition home or self-care (01) | DRG 85 ==
LOC: ED 20:45 → ICU 22:30 → EEVIPCON 22:30 → SSU 05-31 10:14
PROVIDERS: ADMIT Neurological Surgery; ATTEND Internal Medicine
DX: S06.4X0A Epidural hemorrhage without loss of consciousness, initial encounter (principal); S06.1X0A Traumatic cerebral edema without loss of consciousness, initial encounter; W07.XXXA Fall from chair, initial encounter; S02.119A Unspecified fracture of occiput, initial encounter for closed fracture; S06.5X0A Traumatic subdural hemorrhage without loss of consciousness, initial encounter; S06.6X0A Traumatic subarachnoid hemorrhage without loss of consciousness, initial encounter; Y92.009 Unspecified place in unspecified non-institutional (private) residence as the place of occurrence of the external cause; S02.19XA Other fracture of base of skull, initial encounter for closed fracture; R00.1 Bradycardia, unspecified; F41.9 Anxiety disorder, unspecified; E83.42 Hypomagnesemia; F32.9 Major depressive disorder, single episode, unspecified; I48.0 Paroxysmal atrial fibrillation; L40.50 Arthropathic psoriasis, unspecified; I25.10 Atherosclerotic heart disease of native coronary artery without angina pectoris; T44.7X5A Adverse effect of beta-adrenoreceptor antagonists, initial encounter; Y92.239 Unspecified place in hospital as the place of occurrence of the external cause; I13.10 Hypertensive heart and chronic kidney disease without heart failure, with stage 1 through stage 4 chronic kidney disease, or unspecified chronic kidney disease; N18.9 Chronic kidney disease, unspecified; K21.9 Gastro-esophageal reflux disease without esophagitis; M06.9 Rheumatoid arthritis, unspecified; H93.12 Tinnitus, left ear; M79.7 Fibromyalgia; E78.5 Hyperlipidemia, unspecified; G89.4 Chronic pain syndrome; K58.9 Irritable bowel syndrome, unspecified; G43.909 Migraine, unspecified, not intractable, without status migrainosus; K44.9 Diaphragmatic hernia without obstruction or gangrene; F40.01 Agoraphobia with panic disorder; J45.909 Unspecified asthma, uncomplicated; Z79.899 Other long term (current) drug therapy; Z88.1 Allergy status to other antibiotic agents; Z88.5 Allergy status to narcotic agent; Z88.8 Allergy status to other drugs, medicaments and biological substances; Z82.61 Family history of arthritis; Z82.3 Family history of stroke; Z82.49 Family history of ischemic heart disease and other diseases of the circulatory system
CPT/HCPCS: 36415; 70450; 72125; 80048; 80307; 80320; 83735; 85025; 87641; 93005; 99283; A9270-GY; G0480; G8978-GP-CI; G8979-GP-CH; J2150; J2405; J3475

== ENCOUNTER → 2018-06-10 16:59 | Emergency (ER) | payer MEDICARE, MEDICAID ==
--- OUTSIDE RECORDS SUMMARY | 2018-06-10 17:50 | XMS REPORT ---
:1950 External Reference #:[id number] Author Organization [facility] Address [address] [place] [address] [place] [address] Phone [phone] Care Team Providers Name Role Phone Cornell Zarate MD Primary Care Physician Unavailable Payers Type Date Identification Numbers Payment Provider Subscriber Medicare Primary Policy Number: [id number] Medicare Klaudia Jeong PayID: [id number] [address] [place] [address] [facility] Policy Number: [id number] Medicaid Klaudia Jeong Group Name: [id number] [address] PayID: [id number] [place] [address] Problems Date Description Provider Status Onset: 07/19/2012 [...] 1 daughter is a vetrinarian on [facility] 2 adopted children supportive son and strained [...] Methotrexate 04/04 Active Tablets 2.5mg 14tab take 2 Z79.899 s capsules/tab Ralph, lets by M.D. 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 02/23 times daily as needed Lidoderm 07/14 Hx Patches 5% 30uni 1 apply to M35.8 ts affected [facility], - area 12 M.D. 07/22 hours on, [...] 05/08 of 04/25/16) Ergocalciferol 01/22 Hx Capsules [id number] 14cap 1 tab by s mouth every [...] day until - clear 11/19 Aspirin Enteric 00 Hx Tablets 81mg 90tab 1 by mouth Unknown Coated Adult Low /0000 DR s daily Strength - 10/06 Pristiq Hx Tablets 50mg 1 by mouth Unknown /0000 ER 24HR every day - 06/03 Viibryd 00 Hx Tablets 10mg 1 by mouth Unknown /0000 every day - 06/12 Viibryd Hx Tablets 40mg 1 tab PO Unknown /0000 daily - 10/06 Lisinopril-Freeburn Hx Tablets 20-25mg 1/2 tab PO Shallmonse, [...] Form Strength Qnty SIG Indications Ordering Provider Triamcinolone 05/09 Administered Injection Deon (Kenalog) /Mayela Rosas M.D. Injection 10/07 Administered Injection Beti Onabotulinumtoxin /2014 Cowdery, A, 1 Unit M.D. Injection 06/17 Administered Injection Nano Onabotulinumtoxin /2014 IMER Kendall A, 1 Unit Injection 03/11 Administered Injection Nano Onabotulinumtoxin /2014 Faiza, BAS[employer] SCI[employer] DEAN A, 1 Unit Injection 12/05 Administered Injection [...] Result H/L Range Note Laboratory test finding 05/10/2018 Erythrocyte Sed Rate 27 mm/Hr 0-40 1 C Reactive Protein 8.66 mg/L High <8.01 2 CBC Auto Diff 05/10/2018 White Blood Count 11.5 10^3/uL High 3.5-10.8 Red Blood Count 5.35 10^6/uL 4.00-5.40 Hemoglobin 14.0 g/dL 12.0-16.0 Hematocrit 43 % 35-47 Mean Corpuscular Volume 80 fL 80-97 Mean Corpuscular Hemoglobin 26 pg Low 27-31 Mean Corpuscular HGB Conc 33 g/dL 31-36 Red Cell Distribution Width 17 % High 10.5-15 Platelet Count 417 10^3/uL 150-450 Mean Platelet Volume 8.0 um3 7.4-10.4 Abs Neutrophils 8.4 10^3/uL High 1.5-7.7 Abs Lymphocytes 2.2 10^3/uL 1.0-4.8 Abs Monocytes 0.6 10^3/uL 0-0.8 Abs Eosinophils 0.2 10^3/uL 0-0.6 Abs Basophils 0.1 10^3/uL 0-0.2 Abs Nucleated RBC 0 10^3/uL Granulocyte % 72.7 % 38-83 Lymphocyte % 19.6 % Low 25-47 Monocyte % 4.9 % 0-7 Eosinophil % 1.7 % 0-6 Basophil % 1.1 % 0-2 Nucleated Red Blood Cells % 0 Comp Metabolic Panel 05/10/2018 Sodium 138 mmol/L 135-145 Potassium 5.0 mmol/L 3.5-5.0 Chloride 105 mmol/L 101-111 Co2 Carbon Dioxide 25 mmol/L 22-32 Anion Gap 8 mmol/L 2-11 Glucose 100 mg/dL 70-100 Blood Urea Nitrogen 27 mg/dL High 6-24 Creatinine 1.35 mg/dL High 0.51-0.95 BUN/Creatinine Ratio 20.0 8-20 Calcium 10.2 mg/dL 8.6-10.3 Total Protein 7.4 g/dL 6.4-8.9 Albumin 4.4 g/dL 3.2-5.2 Globulin 3.0 g/dL 2-4 Albumin/Globulin Ratio 1.5 1-3 Total Bilirubin 0.30 mg/dL 0.2-1.0 Alkaline Phosphatase 123 U/L High 34-104 Alt 14 U/L 7-52 Ast 16 U/L 13-39 Egfr Non- 38.9 >60 Egfr 47.0 >60 3 Laboratory test finding 04/01/2018 TSH (Thyroid Stim Horm) 2.18 mcIU/mL 0.34-5.60 4 Creatine Kinase(CK) 66 U/L 10-223 5 Erythrocyte Sed Rate 14 mm/Hr 0-40 6 C Reactive Protein 7.09 mg/L High < 5.00 7 CBC Auto Diff 04/01/2018 White Blood Count [...] Egfr Non- 42.1 >60 Egfr 54.1 >60 8 Laboratory test finding 04/01/2018 Vitamin D, 1,25 29 pg/mL 18-78 9 Dihydroxy Laboratory test finding 08/12/2017 Surgical Pathology SEE RESULT BELOW 10 Urinalysis Profile 07/12/2017 Urine Color Yellow Urine Appearance Cloudy Urine Specific [place] 1.021 1.010-1.030 Urine pH 5.0 5-9 Urine [...] Present Absent Urine Amorphous Crystals Present Absent CBC Auto Diff 07/12/2017 White Blood Count [...] Egfr Non- 52.7 >60 Egfr 67.8 >60 11 Urine Culture And Sensitivities 07/12/2017 Urine Culture SEE RESULT BELOW 12 Magdalena Igg AB Reflex 07/12/2017 SS-A/Ro Antibody <0.2 U 13 SS-B/La Antibody <0.2 U 14 Sm (Gipson) IgG Antibody <0.2 U 15 U1-nRNP Antibody 0.7 U 16 Scl-70 (Scleroderma) Antibody 0.8 U 17 Damaris-1 Antibody <0.2 U 18 Laboratory test finding 07/12/2017 Centromere Auto Abs >8.0 U 19 Ribosome P Antibodies, Igg <0.2 U 20 Interpretation See Comment 21 Anti Double Stranded Dna Ab 14.2 22 Laboratory test finding 07/12/2017 Vitamin D, 1,25 Dihydroxy 33 pg/mL 18- 78 23 Connective Tissue Panel 07/12/2017 Anti-Nuclear Antibody 9.9 U High 24 Cyclic Citrullinated Peptide <15.6 U 25 Laboratory test finding 07/12/2017 TSH (Thyroid Stim 1.52 mcIU/mL 0.34- 5.60 26 Horm) C Reactive Protein 7.93 mg/L High < 5.00 27 Erythrocyte Sed Rate 25 mm/Hr 0-40 28 Comp Metabolic Panel 04/06/2017 Sodium 140 mmol/L [...] Egfr Non- 30.9 >60 Egfr 39.8 >60 29 Laboratory test finding 04/06/2017 Magnesium 2.2 mg/dL 1.9-2.7 Troponin-I (TnI) 0.00 ng/mL <0.04 30 TSH (Thyroid Stim Horm) 2.57 mcIU/mL 0.34-5.60 Laboratory test finding 12/08/2016 Erythrocyte Sed Rate 23 mm/Hr 0-40 C Reactive Protein 8.92 mg/L High < 5.00 31 Vitamin D 1,25 And Vitamin 12/08/2016 Vitamin D Total 25(Oh) 24.1 ng/mL Low 30-50 D,2 Vitamin D, 1,25 Dihydroxy 65 pg/mL 18-78 32 Laboratory test 12/08/2016 Nuclear Ab (Maddy) by Positive 1:1280 33 finding Ifa, IgG Laboratory test 07/14/2016 C Reactive Protein 10.25 mg/L High < 5.00 34 finding Erythrocyte Sed Rate 28 mm/Hr 0-40 [...] Egfr Non- 34.1 >60 Egfr 43.9 >60 35 Laboratory test finding 07/14/2016 Creatine Kinase(CK) 41 [...] Egfr Non- 42.4 >60 Egfr 54.5 >60 36 Laboratory test finding 04/02/2016 Troponin I 0.00 ng/mL <0.03 37 Comp Metabolic Panel 02/24/2016 Sodium 140 mmol/L [...] Egfr Non- 25.7 >60 Egfr 33.1 >60 38 Laboratory test finding 02/24/2016 Creatine Kinase(CK) 65 U/L 10-223 Connective Tissue Panel 02/24/2016 Anti-Nuclear Antibody 7.9 U High 39 Cyclic Citrullinated Peptide <15.6 U 40 Magdalena Igg AB Reflex 02/24/2016 SS-A/Ro Antibody <0.2 U 41 SS-B/La Antibody <0.2 U 42 Sm (Gipson) IgG Antibody <0.2 U 43 U1-nRNP Antibody <0.2 U 44 Scl-70 (Scleroderma) Antibody <0.2 U 45 Damaris-1 Antibody <0.2 U 46 Laboratory test finding 02/24/2016 Centromere Auto Abs 5.5 U 47 Ribosomal Antibody <0.2 U 48 Anti Double Stranded Dna Ab < 12.3 IU/mL 49 Interpretation See Comment 50 CBC Auto Diff 02/24/2016 White Blood Count [...] 0-2 Nucleated Red Blood Cells % 0 Laboratory test finding 02/24/2016 Erythrocyte Sed Rate 24 mm/Hr 0-40 C Reactive Protein 11.89 mg/L High < 5.00 51 Anca Panel For Vasculitis 01/27/2016 Myeloperoxidase AB <0.2 U 52 Proteinase 3 AB <0.2 U 53 Beta 2 Glycoprotein I Abs 01/27/2016 Beta 2 Glycoprotein IgG <4.0 U/mL 54 Beta 2 Glycoprotein IgM <4.0 U/mL 55 Laboratory test finding 01/27/2016 Creatine Kinase(CK) 58 U/L 10-223 Cardiolipin Igg/Igm 01/27/2016 Phospholipid Ab IgM, S < 4.0 MPL 56 Phospholipid Ab IgG < 4.0 GPL 57 Laboratory test finding 01/27/2016 Complement C3 144 mg/dL 75 - 175 58 Complement C4 24 mg/dL 14 - 40 59 Protein Electrophoresis 01/27/2016 Total Protein(Pep) 7.1 g/dL 6.3 - 7.9 Albumin 3.6 g/dL 3.4-4.7 Alpha-1 Globulin 0.3 g/dL 0.1-0.3 Alpha-2 Globulin 1.1 g/dL 0.6-1.0 Beta Globulin 1.1 g/dL 0.7-1.2 Gamma Globulin 1.0 g/dL 0.6-1.6 Albumin/Globulin Ratio 1.02 Impression See Comment 60 Hepatitis Acute Panel 01/27/2016 Hepatitis C Antibody Nonreactive Nonreactive Hepatitis A AB Igm Nonreactive Nonreactive Hepatitis B Core AB Igm Nonreactive Nonreactive Hepatitis B Surface Ag Nonreactive Nonreactive Connective Tissue Panel 01/27/2016 Anti-Nuclear Antibody 8.6 U 61 Cyclic Citrullinated Peptide <15.6 U 62 Centromere Abs 5.8 U 63 Ribosomal Antibody <0.2 U 64 Anti SS-A/Ro 0.2 U 65 SS-B/La Antibody <0.2 U 66 Sm (Gipson) IgG Antibody <0.2 U 67 U1 SHERIFF SERGEANT IgG Autoabs <0.2 U 68 Scleroderma Ab <0.2 U 69 Damaris-1 Antibody <0.2 U 70 Anti Double Stranded Dna Ab <12.3 IU/mL 71 Interpretation See Comment 72 Maddy Hep-2 12/30/2015 Maddy Pattern Speckled Negative Maddy Titer 1:1280 <1:80 Maddy Reviewed By MD Cristina Booker 73 Celiac Panel 12/30/2015 Tissue Transglutaminase IgA Ab <1.2 U/mL 74 Immunoglobulin A 254 mg/dL 61 - 356 Celiac Interpretation See Comment 75 Laboratory test finding 12/30/2015 Anti Ssa/Ro 0.2 U 76 Anti SSB LA <0.2 U 77 Vitamin D 1,25 And Vitamin 12/30/2015 Vitamin D Total 25(Oh) 14.6 ng/mL Low 30-50 D,2 Vitamin D, 1,25 Dihydroxy 29 pg/mL 18-78 78 Laboratory test finding 12/30/2015 Lyme Disease Serology Negative Negative 79 Rheumatoid Factor <15 IU/mL <15 80 Uric Acid 6.3 mg/dL 2.3-6.6 Creatine Kinase(CK) 61 U/L 10-223 Vitamin B12 257 pg/mL 180-914 81 Laboratory test 12/30/2015 Maddy (Antinuclear Reflexed to FA Negative finding Antibodies) Angiotensin Converting Enzyme <5 U/L 8 - 53 82 C Reactive Protein 11.50 mg/L High < 5.00 83 Cyclic Citrullinated Pep Igg <15.6 U 84 Erythrocyte Sed Rate 18 mm/Hr 0-40 Hla B27 12/30/2015 Hla B27 Negative 85 Hla B27 Interp See Comment 86 Laboratory test finding 07/19/2012 Alt (SGPT) 40 U/L 14-54 Ast (Sgot) 41 U/L 12-42 Lipid Profile (Trig/Chol/HDL) 07/08/2012 Triglyceride 216 mg/dL High 40- 200 Cholesterol 278 mg/dL High Less Than 200 87 High Density Lipoprotein 44 mg/dL 40-60 88 Cholesterol/HDL Ratio 6.32 AVERAGE High 1-4.44 Low Density Lipoprotein 191 mg/dL High Less Than 100 89 Cath Panel 07/08/2012 PTT (Aptt) 26.9 SEC [...] mmol/L 22-32 Anion Gap 7.0 mmol/L 2-11 90 Glucose 112 mg/dL High 70-100 BUN 30 mg/dL High 6-24 Creatinine 1.5 mg/dL High 0.50-1.40 One Over Creatinine 0.66 BUN/Creatinine Ratio 20.0 8-20 Calcium 9.7 mg/dL 8.1-9.9 eGFR Non- 35.1 > 60 eGFR 45.1 > 60 91 Protime 07/08/2012 Inr 0.83 Low 0.88-1.13 92 Protime 9.8 SEC Low 10.3-13.5 93 1 Please check labs tomorrow 2 Please check labs tomorrow 3 Because ethnic data is not always readily [...] 15-29 5 Kidney failure <15 (or dialysis) 4 Please check labs 2 days before follow up 5 Please check labs 2 days before follow up 6 Please check labs 2 days before follow up 7 Acute inflammation: >10.00 8 Because ethnic data is not always [...] 5 Kidney failure <15 (or dialysis) 9 ADDITIONAL INFORMATION This test was developed and its performance characteristics determined by [facility] in a manner consistent with CLIA requirements. This test has not been cleared or approved by the U.S. Food and Drug Administration. Test Performed by: [facility] [address] [place] [address] 10 SEE RESULT BELOW Name: KLAUDIA JEONG : [address]: Ti Nicholas MD Acct: [id number] Unit: [id number] AGE: 67 Location: OR Re08/12/17 SEX: F Status: DEP SD SPEC: [id number] NIGEL: 08/12/17- [facility] DR: Ti Nicholas MD REQ: [id number] RECD: 08/12/17 STATUS: SOUT _ ORDERED: LEVEL 3 FINAL [...] and the wall thickness averages 0.1 cm. Pharmacy Messenger sections, one cassette. Signed (signature on file) Ibeth Booker MD 1650 END OF REPORT * ML=Testing performed at Main Lab DEPARTMENT OF PATHOLOGY, [address] [place] [address] Burak Harrison M.D. Director [facility] # [id number] 11 Because ethnic data is not always readily [...] 15-29 5 Kidney failure <15 (or dialysis) 12 SEE RESULT BELOW Name: KLAUDIA JEONG Shaina : [address]: Deon Rosas MD Acct: [id number] Unit: [id number] AGE: 67 Location: [facility] Re07/12/17 SEX: F Status: REG REF SPEC: [id number] NIGEL: 07/12/17-[address]: Deon Rosas MD REQ: [id number] RECD: 07/12/17 STATUS: COMP _ SOURCE: URINE SPDESC: ORDERED: Urine Culture Procedure Result Reported Site Urine Culture Final 07/14/17- 1003 ML No Growth (<1,000 CFU/mL) * ML - MAIN LAB ([facility]) . END OF REPORT * ML=Testing performed at Main Lab DEPARTMENT OF PATHOLOGY, [address] [place] [address] Burak Harrison M.D. Director [facility] # [id number] 13 REFERENCE VALUE <1.0 (Negative) 14 REFERENCE VALUE <1.0 (Negative) 15 REFERENCE VALUE <1.0 (Negative) 16 REFERENCE VALUE <1.0 (Negative) 17 REFERENCE VALUE <1.0 (Negative) 18 REFERENCE VALUE <1.0 (Negative) Test Performed by: [place] [address] 19 Interpretation: Positive (>=1.0) REFERENCE VALUE <1.0 (Negative) Test Performed by: [place] [id number] 20 REFERENCE VALUE <1.0 (Negative) Test Performed by: [place] [id number] RESULT: Consistent with CREST syndrome. Test Performed by: [address] [id number] 22 Test Result Flag Unit RefValue dsDNA Ab with Reflex, IgG, 14.2 IU/mL S Negative for dsDNA antibody by enzyme immunoassay. No further testing recommended. REFERENCE VALUE <30.0 (Negative) Test Performed by: [facility] - [address] [address] ADDITIONAL INFORMATION This test was developed and its performance characteristics determined by [facility] in a manner consistent with CLIA requirements. This test has not been cleared or approved by the U.S. Food and Drug Administration. Test Performed by: [facility] - [address] [address] 24 Interpretation: Strong Positive (>=6.0) REFERENCE VALUE <=1.0 (Negative) 25 REFERENCE VALUE <20.0 (Negative) Test Performed by: [facility] - [address] [address] 26 Please check 1 week prior to follow up 27 Acute inflammation: >10.00 28 Please check 1 week prior to follow up 29 Because ethnic data is not always readily [...] 15-29 5 Kidney failure <15 (or dialysis) 30 99th percentile=0.04 ng/mL Troponin results at [facility] are not interchangeable. 31 Acute inflammation: >10.00 32 ADDITIONAL INFORMATION This test was developed and its performance characteristics determined by [facility] in a manner consistent with CLIA requirements. This test has not been cleared or approved by the U.S. Food and Drug Administration. Test Performed by: [facility] [place] [address] Knuckler: Braydon Turpin II, M.D., Ph.D. 33 REFERENCE VALUE <1:80 (Negative) MADDY Titer: 1:1280 MADDY Pattern: Speckled Test Performed by: [place] [address] Knuckler: Braydon Turpin II, M.D., Ph.D. 34 Acute inflammation: >10.00 35 Because ethnic data is not always readily [...] 15-29 5 Kidney failure <15 (or dialysis) 36 Because ethnic data is not always [...] 5 Kidney failure <15 (or dialysis) 37 Reference Range and Interpretation: TnI (ng/mL) Interpretation Less Than 0.03 ng/mL Not supportive of diagnosis of AK 0.03 - 0.50 ng/mL Indeterminate: suggest serial studies if clinically indicated. Greater than 0.5 ng/mL Consistent with diagnosis of AK 38 Because ethnic data is not always readily [...] 15-29 5 Kidney failure <15 (or dialysis) 39 Interpretation: Strong Positive (>=6.0) REFERENCE VALUE <=1.0 (Negative) 40 REFERENCE VALUE <20.0 (Negative) Test Performed by: [address] [address] Knuckler: Braydon Turpin II MRafiq., Ph.D. 41 REFERENCE VALUE <1.0 (Negative) 42 REFERENCE VALUE <1.0 (Negative) 43 REFERENCE VALUE <1.0 (Negative) 44 REFERENCE VALUE <1.0 (Negative) 45 REFERENCE VALUE <1.0 (Negative) 46 REFERENCE VALUE <1.0 (Negative) Test Performed by: [address] [address] Knuckler: Braydon Turpin II, M.D., Ph.D. 47 Interpretation: Positive (>=1.0) REFERENCE VALUE <1.0 (Negative) Test Performed by: [place] [address] Knuckler: Braydon Turpin II, M.D., Ph.D. 48 REFERENCE VALUE <1.0 (Negative) Test Performed by: [place] [address] Knuckler: Braydon Turpin II, M.D., Ph.D. 49 Negative for dsDNA antibody by enzyme immunoassay. No further testing recommended. REFERENCE VALUE <30.0 (Negative) Test Performed by: [place] [address] Knuckler: Braydon Turpin II, M.D., Ph.D. 50 RESULT: Consistent with CREST syndrome. Test Performed by: [place] [address] Knuckler: Braydon Turpin II, M.D., Ph.D. 51 Acute inflammation: >10.00 52 REFERENCE VALUE <0.4 (Negative) 53 REFERENCE VALUE <0.4 (Negative) Test Performed by: [place] [address] Knuckler: Braydon Turpin II, M.D., Ph.D. 54 REFERENCE VALUE <10.0 (Negative) 55 REFERENCE VALUE <10.0 (Negative) Test Performed by: [place] [address] Knuckler: Braydon Turpin II, M.D., Ph.D. 56 REFERENCE VALUE <10.0 (Negative) 57 REFERENCE VALUE <10.0 (Negative) Test Performed by: [place] [address] Knuckler: Braydon Turpin II, M.D., Ph.D. 58 Test Performed by: [place] [address] Knuckler: Braydon Turpin II, M.D., Ph.D. 59 Test Performed by: [place] [address] Knuckler: Braydon Turpin II, M.D., Ph.D. 60 RESULT: No apparent monoclonal protein on serum electrophoresis. Test Performed by: [place] [address] Knuckler: Braydon Turpin II, M.D., Ph.D. 61 Interpretation: Strong Positive (>=6.0) REFERENCE VALUE <=1.0 (Negative) 62 REFERENCE VALUE <20.0 (Negative) Test Performed by: [place] [address] Knuckler: Braydon Turpin II, M.D., Ph.D. 63 Interpretation: Positive (>=1.0) REFERENCE VALUE <1.0 (Negative) Test Performed by: [place] [id number] Knuckler: Braydon Turpin II, M.D., Ph.D. 64 REFERENCE VALUE <1.0 (Negative) Test Performed by: [place] [address] Knuckler: Braydon Turpin II, M.D., Ph.D. 65 REFERENCE VALUE <1.0 (Negative) 66 REFERENCE VALUE <1.0 (Negative) 67 REFERENCE VALUE <1.0 (Negative) 68 REFERENCE VALUE <1.0 (Negative) 69 REFERENCE VALUE <1.0 (Negative) 70 REFERENCE VALUE <1.0 (Negative) Test Performed by: [place] [address] Knuckler: Braydon Turpin II, M.D., Ph.D. 71 Negative for dsDNA antibody by enzyme immunoassay. No further testing recommended. REFERENCE VALUE <30.0 (Negative) Test Performed by: [place] [address] Knuckler: Braydon Turpin II, M.D., Ph.D. 72 RESULT: Consistent with CREST syndrome. Test Performed by: [place] [address] Knuckler: Braydon Turpin II, M.D., Ph.D. 73 Cristina Booker 74 REFERENCE VALUE <4.0 (Negative) Test Performed by: [place] [address] Knuckler: Braydon Turpin II, M.D., Ph.D. 75 Negative serology. Celiac disease unlikely. However, approximately 10% of patients with celiac disease are seronegative. Also, patients who are already adhering to a gluten-free diet may be seronegative. If celiac disease is highly clinically suspected, consider HLA-DQ typing. Test Performed by: [place] [address] Knuckler: Braydon Turpin II, M.D., Ph.D. 76 REFERENCE VALUE <1.0 (Negative) Test Performed by: [place] [address] Knuckler: Braydon Turpin II, M.D., Ph.D. 77 REFERENCE VALUE <1.0 (Negative) Test Performed by: [place] [address] Knuckler: Braydon Turpin II, M.D., Ph.D. 78 Test Performed by: [place] [address] Knuckler: Braydon Turpin II, M.D., Ph.D. 79 Serologic response to B. burgdorferi infection is not detected, but cannot rule out early infection during which low or undetectable antibody levels to B. burgdorferi may be present. If clinically indicated, a new serum specimen should be submitted in 7-14 days. Test Performed by: [place] [address] Knuckler: Braydon Turpin II, M.D., Ph.D. 80 Test Performed by: [place] [address] Knuckler: Braydon Turpin II, M.D., Ph.D. 81 Normal Range 180 to 914 Indeterminate Range 145 to 180 Deficient Range <145 82 Test Performed by: [place] [address] Knuckler: Braydon Turpin II, M.D., Ph.D. 83 Acute inflammation: >10.00 84 REFERENCE VALUE <20.0 (Negative) Test Performed by: [place] [address] Knuckler: Braydon Turpin II, M.D., Ph.D. 85 REFERENCE VALUE Not Applicable 86 RESULT: HLA-B27 antigen was not detected. ADDITIONAL INFORMATION Method: Flow Cytometry Performing Laboratory CLIA# [id number] Test Performed by: [place] [address] Knuckler: Braydon Turpin II, M.D., Ph.D. 87 CHOLESTEROL INTERPRETATION: Desirable: Less than 200 MG/DL Borderline-High Risk: 200-239 MG/DL High-Risk: 240 MG/DL and over 88 HDL INTERPRETATION: Undesirable: High Risk: Less than 40 MG/DL Desirable: Low Risk: Greater than 60 MG/DL 89 LDL INTERPRETATION: Low Risk Optimal Level: LDL Less than 100 MG/DL Near or Above Optimal: LDL 100-129 MG/DL Borderline High Risk: LDL 130-159 MG/DL High Risk: LDL 160-189 MG/DL Very High Risk: LDL Greater than 189 MG/DL 90 Anion gap measurement may be of limited value in the presence of any alkalosis, especially in a combined acid base disorder. . 91 Because ethnic data is not always readily [...] 15-29 5 Kidney failure <15 (or dialysis) 92 Recommended INR for Patients on Oral Anticoagulants Prophylaxis 2.0 - 3.0 Treatment of thrombosis 2.0 - 3.0 Prevention of embolism 2.0 - 3.0 Prevention of embolism from prosthetic heart valves 2.5 - 3.5 93 DIAGNOSIS,TREATMENT,AND THERAPY MUST BE BASED ON THE INR VALUE ALONE. Procedures Date CPT Code Description Status 05/09/2018 82797 Inject/Drain Joint/Bursa Major W/O US Completed 08/12/2017 90778 Laparoscopy Cholecystectomy Completed 08/12/2017 05987 Laparoscopy Cholecystectomy Completed 07/12/2017 Mammogram Completed 05/13/2017 59123 Treadmill Interp/Report Only Completed 05/13/2017 82465 Stress Test Supervsn W/Out I/R Completed 04/21/2017 71322 ECHO Transthoracic, Real-Time 2D With Doppler And Color Completed Flow 04/06/2017 81545 EKG Tracing & Interpretation Completed 06/19/2016 99522 EKG Tracing & Interpretation Completed 06/03/2016 29976 EKG, Interpretation Only Completed 04/17/2016 82537 Treadmill Interp/Report Only Completed 04/17/2016 20688 Stress Test Supervsn W/Out I/R Completed 04/02/2016 65123 ECHO Transthorasic Realtime 2D W Doppler & Color Flow Completed Hosp 03/26/2016 10081 Stress Test Supervsn W/Out I/R Completed 03/26/2016 52770 Treadmill Interp/Report Only Completed 03/26/2016 56421 Stress ECHO Interpretation/Report Hospital Completed 03/14/2016 17813 Holter Monitor Review (24 hr)dr review & interp only Completed 03/13/2016 87077 ECHO Transthoracic, Real-Time 2D With Doppler And Color Completed Flow 03/09/2016 40254 ECG Monitor/Recording W/Visual Superimposition Scanning Completed 01/27/2016 Bone Mineral Density Test Completed 11/29/2015 Mammogram Completed 11/25/2015 07940 EKG Tracing & Interpretation Completed 10/07/2015 04479 Chemodenervation Of Muscles Innervated By Facial Completed Nerves, Bilat 06/17/2015 86371 Chemodenervation Of Muscles Innervated By Facial Completed Nerves, Bilat 03/11/2015 86486 Chemodenervation Of Muscles Innervated By Facial Completed Nerves, Bilat 12/05/2014 84967 Chemodenervation Of Muscles Innervated By Facial Completed Nerves, Bilat 08/30/2014 19344 Chemodenervation Of Muscles Innervated By Facial Completed Nerves, Bilat 07/11/2014 41465 Injection For Nerve Block, Greater Occipital Nerve Completed 05/21/2014 13660 Chemodenervation Of Muscles Innervated By Facial Completed Nerves, Bilat 07/28/2012 32065 Left Heart Cath. Incl S/I Coronaries, Angio S/I V Gram Completed If Done 07/28/2012 70587 EKG, Interpretation Only Completed Encounters Type Date Location Provider CPT E/M Dx Office Visit 05/09/2018 [facility] Deon Rosas M.D. 82640 L40.50 3:40p Of Marya R79.82 N18.9 Z79.899 M70.72 Office Visit 04/04/2018 4:00p [facility] Deon Rosas 08299 L40.50 Of Marya Esquivel R79.82 N18.9 M79.7 M35.8 Z79.899 Office Visit 12/21/2017 2:00p [facility] Deon Rosas 39776 M79.7 Marya Esquivel Z79.1 M35.8 E55.9 Office Visit 11/23/2017 10:16a [facility] [place], [address] M79.7 Assoc, [facility] Esquivel J45.909 F41.9 I10 Office Visit 11/22/2017 10:15a [facility], Matti Luna, [address] M79.7 Hospitalists Liana J45.909 F41.9 I10 Office Visit 09/16/2017 11:00a [facility] Deon Rosas 21844 M79.7 Marya Esquivel R79.82 Z79.1 R76.0 Office Visit 07/20/2017 4:00p [facility] Deon Rosas, 15378 M35.8 Marya Esquivel R79.82 E55.9 M79.7 Z79.899 Office Visit 07/20/2017 11:00a [facility] [place], [address] K80.10 Marya M.DGiovany Office Visit 07/16/2017 3:30p [facility] GUS Sal [address]95[address] I10 Office Visit 06/18/2017 10:45a [facility], [address] K80.10 Marya M.DGiovany Office Visit 06/10/2017 11:40a [facility] Deon Rosas 54581 M79.7 Of Marya Esquivel M35.8 R79.82 E55.9 Z79.1 Office Visit 05/09/2017 7:13a [facility], [address]66 R07.2 Hospitalists M.D. R00.1 M79.7 I10 Office Visit 05/08/2017 7:12a [facility], [address]72 R07.2 Hospitalists M.D. R00.1 M79.7 I10 Office Visit 04/07/2017 3:00p [facility] [place] [address] R41.3 Of [employer] Assistant F41.9 F33.9 Office Visit 04/06/2017 12:00p [facility] Kyle Lopez M.D. 02193 I10 E78.00 I25.10 R07.9 E87.6 R94.31 Office Visit 02/23/2017 3:00p [facility] Deon Rosas 66691 M79.7 Marya Esquivel R79.82 M35.8 E55.9 Z79.899 Office Visit 12/08/2016 2:00p [facility] Deon Rosas 35980 M79.7 Marya Esquivel R79.82 M35.8 E55.9 Office Visit 07/14/2016 11:00a [facility] Rosas 30577 M35.8 Marya Esquivel Z79.899 R79.82 M79.7 Office Visit 06/19/2016 3:40p [facility] Kyle Lopez, 58121 Z01.810 M.D. H26.9 R07.89 I25.119 I10 K21.9 Office Visit 06/03/2016 1:24p [facility], Roxy Traylorbjorn, [employer] DEAN 28344 R07.9 Hospitalists K21.9 I25.119 I10 Office Visit 06/02/2016 1:23p [facility], Ana Shearerch, [employer] [place]AN 03381 R07.9 Hospitalists K21.9 I25.119 I10 Office Visit 05/13/2016 11:00a [facility] De[facility] Rosas 80429 M35.8 Lead Recreation Assistant M.DGiovany Z79.899 R79.82 Office Visit 04/14/2016 10:30a [facility] GUS Sal 22007 R07.9 R42 R06.00 I10 I95.1 R00.2 Office Visit 02/24/2016 10:20a [facility] Deon Rosas 74270 L40.50 Of [employer] Recreation Assistant M.D. R79.82 M79.7 Z79.899 Office Visit 01/22/2016 3:00p [facility] Deon Rosas 32074 L40.50 Of [employer] Recreation Assistant M.D. R76.0 R79.82 R20.8 M85.89 Z79.899 M79.1 Office Visit 12/30/2015 1:00p [facility] Rosas 61736 M06.4 Marya Graham.DGiovany R20.8 M54.15 M54.2 M35.01 L13.0 Office Visit 11/25/2015 2:00p [facility] Kyle Lopez M.D. 38056 I10 E78.2 R07.9 R94.31 R06.00 R42 R06.83 K44.9 R01.1 Office Visit 07/11/2014 12:00p [facility] Beti Castillo M.D. 41568 346.11 Services Of [employer] Assistant Office Visit 05/16/2014 8:30a [facility] Beti Castillo M.D. 87413 346.11 [facility] 333.83 Office Visit 03/12/2014 10:00a [facility] Beti Castillo M.D. 38840 723.8 [facility] 346.11 Office Visit 07/28/2012 8:05a [facility] More Abreu D.O. 45246 786.50 794.31 411.1 401.1 Office Visit 07/28/2012 11:19a [facility],pc Melissa Real, 58012 786.51 Hospitalists N.P. 401.9 272.2 Office Visit 07/27/2012 11:18a [facility] Matti Luna, 28104 786.51 Assoc,pc Hospitalists N.P. 401.9 272.2 Office Visit 07/19/2012 2:40p [facility] AT More Abreu, [address]793 786.59 [facility] [place] 411.1 401.1 272.4 Office Visit 07/08/2012 10:00a [facility] More Abreu D.O. 55296 411.1 401.1 278.00 Plan of Care Future Appointment(s):07/06/2018 1:10 pm - Kyle Lopez M.D. at [facility]06/20/2018 2:00 pm - Deon Rosas M.D. at [facility]05/09/2018 - Deon Rosas M.D.L40.50 Arthropathic psoriasis, unspecifiedFollow up:Follow up in 2 months or sooner if lznsteF64.82 Elevated C- reactive protein (CRP)N18.9 Chronic kidney disease, [id number] Other intermission coordinator (current) drug therapyComments:Per [place] [employer] guidelines, a CBC and CMP will be checked to monitor for Methotrexate toxicity. The patient was advised to alert medical authority if shortness of breath develops while taking this medication.M70.72 Other bursitis of hip, left hip
[2018-06-10 18:36] VITALS: BP 190/91
== END | disposition left against medical advice (07) ==
LOC: ED 16:59
DX: S09.90XA Unspecified injury of head, initial encounter (principal); Z53.21 Procedure and treatment not carried out due to patient leaving prior to being seen by health care provider

== ENCOUNTER 2018-06-11 14:52 | Emergency (ER) | payer MEDICARE, MEDICAID ==
--- NOTE | 2018-06-11 15:48 | ED ---
Head Injury - HPI Summary HPI Summary: This is scribe Ian Lesliein documenting for attending Joe Vargas MD. A 68 y/o female JOSE presents to ED s/p head injury occurring 10 days ago. In the ED room, the patient had a pulse of 110 BPM, O2 saturation of 96% and blood pressure of 122/72. As per triage, "Pt reports 10 days ago she was attempting to find her "expensive medicine" up in a cupboard, in which she climbed up on a counter top, and proceeded to try to pull a box down, when the box fell on her head, and she fell back and "hit my head on the cupboard door and fell to the floor." Pt reports she crawled to her bedroom and called 911. Pt reports she was seen in this ED 1 week ago, and also was brought up here yesterday by her son, but LWBS. Pt c/o KOTHARI and dizziness, but denies N/V at this time. Pt also c/ o L ear pain stating "I can't hear out of it". According to the patient, she came to the ED today because she has a pointer finger tip sized of black wax in her left ear that is painful, 8/10. She noted that "they" (the doctors) did not want to take it out because "they can't hear from it" and "they didn't want to remove it because of two fractures". Additionally, she has a red spot in her ear on the right side. Patient does have a headache. As per triage, she was told that she fell and hit her head 10 days ago. She was reaching for her medications in a high cabinet and she fell off the chair and hit her head on the cabinet. A Brain CT done on Wednesday and she was discharged a day ago as she left without being seen. Her called EMS today because he wanted her to be seen. She did follow up with PCP but it was noted that the patient was very confused and there was blood behind her left ear. BRAIN CT FROM JUNE 02 2018: IMPRESSION: 1. STABLE LEFT TEMPORAL EPIDURAL HEMATOMA AND PARIETAL OCCIPITAL SUBDURAL HEMATOMA. 2. INTERVAL RESOLUTION OF SUBARACHNOID HEMORRHAGE. 3. THERE IS DEVELOPING VASOGENIC EDEMA OF THE LEFT TEMPORAL LOBE SUGGESTIVE OF CONTUSION. 4. AGAIN NOTED IS A LEFT TEMPORAL BONE FRACTURE EXTENDING INTO THE MASTOID AIR CELLS.. I, Dr. Joe Vargas, personally performed the services described in this documentation as scribed in my presence and it is both accurate and complete. - History Of Current Complaint Chief Complaint: EDHeadache Stated Complaint: FALL HEAD INJURY Time Seen by Provider: 06/11/18 15:13 Hx Obtained From: Patient Mechanism Of Injury: Fall From Height Of:, Unknown Onset/Duration: Started Days Ago - 10 days Onset of Pain: Post Accident Severity Currently: Severe Severity Initially: Severe Pain Intensity: 8 Pain Scale Used: 0-10 Numeric Character: Unable to describe Aggravating Factor(s): Other: - NOTHING Alleviating Factor(s): Other: - NOTHING Associated Signs And Symptoms: Headache - Allergies/Home Medications Allergies/Adverse Reactions: Allergies Allergy/AdvReac Type Severity Reaction Status Date / Time lactose Allergy GI Upset Verified 06/10/18 17:16 morphine Allergy See Comment Verified 06/10/18 17:16 pravastatin Allergy Muscle Ache Verified 06/10/18 17:16 procaine [From Novocain] Allergy Agitation Verified 06/10/18 17:16 ampicillin AdvReac Severe Diarrhea Verified 06/10/18 17:16 doxycycline [From Vibramycin] AdvReac See Comment Verified 06/10/18 17:16 gabapentin AdvReac See Comment Verified 06/10/18 17:16 olanzapine [From Zyprexa] AdvReac See Comment Verified 06/10/18 17:16 sertraline [From Zoloft] AdvReac See Comment Verified 06/10/18 17:16 PMH/Surg Hx/FS Hx/Imm Hx Endocrine/Hematology History: Denies: Hx Anticoagulant Therapy, Hx Blood Disorders, Hx Blood Transfusions, Hx Bone Marrow Disease, Hx Diabetes, Hx Systemic Lupus Erythematosus, Hx Sickle Cell Disease, Hx Thyroid Disease, Hx Anemia, Hx Unexplained Bleeding, Other Endocrine/Hematological Disorders Cardiovascular History: Reports: Hx Angina, Hx Coronary Artery Disease - CARDIAC CATHERIZATION, FOLLOWED BY DR KHAN, Hx Hypercholesterolemia, Hx Hypertension, Hx Myocardial Infarction, Other Cardiovascular Problems/Disorders - CARRIES NITRO FOR CHEST PAIN Denies: Hx Aneurysm, Hx Angioplasty, Hx Auto Implanted Cardiovert Defib, Hx Cardiac Arrest, Hx Cardiomegaly, Hx Congenital Heart Disease, Hx Congestive Heart Failure, Hx Deep Vein Thrombosis, Hx Embolism, Hx Hypotension, Hx Pacemaker/ICD, Hx Peripheral Vascular Disease, Hx Rheumatic Fever, Hx Syncope, Hx Valvular Heart Disease Respiratory History: Reports: Hx Asthma Denies: Hx Bronchopulmonary Dysplasia, Hx Chronic Bronchitis, Hx Chronic Obstructive Pulmonary Disease (COPD), Hx Cystic Fibrosis, Hx Lung Cancer, Hx Pleural Effusion, Hx Pneumonia, Hx Pulmonary Edema, Hx Pulmonary Embolism, Hx Seasonal Allergies, Hx Sleep Apnea, Other Respiratory Problems/Disorders GI History: Reports: Hx Gastroesophageal Reflux Disease, Hx Irritable Bowel, Other GI Disorders - GALLBLADDER POLYPS/STONES, FATTY LIVER Denies: Hx Cirrhosis, Hx Crohn's Disease, Hx Diverticulosis, Hx Gall Bladder Disease, Hx Gastrointestinal Bleed, Hx Hiatal Hernia, Hx Jaundice, Hx Obstructive Bowel, Hx Ileostomy, Hx Pyloric Stenosis, Hx Ulcer History: Reports: Other Problems/Disorders - 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 NOW Denies: Hx Acute Renal Failure, Hx Benign Prostatic Hyperplasia, Hx Chronic Renal Failure, Hx Dialysis, Hx Kidney Infection, Hx Kidney Stones Musculoskeletal History: Reports: Hx Arthritis - psoriatic , Hx Fibromyalgia, Hx Scoliosis, Other Musculoskeletal History - MILD CURVATURE OF SPINE Denies: Hx Back Problems, Hx Bursitis, Hx Congenital Bone Abnormalities, Hx Gout, Hx Orthopedic Injury, Hx Osteoporosis, Hx Tendonitis Sensory History: Reports: Hx Cataracts - BILAT, Hx Contacts or Glasses - GLASSES Denies: Hx Eye Injury, Hx Eye Prosthesis, Hx Glaucoma, Hx Macular Degeneration, Hx Vision Problem, Hx Deafness, Hx Hearing Aid, Hx Hearing Problem , Other Sensory Impairments Opthamlomology History: Reports: Hx Cataracts - BILAT, Hx Contacts or Glasses - GLASSES Denies: Hx Eye Injury, Hx Eye Prosthesis, Hx Glaucoma, Hx Macular Degeneration, Hx Vision Problem, Other Sensory Impairments Neurological History: Reports: Hx Headaches, Hx Nerve Disease - FIBROMYALGIA Denies: Hx Dementia, Hx Developmental Delay, Hx Migraine, Hx Seizures, Hx Spinal Cord Injury, Hx Transient Ischemic Attacks (TIA), Other Neuro Impairments /Disorders Psychiatric History: Reports: Hx Anxiety - ON MED, Hx Depression Denies: Hx Attention Deficit Hyperactivity Disorder, Hx Autism, Hx Eating Disorder, Hx Oppositional Wise Disorder, Hx Panic Disorder, Hx Post Traumatic Stress Disorder, Hx Inpatient Treatment, Hx Community Mental Health Tx , Hx Schizophrenia, Hx Bipolar Disorder, Hx Suicide Attempt, Hx of Violent Episodes Against Others, Hx Substance Abuse, Other Psychiatric Issues/Disorders - Cancer History Hx Hematologic Symptoms: No Hx Chemotherapy: No Hx Radiation Therapy: No - Surgical History Surgery Procedure, Year, and Place: TUBAL LIGATION- [facility] [place]. HYSTERECTOMY- [facility] [place]. CARPAL TUNNEL X2- [facility] [place]. D&C X3- [facility] [place]. CARDIAC CATHERIZATION- 2011- [facility] [place], minimal CAD with preserved ventricular function. RIGHT CATARACT EXTRACTION WITH IOL IMPLANT-06/2016- [facility] [place]. LEFT CATARACT EXTRACTION WITH IOL IMPLANT-08/2016- [facility] [place]. cholecystectomy Hx Anesthesia Reactions: Yes - MORPHINE CAUSED "SEVERE" BRADYCARDIA - Immunization History Date of Tetanus Vaccine: unk Date of Influenza Vaccine: unk Infectious Disease History: No Infectious Disease History: Reports: Hx Hepatitis - as a child, Hx Shingles, History Other Infectious Disease - ? HEPATITIS A CHILD Denies: Hx Clostridium Difficile, Hx Human Immunodeficiency Virus (HIV), Hx of Known/Suspected MRSA, Hx Tuberculosis, Traveled Outside the [place] in Last 30 Days - Family History Known Family History: Positive: Cardiac Disease - sister, Diabetes Family History: sister - unspecified cardiac ds. Father - CHF - Social History Alcohol Use: None Hx Substance Use: No Substance Use Type: Reports: None Hx Tobacco Use: No Smoking Status (MU): Never Smoked Tobacco Have You Smoked in the Last Year: No Review of Systems Negative: Fever Positive: Ear Ache Positive: Headache All Other Systems Reviewed And Are Negative: Yes Physical Exam - Summary Physical Exam Summary: Appearance: The patient is well-nourished in no acute distress and in no acute pain. Patient is very confused. Skin: The skin is warm and dry and skin color reflects adequate perfusion. HEENT: The head is normocephalic and atraumatic. The pupils are equal and reactive. The conjunctivae are clear and without drainage. Nares are patent and without drainage. Mouth reveals moist mucous membranes and the throat is without erythema and exudate. The external ears are intact. The ear canals are patent and without drainage. The tympanic membranes are intact. Neck: The neck is supple with full range of motion and non-tender. There are no carotid bruits. There is no neck vein distension. Respiratory: Chest is non-tender. Lungs are clear to auscultation and breath sounds are symmetrical and equal. Cardiovascular: Heart is regular rate and rhythm. There is no murmur or rub auscultated. There is no peripheral edema and pulses are symmetrical and equal. Abdomen: The abdomen is soft and non-tender. There are normal bowel sounds heard in all four quadrants and there is no organomegaly palpated. Musculoskeletal: There is no back tenderness noted. Extremities are non-tender with full range of motion. There is good capillary refill. There is no peripheral edema or calf tenderness elicited. Neurological: Patient is alert and oriented to person, place and time. The patient has symmetrical motor strength in all four extremities. Cranial nerves are grossly intact. Deep tendon reflexes are symmetrical and equal in all four extremities. Psychiatric: The patient has an appropriate affect and does not exhibit any anxiety or depression. GCS: 14 Triage Information Reviewed: Yes Vital Signs On Initial Exam: Initial Vitals Temp Pulse Resp BP Pulse Ox 98.7 F 66 18 122/72 96 06/11/18 15:12 06/11/18 15:12 06/11/18 15:12 06/11/18 15:12 06/11/18 15:12 Vital Signs Reviewed: Yes Diagnostics - Vital Signs Vital Signs Temp Pulse Resp BP Pulse Ox 06/11/18 15:12 98.7 F 66 18 122/72 96 - Laboratory Result Diagrams: 06/11/18 17:00 06/11/18 17:00 Lab Statement: Any lab studies that have been ordered have been reviewed, and results considered in the medical decision making process. - Radiology CXR Radiology Interpretation Completed By: Radiologist - NO EVIDENCE FOR ACUTE FINDING. ED PHYSICIAN REVIEWED THIS RADIOLOGY REPORT. - CT BRAIN CT CT Interpretation Completed By: Radiologist - IMPRESSION: 1. VASOGENIC EDEMA IN THE ANTERIOR ASPECT OF THE LEFT TEMPORAL LOBE, UNCHANGED. 2. LEFT TEMPORAL EPIDURAL HEMATOMA AND LESS PROMINENT THAN ON THE PRIOR STUDY. 3. LEFT TEMPOROPARIETAL SUBDURAL HEMATOMA, UNCHANGED. 4. SKULL BASE FRACTURE OF THE LEFT TEMPORAL BONE, UNCHANGED. 5. LEFT MASTOID EFFUSION, UNCHANGED. ED physician reviewed this radiology report. Re-Evaluation - Re-Evaluation First Eval Re-Evaluation Time: 20:41 Comment: Radiologist will come in and do MRI. Head Injury Course/Dx Course Of Treatment: Ms. Strong presented with stable vital signs and afebrile. She had some mild confusion and her son is concerned that this has worsened since she was discharged on the sixth. A repeat CT scan was unchanged from the previous. Her lab workup was unremarkable. I spoke with Dr. Arauz who recommended MRI scan to rule out an abscess. She is currently in MRI scan which if negative she will be discharged. - Diagnoses Provider Diagnoses: Concussion syndrome - Physician Notifications Discussed Care Of Patient With: Vassilios Tamara Time Discussed With Above Provider: 17:26 Instructed by Provider To: Other - Recommends MRI scan. Discharge - Sign-Out/Discharge Documenting (check all that apply): Sign-Out Patient Signing out patient TO: Joe Flowers - Discharge Plan Condition: Stable Referrals: Cornell Zarate MD [Primary Care Provider] - - Billing Disposition and Condition Condition: STABLE
--- NOTE | 2018-06-11 16:15 | RAD ---
INDICATION: Head injury. COMPARISON: Comparison is made with a prior CT of the brain from June 02, 2018. TECHNIQUE: Contiguous axial sections of the brain were obtained from the skull base to the vertex without contrast. FINDINGS: There is a small left temporal epidural hematoma. This appears decreased in size and density from the prior study. There is a subdural hematoma present in the left temporal parietal region with extension along the tentorium which appears unchanged. There is vasogenic edema in the inferior portion of the left temporal lobe with effacement of the sulci. This appears unchanged from the prior study possibly related to underlying contusions as previously noted. There is a fracture of the left temporal bone extending into the mastoid portion of the bone which is unchanged from the prior study. There is a effusion within the mastoid air cells which appears similar to the prior exam. The visualized portion of the paranasal sinuses appear clear. IMPRESSION: 1. VASOGENIC EDEMA IN THE ANTERIOR ASPECT OF THE LEFT TEMPORAL LOBE, UNCHANGED. 2. LEFT TEMPORAL EPIDURAL HEMATOMA AND LESS PROMINENT THAN ON THE PRIOR STUDY. 3. LEFT TEMPOROPARIETAL SUBDURAL HEMATOMA, UNCHANGED. 4. SKULL BASE FRACTURE OF THE LEFT TEMPORAL BONE, UNCHANGED. 5. LEFT MASTOID EFFUSION, UNCHANGED.
--- NOTE | 2018-06-11 17:02 | RAD ---
INDICATION: Confusion. COMPARISON: Comparison is made with a prior chest x-ray study from March 13, 2018. TECHNIQUE: AP and lateral views of the chest were obtained. FINDINGS: The heart is within normal limits in size. Mediastinal and hilar contours appear within normal limits. The lungs are underinflated. There is minimal subsegmental atelectasis at the right lung base. The lungs are otherwise clear. No pleural effusion is seen. IMPRESSION: NO EVIDENCE FOR ACUTE FINDING.
[2018-06-11 17:20] LABS: ABS Basophils 0.1 10^3/ul (0-0.2); ABS Eosinophils 0.1 10^3/ul (0-0.6); ABS Lymphocytes 2.5 10^3/ul (1.0-4.8); ABS Monocytes 0.6 10^3/ul (0-0.8); ABS Neutrophils 6.6 10^3/ul (1.5-7.7); ABS Nucleated RBC 0 10^3/ul; Eosinophil % 1.1 % (0-6); Hematocrit 40 % (35-47); Hemoglobin 13.1 g/dl (12.0-16.0); Lymphocyte % 25.3 % (25-47); Mean Corpuscular HGB Conc 33 g/dl (31-36); Mean Corpuscular Hemoglobin 26 pg (27-31); Mean Corpuscular Volume 80 fL (80-97); Mean Platelet Volume 7.8 um3 (7.4-10.4); Nucleated Red Blood Cells % 0; Platelet Count 364 10^3/ul (150-450); Red Blood Count 4.99 10^6/ul (4.00-5.40); Red Cell Distribution Width 18 % (10.5-15); White Blood Count 9.9 10^3/ul (3.5-10.8)
[2018-06-11 17:32] LABS: EGFR Non-African American 61.3 (>60)
[2018-06-11 19:17] LABS: Urine Appearance Cloudy; Urine Blood Negative (Negative); Urine Color Yellow; Urine Ketones Negative (Negative); Urine Protein Negative (Negative); Urine Red Blood Cell Trace(0-2/hpf) (Absent); Urine Specific Gravity 1.014 (1.010-1.030); Urine Urobilinogen Negative (Negative); Urine White Blood Cell 3+(>20/hpf) (Absent)
[2018-06-11] MEDS ORDERED: HYDROcodone/ACETAMIN 5-325 MG* 1 TAB PO ONE (21:03)
[2018-06-11] MEDS ORDERED: Gadoteridol* (CONTRAST) 279.3 MG/ML 10 ML IV ONE (22:09)
[2018-06-11] MEDS ORDERED: Famotidine TAB* 20 MG PO ONE (22:39)
--- NOTE | 2018-06-11 23:42 | ED ---
Progress - Progress Note Progress Note: This patient is a sign-out from Dr. Sanders at shift change pending Brain MRI results and disposition. Brain MRI reveals left temporal hemorrhage and bilateral subdural hematomas. Patient did not want to stay for reading of MRI scan. She will be notified of the findings. Patient is agreeable with this plan. - Results/Orders Results/Orders: Brain MRI: 1. Left temporal hemorrhage. 2. Small focus of abnormal signal in the right frontal lobe consistent with small contusion. 3. Bilateral subdural hematomas, larger on the left side. ED physician has reviewed this report. Re-Evaluation - Re-Evaluation First Eval Re-Evaluation Time: 20:41 Comment: Radiologist will come in and do MRI. Second Eval Re-Evaluation Time: 23:41 Change: Unchanged Comment: Patient is insisting on leaving. She has had her MRI but I do not have a report from the radiologist. She does however appear clinically stable and her CAT scan was stable. I doubt she has a brain abscess, but the patient understands that we do not have a final report on her MRI scan and we may need to call her back if there is an unexpected finding there. Accordingly she is being discharged at this time area Third Eval Re-Evaluation Time: 01:12 Comment: Discussed case with the radiologist regarding the MR. The temporal hemorrhage appears to be stable. Specifically there is no sign of an abscess, which is the clinical concern that prompted the MRI Course/Dx - Course Course Of Treatment: Ms. Strong presented with stable vital signs and afebrile. She had some mild confusion and her son is concerned that this has worsened since she was discharged on the sixth. A repeat CT scan was unchanged from the previous. Her lab workup was unremarkable. I spoke with Dr. Arauz who recommended MRI scan to rule out an abscess. She is currently in MRI scan which if negative she will be discharged. - Diagnoses Provider Diagnoses: Concussion syndrome - Provider Notifications Time Discussed With Above Provider: 17:26 Instructed by Provider To: Other - Recommends MRI scan. Discharge - Sign-Out/Discharge Documenting (check all that apply): Patient Departure, Receiving Sign-Out Signing out patient TO: Joe Flowers Receiving patient FROM: Joe Vargas - Discharge Plan Condition: Good Disposition: HOME Patient Education Materials: Chronic Post Traumatic Headache (ED) Referrals: Cornell Zarate MD [Primary Care Provider] - Rina Mcdonald MD [Medical Doctor] - (As scheduled) - Billing Disposition and Condition Condition: GOOD Disposition: Home Attestations Scribe Attestation: This is tonye Anna Solis documenting for attending Dr. Joe Flowers MD. User Type: Provider with Scribe Provider Attestation: The documentation recorded by the scribe accurately reflects the service I personally performed and the decisions made by me.
[2018-06-12 00:01] VITALS: BP 128/82
--- NOTE | 2018-06-12 09:38 | RAD ---
INDICATION: Subacute traumatic brain injury, increased confusion. COMPARISON: Comparison is made with a prior CT of the brain from June 11, 2018. TECHNIQUE: Sagittal T1, axial T1, T2, susceptibility, FLAIR and diffusion-weighted images were obtained. In addition, axial, sagittal and coronal T1-weighted images were obtained following intravenous injection of 16 ml of ProHance contrast. FINDINGS: The ventricles and cisterns appear within normal limits. There is a small hemorrhagic contusion in the inferior right frontal lobe measuring 0.8 x 0.4 cm in size. There is adjacent tiny subdural hematoma measuring 1.5 mm in size. These are not well seen on the prior CT study. There is also a small subdural hematoma adjacent to the right temporal lobe measuring approximately 2 mm in thickness which is not visualized on the prior CT studies and may be too small to see. There is a 2.5 x 1.2 extra-axial hemorrhage adjacent to the anterior left temporal lobe most consistent with an epidural hematoma as previously described. This is much better seen than on the prior CT study and is grossly unchanged. There is a small subdural hematoma adjacent to the left temporal, occipital and posterior parietal lobes measuring up to 5 mm in thickness. This also extends along the left tentorium. There is mild enhancement adjacent to the subdural and epidural hematomas. No other areas of enhancement are seen. There is no evidence for abscess. There is restricted diffusion associated with the with the epidural and subdural hematomas. There is no evidence for infarct. There is mild mucosal thickening within the ethmoid air cells. The sinuses otherwise appear clear. There is an effusion within the left mastoid air cells as previously described. IMPRESSION: 1. SMALL HEMORRHAGIC CONTUSION IN THE ANTERIOR INFERIOR RIGHT FRONTAL LOBE. 2. LEFT TEMPORAL EPIDURAL HEMATOMA PREVIOUSLY DESCRIBED. 3. SMALL BILATERAL SUBDURAL HEMATOMAS. 4. EFFUSION WITHIN THE LEFT MASTOID AIR CELLS ASSOCIATED WITH THE TEMPORAL BONE FRACTURE SEEN ON PRIOR CT STUDIES.
== END 2018-06-11 23:59 | disposition home or self-care (01) ==
LOC: ED 14:52
DX: G44.309 Post-traumatic headache, unspecified, not intractable (principal); F07.81 Postconcussional syndrome; S06.5X0D Traumatic subdural hemorrhage without loss of consciousness, subsequent encounter; S06.4X0D Epidural hemorrhage without loss of consciousness, subsequent encounter; W17.89XD Other fall from one level to another, subsequent encounter; Z88.5 Allergy status to narcotic agent; Z88.3 Allergy status to other anti-infective agents; Z88.4 Allergy status to anesthetic agent; Z88.8 Allergy status to other drugs, medicaments and biological substances
CPT/HCPCS: 36415; 70450; 70553; 71046; 80053; 81003; 81015; 85025; 86140; 87086; 99283; A9270-GY; A9579

== ENCOUNTER 2019-01-19 16:42 | Emergency (ER) | payer MEDICARE, MEDICAID ==
--- NOTE | 2019-01-19 17:58 | ED ---
HPI Chest Pain - HPI Summary HPI Summary: A 68 y/o female brought in by [facility] ambulance presents to [facility] with a chief complaint of chest pain today. She reports that the chest pain feels like someone is hitting her with a sledgehammer. Her pain also radiates to her back. She also notes hip and shoulder pain. She rates her pain as a 5/10 in severity. She was sent to the ED by her PCP Dr. Zarate. She states that has had rashes from previous medications but Tylenol doesnt give her a rash and alleviates her pain. However, she thinks that she may be taking too much Tylenol, claiming that she takes Tylenol every day whenever she is in pain. The patient has a Hx of polymyalgia and fibromyalgia. She also has had a cholecystectomy by Dr. Nicholas. Vital signs while in room HR: 72 bpm, O2 Sat: 91, BP:130/77 - History of Current Complaint Chief Complaint: EDChestPainROMI Time Seen by Provider: 01/19/19 16:52 Hx Obtained From: Patient, EMS Onset/Duration: Started Hours Ago, Still Present Timing: Constant, Lasting Hours Initial Severity: Moderate Current Severity: Moderate Pain Intensity: 5 Pain Scale Used: 0-10 Numeric Chest Pain Location: Diffuse Chest Pain Radiates: Yes Chest Pain Radiates To:: Back Character: Other: - being hit with a sledgehammer. Aggravating Factor(s): Nothing Alleviating Factor(s): Other: - Tylenol Associated Signs and Symptoms: Positive: Back Pain, Other: - positive: hip and shoulder pain. Negative: Fever - Additional Pertinent History Primary Care Physician: [id number] - Allergy/Home Medications Allergies/Adverse Reactions: Allergies Allergy/AdvReac Type Severity Reaction Status Date / Time lactose Allergy GI Upset Verified 06/10/18 17:16 morphine Allergy See Comment Verified 06/10/18 17:16 pravastatin Allergy Muscle Ache Verified 06/10/18 17:16 procaine [From Novocain] Allergy Agitation Verified 06/10/18 17:16 ampicillin AdvReac Severe Diarrhea Verified 06/10/18 17:16 doxycycline [From Vibramycin] AdvReac See Comment Verified 06/10/18 17:16 gabapentin AdvReac See Comment Verified 06/10/18 17:16 olanzapine [From Zyprexa] AdvReac See Comment Verified 06/10/18 17:16 sertraline [From Zoloft] AdvReac See Comment Verified 06/10/18 17:16 PMH/Surg Hx/FS Hx/Imm Hx Endocrine/Hematology History: Denies: Hx Anticoagulant Therapy, Hx Blood Disorders, Hx Blood Transfusions, Hx Bone Marrow Disease, Hx Diabetes, Hx Systemic Lupus Erythematosus, Hx Sickle Cell Disease, Hx Thyroid Disease, Hx Anemia, Hx Unexplained Bleeding, Other Endocrine/Hematological Disorders Cardiovascular History: Reports: Hx Angina, Hx Coronary Artery Disease - CARDIAC CATHERIZATION, FOLLOWED BY DR KHAN, Hx Hypercholesterolemia, Hx Hypertension, Hx Myocardial Infarction, Other Cardiovascular Problems/Disorders - CARRIES NITRO FOR CHEST PAIN Denies: Hx Aneurysm, Hx Angioplasty, Hx Auto Implanted Cardiovert Defib, Hx Cardiac Arrest, Hx Cardiomegaly, Hx Congenital Heart Disease, Hx Congestive Heart Failure, Hx Deep Vein Thrombosis, Hx Embolism, Hx Hypotension, Hx Pacemaker/ICD, Hx Peripheral Vascular Disease, Hx Rheumatic Fever, Hx Syncope, Hx Valvular Heart Disease Respiratory History: Reports: Hx Asthma Denies: Hx Bronchopulmonary Dysplasia, Hx Chronic Bronchitis, Hx Chronic Obstructive Pulmonary Disease (COPD), Hx Cystic Fibrosis, Hx Lung Cancer, Hx Pleural Effusion, Hx Pneumonia, Hx Pulmonary Edema, Hx Pulmonary Embolism, Hx Seasonal Allergies, Hx Sleep Apnea, Other Respiratory Problems/Disorders GI History: Reports: Hx Gastroesophageal Reflux Disease, Hx Irritable Bowel, Other GI Disorders - GALLBLADDER POLYPS/STONES, FATTY LIVER Denies: Hx Cirrhosis, Hx Crohn's Disease, Hx Diverticulosis, Hx Gall Bladder Disease, Hx Gastrointestinal Bleed, Hx Hiatal Hernia, Hx Jaundice, Hx Obstructive Bowel, Hx Ileostomy, Hx Pyloric Stenosis, Hx Ulcer History: Reports: Other Problems/Disorders - 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 NOW Denies: Hx Acute Renal Failure, Hx Benign Prostatic Hyperplasia, Hx Chronic Renal Failure, Hx Dialysis, Hx Kidney Infection, Hx Kidney Stones Musculoskeletal History: Reports: Hx Arthritis - psoriatic , Hx Fibromyalgia, Hx Scoliosis, Other Musculoskeletal History - MILD CURVATURE OF SPINE Denies: Hx Back Problems, Hx Bursitis, Hx Congenital Bone Abnormalities, Hx Gout, Hx Orthopedic Injury, Hx Osteoporosis, Hx Tendonitis Sensory History: Reports: Hx Cataracts - BILAT, Hx Contacts or Glasses - GLASSES Denies: Hx Eye Injury, Hx Eye Prosthesis, Hx Glaucoma, Hx Macular Degeneration, Hx Vision Problem, Hx Deafness, Hx Hearing Aid, Hx Hearing Problem , Other Sensory Impairments Opthamlomology History: Reports: Hx Cataracts - BILAT, Hx Contacts or Glasses - GLASSES Denies: Hx Eye Injury, Hx Eye Prosthesis, Hx Glaucoma, Hx Macular Degeneration, Hx Vision Problem, Other Sensory Impairments Neurological History: Reports: Hx Headaches, Hx Nerve Disease - FIBROMYALGIA Denies: Hx Dementia, Hx Developmental Delay, Hx Migraine, Hx Seizures, Hx Spinal Cord Injury, Hx Transient Ischemic Attacks (TIA), Other Neuro Impairments /Disorders Psychiatric History: Reports: Hx Anxiety - ON MED, Hx Depression Denies: Hx Attention Deficit Hyperactivity Disorder, Hx Autism, Hx Eating Disorder, Hx Oppositional [place] Disorder, Hx Panic Disorder, Hx Post Traumatic Stress Disorder, Hx Inpatient Treatment, Hx Community Mental Health Tx , Hx Schizophrenia, Hx Bipolar Disorder, Hx Suicide Attempt, Hx of Violent Episodes Against Others, Hx Substance Abuse, Other Psychiatric Issues/Disorders - Cancer History Hx Hematologic Symptoms: No Hx Chemotherapy: No Hx Radiation Therapy: No - Surgical History Surgery Procedure, Year, and Place: TUBAL LIGATION- [facility] [place]. HYSTERECTOMY- [facility] [place]. CARPAL TUNNEL X2- [facility] [place]. D&C X3- [facility] [place]. CARDIAC CATHERIZATION- 2011- [facility] [place], minimal CAD with preserved ventricular function. RIGHT CATARACT EXTRACTION WITH IOL IMPLANT-06/2016- [facility] [place]. LEFT CATARACT EXTRACTION WITH IOL IMPLANT-08/2016- [facility] [place]. cholecystectomy Hx Anesthesia Reactions: Yes - MORPHINE CAUSED "SEVERE" BRADYCARDIA - Immunization History Date of Tetanus Vaccine: unk Date of Influenza Vaccine: unk Infectious Disease History: No Infectious Disease History: Reports: Hx Hepatitis - as a child, Hx Shingles, History Other Infectious Disease - ? HEPATITIS A CHILD Denies: Hx Clostridium Difficile, Hx Human Immunodeficiency Virus (HIV), Hx of Known/Suspected MRSA, Hx Tuberculosis, Traveled Outside the in Last 30 Days - Family History Known Family History: Positive: None, Cardiac Disease - sister, Diabetes Family History: sister - unspecified cardiac ds. Father - CHF - Social History Alcohol Use: None Hx Substance Use: No Substance Use Type: Reports: None Hx Tobacco Use: No Smoking Status (MU): Never Smoked Tobacco Have You Smoked in the Last Year: No Review of Systems Negative: Fever Positive: Chest Pain Positive: Arthralgia - hip and shoulder pain, Myalgia - back pain All Other Systems Reviewed And Are Negative: Yes Physical Exam - Summary Physical Exam Summary: Appearance: The patient is well-nourished in no acute distress and in no acute pain. Skin: The skin is warm and dry and skin color reflects adequate perfusion. HEENT: The head is normocephalic and atraumatic. The pupils are equal and reactive. The conjunctivae are clear and without drainage. Nares are patent and without drainage. Mouth reveals moist mucous membranes and the throat is without erythema and exudate. The external ears are intact. The ear canals are patent and without drainage. The tympanic membranes are intact. Neck: The neck is supple with full range of motion and non-tender. There are no carotid bruits. There is no neck vein distension. Respiratory: Chest is non-tender. Lungs are clear to auscultation and breath sounds are symmetrical and equal. Cardiovascular: Heart is regular rate and rhythm. There is no murmur or rub auscultated. There is no peripheral edema and pulses are symmetrical and equal. Abdomen: The abdomen is soft and non-tender. There are normal bowel sounds heard in all four quadrants and there is no organomegaly palpated. Musculoskeletal: There is no back tenderness noted. Extremities are non-tender with full range of motion. There is good capillary refill. There is no peripheral edema or calf tenderness elicited. Neurological: Patient is alert and oriented to person, place and time. The patient has symmetrical motor strength in all four extremities. Cranial nerves are grossly intact. Deep tendon reflexes are symmetrical and equal in all four extremities. Triage Information Reviewed: Yes Vital Signs On Initial Exam: Initial Vitals Temp Pulse Resp BP Pulse Ox 98.7 F 78 16 152/81 95 01/19/19 16:44 01/19/19 16:44 01/19/19 16:44 01/19/19 16:44 01/19/19 16:44 Vital Signs Reviewed: Yes Diagnostics - Vital Signs Vital Signs Temp Pulse Resp BP Pulse Ox 01/19/19 17:27 70 22 130/77 92 01/19/19 17:00 73 17 92 01/19/19 16:57 74 19 130/78 93 01/19/19 16:49 75 01/19/19 16:47 76 23 94 01/19/19 16:44 98.7 F 78 16 152/81 95 - Laboratory Result Diagrams: 01/19/19 18:14 01/19/19 18:14 Lab Statement: Any lab studies that have been ordered have been reviewed, and results considered in the medical decision making process. - EKG 17:47 Cardiac Rate: NL - 69 bpm EKG Rhythm: Sinus Rhythm Summary of EKG Findings: Normal sinus rhythm at 69 bpm, LVH. Chest Pain Course/Dx - Course Course Of Treatment: Ms. Strong presents complaining of an anterior low chest pain that radiates directly into her back. His been going on and off for couple of weeks and she is somewhat equivocal about when the last time she was pain-free. She denies any associated symptoms such as shortness of breath, nausea or diaphoresis. It is exacerbated by deep breaths and moving and not relieved by anything. She was nontoxic in appearance with stable vital signs and she has had labs drawn and a chest x-ray ordered. An EKG showed no acute ischemic changes. - Diagnoses Provider Diagnoses: Chest pain Discharge - Sign-Out/Discharge Documenting (check all that apply): Sign-Out Patient Signing out patient TO: Rodney Quiles - Discharge Plan Condition: Stable Referrals: Cornell Zarate MD [Primary Care Provider] - - Billing Disposition and Condition Condition: STABLE - Attestation Statements Document Initiated by Scribe: Yes Documenting Scribe: Natanael Moreno Provider For Whom Scribe is Documenting (Include Credential): Joe Vargas MD Scribe Attestation: I, Natanael Moreno, scribed for Joe Vargas MD on 01/19/19 at 1852. Scribe Documentation Reviewed: Yes Provider Attestation: The documentation as recorded by the Natanael luna accurately reflects the service I personally performed and the decisions made by me, Joe Vargas MD Status of Scribe Document: Viewed
[2019-01-19 18:29] LABS: ABS Basophils 0.2 10^3/ul (0-0.2); ABS Eosinophils 0.1 10^3/ul (0-0.6); ABS Lymphocytes 2.3 10^3/ul (1.0-4.8); ABS Monocytes 0.5 10^3/ul (0-0.8); ABS Neutrophils 10.4 10^3/ul (1.5-7.7); ABS Nucleated RBC 0 10^3/ul; Eosinophil % 0.8 %; Hematocrit 46 % (33-41); Lymphocyte % 17.2 %; Mean Corpuscular HGB Conc 32 g/dL (31-36); Mean Corpuscular Hemoglobin 27 pg (27-31); Mean Corpuscular Volume 82 fL (80-97); Mean Platelet Volume 8.1 fL (7.4-10.4); Nucleated Red Blood Cells % 0.1; Platelet Count 362 10^3/uL (150-450); Red Blood Count 5.67 10^6 /uL (3.70-4.87); Red Cell Distribution Width 16 % (10.5-15); White Blood Count 13.6 10^3/uL (3.5-10.8)
[2019-01-19 18:35] LABS: INR 0.98 (0.77-1.02)
[2019-01-19 18:50] LABS: Troponin I 0.01 ng/mL (<0.04)
[2019-01-19 18:51] LABS: Albumin 4.8 g/dL (3.2-5.2); Albumin/Globulin Ratio 1.5 (1-3); BUN/Creatinine Ratio 21.7 (8-20); C Reactive Protein 12.35 mg/L (<8.01); Calcium 10.4 mg/dL (8.6-10.3); EGFR Non-African American 36.4 (>60); Globulin 3.2 g/dL (2-4); Potassium 3.8 mmol/L (3.5-5.0); Total Bilirubin 0.4 mg/dL (0.2-1.0)
--- NOTE | 2019-01-19 19:12 | ED ---
Progress - Progress Note Progress Note: A 68 y/o female brought in by [facility] ambulance presents to [facility] with a chief complaint of chest pain today. Patient was signed out from Dr. Joe Vargas to Dr. Rodney Quiles during a shift change, pending a chest x-ray and labs. Re-Evaluation - Re-Evaluation 1 Re-Evaluation Time: 21:53 Comment: Informed patient of her 2 negative troponin and recommended to her to get a stress test as outpatient. Course/Dx - Course Course Of Treatment: Ms. Strong presents complaining of an anterior low chest pain that radiates directly into her back. His been going on and off for couple of weeks and she is somewhat equivocal about when the last time she was pain-free. She denies any associated symptoms such as shortness of breath, nausea or diaphoresis. It is exacerbated by deep breaths and moving and not relieved by anything. She was nontoxic in appearance with stable vital signs and she has had labs drawn and a chest x-ray ordered. An EKG showed no acute ischemic changes. Dr. Quiles saw the patient after a shift change. Patient has two negative troponin. I d/c her with dx of CP and advised that she get a stress test as an outpatient. - Diagnoses Provider Diagnoses: Chest pain Discharge - Sign-Out/Discharge Documenting (check all that apply): Patient Departure - D/C home, Receiving Sign -Out Receiving patient FROM: Joe Vargas - Pending chest x-ray and labs Patient Received Moderate/Deep Sedation with Procedure: No - Discharge Plan Condition: Stable Disposition: HOME Patient Education Materials: Chest Pain (ED) Referrals: Cornell Zarate MD [Primary Care Provider] - 2 Days Additional Instructions: PLEASE RETURN TO THE ED TO IMMEDIATELY FOR WORSENING OR CONCERNING SYMPTOMS. Get a cardiac stress test as an outpatient. - Billing Disposition and Condition Condition: STABLE Disposition: Home - Attestation Statements Document Initiated by Scribe: Yes Documenting Scribe: Robin Hoffmann Provider For Whom Melodie is Documenting (Include Credential): Rodney Quiles MD Scribyasir Attestation: Robin Bustos, scribed for Rodney Quiles MD on 01/20/19 at 0629. Scribe Documentation Reviewed: Yes Provider Attestation: The documentation as recorded by the Robin luna accurately reflects the service I personally performed and the decisions made by me, Rodney Quiles MD Status of Scribe Document: Viewed
[2019-01-19 22:17] VITALS: BP 145/76
== END 2019-01-19 22:00 | disposition home or self-care (01) ==
LOC: ED 16:42
DX: R07.9 Chest pain, unspecified (principal); M54.9 Dorsalgia, unspecified; M25.519 Pain in unspecified shoulder
CPT/HCPCS: 36415; 71045; 80053; 83605; 83690; 84484; 85025; 85610; 86140; 93005; 99283

== ENCOUNTER 2019-05-29 13:37 | Emergency (ER) | payer MEDICARE, MEDICAID ==
[2019-05-29 13:46] VITALS: BP 140/80
[2019-05-29] MEDS ORDERED: ED cefTRIAXone 1 GM/50 ML 1 GM/50 ML PREMIX.SET IVPB ONE (15:24)
== END 2019-05-29 15:15 | disposition left against medical advice (07) ==
LOC: ED 13:37
DX: Z53.21 Procedure and treatment not carried out due to patient leaving prior to being seen by health care provider (principal)
CPT/HCPCS: 99282

== ENCOUNTER 2019-06-02 21:01 | Emergency (ER) | payer MEDICARE, MEDICAID ==
--- NOTE | 2019-06-02 21:14 | ED ---
GI/ HPI - HPI Summary HPI Summary: This patient is a 69 year old F BIBA to ED via EMS with a chief complaint of abdominal pain since a few months ago. The pain initially was diffuse around the mid abdomen but has since radiated into the pelvis. Patient had an outpatient abdominal CT today, but her abdominal pain increased today after the CT. Tonight the patient began vomiting, which led her to call the ambulance. The patient rates the pain 5/10 in severity. Symptoms aggravated by nothing. Symptoms alleviated by nothing. Patient reports diarrhea and vomiting. Patient denies fever. - History of Current Complaint Time Seen by Provider: 06/02/19 21:05 Stated Complaint: VOMITING/DIARRHEA PER EMS Hx Obtained From: Patient Onset/Duration: Started Hours Ago - Vomiting starting this night, Started Weeks Ago - Chronic abdominal pain, Still Present, Worse Since Timing: Lasting Weeks - Chronic abdominal pain Severity: Moderate Current Severity: Moderate Pain Intensity: 5 Location of Pain: Diffuse - Across mid-abdomen, Radiates to: - Pelvis Associated Signs and Symptoms: Positive: Nausea, Vomiting, Diarrhea, Diaphoresis. Negative: Fever Aggravating Factor(s): Nothing Alleviating Factor(s): Nothing - Additional Pertinent History Primary Care Physician: [id number] - Allergy/Home Medications Allergies/Adverse Reactions: Allergies Allergy/AdvReac Type Severity Reaction Status Date / Time lactose Allergy GI Upset Verified 05/29/19 13:46 morphine Allergy See Comment Verified 05/29/19 13:46 pravastatin Allergy Muscle Ache Verified 05/29/19 13:46 procaine [From Novocain] Allergy Agitation Verified 05/29/19 13:46 ampicillin AdvReac Severe Diarrhea Verified 05/29/19 13:46 doxycycline [From Vibramycin] AdvReac See Comment Verified 05/29/19 13:46 gabapentin AdvReac See Comment Verified 05/29/19 13:46 olanzapine [From Zyprexa] AdvReac See Comment Verified 05/29/19 13:46 sertraline [From Zoloft] AdvReac See Comment Verified 05/29/19 13:46 PMH/Surg Hx/FS Hx/Imm Hx Endocrine/Hematology History: Denies: Hx Anticoagulant Therapy, Hx Blood Disorders, Hx Blood Transfusions, Hx Bone Marrow Disease, Hx Diabetes, Hx Systemic Lupus Erythematosus, Hx Sickle Cell Disease, Hx Thyroid Disease, Hx Anemia, Hx Unexplained Bleeding, Other Endocrine/Hematological Disorders Cardiovascular History: Reports: Hx Angina, Hx Coronary Artery Disease - CARDIAC CATHERIZATION, FOLLOWED BY DR KHAN, Hx Hypercholesterolemia, Hx Hypertension, Hx Myocardial Infarction, Other Cardiovascular Problems/Disorders - CARRIES NITRO FOR CHEST PAIN Denies: Hx Aneurysm, Hx Angioplasty, Hx Auto Implanted Cardiovert Defib, Hx Cardiac Arrest, Hx Cardiomegaly, Hx Congenital Heart Disease, Hx Congestive Heart Failure, Hx Deep Vein Thrombosis, Hx Embolism, Hx Hypotension, Hx Pacemaker/ICD, Hx Peripheral Vascular Disease, Hx Rheumatic Fever, Hx Syncope, Hx Valvular Heart Disease Respiratory History: Reports: Hx Asthma Denies: Hx Bronchopulmonary Dysplasia, Hx Chronic Bronchitis, Hx Chronic Obstructive Pulmonary Disease (COPD), Hx Cystic Fibrosis, Hx Lung Cancer, Hx Pleural Effusion, Hx Pneumonia, Hx Pulmonary Edema, Hx Pulmonary Embolism, Hx Seasonal Allergies, Hx Sleep Apnea, Other Respiratory Problems/Disorders GI History: Reports: Hx Gastroesophageal Reflux Disease, Hx Irritable Bowel, Other GI Disorders - GALLBLADDER POLYPS/STONES, FATTY LIVER Denies: Hx Cirrhosis, Hx Crohn's Disease, Hx Diverticulosis, Hx Gall Bladder Disease, Hx Gastrointestinal Bleed, Hx Hiatal Hernia, Hx Jaundice, Hx Obstructive Bowel, Hx Ileostomy, Hx Pyloric Stenosis, Hx Ulcer History: Reports: Other Problems/Disorders - 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 NOW Denies: Hx Acute Renal Failure, Hx Benign Prostatic Hyperplasia, Hx Chronic Renal Failure, Hx Dialysis, Hx Kidney Infection, Hx Kidney Stones, Hx Renal Disease Musculoskeletal History: Reports: Hx Arthritis - psoriatic , Hx Fibromyalgia, Hx Scoliosis, Other Musculoskeletal History - MILD CURVATURE OF SPINE Denies: Hx Back Problems, Hx Bursitis, Hx Congenital Bone Abnormalities, Hx Gout, Hx Orthopedic Injury, Hx Osteoporosis, Hx Tendonitis Sensory History: Reports: Hx Cataracts - BILAT, Hx Contacts or Glasses - GLASSES Denies: Hx Eye Injury, Hx Eye Prosthesis, Hx Glaucoma, Hx Macular Degeneration, Hx Vision Problem, Hx Deafness, Hx Hearing Aid, Hx Hearing Problem , Other Sensory Impairments Opthamlomology History: Reports: Hx Cataracts - BILAT, Hx Contacts or Glasses - GLASSES Denies: Hx Eye Injury, Hx Eye Prosthesis, Hx Glaucoma, Hx Macular Degeneration, Hx Vision Problem, Other Sensory Impairments Neurological History: Reports: Hx Headaches, Hx Nerve Disease - FIBROMYALGIA Denies: Hx Dementia, Hx Developmental Delay, Hx Migraine, Hx Seizures, Hx Spinal Cord Injury, Hx Transient Ischemic Attacks (TIA), Other Neuro Impairments /Disorders Psychiatric History: Reports: Hx Anxiety - ON MED, Hx Depression Denies: Hx Attention Deficit Hyperactivity Disorder, Hx Autism, Hx Eating Disorder, Hx Oppositional Dewitt Disorder, Hx Panic Disorder, Hx Post Traumatic Stress Disorder, Hx Inpatient Treatment, Hx Community Mental Health Tx , Hx Schizophrenia, Hx Bipolar Disorder, Hx Suicide Attempt, Hx of Violent Episodes Against Others, Hx Substance Abuse, Other Psychiatric Issues/Disorders - Cancer History Hx Hematologic Symptoms: No Hx Chemotherapy: No Hx Radiation Therapy: No - Surgical History Surgery Procedure, Year, and Place: TUBAL LIGATION- [facility] [place]. HYSTERECTOMY- [facility] [place]. CARPAL TUNNEL X2- [facility] [place]. D&C X3- [facility] [place]. CARDIAC CATHERIZATION- 2011- [facility] [place], minimal CAD with preserved ventricular function. RIGHT CATARACT EXTRACTION WITH IOL IMPLANT-06/2016- [facility] [place]. LEFT CATARACT EXTRACTION WITH IOL IMPLANT-08/2016- [facility] [place]. cholecystectomy Hx Anesthesia Reactions: Yes - MORPHINE CAUSED "SEVERE" BRADYCARDIA - Immunization History Date of Tetanus Vaccine: unk Date of Influenza Vaccine: unk Infectious Disease History: No Infectious Disease History: Reports: Hx Hepatitis - as a child, Hx Shingles, History Other Infectious Disease - ? HEPATITIS A CHILD Denies: Hx Clostridium Difficile, Hx Human Immunodeficiency Virus (HIV), Hx of Known/Suspected MRSA, Hx Tuberculosis, Traveled Outside the [place] in Last 30 Days - Family History Known Family History: Positive: Cardiac Disease - sister, Diabetes Family History: sister - unspecified cardiac ds. Father - CHF - Social History Alcohol Use: None Hx Substance Use: No Substance Use Type: Reports: None Hx Tobacco Use: No Smoking Status (MU): Never Smoked Tobacco Have You Smoked in the Last Year: No Review of Systems Positive: Skin Diaphoresis. Negative: Fever Gastrointestinal: Negative - Hematemesis Positive: Abdominal Pain, Vomiting, Diarrhea, Nausea All Other Systems Reviewed And Are Negative: Yes Physical Exam - Summary Physical Exam Summary: Appearance: Well-appearing, Well-nourished, lying in bed comfortably Skin: Warm, dry, no obvious rash Eyes: sclera anicteric, no conjunctival pallor ENT: mucous membranes moist, pharynx appears normal Neck: Supple, nontender Respiratory: Clear to auscultation, no signs of respiratory distress Cardiovascular: Normal S1, S2. No murmurs. Normal distal pulses in tibial and radial bilaterally. Abdomen: Soft, nontender, normal active bowel sounds present Musculoskeletal: Normal, Strength/ROM Intact Neurological: A&Ox3, awake and alert, mentation is normal, speech is fluent and appropriate Psychiatric: affect is normal, does not appear anxious or depressed Triage Information Reviewed: Yes Vital Signs On Initial Exam: Initial Vitals Temp Pulse Resp BP Pulse Ox 97.8 F 85 16 134/59 94 06/02/19 21:02 06/02/19 21:02 06/02/19 21:02 06/02/19 21:02 06/02/19 21:02 Vital Signs Reviewed: Yes Diagnostics - Vital Signs Vital Signs Temp Pulse Resp BP Pulse Ox 06/02/19 21:02 97.8 F 85 16 134/59 94 - Laboratory Result Diagrams: 06/02/19 21:33 06/02/19 21:33 Lab Statement: Any lab studies that have been ordered have been reviewed, and results considered in the medical decision making process. - CT A/P CT Interpretation Completed By: Radiologist Summary of CT Findings: Outpatient CT A/P taken earlier today revealed MILD HEPATOMEGALY WITH FATTY INFILTRATION OF THE LIVER. Dr. Flowers has reviewed this radiology report. Re-Evaluation - Re-Evaluation First Eval Re-Evaluation Time: 00:46 Change: Improved Comment: Discuss results with patient. Patient reports feeling better. Patient will be discharged home with dx of UTI and N/V/D. Patient understands and agrees with this plan. GIGU Course/Dx - Course Course Of Treatment: This patient is a 69 year old F BIBA to ED via EMS with a chief complaint of chronic abdominal pain since a few months ago worsening recently with vomiting. Outpatient CT A/P taken today revealed MILD HEPATOMEGALY WITH FATTY INFILTRATION OF THE LIVER. In the ED course, patient received Lomotil and Zofran. Blood work revealed WBC 16.7, absolute neuts 12.8, absolute monos 0.9, BUN 29, creatinine 1.40, BUN/creatinine ratio 20.7, glucose 115, CRP 49.31. UA revealed urine specific gravity 1.042, positive urine nitrate , 3+ urine leukocyte esterase, 3+(>20/hpf) urine WBC, present urine squamous epithelial cells, 1+ urine bacteria. Patient will be discharged home with dx of UTI, N/V/D. PAtient understands and agrees with this plan. - Diagnoses Provider Diagnoses: UTI (urinary tract infection), Nausea vomiting and diarrhea Discharge - Sign-Out/Discharge Documenting (check all that apply): Patient Departure - Discharge Patient Received Moderate/Deep Sedation with Procedure: No - Discharge Plan Condition: Good Disposition: HOME Prescriptions: Cephalexin CAP* [Keflex CAP*] 500 mg PO QID #20 cap Ondansetron ODT TAB* [Zofran 4 MG Odt TAB*] 4 mg PO Q6H PRN #15 tab.odt PRN Reason: Nausea Patient Education Materials: Acute Nausea and Vomiting (ED), Urinary Tract Infection in Older Adults (ED) Referrals: Cornell Zarate MD [Primary Care Provider] - 3 Days (if not better) - Billing Disposition and Condition Condition: GOOD Disposition: Home - Attestation Statements Document Initiated by Melodie: Yes Documenting Scribe: Nigel Odonnell Provider For Whom Melodie is Documenting (Include Credential): Joe Flowers MD Scribe Attestation: Nigel Bustos, scribed for Joe Flowers MD on 06/03/19 at 2100. Scribe Documentation Reviewed: Yes Provider Attestation: The documentation as recorded by the Nigel luna accurately reflects the service I personally performed and the decisions made by me, Joe Flowers MD Status of Scribe Document: Viewed
[2019-06-02] MEDS ORDERED: Ondansetron ODT TAB* 4 MG SL ONE (21:19)
[2019-06-02] MEDS ORDERED: Diphenoxylat/Atrop 2.5-0.025M* 1 TAB PO ONE (21:19)
[2019-06-02 21:45] LABS: ABS Basophils 0.2 10^3/ul (0-0.2); ABS Eosinophils 0.3 10^3/ul (0-0.6); ABS Lymphocytes 2.4 10^3/ul (1.0-4.8); ABS Monocytes 0.9 10^3/ul (0-0.8); ABS Neutrophils 12.8 10^3/ul (1.5-7.7); Eosinophil % 2.1 %; Hematocrit 41 % (35-47); Hemoglobin 13.5 g/dL (12.0-16.0); Lymphocyte % 14.6 %; Mean Corpuscular HGB Conc 33 g/dL (31-36); Mean Corpuscular Hemoglobin 28 pg (27-31); Mean Corpuscular Volume 86 fL (80-97); Mean Platelet Volume 8.4 fL (7.4-10.4); Platelet Count 172 10^3/uL (150-450); Red Blood Count 4.77 10^6 /uL (3.70-4.87); Red Cell Distribution Width 15 % (10-15); White Blood Count 16.7 10^3/uL (3.5-10.8)
[2019-06-02 21:58] LABS: ALT 16 U/L (7-52); Albumin/Globulin Ratio 1.1 (1-3); Alkaline Phosphatase 96 U/L (34-104); BUN/Creatinine Ratio 20.7 (8-20); Blood Urea Nitrogen 29 mg/dL (6-24); C Reactive Protein 49.31 mg/L (<8.01); CO2 Carbon Dioxide 28 mmol/L (22-32); Calcium 9.7 mg/dL (8.6-10.3); Chloride 104 mmol/L (101-111); EGFR Non-African American 37.2 (>60); Globulin 3.5 g/dL (2-4); Glucose 115 mg/dL (70-100); Sodium 139 mmol/L (135-145); Total Protein 7.5 g/dL (6.4-8.9)
[2019-06-02 22:13] LABS: Anion Gap 7 mmol/L (2-11)
[2019-06-02 23:49] LABS: Urine Appearance Cloudy; Urine Bacteria 1+ (Absent); Urine Bilirubin Negative (Negative); Urine Blood Negative (Negative); Urine Color Yellow; Urine Glucose Negative (Negative); Urine Ketones Negative (Negative); Urine Nitrite Positive (Negative); Urine Protein Negative (Negative); Urine Red Blood Cell Absent (Absent); Urine Specific Gravity 1.042 (1.010-1.030); Urine Squamous Epithelial Cell Present (Absent); Urine Urobilinogen Negative (Negative); Urine White Blood Cell 3+(>20/hpf) (Absent)
[2019-06-03 02:05] VITALS: BP 112/63
== END 2019-06-03 02:03 | disposition home or self-care (01) ==
LOC: ED 21:01
DX: N39.0 Urinary tract infection, site not specified (principal); R11.2 Nausea with vomiting, unspecified; R19.7 Diarrhea, unspecified; R61 Generalized hyperhidrosis; K76.0 Fatty (change of) liver, not elsewhere classified; I25.119 Atherosclerotic heart disease of native coronary artery with unspecified angina pectoris; I10 Essential (primary) hypertension; I25.2 Old myocardial infarction; M79.7 Fibromyalgia; F41.9 Anxiety disorder, unspecified; Z90.710 Acquired absence of both cervix and uterus; Z88.5 Allergy status to narcotic agent; Z88.0 Allergy status to penicillin; Z88.8 Allergy status to other drugs, medicaments and biological substances; Z88.4 Allergy status to anesthetic agent; Z88.1 Allergy status to other antibiotic agents; Z91.011 Allergy to milk products
CPT/HCPCS: 36415; 80053; 81003; 81015; 83605; 83690; 85025; 86140; 87077; 87086; 87186; 99283; A9270-GY

== ENCOUNTER 2019-08-27 10:52 | Emergency (ER) | payer MEDICARE, MEDICAID ==
[2019-08-27] MEDS ORDERED: Ondansetron INJ* 2 MG/ML VIAL IV ONE (11:09)
[2019-08-27] MEDS ORDERED: NS 0.9% 1000 ML** 1,000 ML IV ONE (11:09)
--- NOTE | 2019-08-27 11:28 | ED ---
Complex/Multi-Sys Presentation - HPI Summary HPI Summary: This patient is a 69 year old F brought to [facility] by [place] with a chief complaint of not improving diarrhea and vomiting since 8 days ago. Pt reports she has not eaten since a week ago and that every time she drinks too much she vomits. Pt reports she almost vomited today, did not yesterday, but did have 4-5 x diarrhea today that is yellowish in color. Pt reports mild abdominal cramping with diarrhea. Pt denies recent abx use, hospitalizations. 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 Pt reports she was diagnosed with acute kidney failure for which she went to see kidney doctor who redirected her to an urologist because of a concern for cancer. Pt reports she actually has cysts not CA on the kidneys improve of records her ultrasound showed renal cysts. Pt reports father from heart issues. Mhx fibromyalgia , arthritis, rheumatism, ulcers. SHx Hysterectomy, gallbladder removal. Colonoscopy and endoscopy for history of loose stools showed sigmoid diverticulosis and a mild ulcer. - History Of Current Complaint Chief Complaint: EDNauseaVomitDiarrh Time Seen by Provider: 08/27/19 10:52 Hx Obtained From: Patient Onset/Duration: Lasting Days - 8, Still Present Aggravating Factor(s): nothing Alleviating Factor(s): nothing Associated Signs And Symptoms: Positive: Vomiting, Diarrhea, Abdominal Pain - Allergies/Home Medications Allergies/Adverse Reactions: Allergies Allergy/AdvReac Type Severity Reaction Status Date / Time hydroxychloroquine Allergy Itching Verified 08/27/19 10:57 [From Plaquenil] lactose Allergy GI Upset Verified 08/27/19 10:57 leflunomide Allergy Itching Verified 08/27/19 10:57 morphine Allergy severe Verified 08/27/19 10:57 bradycardia pravastatin Allergy Muscle Ache Verified 08/27/19 10:57 procaine [From Novocain] Allergy Agitation Verified 08/27/19 10:57 ampicillin AdvReac Severe Diarrhea Verified 08/27/19 10:57 doxycycline [From Vibramycin] AdvReac "did not Verified 08/27/19 10:57 work" gabapentin AdvReac legs ache, Verified 08/27/19 10:57 trouble sleeping olanzapine [From Zyprexa] AdvReac "did not Verified 08/27/19 10:57 work" sertraline [From Zoloft] AdvReac "did not Verified 08/27/19 10:57 work" PMH/Surg Hx/FS Hx/Imm Hx Endocrine/Hematology History: Denies: Hx Anticoagulant Therapy, Hx Blood Disorders, Hx Blood Transfusions, Hx Bone Marrow Disease, Hx Diabetes, Hx Systemic Lupus Erythematosus, Hx Sickle Cell Disease, Hx Thyroid Disease, Hx Anemia, Hx Unexplained Bleeding, Other Endocrine/Hematological Disorders Cardiovascular History: Reports: Hx Angina, Hx Coronary Artery Disease - CARDIAC CATHERIZATION, FOLLOWED BY DR KHAN, Hx Hypercholesterolemia, Hx Hypertension, Hx Myocardial Infarction, Other Cardiovascular Problems/Disorders - CARRIES NITRO FOR CHEST PAIN Denies: Hx Aneurysm, Hx Angioplasty, Hx Auto Implanted Cardiovert Defib, Hx Cardiac Arrest, Hx Cardiomegaly, Hx Congenital Heart Disease, Hx Congestive Heart Failure, Hx Deep Vein Thrombosis, Hx Embolism, Hx Hypotension, Hx Pacemaker/ICD, Hx Peripheral Vascular Disease, Hx Rheumatic Fever, Hx Syncope, Hx Valvular Heart Disease Respiratory History: Reports: Hx Asthma Denies: Hx Bronchopulmonary Dysplasia, Hx Chronic Bronchitis, Hx Chronic Obstructive Pulmonary Disease (COPD), Hx Cystic Fibrosis, Hx Lung Cancer, Hx Pleural Effusion, Hx Pneumonia, Hx Pulmonary Edema, Hx Pulmonary Embolism, Hx Seasonal Allergies, Hx Sleep Apnea, Other Respiratory Problems/Disorders GI History: Reports: Hx Gastroesophageal Reflux Disease, Hx Irritable Bowel, Other GI Disorders - GALLBLADDER POLYPS/STONES, FATTY LIVER Denies: Hx Cirrhosis, Hx Crohn's Disease, Hx Diverticulosis, Hx Gall Bladder Disease, Hx Gastrointestinal Bleed, Hx Hiatal Hernia, Hx Jaundice, Hx Obstructive Bowel, Hx Ileostomy, Hx Pyloric Stenosis, Hx Ulcer History: Reports: Other Problems/Disorders - 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 NOW Denies: Hx Acute Renal Failure, Hx Benign Prostatic Hyperplasia, Hx Chronic Renal Failure, Hx Dialysis, Hx Kidney Infection, Hx Kidney Stones, Hx Renal Disease Musculoskeletal History: Reports: Hx Arthritis - psoriatic , Hx Fibromyalgia, Hx Scoliosis, Other Musculoskeletal History - MILD CURVATURE OF SPINE Denies: Hx Back Problems, Hx Bursitis, Hx Congenital Bone Abnormalities, Hx Gout, Hx Orthopedic Injury, Hx Osteoporosis, Hx Tendonitis Sensory History: Reports: Hx Cataracts - BILAT, Hx Contacts or Glasses - GLASSES Denies: Hx Eye Injury, Hx Eye Prosthesis, Hx Glaucoma, Hx Macular Degeneration, Hx Vision Problem, Hx Deafness, Hx Hearing Aid, Hx Hearing Problem , Other Sensory Impairments Opthamlomology History: Reports: Hx Cataracts - BILAT, Hx Contacts or Glasses - GLASSES Denies: Hx Eye Injury, Hx Eye Prosthesis, Hx Glaucoma, Hx Macular Degeneration, Hx Vision Problem, Other Sensory Impairments Neurological History: Reports: Hx Headaches, Hx Nerve Disease - FIBROMYALGIA Denies: Hx Dementia, Hx Developmental Delay, Hx Migraine, Hx Seizures, Hx Spinal Cord Injury, Hx Transient Ischemic Attacks (TIA), Other Neuro Impairments /Disorders Psychiatric History: Reports: Hx Anxiety - ON MED, Hx Depression Denies: Hx Attention Deficit Hyperactivity Disorder, Hx Autism, Hx Eating Disorder, Hx Oppositional Kay Disorder, Hx Panic Disorder, Hx Post Traumatic Stress Disorder, Hx Inpatient Treatment, Hx Community Mental Health Tx , Hx Schizophrenia, Hx Bipolar Disorder, Hx Suicide Attempt, Hx of Violent Episodes Against Others, Hx Substance Abuse, Other Psychiatric Issues/Disorders - Cancer History Hx Hematologic Symptoms: No Hx Chemotherapy: No Hx Radiation Therapy: No - Surgical History Surgery Procedure, Year, and Place: TUBAL LIGATION- [facility] [place]STERECTOMY- [facility] [place] CARPAL TUNNEL X2- [facility] [place] D&C X3- [facility] [place] CARDIAC CATHERIZATION- 2011- [facility] [place], minimal CAD with preserved ventricular function. RIGHT CATARACT EXTRACTION WITH IOL IMPLANT-06/2016- [facility] [place] LEFT CATARACT EXTRACTION WITH IOL IMPLANT-08/2016- [facility] [place]. cholecystectomy Hx Anesthesia Reactions: Yes - MORPHINE CAUSED "SEVERE" BRADYCARDIA - Immunization History Date of Tetanus Vaccine: unk Date of Influenza Vaccine: unk Infectious Disease History: No Infectious Disease History: Reports: Hx Hepatitis - as a child, Hx Shingles, History Other Infectious Disease - ? HEPATITIS A CHILD Denies: Hx Clostridium Difficile, Hx Human Immunodeficiency Virus (HIV), Hx of Known/Suspected MRSA, Hx Tuberculosis, Traveled Outside the in Last 30 Days - Family History Known Family History: Positive: Cardiac Disease - sister, Diabetes Family History: sister - unspecified cardiac ds. Father - CHF - Social History Alcohol Use: None Hx Substance Use: No Substance Use Type: Reports: None Hx Tobacco Use: No Smoking Status (MU): Never Smoked Tobacco Have You Smoked in the Last Year: No Review of Systems Negative: Fever Positive: Abdominal Pain, Vomiting, Diarrhea All Other Systems Reviewed And Are Negative: Yes Physical Exam - Summary Physical Exam Summary: Constitutional: Well-developed, Well-nourished, Alert. (-) Distressed Skin: Warm, Dry HENT: Normocephalic; Atraumatic Eyes: Conjunctiva normal Neck: Musculoskeletal ROM normal neck. (-) JVD, (-) Stridor, (-) Nuchal rigidity Cardio: Rhythm regular, rate normal, Heart sounds normal; Intact distal pulses; Radial pulses are 2+ and symmetric. (-) Murmur Pulmonary/Chest wall: Effort normal. (-) Respiratory distress, (-) Wheezes, (-) Rales Abd: mild suprapubic tenderness, (-) Distension, (-) Guarding, (-) Rebound Musculoskeletal: (-) Edema Lymph: (-) Cervical adenopathy Neuro: Alert, Oriented x3 Psych: Mood and affect Normal Triage Information Reviewed: Yes Vital Signs On Initial Exam: Initial Vitals Temp Pulse Resp BP Pulse Ox 98.1 F 77 16 136/73 92 08/27/19 10:53 08/27/19 10:53 08/27/19 10:53 08/27/19 10:53 08/27/19 10:53 Vital Signs Reviewed: Yes Procedures - Sedation Patient Received Moderate/Deep Sedation with Procedure: No Diagnostics - Vital Signs Vital Signs Temp Pulse Resp BP Pulse Ox 08/27/19 10:53 98.1 F 77 16 136/73 92 - Laboratory Result Diagrams: 08/27/19 11:20 08/27/19 16:19 Lab Statement: Any lab studies that have been ordered have been reviewed, and results considered in the medical decision making process. Re-Evaluation - Re-Evaluation First Eval Re-Evaluation Time: 12:49 Comment: K is 2.7 so will replete it and check magnesium. Second Eval Re-Evaluation Time: 16:15 Comment: Patient refusing second IV potassium stating that it hurts arm. We'll check potassium level Third Eval Re-Evaluation Time: 16:40 Change: Improved - Repeat potassium 3.5, magnesium 2.1. Patient with 20 by mouth 7 days. Repeat abdominal exam soft and nontender. Patient did not have any episodes of vomiting or diarrhea in the ED. Complex Multi-Symp Course/Dx Course Of Treatment: 69-year-old female with a history of diarrhea, presents with diarrhea and nausea for several days. - Physical exam of the well- appearing elderly female, abdomen soft, vital signs stable. Will check labs, give IV fluids, check stool studies able to provide stool. No recent antibiotic use or hospitalization aside from a GI procedure as risk factors for C. difficile. Patient denies fevers. - Given lack of pain, and normal CT several months ago hold off on further imaging at this time. Low suspicion for diverticulitis given lack of fever, abdominal pain, leukocytosis. - Diagnoses Provider Diagnoses: Diarrhea, Hypokalemia Discharge ED - Sign-Out/Discharge Documenting (check all that apply): Patient Departure - discharge - Discharge Plan Condition: Stable Disposition: HOME Prescriptions: Potassium Chlor TAB* [Potassium Chlor TAB 20 MEQ*] 20 meq PO DAILY 7 Days #7 tab.er Patient Education Materials: Hypokalemia (ED), Acute Diarrhea (ED) Referrals: Cornell Zarate MD [Primary Care Provider] - 3 Days Additional Instructions: You were seen in the emergency department for diarrhea. Your labs showed low potassium and magnesium, we gave these to you. If any studies were not completed at the time of discharge you will be called with the relevant results. Please follow up with your primary care doctor in next 2-3 days and return to emergency department for worsening pain, continued diarrhea, fevers, or concerning symptoms. It was a pleasure taking care of you today. - Billing Disposition and Condition Condition: STABLE Disposition: Home - Attestation Statements Document Initiated by Melodie: Yes Documenting Scribe: Umm Jimenez Provider For Whom Melodie is Documenting (Include Credential): Dr. Daniel Reich MD Scribe Attestation: Umm Bustos scribed for Dr. Daniel Reich MD on 08/27/19 at 1904. Scribe Documentation Reviewed: Yes Provider Attestation: The documentation as recorded by the Umm luna accurately reflects the service I personally performed and the decisions made by me, Dr. Daniel Reich MD Status of Scribe Document: Viewed
[2019-08-27 12:04] LABS: ABS Basophils 0.1 10^3/ul (0-0.2); ABS Eosinophils 0.1 10^3/ul (0-0.6); ABS Lymphocytes 2.2 10^3/ul (1.0-4.8); ABS Monocytes 0.7 10^3/ul (0-0.8); ABS Neutrophils 6.2 10^3/ul (1.5-7.7); Eosinophil % 1.4 %; Hematocrit 41 % (35-47); Hemoglobin 13.6 g/dL (12.0-16.0); Lymphocyte % 23.5 %; Mean Corpuscular HGB Conc 33 g/dL (31-36); Mean Corpuscular Hemoglobin 28 pg (27-31); Mean Corpuscular Volume 83 fL (80-97); Mean Platelet Volume 8.5 fL (7.4-10.4); Nucleated Red Blood Cells % 0.1; Platelet Count 348 10^3/uL (150-450); Red Blood Count 4.93 10^6 /uL (3.70-4.87); Red Cell Distribution Width 14 % (10-15); White Blood Count 9.4 10^3/uL (3.5-10.8)
[2019-08-27 12:20] LABS: Albumin 4.2 g/dL (3.2-5.2); Albumin/Globulin Ratio 1.2 (1-3); Calcium 9.6 mg/dL (8.6-10.3); EGFR African American 48.6 (>60); EGFR Non-African American 40.1 (>60); Globulin 3.4 g/dL (2-4); Total Bilirubin 0.3 mg/dL (0.2-1.0); Total Protein 7.6 g/dL (6.4-8.9)
[2019-08-27 12:45] LABS: Potassium 2.7 mmol/L (3.5-5.0)
[2019-08-27 13:05] LABS: Magnesium 1.6 mg/dL (1.9-2.7)
[2019-08-27] MEDS ORDERED: Potassium Chlor TAB* 20 MEQ TAB.ER PO ONE (13:12)
[2019-08-27] MEDS ORDERED: Magnesium Sulfate 2 GM IV* 2 GM/50 ML BAG IVPB ONE (13:13)
[2019-08-27] MEDS: KCL 20 MEQ/100 ML IVPREMIX* 20 MEQ/100 ML BAG IV SCH ×2 (14:21→16:52)
[2019-08-27 16:22] LABS: Urine Appearance Cloudy; Urine Bacteria Absent (Absent); Urine Bilirubin Negative (Negative); Urine Blood 1+ (Negative); Urine Color Yellow; Urine Glucose Negative (Negative); Urine Ketones Negative (Negative); Urine Nitrite Negative (Negative); Urine Protein Negative (Negative); Urine Red Blood Cell Trace(0-2/hpf) (Absent); Urine Specific Gravity 1.016 (1.010-1.030); Urine Squamous Epithelial Cell Present (Absent); Urine Urobilinogen Negative (Negative); Urine White Blood Cell 1+(6-10/hpf) (Absent)
[2019-08-27 16:43] LABS: Magnesium 2.1 mg/dL (1.9-2.7); Potassium 3.5 mmol/L (3.5-5.0)
[2019-08-27 17:16] VITALS: BP 125/72
== END 2019-08-27 17:15 | disposition home or self-care (01) ==
LOC: ED 10:52
DX: R19.7 Diarrhea, unspecified (principal); E87.6 Hypokalemia; I25.10 Atherosclerotic heart disease of native coronary artery without angina pectoris; E78.00 Pure hypercholesterolemia, unspecified; I10 Essential (primary) hypertension; I25.2 Old myocardial infarction; K21.9 Gastro-esophageal reflux disease without esophagitis; F41.9 Anxiety disorder, unspecified; F32.9 Major depressive disorder, single episode, unspecified; Z90.710 Acquired absence of both cervix and uterus; Z88.1 Allergy status to other antibiotic agents; Z88.5 Allergy status to narcotic agent; Z88.8 Allergy status to other drugs, medicaments and biological substances; Z79.899 Other long term (current) drug therapy
CPT/HCPCS: 36415; 80053; 81003; 81015; 83690; 83735; 84132; 85025; 87086; 96361; 96365; 96375; 99284; A9270-GY; J2405; J3480

== ENCOUNTER 2019-08-28 20:15 | Emergency (ER) | payer MEDICARE, MEDICAID ==
[2019-08-28 20:19] VITALS: BP 140/66
== END 2019-08-28 21:07 | disposition left against medical advice (07) ==
LOC: ED 20:15
DX: R19.7 Diarrhea, unspecified (principal); Z53.21 Procedure and treatment not carried out due to patient leaving prior to being seen by health care provider
CPT/HCPCS: 99282

== ENCOUNTER 2019-11-28 21:01 | Emergency (ER) | payer MEDICARE, MEDICAID ==
--- NOTE | 2019-11-28 21:47 | ED ---
Respiratory - HPI Summary HPI Summary: 69 year old F presenting to [facility] accompanied by EMS complains of dyspnea for two weeks and an episode of nonstop coughing earlier today 11/28/2019. Patient reports coughing, CP, sore throat, wheezing, congestion, and diarrhea and vomiting upon eating. Patient denies body aches and swelling in legs. Pt is on Imodium and Albuterol. PMHx of A-fib and bradycardia. The patient rates the pain 5/10 in severity. Symptoms aggravated by nothing. Symptoms alleviated by nothing. - History of Current Complaint Chief Complaint: EDShortnessOfBreath Stated Complaint: SOB PER EMS Time Seen by Provider: 11/28/19 21:10 Hx Obtained From: Patient Onset/Duration: Lasting Days, Still Present Current Severity: Moderate Pain Intensity: 5 Character: Wheezing, Cough (Productive), Dyspnea at Rest Aggravating Factor(s): Nothing Alleviating Factor(s): Nothing Associated Signs and Symptoms: Chest Pain, Wheezing, Nasal Congestion, Dyspnea - Allergy/Home Medications Allergies/Adverse Reactions: Allergies Allergy/AdvReac Type Severity Reaction Status Date / Time hydroxychloroquine Allergy Itching Verified 08/28/19 20:19 [From Plaquenil] lactose Allergy GI Upset Verified 08/28/19 20:19 leflunomide Allergy Itching Verified 08/28/19 20:19 morphine Allergy severe Verified 08/28/19 20:19 bradycardia pravastatin Allergy Muscle Ache Verified 08/28/19 20:19 procaine [From Novocain] Allergy Agitation Verified 08/28/19 20:19 ampicillin AdvReac Severe Diarrhea Verified 08/28/19 20:19 doxycycline [From Vibramycin] AdvReac "did not Verified 08/28/19 20:19 work" gabapentin AdvReac legs ache, Verified 08/28/19 20:19 trouble sleeping olanzapine [From Zyprexa] AdvReac "did not Verified 08/28/19 20:19 work" sertraline [From Zoloft] AdvReac "did not Verified 08/28/19 20:19 work" PMH/Surg Hx/FS Hx/Imm Hx Endocrine/Hematology History: Denies: Hx Anticoagulant Therapy, Hx Blood Disorders, Hx Blood Transfusions, Hx Bone Marrow Disease, Hx Diabetes, Hx Systemic Lupus Erythematosus, Hx Sickle Cell Disease, Hx Thyroid Disease, Hx Anemia, Hx Unexplained Bleeding, Other Endocrine/Hematological Disorders Cardiovascular History: Reports: Hx Angina, Hx Coronary Artery Disease - CARDIAC CATHERIZATION, FOLLOWED BY DR KHNA, Hx Hypercholesterolemia, Hx Hypertension, Hx Myocardial Infarction, Other Cardiovascular Problems/Disorders - CARRIES NITRO FOR CHEST PAIN Denies: Hx Aneurysm, Hx Angioplasty, Hx Auto Implanted Cardiovert Defib, Hx Cardiac Arrest, Hx Cardiomegaly, Hx Congenital Heart Disease, Hx Congestive Heart Failure, Hx Deep Vein Thrombosis, Hx Embolism, Hx Hypotension, Hx Pacemaker/ICD, Hx Peripheral Vascular Disease, Hx Rheumatic Fever, Hx Syncope, Hx Valvular Heart Disease Respiratory History: Reports: Hx Asthma Denies: Hx Bronchopulmonary Dysplasia, Hx Chronic Bronchitis, Hx Chronic Obstructive Pulmonary Disease (COPD), Hx Cystic Fibrosis, Hx Lung Cancer, Hx Pleural Effusion, Hx Pneumonia, Hx Pulmonary Edema, Hx Pulmonary Embolism, Hx Seasonal Allergies, Hx Sleep Apnea, Other Respiratory Problems/Disorders GI History: Reports: Hx Gastroesophageal Reflux Disease, Hx Irritable Bowel, Other GI Disorders - GALLBLADDER POLYPS/STONES, FATTY LIVER Denies: Hx Cirrhosis, Hx Crohn's Disease, Hx Diverticulosis, Hx Gall Bladder Disease, Hx Gastrointestinal Bleed, Hx Hiatal Hernia, Hx Jaundice, Hx Obstructive Bowel, Hx Ileostomy, Hx Pyloric Stenosis, Hx Ulcer History: Reports: Other Problems/Disorders - 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 NOW Denies: Hx Acute Renal Failure, Hx Benign Prostatic Hyperplasia, Hx Chronic Renal Failure, Hx Dialysis, Hx Kidney Infection, Hx Kidney Stones, Hx Renal Disease Musculoskeletal History: Reports: Hx Arthritis - psoriatic , Hx Fibromyalgia, Hx Scoliosis, Other Musculoskeletal History - MILD CURVATURE OF SPINE Denies: Hx Back Problems, Hx Bursitis, Hx Congenital Bone Abnormalities, Hx Gout, Hx Orthopedic Injury, Hx Osteoporosis, Hx Tendonitis Sensory History: Reports: Hx Cataracts - BILAT, Hx Contacts or Glasses - GLASSES Denies: Hx Eye Injury, Hx Eye Prosthesis, Hx Glaucoma, Hx Macular Degeneration, Hx Vision Problem, Hx Deafness, Hx Hearing Aid, Hx Hearing Problem , Other Sensory Impairments Opthamlomology History: Reports: Hx Cataracts - BILAT, Hx Contacts or Glasses - GLASSES Denies: Hx Eye Injury, Hx Eye Prosthesis, Hx Glaucoma, Hx Macular Degeneration, Hx Vision Problem, Other Sensory Impairments Neurological History: Reports: Hx Headaches, Hx Nerve Disease - FIBROMYALGIA Denies: Hx Dementia, Hx Developmental Delay, Hx Migraine, Hx Seizures, Hx Spinal Cord Injury, Hx Transient Ischemic Attacks (TIA), Other Neuro Impairments /Disorders Psychiatric History: Reports: Hx Anxiety - ON MED, Hx Depression Denies: Hx Attention Deficit Hyperactivity Disorder, Hx Autism, Hx Eating Disorder, Hx Oppositional [place] Disorder, Hx Panic Disorder, Hx Post Traumatic Stress Disorder, Hx Inpatient Treatment, Hx Community Mental Health Tx , Hx Schizophrenia, Hx Bipolar Disorder, Hx Suicide Attempt, Hx of Violent Episodes Against Others, Hx Substance Abuse, Other Psychiatric Issues/Disorders - Cancer History Hx Hematologic Symptoms: No Hx Chemotherapy: No Hx Radiation Therapy: No - Surgical History Surgery Procedure, Year, and Place: TUBAL LIGATION- [facility]. HYSTERECTOMY- [facility]. CARPAL TUNNEL X2- [facility]. D&C X3- [facility]. CARDIAC CATHERIZATION- 2011- [facility], minimal CAD with preserved ventricular function. RIGHT CATARACT EXTRACTION WITH IOL IMPLANT-06/2016- [facility]. LEFT CATARACT EXTRACTION WITH IOL IMPLANT-08/2016- [facility]. cholecystectomy Hx Anesthesia Reactions: Yes - MORPHINE CAUSED "SEVERE" BRADYCARDIA - Immunization History Date of Tetanus Vaccine: unk Date of Influenza Vaccine: unk Immunizations Up to Date: Yes Infectious Disease History: Yes Infectious Disease History: Reports: Hx Hepatitis - as a child, Hx Shingles, History Other Infectious Disease - ? HEPATITIS A CHILD Denies: Hx Clostridium Difficile, Hx Human Immunodeficiency Virus (HIV), Hx of Known/Suspected MRSA, Hx Tuberculosis, Traveled Outside the [place] in Last 30 Days - Family History Known Family History: Positive: Cardiac Disease - sister, Diabetes Family History: sister - unspecified cardiac ds. Father - CHF - Social History Alcohol Use: None Hx Substance Use: No Substance Use Type: Reports: None Hx Tobacco Use: No Smoking Status (MU): Never Smoked Tobacco Have You Smoked in the Last Year: No Review of Systems Positive: Sore Throat, Nasal Discharge - congested Positive: Shortness Of Breath, Cough, Other - Wheezing Positive: Vomiting - upon eating, Diarrhea - upon eating Musculoskeletal: Negative - no body aches Negative: Edema - no swelling in legs All Other Systems Reviewed And Are Negative: Yes Physical Exam - Summary Physical Exam Summary: Constitutional: Well-developed, Well-nourished, Alert. (-) Distressed Skin: Warm, Dry HENT: Normocephalic; Atraumatic Eyes: Conjunctiva normal Neck: Musculoskeletal ROM normal neck. (-) JVD, (-) Stridor, (-) Tracheal deviation Cardio: Rhythm regular, rate normal, Heart sounds normal; Intact distal pulses; The pedal pulses are 2+ and symmetric. Radial pulses are 2+ and symmetric. (-) Murmur Pulmonary/Chest wall: wheezes Abd: Soft, (-) tenderness, (-) Distension, (-) Guarding, (-) Rebound Musculoskeletal: (-) Edema Lymph: (-) Cervical adenopathy Neuro: Alert, Oriented x3 Psych: Mood and affect Normal Triage Information Reviewed: Yes Vital Signs On Initial Exam: Initial Vitals Temp Pulse Resp BP Pulse Ox 98.6 F 78 22 141/65 99 11/28/19 21:06 11/28/19 21:06 11/28/19 21:06 11/28/19 21:06 11/28/19 21:06 Vital Signs Reviewed: Yes Procedures - Sedation Patient Received Moderate/Deep Sedation with Procedure: No Diagnostics - Vital Signs Vital Signs Temp Pulse Resp BP Pulse Ox 11/28/19 21:06 98.6 F 78 22 141/65 99 - Laboratory Result Diagrams: 11/28/19 22:57 11/28/19 22:57 Lab Statement: Any lab studies that have been ordered have been reviewed, and results considered in the medical decision making process. - Radiology CXR Radiology Interpretation Completed By: ED Physician Summary of Radiographic Findings: CXR shows no abnormalities. Pending official report. - EKG 2251 Cardiac Rate: NL EKG Rhythm: Sinus Rhythm Summary of EKG Findings: Normal sinus rhythm at 76 bpm, normal AK, normal QRS, prolonged QTc, normal axis, normal ST, T waves inverted at V5 and V6, nonspecific EKG. Computer calculated QTc appears longer than actual QTc. Likely secondary to artifact that computer is misreading. Re-Evaluation - Re-Evaluation 4457 Re-Evaluation Time: 01:37 Comment: Pt has flu and is wheezing. Given tamiflu, prednisone, and duoneb. Disposition - Course Course Of Treatment: 69 year old F presenting to [facility] complains of dyspnea for two weeks and an episode of nonstop coughing earlier today 11/28/2019. Physical exam findings: wheezes. Bloodwork results with no significant abnormalities except for H Creatinine, H Glucose, L Magnesium, H AST, H ALT, H Alkaline Phosphatase. An EKG shows Normal sinus rhythm at 76 bpm, normal AK, normal QRS , prolonged QTc, normal axis, normal ST, T waves inverted at V5 and V6, nonspecific EKG. Computer calculated QTc appears longer than actual QTc. Likely secondary to artifact that computer is misreading. CXR shows no abnormalities, per ED physician. Pending official report. In the ED course, the patient was given Albuterol 1 neb, Iodixanol 80 ml IV, Oseltamivir SUSP 75 mg, predisone 50 mg. Patient will be discharged home with a follow up with PCP, . Patient was instructed to return to Emergency Department for new or worsening symptoms. Patient understands and is agreeable to this plan. - Diagnoses Provider Diagnoses: Flu, Bronchospasm Discharge ED - Sign-Out/Discharge Documenting (check all that apply): Patient Departure - discharge - Discharge Plan Condition: Stable Disposition: HOME Prescriptions: Oseltamivir CAP* [Tamiflu CAP*] 75 mg PO BID #9 cap predniSONE [Prednisone 20 MG TAB] 20 mg PO DAILY 5 Days #10 tablet Patient Education Materials: Influenza (ED) Print Language: [place] Referrals: Cornell Zarate MD [Primary Care Provider] - - Attestation Statements Document Initiated by Scribe: Yes Documenting Scribe: Rangel Barrientos Provider For Whom Scribe is Documenting (Include Credential): Patricia Lozano MD Scribe Attestation: IRangel, scribed for Patricia Yañez MD on 11/29/19 at 0607. Status of Scribe Document: Ready
[2019-11-28 23:08] LABS: ABS Basophils 0.1 10^3/ul (0-0.2); ABS Eosinophils 0.2 10^3/ul (0-0.6); ABS Lymphocytes 1.2 10^3/ul (1.0-4.8); ABS Monocytes 0.5 10^3/ul (0-0.8); ABS Neutrophils 5.9 10^3/ul (1.5-7.7); Hematocrit 40 % (35-47); Hemoglobin 12.7 g/dL (12.0-16.0); Lymphocyte % 15.6 %; Mean Corpuscular HGB Conc 32 g/dL (31-36); Mean Corpuscular Hemoglobin 27 pg (27-31); Mean Corpuscular Volume 84 fL (80-97); Mean Platelet Volume 8.1 fL (7.4-10.4); Platelet Count 301 10^3/uL (150-450); Red Blood Count 4.71 10^6 /uL (3.70-4.87); Red Cell Distribution Width 15 % (10-15); White Blood Count 7.9 10^3/uL (3.5-10.8)
[2019-11-28 23:22] LABS: Albumin 4.2 g/dL (3.2-5.2); Albumin/Globulin Ratio 1.4 (1-3); BUN/Creatinine Ratio 9.9 (8-20); Calcium 9.2 mg/dL (8.6-10.3); EGFR African American 48.6 (>60); EGFR Non-African American 40.1 (>60); Magnesium 1.8 mg/dL (1.9-2.7); Potassium 3.7 mmol/L (3.5-5.0); Total Bilirubin 0.3 mg/dL (0.2-1.0); Total Protein 7.2 g/dL (6.4-8.9)
[2019-11-28 23:24] LABS: Troponin I 0.01 ng/mL (<0.03)
[2019-11-29] MEDS ORDERED: Magnesium Sulfate 1 GM IV* 1 GM/100 ML BAG IV ONE (00:16)
[2019-11-29] MEDS ORDERED: Iodixanol* (CONTRAST) 320 MG/ML 100 ML SDV IV ONE (00:29)
[2019-11-29 00:41] LABS: Influenza A Molecular POSITIVE (Negative)
[2019-11-29 00:49] LABS: Resp Syncytial Virus Molecular Negative (Negative)
[2019-11-29] MEDS ORDERED: Albuterol/Ipratropium NEB.SOL* Albuterol 2.5 MG/Ipratropium 0.5 MG 3 ML INH ONE (01:36)
[2019-11-29 02:48] VITALS: BP 141/90
[2019-11-29] MEDS ORDERED: Oseltamivir SUSP 75 MG dose* 75 MG/12.5 ML ORAL.SYRIN PO ONE (03:00)
== END 2019-11-29 03:00 | disposition home or self-care (01) ==
LOC: ED 21:01
DX: J11.1 Influenza due to unidentified influenza virus with other respiratory manifestations (principal); J98.01 Acute bronchospasm; I25.10 Atherosclerotic heart disease of native coronary artery without angina pectoris; E78.00 Pure hypercholesterolemia, unspecified; I10 Essential (primary) hypertension; I25.2 Old myocardial infarction; K21.9 Gastro-esophageal reflux disease without esophagitis; F41.9 Anxiety disorder, unspecified; F32.9 Major depressive disorder, single episode, unspecified; Z90.710 Acquired absence of both cervix and uterus; Z98.51 Tubal ligation status; Z79.899 Other long term (current) drug therapy; Z88.1 Allergy status to other antibiotic agents; Z88.5 Allergy status to narcotic agent; Z88.0 Allergy status to penicillin; Z88.8 Allergy status to other drugs, medicaments and biological substances
CPT/HCPCS: 36415; 71045; 80053; 83605; 83735; 83880; 84484; 85025; 93005; 96374; 99284; A9270-GY; J3475; J7512

== ENCOUNTER 2021-04-07 20:42 | Observation (INO) ==
[2021-04-07 23:11] LABS: ABS Eosinophils 0.1 10^3/ul (0-0.6); ABS Lymphocytes 2.6 10^3/ul (1.0-4.8); ABS Monocytes 0.4 10^3/ul (0-0.8); ABS Neutrophils 3.4 10^3/ul (1.5-7.7); Eosinophil % 1.8 %; Hematocrit 42 % (35-47); Hemoglobin 13.8 g/dL (12.0-16.0); Lymphocyte % 39.5 %; Mean Corpuscular HGB Conc 33 g/dL (31-36); Mean Corpuscular Hemoglobin 29 pg (27-31); Mean Corpuscular Volume 88 fL (80-97); Mean Platelet Volume 8.5 fL (7.4-10.4); Nucleated Red Blood Cells % 0.1; Platelet Count 256 10^3/uL (150-450); Red Blood Count 4.73 10^6 /uL (3.70-4.87); Red Cell Distribution Width 18 % (10-15); White Blood Count 6.6 10^3/uL (3.5-10.8)
[2021-04-07 23:27] LABS: Albumin 4.1 g/dL (3.2-5.2); Albumin/Globulin Ratio 1.6 (1-3); Calcium 9.1 mg/dL (8.6-10.3); EGFR Non-African American 45.5 (>60); Globulin 2.6 g/dL (2-4); Potassium 2.8 mmol/L (3.5-5.0); Total Bilirubin 0.5 mg/dL (0.2-1.0); Total Protein 6.7 g/dL (6.4-8.9)
[2021-04-07 23:30] LABS: Troponin I 0.01 ng/mL (<0.03)
[2021-04-07] MEDS ORDERED: Potassium Chlor 20 meq TAB.ER PO ONE (23:39)
[2021-04-08 00:03] LABS: Magnesium 1.7 mg/dL (1.9-2.7)
[2021-04-08] MEDS ORDERED: Magnesium Sulfate 2 gm BAG 2 GM/50 ML BAG IVPB ONE (00:13)
[2021-04-08] MEDS ORDERED: Ondansetron 4 mg VIAL 2 MG/ML 2 ml VIAL IV PRN (01:52)
[2021-04-08] MEDS ORDERED: NS 0.9% 1000 ml BAG 1,000 ML IV SCH (02:00)
[2021-04-08] MEDS ORDERED: Albuterol HFA INHALER 8 gm MDI INH PRN ×2 (02:05→13:22)
[2021-04-08 02:13] LABS: Urine Appearance Clear; Urine Bilirubin Negative (Negative); Urine Blood Negative (Negative); Urine Color Straw; Urine Glucose Negative (Negative); Urine Ketones Negative (Negative); Urine Nitrite Negative (Negative); Urine Protein Negative (Negative); Urine Specific Gravity 1.009 (1.002-1.030); Urine Urobilinogen Negative (Negative)
[2021-04-08 02:21] LABS: Urine Bacteria Absent (Absent); Urine Red Blood Cell Trace(0-2/hpf) (Absent); Urine Squamous Epithelial Cell Present (Absent); Urine White Blood Cell 1+(6-10/hpf) (Absent)
[2021-04-08 02:39] LABS: Activated Partial Thrombo Time 22.1 seconds (26.0-38.0); INR 0.92 (0.82-1.09)
[2021-04-08 02:58] LABS: TSH Ultra Thyroid Stim Horm 1.49 mcIU/mL (0.34-5.60)
[2021-04-08] MEDS ORDERED: Heparin 5000 UNITS/ML 1 mL VIAL SUBCUT SCH (06:00)
[2021-04-08 06:56] LABS: ABS Basophils 0.1 10^3/ul (0-0.2); ABS Eosinophils 0.1 10^3/ul (0-0.6); ABS Lymphocytes 2.8 10^3/ul (1.0-4.8); ABS Monocytes 0.5 10^3/ul (0-0.8); ABS Neutrophils 3.5 10^3/ul (1.5-7.7); Eosinophil % 1.9 %; Hematocrit 43 % (35-47); Hemoglobin 14.2 g/dL (12.0-16.0); Lymphocyte % 39.3 %; Mean Corpuscular HGB Conc 33 g/dL (31-36); Mean Corpuscular Hemoglobin 29 pg (27-31); Mean Corpuscular Volume 88 fL (80-97); Mean Platelet Volume 8.5 fL (7.4-10.4); Nucleated Red Blood Cells % 0.1; Platelet Count 263 10^3/uL (150-450); Red Blood Count 4.88 10^6 /uL (3.70-4.87); Red Cell Distribution Width 19 % (10-15)
[2021-04-08 07:08] LABS: Calcium 9.4 mg/dL (8.6-10.3); EGFR African American 62.3 (>60); EGFR Non-African American 51.5 (>60); Potassium 2.9 mmol/L (3.5-5.0); Troponin I 0.01 ng/mL (<0.03)
[2021-04-08] MEDS ORDERED: Potassium Chlor 20 meq TAB.ER PO SCH (09:00)
[2021-04-08] MEDS ORDERED: Potassium Chloride LIQUID 20 MEQ/15 ML LIQUID PO ONE (09:16)
[2021-04-08] MEDS: Enoxaparin 40 MG/0.4 ML SYR SUBCUT SCH (10:41)
[2021-04-08] MEDS: Mometasone/Formoter 100/5 MDI INH SCH (19:33)
[2021-04-09] MEDS ORDERED: Al Hydrox/Mg Hydrox/Simet LIQ 30 ML UDC PO PRN (03:14)
[2021-04-09 08:10] LABS: ABS Basophils 0.1 10^3/ul (0-0.2); ABS Eosinophils 0.1 10^3/ul (0-0.6); ABS Monocytes 0.4 10^3/ul (0-0.8); ABS Neutrophils 2.8 10^3/ul (1.5-7.7); Eosinophil % 2.4 %; Hematocrit 40 % (35-47); Hemoglobin 13.3 g/dL (12.0-16.0); Lymphocyte % 36.5 %; Mean Corpuscular HGB Conc 33 g/dL (31-36); Mean Corpuscular Hemoglobin 29 pg (27-31); Mean Corpuscular Volume 89 fL (80-97); Mean Platelet Volume 8.5 fL (7.4-10.4); Nucleated Red Blood Cells % 0.1; Platelet Count 252 10^3/uL (150-450); Red Blood Count 4.55 10^6 /uL (3.70-4.87); Red Cell Distribution Width 18 % (10-15); White Blood Count 5.3 10^3/uL (3.5-10.8)
[2021-04-09 08:20] LABS: Calcium 9.2 mg/dL (8.6-10.3); EGFR African American 74.5 (>60); EGFR Non-African American 61.5 (>60); Magnesium 1.7 mg/dL (1.9-2.7); Potassium 3.1 mmol/L (3.5-5.0)
[2021-04-09] MEDS ORDERED: Magnesium Sulfate 2 gm BAG 2 GM/50 ML BAG IVPB ONE (08:33)
[2021-04-09] MEDS ORDERED: Potassium Chloride LIQUID 20 MEQ/15 ML LIQUID PO ONE (08:33)
[2021-04-09] MEDS: Enoxaparin 40 MG/0.4 ML SYR SUBCUT SCH (08:54)
[2021-04-09] MEDS ORDERED: Cholecalciferol (VIT D3) 1,000 unit TAB PO SCH (09:00)
[2021-04-09] MEDS ORDERED: Vortioxetine 10 mg TAB (NF) PO SCH (09:00)
[2021-04-09] MEDS: Mometasone/Formoter 100/5 MDI INH SCH (09:53)
[2021-04-09 11:58] VITALS: BP 134/57
== END 2021-04-09 14:15 | disposition home or self-care (01) ==
LOC: MED 20:42 → ED 20:42 → MED 04-08 13:54
PROVIDERS: ADMIT Internal Medicine; ATTEND Internal Medicine

== ENCOUNTER 2021-04-15 22:15 | Inpatient (IN) ==
[2021-04-15] MEDS ORDERED: NS 0.9% 1000 ml BAG 1,000 ML IV ONE (22:17)
[2021-04-15 23:01] LABS: Urine Appearance Clear; Urine Bilirubin Negative (Negative); Urine Blood Negative (Negative); Urine Color Yellow; Urine Glucose Negative (Negative); Urine Ketones Negative (Negative); Urine Nitrite Negative (Negative); Urine Protein 2+(100 mg/dL) (Negative); Urine Specific Gravity 1.032 (1.002-1.030); Urine Urobilinogen Negative (Negative)
[2021-04-15 23:27] LABS: Urine Benzodiazepine Screen Presumptive Positive (None Detect); Urine Cannabinoids Screen None Detected (None Detect); Urine Opiates Screen None Detected (None Detect)
[2021-04-16 00:19] LABS: Urine Bacteria Absent (Absent); Urine Red Blood Cell Absent (Absent); Urine Squamous Epithelial Cell Present (Absent); Urine White Blood Cell Absent (Absent)
[2021-04-16] MEDS ORDERED: diPHENhydraMINE IV 50 MG/ML 1 ml VIAL (BENADRYL) ONE (00:28)
[2021-04-16 00:32] LABS: ABS Basophils 0.1 10^3/ul (0-0.2); ABS Lymphocytes 1.6 10^3/ul (1.0-4.8); ABS Monocytes 0.4 10^3/ul (0-0.8); ABS Neutrophils 8.5 10^3/ul (1.5-7.7); Eosinophil % 0.1 %; Hematocrit 46 % (35-47); Hemoglobin 14.9 g/dL (12.0-16.0); Lymphocyte % 15.4 %; Mean Corpuscular HGB Conc 33 g/dL (31-36); Mean Corpuscular Hemoglobin 29 pg (27-31); Mean Corpuscular Volume 90 fL (80-97); Mean Platelet Volume 8.7 fL (7.4-10.4); Platelet Count 285 10^3/uL (150-450); Red Cell Distribution Width 18 % (10-15); White Blood Count 10.7 10^3/uL (3.5-10.8)
[2021-04-16] MEDS ORDERED: diPHENhydraMINE IV 50 MG/ML 1 ml VIAL (BENADRYL) IV ONE (00:32)
[2021-04-16 00:43] LABS: INR 1.01 (0.82-1.09)
[2021-04-16 00:49] LABS: Acetaminophen < 15 mcg/mL; Alcohol, S < 10 mg/dL (<10); Salicylate < 2.50 mg/dL (<30)
[2021-04-16 00:50] LABS: ALT 34 U/L (7-52); AST 27 U/L (13-39); Albumin 4.7 g/dL (3.2-5.2); Albumin/Globulin Ratio 1.5 (1-3); Alkaline Phosphatase 83 U/L (35-149); Anion Gap 12 mmol/L (2-11); Blood Urea Nitrogen 21 mg/dL (6-24); CO2 Carbon Dioxide 22 mmol/L (22-32); Calcium 10.3 mg/dL (8.6-10.3); Chloride 108 mmol/L (101-111); Creatine Kinase 58 U/L (10-223); EGFR Non-African American 45.5 (>60); Globulin 3.1 g/dL (2-4); Glucose 107 mg/dL (70-100); Magnesium 1.9 mg/dL (1.9-2.7); Potassium 3.8 mmol/L (3.5-5.0); Sodium 142 mmol/L (135-145); Total Protein 7.8 g/dL (6.4-8.9)
[2021-04-16 01:04] LABS: TSH Ultra Thyroid Stim Horm 0.89 mcIU/mL (0.34-5.60)
[2021-04-16] MEDS ORDERED: LORazepam 2 mg VIAL 1 ml IV PUSH ONE ×2 (01:22→22:48)
[2021-04-16] MEDS ORDERED: Albuterol HFA INHALER 8 gm MDI INH PRN (02:59)
[2021-04-16] MEDS: NS 0.9% 1000 ml BAG 1,000 ML IV SCH ×3 (04:48→23:09)
[2021-04-16] MEDS: Mometasone/Formoter 100/5 MDI INH SCH ×3 (07:44→19:18)
[2021-04-16] MEDS: MAGNESIUM CHLORIDE 71.5 MG PO SCH (08:19)
[2021-04-16] MEDS: Potassium Chlor 20 meq TAB.ER PO SCH (08:22)
[2021-04-16] MEDS ORDERED: VORTIOXETINE 5 MG PO SCH (09:00)
[2021-04-16] MEDS: Enoxaparin 40 MG/0.4 ML SYR SUBCUT SCH ×2 (20:42→23:07)
[2021-04-16] MEDS ORDERED: Lorazepam PYXIS KEY PRN (22:48)
[2021-04-17] MEDS: VORTIOXETINE 5 MG PO SCH (08:07)
[2021-04-17] MEDS: MAGNESIUM CHLORIDE 71.5 MG PO SCH (08:07)
[2021-04-17] MEDS: Mometasone/Formoter 100/5 MDI INH SCH ×2 (08:22→19:09)
[2021-04-17] MEDS: Potassium Chlor 20 meq TAB.ER PO SCH (08:32)
[2021-04-17 10:28] LABS: ABS Basophils 0.1 10^3/ul (0-0.2); ABS Eosinophils 0.1 10^3/ul (0-0.6); ABS Lymphocytes 1.6 10^3/ul (1.0-4.8); ABS Monocytes 0.5 10^3/ul (0-0.8); ABS Neutrophils 2.8 10^3/ul (1.5-7.7); Eosinophil % 2.7 %; Hematocrit 44 % (35-47); Hemoglobin 13.4 g/dL (12.0-16.0); Lymphocyte % 31.5 %; Mean Corpuscular HGB Conc 30 g/dL (31-36); Mean Corpuscular Hemoglobin 29 pg (27-31); Mean Corpuscular Volume 96 fL (80-97); Mean Platelet Volume 9.9 fL (7.4-10.4); Nucleated Red Blood Cells % 0.3; Platelet Count 163 10^3/uL (150-450); Red Blood Count 4.63 10^6 /uL (3.70-4.87); Red Cell Distribution Width 19 % (10-15); White Blood Count 5.1 10^3/uL (3.5-10.8)
[2021-04-17 10:36] LABS: CO2 Carbon Dioxide 19 mmol/L (22-32); Calcium 8.7 mg/dL (8.6-10.3); Chloride 111 mmol/L (101-111); Sodium 140 mmol/L (135-145)
[2021-04-17 10:42] LABS: Blood Urea Nitrogen 9 mg/dL (6-24); EGFR African American 79.5 (>60); EGFR Non-African American 65.7 (>60); Glucose 78 mg/dL (70-100)
[2021-04-17 10:45] LABS: Anion Gap 10 mmol/L (2-11)
[2021-04-17] MEDS: Enoxaparin 40 MG/0.4 ML SYR SUBCUT SCH (22:05)
[2021-04-18 04:56] LABS: ABS Basophils 0.1 10^3/ul (0-0.2); ABS Eosinophils 0.1 10^3/ul (0-0.6); ABS Monocytes 0.4 10^3/ul (0-0.8); ABS Neutrophils 2.4 10^3/ul (1.5-7.7); Eosinophil % 2.9 %; Hematocrit 38 % (35-47); Hemoglobin 12.4 g/dL (12.0-16.0); Lymphocyte % 39.3 %; Mean Corpuscular HGB Conc 33 g/dL (31-36); Mean Corpuscular Hemoglobin 29 pg (27-31); Mean Corpuscular Volume 89 fL (80-97); Mean Platelet Volume 8.5 fL (7.4-10.4); Platelet Count 231 10^3/uL (150-450); Red Blood Count 4.24 10^6 /uL (3.70-4.87); Red Cell Distribution Width 19 % (10-15)
[2021-04-18 05:13] LABS: Calcium 8.9 mg/dL (8.6-10.3); EGFR African American 78.5 (>60); EGFR Non-African American 64.9 (>60); Potassium 3.3 mmol/L (3.5-5.0)
[2021-04-18] MEDS: Mometasone/Formoter 100/5 MDI INH SCH ×2 (07:46→20:32)
[2021-04-18] MEDS: Magnesium Chloride EC 64 mgTAB PO SCH (08:13)
[2021-04-18] MEDS: Potassium Chlor 20 meq TAB.ER PO SCH (08:15)
[2021-04-18] MEDS: Nystatin TOP POWDER 15 GM BTL TOPICAL SCH ×2 (08:15→20:13)
[2021-04-18] MEDS: VORTIOXETINE 5 MG PO SCH (08:16)
[2021-04-18] MEDS ORDERED: Potassium Chloride LIQUID 20 MEQ/15 ML LIQUID PO ONE (09:00)
[2021-04-18] MEDS ORDERED: Potassium Chlor 20 meq TAB.ER PO ONE (09:00)
[2021-04-18] MEDS ORDERED: Calcium Carb (TUMS) 500 mg CHEW TAB PO PRN (16:06)
[2021-04-18] MEDS ORDERED: Lorazepam PYXIS KEY PRN (19:54)
[2021-04-18] MEDS ORDERED: LORazepam 2 mg VIAL 1 ml IV PUSH ONE (19:54)
[2021-04-18] MEDS: Enoxaparin 40 MG/0.4 ML SYR SUBCUT SCH (20:10)
[2021-04-19] MEDS: Mometasone/Formoter 100/5 MDI INH SCH (07:18)
[2021-04-19] MEDS: Potassium Chlor 20 meq TAB.ER PO SCH (09:01)
[2021-04-19] MEDS: Magnesium Chloride EC 64 mgTAB PO SCH (09:01)
[2021-04-19] MEDS: Nystatin TOP POWDER 15 GM BTL TOPICAL SCH (09:05)
[2021-04-19] MEDS: VORTIOXETINE 5 MG PO SCH (09:05)
[2021-04-19 12:30] VITALS: BP 139/69
== END 2021-04-19 15:35 | disposition home or self-care (01) | DRG 917 ==
LOC: ED 22:15 → MED 22:15
PROVIDERS: ADMIT Hospitalist; ATTEND Internal Medicine

== ENCOUNTER 2022-09-27 09:07 | Inpatient (IN) ==
[2022-09-27] MEDS ORDERED: Azithromycin 500 mg/250 ml NS 500 MG/250 ML BAG IVPB ONE (10:43)
[2022-09-27] MEDS ORDERED: cefTRIAXone 1 gm/50 mL D5W 1 GM/50 ML BAG IV ONE (10:43)
[2022-09-27 11:18] LABS: ABS Eosinophils 0.1 10^3/ul (0-0.6); ABS Lymphocytes 1.2 10^3/ul (1.0-4.8); ABS Monocytes 0.6 10^3/ul (0-0.8); Eosinophil % 0.5 %; Hematocrit 45 % (35-47); Hemoglobin 14.4 g/dL (12.0-16.0); Lymphocyte % 11.1 %; Mean Corpuscular HGB Conc 32 g/dL (31-36); Mean Corpuscular Hemoglobin 28 pg (27-31); Mean Corpuscular Volume 88 fL (80-97); Mean Platelet Volume 8.4 fL (7.4-10.4); Platelet Count 261 10^3/uL (150-450); Red Blood Count 5.13 10^6 /uL (3.70-4.87); Red Cell Distribution Width 15 % (10-15); White Blood Count 10.9 10^3/uL (3.5-10.8)
[2022-09-27 11:59] LABS: Albumin 4.5 g/dL (3.2-5.2); Albumin/Globulin Ratio 1.6 (1-3); C Reactive Protein 57.77 mg/L (<8.01); Globulin 2.9 g/dL (2-4); Potassium 4.6 mmol/L (3.5-5.0); Total Bilirubin 0.6 mg/dL (0.2-1.0); Total Protein 7.4 g/dL (6.4-8.9); eGFR CKD-EPI 60.2 (>60)
[2022-09-27 12:17] LABS: Activated Partial Thrombo Time 35.6 seconds (26.0-38.0); INR 0.93 (0.89-1.11)
[2022-09-27 13:05] LABS: High Sensitivity Troponin 1 Hr 4 pg/mL (<15)
[2022-09-27] MEDS ORDERED: Haloperidol 5 mg/ml SDV IV/IM 5 MG/ML AMP IV SLOW PU PRN ×2 (13:58→15:23)
[2022-09-27] MEDS ORDERED: Ondansetron 4 mg VIAL 2 MG/ML 2 ml VIAL IV PRN (13:59)
[2022-09-27] MEDS ORDERED: Magnesium Hydroxide LIQ 30 ML UDC PO PRN (13:59)
[2022-09-27] MEDS ORDERED: Albuterol HFA INHALER 8 gm MDI INH PRN (14:17)
[2022-09-27] MEDS ORDERED: Furosemide 40 mg/4 ml IV VIAL IV SLOW PU ONE (15:46)
[2022-09-27] MEDS: Enoxaparin 40 MG/0.4 ML SYR SUBCUT SCH (17:28)
[2022-09-28] MEDS: Nystatin TOP POWDER 15 GM BTL TOPICAL SCH ×4 (00:40→22:54)
[2022-09-28 07:35] LABS: ABS Basophils 0.1 10^3/ul (0-0.2); ABS Eosinophils 0.1 10^3/ul (0-0.6); ABS Monocytes 0.6 10^3/ul (0-0.8); ABS Neutrophils 6.5 10^3/ul (1.5-7.7); Eosinophil % 1.4 %; Hematocrit 44 % (35-47); Lymphocyte % 21.3 %; Mean Corpuscular HGB Conc 32 g/dL (31-36); Mean Corpuscular Hemoglobin 28 pg (27-31); Mean Corpuscular Volume 86 fL (80-97); Mean Platelet Volume 8.2 fL (7.4-10.4); Platelet Count 259 10^3/uL (150-450); Red Blood Count 5.08 10^6 /uL (3.70-4.87); Red Cell Distribution Width 15 % (10-15); White Blood Count 9.3 10^3/uL (3.5-10.8)
[2022-09-28 08:28] LABS: C Reactive Protein 112.03 mg/L (<8.01); Calcium 9.5 mg/dL (8.6-10.3); Potassium 4.4 mmol/L (3.5-5.0); eGFR CKD-EPI 51.4 (>60)
[2022-09-28 12:13] LABS: Urine Appearance Clear; Urine Bilirubin Negative (Negative); Urine Blood Trace (Intact) (Negative); Urine Color Yellow; Urine Glucose Negative (Negative); Urine Ketones Negative (Negative)
[2022-09-28 12:14] LABS: Urine Nitrite Positive (Negative); Urine Protein Negative (Negative); Urine Urobilinogen 0.2 (Negative) (Negative)
[2022-09-28] MEDS: cefTRIAXone 1 gm/50 mL D5W 1 GM/50 ML BAG IV SCH (12:26)
[2022-09-28 12:36] LABS: Urine Bacteria Absent (Absent); Urine Red Blood Cell Trace(0-2/hpf) (Absent); Urine Squamous Epithelial Cell Present (Absent); Urine White Blood Cell 2+(11-20/hpf) (Absent)
[2022-09-28] MEDS: Enoxaparin 40 MG/0.4 ML SYR SUBCUT SCH (16:35)
[2022-09-29] MEDS: Mometasone/Formoter 100/5 MDI INH SCH ×2 (03:52→07:31)
[2022-09-29 06:15] LABS: ABS Basophils 0.1 10^3/ul (0-0.2); ABS Eosinophils 0.2 10^3/ul (0-0.6); ABS Lymphocytes 1.9 10^3/ul (1.0-4.8); ABS Monocytes 0.6 10^3/ul (0-0.8); ABS Neutrophils 5.6 10^3/ul (1.5-7.7); Eosinophil % 2.2 %; Hematocrit 42 % (35-47); Hemoglobin 13.7 g/dL (12.0-16.0); Lymphocyte % 22.5 %; Mean Corpuscular HGB Conc 33 g/dL (31-36); Mean Corpuscular Hemoglobin 28 pg (27-31); Mean Corpuscular Volume 86 fL (80-97); Mean Platelet Volume 8.2 fL (7.4-10.4); Platelet Count 242 10^3/uL (150-450); Red Cell Distribution Width 15 % (10-15); White Blood Count 8.4 10^3/uL (3.5-10.8)
[2022-09-29 07:45] LABS: C Reactive Protein 84.78 mg/L (<8.01); Calcium 9.3 mg/dL (8.6-10.3); Potassium 3.9 mmol/L (3.5-5.0)
[2022-09-29] MEDS ORDERED: Cholecalciferol (VIT D3) 1,000 unit TAB PO SCH (09:00)
[2022-09-29] MEDS: Nystatin TOP POWDER 15 GM BTL TOPICAL SCH ×2 (09:24→14:05)
[2022-09-29 10:19] LABS: eGFR CKD-EPI 52.5 (>60)
[2022-09-29] MEDS: cefTRIAXone 1 gm/50 mL D5W 1 GM/50 ML BAG IV SCH (12:06)
[2022-09-29 13:35] VITALS: BP 134/47
[2022-09-29] MEDS: Enoxaparin 40 MG/0.4 ML SYR SUBCUT SCH (14:04)
== END 2022-09-29 15:05 | disposition home or self-care (01) | DRG 193 ==
LOC: ED 09:07 → EDHOLD 13:59 → SUATTDRO 13:59 → MEDTELE 09-28 20:22
PROVIDERS: ADMIT Internal Medicine; ATTEND Internal Medicine